=== PATIENT | female | born 1940 | race Caucasian/White ===

== ENCOUNTER 2023-05-20 01:28 | Inpatient (IN) | payer MEDICARE, SELFPAY ==
--- NOTE | ~2023-05-20 | CT_ITS ---
EXAMINATION: CT OF THE HEAD WITHOUT CONTRAST CLINICAL INFORMATION: Headache status post fall COMPARISON: None. TECHNIQUE: Noncontrast CT scan of the head was obtained from the base of the skull to the vertex. This CT examination was performed using dose optimization techniques as appropriate, variously including the following: *Automated exposure control *Adjustment of mA and/or kV according to patient size (this includes techniques or standardized protocols for targeted exams where dose is matched to indication/reason for exam; i.e. extremities or head) *Use of iterative reconstruction technique DLP: 568 mGy-cm FINDINGS: The ventricles and cisterns are normal in size, shape and configuration. There are no extra-axial surface collections or evidence of hemorrhage. Midline structures are central. The rouse/white differentiation is maintained. The orbits appear normal bilaterally. The paranasal sinuses are clear. No fractures are seen. CT/CT head/brain wo IV con IMPRESSION: Unremarkable examination. Pelvis with bilateral hip imaging 5 views. FINDINGS: Slightly limited positioning with no definite deformity of the femoral neck. Joint spaces preserved. Trochanters intact. Pubic bones grossly intact. IMPRESSION: No definite deformity.
--- NOTE | ~2023-05-20 | XR_ITS ---
EXAMINATION: XR HIP, LEFT CLINICAL INFORMATION: Left hip displaced transverse fracture through the subcapital left femoral neck with slight superior displacement of the distal fracture fragment. COMPARISON: CT left hip 06/11/2023, x-ray pelvis with bilateral hips 06/10/2023. TECHNIQUE: AP view of the pelvis and two views of the left hip. FINDINGS: Bones are diffusely demineralized. The subcapital fracture of the left hip was better characterized on CT scan of 06/11/2023. Moderate degenerative changes in the left hip joint. Visualization limited due to cross-table lateral technique with overlying soft tissues. XR/XR hip LT w PEL1V IMPRESSION: The subcapital fracture of the left hip was better characterized on CT scan of 06/11/2023.
--- NOTE | ~2023-05-20 | CT_ITS ---
EXAMINATION: CT HIP WITHOUT CONTRAST, LEFT CLINICAL INFORMATION: Fall. Hip pain. COMPARISON: Plain film exam left hip June 10, 2023 TECHNIQUE: Multidetector volumetric imaging was obtained through the left hip without contrast material. Multiplanar reformatted images were submitted in coronal and sagittal planes. This CT examination was performed using dose optimization techniques as appropriate, variously including the following: *Automated exposure control *Adjustment of mA and/or kV according to patient size (this includes techniques or standardized protocols for targeted exams where dose is matched to indication/reason for exam; i.e. extremities or head) *Use of iterative reconstruction technique DLP: 110 mGy-cm FINDINGS: There is a displaced transverse fracture through the subcapital left femoral neck. Slight superior displacement of the distal fracture fragment. Femoral head remains seated in the acetabulum. No fracture of the acetabulum. Visualized portions of the sacroiliac joint on the left and the symphysis pubis remain intact. No soft tissue large hematoma Large collection of stool in rectum. CT/CT hip LT wo IV con IMPRESSION: Displaced transverse fracture through the subcapital left femoral neck.
[2023-05-20 02:24] VITALS: BMI 18.2
[2023-05-20 02:26] VITALS: BP 141/68; PULSE 60; RESP 16; TEMP 36.5; O2SAT 95
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
[2023-05-20 07:55] VITALS: BP 122/79; PULSE 48; RESP 16; TEMP 36.1; O2SAT 97
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
--- NOTE | 2023-05-20 11:37 | HO.PM.IMCN ---
History of Present Illness Data of Consult Service Date: 05/20/23 Primary Care Provider: Unknown Physician HPI Reason for consult: Admission H&P Pt is a 82-year-old female with a PMH significant for unspecified dementia and HTN who is admitted to [facility] after increased combativeness over the past few weeks. Pt apparently was initially doing well at [facility] assisted living, but gradually became more combative likely secondary to being upset she was no longer living at home. Medical consult for admission H&P. ?Pt approached in common area where she is sitting by herself and crying. Reports she does not have any current or past medical issues, though adds she just had a baby two weeks ago. States she does not want to be seen for H&P, she just wants to go. Review of Systems Review of Systems: Pt declines interview, but states she has no medical issues PMFSH Medical History Insomnia Dementia Hypertension Social History Housing: Assisted Living Facility Do you presently have visiting nurse or other home services: No (Assisted living) Unable to assess alcohol history related to: Unable to respond Patient Tobacco Use Status: Never used Tobacco Use of substances other than those prescribed or required for medical reasons: No Currently Displaying Signs/Symptoms of Drug Intoxication Withdrawal: No Any prior treatment program specific to substance use: No Advance Directives: No Advance Directives Information Provided: No Do you have thoughts of harming others: None Do you have a plan to hurt others: No Plan Recently lost weight without trying: Unsure Eating poorly because of decreased appetite: Yes Nutrition Risks: No Nutritional Risk Patient : No : No Poor oral hygiene: No service: No Sexual orientation: Straight/Heterosexual Meds Allergies Allergy/AdvReac Type Severity Reaction Status Date / Time No Known Allergies Allergy Verified 05/20/23 02:08 Active Medications: Current Medications Acetaminophen (Acetaminophen 325 Mg Tablet) 650 mg PO Q6H PRN PRN Reason: Headache/Pain Mild Scale (1-3) Al Hydroxide/Mg Hydroxide (Magnesium Hydrox/Alum Hydrox 30 Ml Oral.Susp) 30 ml PO Q6H PRN PRN Reason: Heartburn/Nausea Lisinopril (Lisinopril 2.5 Mg Tablet) 2.5 mg PO DAILY YADIRA; Protocol Last Admin: 05/20/23 08:33 Dose: Not Given Magnesium Hydroxide (Milk Of Magnesia 30 Ml Oral.Susp) 30 ml PO DAILY PRN PRN Reason: Constipation Melatonin (Melatonin 3 Mg Tablet) 3 mg PO BEDTIME YADIRA Trazodone HCl (Trazodone Hcl 50 Mg Tablet) 50 mg PO BEDTIME MRX1 PRN PRN Reason: Insomnia Home Medications Medication Instructions Recorded Confirmed Last Taken Type acetaminophen 325 mg tablet 650 mg PO Q6H PRN Pain 05/20/23 05/20/23 Unknown History (Tylenol) lisinopril 2.5 mg tablet 2.5 mg PO DAILY 05/20/23 05/20/23 Unknown History melatonin 3 mg PO BEDTIME 05/20/23 05/20/23 Unknown History trazodone 50 mg tablet 50 mg PO BEDTIME 05/20/23 05/20/23 Unknown History Physical Exam Vital Signs and Narrative: Vital Signs: Last Vital Signs Temp 96.9 F 05/20/23 07:55 Pulse 48 L 05/20/23 07:55 Resp 16 05/20/23 07:55 BP 122/79 05/20/23 07:55 Pulse Ox 97 05/20/23 07:55 O2 Del Method Room Air 05/20/23 07:55 BMI result Body Mass Index 18.2 Pt declines full exam General: AOx1, no acute distress Resp: No in respiratory distress. Speaking in full sentences Neuro: Cranial nerves II-XII grossly intact bilaterally. Motor grossly intact bilaterally Psych: Confused, emotionally labile Assessment and Plan (1) Medical clearance for psychiatric admission: Status: Acute Plan Pt is a 82-year-old female with a PMH significant for unspecified dementia and HTN who is [facility] after increased combativeness over the past few weeks. Pt apparently was initially doing well at [facility] assisted living, but gradually became more combative likely secondary to being upset she was no longer living at home. Medical consult for admission H&P. Mood disorder/unspecified dementia Plan as per psychiatry HTN Continue lisinopril Insomnia Continue trazodone Thank you for allowing us to participate in the care of this patient. Signing off at this time. Please re-consult if any acute complaints or issues arise.
--- NOTE | 2023-05-20 13:42 | PC.NURSE ---
90cc of cloudy yellow urine obtained via clean catch from patient for U/A and C+S.
--- NOTE | 2023-05-20 13:58 | PC.NURSE ---
Patient is confused and refuses to sign her Behavioral Health treatment Plan and her Safety Tool today.
[2023-05-20 14:10] VITALS: BMI 18.2
[2023-05-20 14:12] LABS: Appearance Urine Turbid; Color Urine Yellow; Glucose Urine UA Negative (Negative); Leukocyte Esterase Urine Negative (Negative); Nitrite Urine Negative (Negative); PH 8.5 (5.0-9.0); Urine Blood Negative (Negative); Urine Ketones Negative (Negative); Urine Protein Negative (Neg-Trace)
[2023-05-20 14:18] LABS: Bacteria Urine None Seen (None Seen); Hyaline Casts Urine 0-2 /LPF (0-2); RBC Urine 0-2 /HPF (0-2); Squamous Epithelial Cell Urine 0-2 /HPF (0-2); WBC Urine 0-5 /HPF (0-5)
--- NOTE | 2023-05-20 15:40 | PC.NURSE ---
Clean catch urine was unremarkable so far.
[2023-05-20 15:53] VITALS: BMI 18.2
[2023-05-20 18:00] VITALS: BP 151/66; PULSE 60; RESP 18; TEMP 36.7; O2SAT 97
--- NOTE | 2023-05-20 18:33 | PC.NURSE ---
Patient's watch and bracelet with blue stones, silver toned removed and put into storage at the nurses station. Patient would not let staff remove her two rings, one with multiple clear stones and the other with a colored stone surrounded by several clear stones.
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
[2023-05-20] MEDS: Divalproex Sodium Sprinkles 125 MG CAP.DR.SPR PO (22:23)
[2023-05-20] MEDS: traZODone HCL 50 MG TABLET PO (22:23)
[2023-05-20] MEDS: OLANZapine 5 MG TABLET PO (22:23)
[2023-05-20] MEDS: Melatonin 3 MG TABLET PO (22:23)
[2023-05-21 08:59] LABS: Alanine Aminotransferase 8 U/L (0-31); Albumin Level 3.1 g/dL (3.5-5.0); Alkaline Phosphatase 69 U/L (39-117); Anion Gap 10 (12-20); Aspartate Amino Transferase 12 U/L (5-31); Bilirubin Total 0.7 mg/dL (0.0-1.0); Blood Urea Nitrogen 20 mg/dL (9-16); Calcium 10.9 mg/dL (8.4-10.2); Carbon Dioxide 26 mmol/L (22-29); Chloride 111 mmol/L (96-108); Cholesterol 138 mg/dL (<200); Creatinine Clr Calc Pharmacy 35.2; Estimated Glomerular Filt Rate > 60; Glucose Fasting 81 mg/dL (60-99); HDL Cholesterol 41 mg/dL (>40); LDL Cholesterol Calculated 85 mg/dL (<100); Potassium 3.5 mmol/L (3.3-5.1); Sodium 143 mmol/L (135-145); Total Protein 5.2 g/dL (6.5-8.0); Triglycerides 63 mg/dL (<150)
[2023-05-21 09:16] LABS: Thyroid Stimulating Hormone 0.66 uIU/mL (0.32-4.0)
[2023-05-21 09:25] LABS: Folate 6.1 ng/mL (> or = 4.0); Vitamin B12 205 pg/mL (200-900)
[2023-05-21 09:30] LABS: Estimated Average Glucose 100 mg/dL; Hemoglobin A1c % 5.1 % (<6.0)
[2023-05-21 10:44] VITALS: BP 138/89; PULSE 70; RESP 18; TEMP 36.3; O2SAT 97
[2023-05-21] MEDS: lisinopriL 2.5 MG TABLET PO (10:50)
[2023-05-21] MEDS: OLANZapine 5 MG TABLET PO ×2 (10:51→18:46)
--- NOTE | 2023-05-21 13:41 | PC.NURSE ---
Declined to take 0900 Depakote. Kiarra Garcia NP notified.
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
[2023-05-21 18:00] VITALS: BP 144/79; PULSE 68; RESP 18; TEMP 36.6; O2SAT 96
[2023-05-21] MEDS: Melatonin 3 MG TABLET PO (20:16)
[2023-05-21] MEDS: Divalproex Sodium Sprinkles 125 MG CAP.DR.SPR PO (20:16)
[2023-05-21] MEDS: Multivitamin TABLET 1 TAB PO (20:16)
[2023-05-21] MEDS: traZODone HCL 50 MG TABLET PO (20:16)
[2023-05-22 08:20] VITALS: BP 124/60; PULSE 46; RESP 18; TEMP 35.6; O2SAT 97
[2023-05-22] MEDS: Divalproex Sodium Sprinkles 125 MG CAP.DR.SPR PO ×2 (11:41→20:29)
[2023-05-22] MEDS: lisinopriL 2.5 MG TABLET PO (11:41)
[2023-05-22] MEDS: OLANZapine 5 MG TABLET PO ×3 (11:42→22:36)
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
[2023-05-22 19:35] VITALS: BP 148/67; PULSE 84; RESP 16; TEMP 36.2; O2SAT 94
[2023-05-22] MEDS: traZODone HCL 50 MG TABLET PO ×2 (20:29→22:36)
[2023-05-22] MEDS: Melatonin 3 MG TABLET PO (20:29)
[2023-05-22] MEDS: Multivitamin TABLET 1 TAB PO (20:29)
[2023-05-23] MEDS: Acetaminophen 325 MG TABLET 650 MG PO ×2 (00:08→19:54)
[2023-05-23] MEDS: QUEtiapine Fumarate 25 MG TABLET PO ×2 (00:08→16:26)
[2023-05-23] MEDS: Divalproex Sodium Sprinkles 125 MG CAP.DR.SPR PO ×2 (10:16→19:59)
[2023-05-23] MEDS: LORazepam 0.5 MG TABLET PO (10:16)
[2023-05-23 10:45] VITALS: BP 132/62; PULSE 63; RESP 17; TEMP 37.2; O2SAT 98
[2023-05-23] MEDS: lisinopriL 2.5 MG TABLET PO (10:47)
--- NOTE | 2023-05-23 12:30 | MHC.CLN ---
NUTRITION DIET=REGULAR. PATIENT IS UNDERWEIGHT WITH BMI=18.2. VARIABLE INTAKE. ADDING MAGIC CUP BID (580 KCALS, 18 G PROTEIN) TO INCREASE KCALS. RD TO MONITOR INTAKE AND WEIGHT WEEKLY..
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
[2023-05-23 18:00] VITALS: BP 130/58; PULSE 67; RESP 16; TEMP 36.5; O2SAT 95
[2023-05-23] MEDS: traZODone HCL 50 MG TABLET PO (19:53)
[2023-05-23] MEDS: Melatonin 3 MG TABLET PO (19:53)
[2023-05-23] MEDS: Multivitamin TABLET 1 TAB PO (19:54)
[2023-05-24 11:15] VITALS: BP 160/65; PULSE 56; RESP 16; TEMP 35.7; O2SAT 97
[2023-05-24] MEDS: lisinopriL 2.5 MG TABLET PO (11:22)
[2023-05-24] MEDS: Divalproex Sodium Sprinkles 125 MG CAP.DR.SPR PO ×2 (11:24→21:12)
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
[2023-05-24 18:00] VITALS: BP 125/61; PULSE 90; RESP 16; TEMP 37.3; O2SAT 96
[2023-05-24] MEDS: traZODone HCL 50 MG TABLET PO (21:12)
[2023-05-24] MEDS: Multivitamin TABLET 1 TAB PO (21:12)
[2023-05-24] MEDS: Melatonin 3 MG TABLET PO (21:12)
[2023-05-24] MEDS: QUEtiapine Fumarate 25 MG TABLET PO (21:12)
[2023-05-24] MEDS: LORazepam 0.5 MG TABLET PO (21:12)
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
[2023-05-25 14:20] VITALS: BP 119/57; PULSE 53; RESP 16; TEMP 36.9; O2SAT 98
[2023-05-25 18:00] VITALS: BP 146/73; PULSE 64; RESP 17; TEMP 36.3; O2SAT 98
[2023-05-25] MEDS: Divalproex Sodium Sprinkles 125 MG CAP.DR.SPR PO (20:29)
[2023-05-25] MEDS: Multivitamin TABLET 1 TAB PO (20:35)
[2023-05-25] MEDS: traZODone HCL 50 MG TABLET PO (20:35)
[2023-05-25] MEDS: Melatonin 3 MG TABLET PO (20:36)
[2023-05-26 07:00] VITALS: BMI 18.0
[2023-05-26 09:16] VITALS: BP 155/77; PULSE 63; RESP 16; TEMP 36.4; O2SAT 99
[2023-05-26] MEDS: Divalproex Sodium Sprinkles 125 MG CAP.DR.SPR PO ×2 (09:45→20:42)
[2023-05-26] MEDS: lisinopriL 2.5 MG TABLET PO (09:45)
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
[2023-05-26] MEDS: LORazepam 0.5 MG TABLET PO (17:06)
[2023-05-26 18:00] VITALS: BP 125/58; PULSE 72; RESP 17; TEMP 36.3; O2SAT 95
[2023-05-26] MEDS: QUEtiapine Fumarate 25 MG TABLET PO (20:43)
[2023-05-26] MEDS: Melatonin 3 MG TABLET PO (20:43)
[2023-05-26] MEDS: Multivitamin TABLET 1 TAB PO (20:43)
[2023-05-27 08:02] VITALS: BP 153/66; PULSE 76; RESP 16; TEMP 36; O2SAT 97
[2023-05-27] MEDS: Divalproex Sodium Sprinkles 125 MG CAP.DR.SPR PO ×2 (08:23→21:42)
[2023-05-27] MEDS: lisinopriL 2.5 MG TABLET PO (08:23)
[2023-05-27] MEDS: Memantine HCl 5 MG TABLET PO (08:23)
--- NOTE | 2023-05-27 11:21 | P.PNPSI_ITS ---
Subjective Subjective Date of Service: 05/27/23 Reason For Visit: Unspecified dementia Subjective Notes: Conditional Voluntary Interim History: Pt slept through the night. She ambulates on the unit, holding a stuffed cat, petting the cat, in NAD. Not oriented to place or situation. Review of Systems Review of Systems Pt declines interview, but states she has no medical issues Mental Status Exam Mental Status Exam Patient Appearance: Well Grooomed and Appropriate Patient Orientation: Person and Situation Level of Consciousness: Awake and Appropriate Patient Behavior: Guarded and Passive Mood Description: Withdrawn Affect Description: Constricted Patient Cognition Impaired: Yes Ability to Follow Directions: Good Speech Pattern: Clear Memory Description: Remote Impaired, Episodic Impaired, Short Term Intact and Working Impaired Diagnostics Vital Signs (24Hr): Vital Signs - 24 hr 05/26/23 18:00 05/27/23 08:02 Temperature 97.4 F 96.8 F Pulse Rate 72 76 Respiratory Rate 17 16 Blood Pressure 125/58 L 153/66 H Pulse Oximetry 95 97 Oxygen Delivery Method Room Air Room Air BMI result Body Mass Index 18.0 Labs 05/21/23 07:45 Medications Medications Current Medications Acetaminophen (Acetaminophen 325 Mg Tablet) 650 mg PO Q6H PRN PRN Reason: Headache/Pain Mild Scale (1-3) Last Admin: 05/23/23 19:54 Dose: 650 mg Al Hydroxide/Mg Hydroxide (Magnesium Hydrox/Alum Hydrox 30 Ml Oral.Susp) 30 ml PO Q6H PRN PRN Reason: Heartburn/Nausea Divalproex Sodium (Divalproex Sodium Sprinkles 125 Mg ) 125 mg PO BID [facility] Last Admin: 05/27/23 08:23 Dose: 125 mg Lisinopril (Lisinopril 2.5 Mg Tablet) 2.5 mg PO DAILY [facility]; Protocol Last Admin: 05/27/23 08:23 Dose: 2.5 mg Lorazepam (Lorazepam 0.5 Mg Tablet) 0.5 mg PO DAILY PRN PRN Reason: anxiety restlessness Last Admin: 05/26/23 17:06 Dose: 0.5 mg Magnesium Hydroxide (Milk Of Magnesia 30 Ml Oral.Susp) 30 ml PO DAILY PRN PRN Reason: Constipation Melatonin (Melatonin 3 Mg Tablet) 3 mg PO BEDTIME [facility] Last Admin: 05/26/23 20:43 Dose: 3 mg Memantine (Memantine Hcl 5 Mg Tablet) 5 mg PO DAILY [facility] Last Admin: 05/27/23 08:23 Dose: 5 mg Multivitamins/Vitamin C (Multivitamin Tablet) 1 tab PO BEDTIME [facility] Last Admin: 05/26/23 20:43 Dose: 1 tab Quetiapine Fumarate (Quetiapine Fumarate 25 Mg Tablet) 25 mg PO Q6H PRN PRN Reason: psychosis Last Admin: 05/24/23 21:12 Dose: 25 mg Quetiapine Fumarate (Quetiapine Fumarate 25 Mg Tablet) 25 mg PO BEDTIME [facility] Last Admin: 05/26/23 20:43 Dose: 25 mg Trazodone HCl (Trazodone Hcl 50 Mg Tablet) 50 mg PO BEDTIME MRX1 PRN PRN Reason: Insomnia Last Admin: 05/25/23 20:35 Dose: 50 mg Allergies Allergies Allergy/AdvReac Type Severity Reaction Status Date / Time No Known Allergies Allergy Verified 05/20/23 02:08 Assessment & Plan Assessment & Plan (1) Dementia: Status: Acute Code(s): F03.90 - Unspecified dementia, unspecified severity, without behavioral disturbance, psychotic disturbance, mood disturbance, and anxiety Plan The patient is an elderly female with a past history of dementia who was brought to the emergency room of another hospital for an episode of agitation has not been progressed. Apparently she was been diagnosed with a UTI and treated with antibiotics that were completed but she remains confused and assaultive at times. There was reported she used to abuse alcohol but she had been clean and sober most likely her dementia is related to alcohol use disorder. 1. Gather collateral information. The patient is a very poor historian unable to provide any details. 2. Medical consult completed- no new medical issues. 3. Fifteen minute checks. 4. continue a low dose of Depakote to target mood lability. 5. On May 23 we change the p.r.n. from Zyprexa to Seroquel. 6. Start Namenda 5 mg p.o. q.h.s. Reason for continued inpatient stay Substantial Risk for: inability to function Time Spent With Patient Time: Total time managing care of this patient today ____ minutes.
--- NOTE | 2023-05-27 13:45 | MHC.CLN ---
F/U DIET=REGULAR. PROVIDE MAGIC CUP BID (580 KCALS, 18 G PROTEIN) TO INCREASE KCALS. REVIEW OF RECENT INTAKE SHOWS 50-100% AT LUNCH AND SUPPER. WEIGHT HX SHOWS 1# LOSS SINCE ADM, NOT SIGNIFICANT. RD TO MONITOR INTAKE AND WEIGHT WEEKLY.
[2023-05-27] MEDS: LORazepam 0.5 MG TABLET PO (16:22)
[2023-05-27 18:00] VITALS: BP 120/80; PULSE 71; RESP 17; TEMP 36.2; O2SAT 99
[2023-05-27] MEDS: Melatonin 3 MG TABLET PO (21:40)
[2023-05-27] MEDS: Multivitamin TABLET 1 TAB PO (21:40)
[2023-05-27] MEDS: QUEtiapine Fumarate 25 MG TABLET PO (21:41)
[2023-05-28 08:05] VITALS: BP 156/74; PULSE 70; RESP 16; TEMP 36.7; O2SAT 98
[2023-05-28] MEDS: lisinopriL 2.5 MG TABLET PO (08:50)
[2023-05-28] MEDS: Divalproex Sodium Sprinkles 125 MG CAP.DR.SPR PO (08:50)
[2023-05-28] MEDS: Memantine HCl 5 MG TABLET PO (08:59)
--- NOTE | 2023-05-28 11:46 | P.PNPSI_ITS ---
Subjective Subjective Date of Service: 05/28/23 Reason For Visit: Unspecified dementia Interim History: calm, cooperative. says in response to query as to how she is doing, just sleeping. no questions or complaints. Mental Status Exam Mental Status Exam Patient Appearance: Well Grooomed and Appropriate Patient Orientation: Person and Situation Level of Consciousness: Awake and Appropriate Patient Behavior: Guarded and Passive Mood Description: Withdrawn Affect Description: Constricted Patient Cognition Impaired: Yes Ability to Follow Directions: Good Speech Pattern: Clear Memory Description: Remote Impaired, Episodic Impaired, Short Term Intact and Working Impaired Diagnostics Vital Signs (24Hr): Vital Signs - 24 hr 05/27/23 18:00 05/28/23 08:05 Temperature 97.2 F 98.1 F Pulse Rate 71 70 Respiratory Rate 17 16 Blood Pressure 120/80 156/74 H Pulse Oximetry 99 98 Oxygen Delivery Method Room Air Room Air BMI result Body Mass Index 18.0 Labs 05/21/23 07:45 Medications Medications Current Medications Acetaminophen (Acetaminophen 325 Mg Tablet) 650 mg PO Q6H PRN PRN Reason: Headache/Pain Mild Scale (1-3) Last Admin: 05/23/23 19:54 Dose: 650 mg Al Hydroxide/Mg Hydroxide (Magnesium Hydrox/Alum Hydrox 30 Ml Oral.Susp) 30 ml PO Q6H PRN PRN Reason: Heartburn/Nausea Divalproex Sodium (Divalproex Sodium Sprinkles 125 Mg ) 125 mg PO BID [facility] Last Admin: 05/28/23 08:50 Dose: 125 mg Lisinopril (Lisinopril 2.5 Mg Tablet) 2.5 mg PO DAILY [facility]; Protocol Last Admin: 05/28/23 08:50 Dose: 2.5 mg Magnesium Hydroxide (Milk Of Magnesia 30 Ml Oral.Susp) 30 ml PO DAILY PRN PRN Reason: Constipation Melatonin (Melatonin 3 Mg Tablet) 3 mg PO BEDTIME [facility] Last Admin: 05/27/23 21:40 Dose: 3 mg Memantine (Memantine Hcl 5 Mg Tablet) 5 mg PO DAILY [facility] Last Admin: 05/28/23 08:59 Dose: 5 mg Multivitamins/Vitamin C (Multivitamin Tablet) 1 tab PO BEDTIME [facility] Last Admin: 05/27/23 21:40 Dose: 1 tab Quetiapine Fumarate (Quetiapine Fumarate 25 Mg Tablet) 25 mg PO Q6H PRN PRN Reason: psychosis Last Admin: 05/24/23 21:12 Dose: 25 mg Quetiapine Fumarate (Quetiapine Fumarate 25 Mg Tablet) 25 mg PO BEDTIME [facility] Last Admin: 05/27/23 21:41 Dose: 25 mg Trazodone HCl (Trazodone Hcl 50 Mg Tablet) 50 mg PO BEDTIME MRX1 PRN PRN Reason: Insomnia Last Admin: 05/25/23 20:35 Dose: 50 mg Allergies Allergies Allergy/AdvReac Type Severity Reaction Status Date / Time No Known Allergies Allergy Verified 05/20/23 02:08 Assessment & Plan Assessment & Plan (1) Dementia: Status: Acute Code(s): F03.90 - Unspecified dementia, unspecified severity, without behavioral disturbance, psychotic disturbance, mood disturbance, and anxiety Plan The patient is an elderly female with a past history of dementia who was brought to the emergency room of another hospital for an episode of agitation has not been progressed. Apparently she was been diagnosed with a UTI and treated with antibiotics that were completed but she remains confused and assaultive at times. There was reported she used to abuse alcohol but she had been clean and sober most likely her dementia is related to alcohol use disorder. 1. Gather collateral information. The patient is a very poor historian unable to provide any details. 2. Medical consult completed- no new medical issues. 3. Fifteen minute checks. 4. continue a low dose of Depakote to target mood lability. 5. On May 23 we change the p.r.n. from Zyprexa to Seroquel. 6. Start Namenda 5 mg p.o. q.h.s. 2/3: calm, cooperative. no questions or complaints. Reason for continued inpatient stay Substantial Risk for: inability to function and rapid decompensation Time Spent With Patient Time: Total time managing care of this patient today ____ minutes.
[2023-05-28 18:00] VITALS: BP 128/60; PULSE 73; RESP 18; TEMP 36.8; O2SAT 98
[2023-05-29 08:12] VITALS: BP 134/63; PULSE 52; RESP 16; TEMP 36.4; O2SAT 96
[2023-05-29] MEDS: Divalproex Sodium Sprinkles 125 MG CAP.DR.SPR PO ×2 (08:21→20:13)
[2023-05-29] MEDS: Memantine HCl 5 MG TABLET PO (08:21)
[2023-05-29] MEDS: lisinopriL 2.5 MG TABLET PO (08:21)
--- NOTE | 2023-05-29 11:19 | HO.PSYCHPN ---
Subjective Subjective Date of Service: 05/29/23 Reason For Visit: Unspecified dementia Interim History: sleeping mid-morning, rousable. no questions or complaints. per staff, very confused. notable sundowning. eating and sleeping well. Mental Status Exam Mental Status Exam Patient Appearance: Well Grooomed and Appropriate Patient Orientation: Person and Situation Level of Consciousness: Awake and Appropriate Patient Behavior: Guarded and Passive Mood Description: Withdrawn Affect Description: Constricted Patient Cognition Impaired: Yes Ability to Follow Directions: Good Speech Pattern: Clear Memory Description: Remote Impaired, Episodic Impaired, Short Term Intact and Working Impaired Diagnostics Vital Signs (24Hr): Vital Signs - 24 hr 05/28/23 18:00 05/29/23 08:12 Temperature 98.2 F 97.6 F Pulse Rate 73 52 Respiratory Rate 18 16 Blood Pressure 128/60 134/63 Pulse Oximetry 98 96 Oxygen Delivery Method Room Air Room Air BMI result Body Mass Index 18.0 Labs 05/21/23 07:45 Medications Medications Current Medications Acetaminophen (Acetaminophen 325 Mg Tablet) 650 mg PO Q6H PRN PRN Reason: Headache/Pain Mild Scale (1-3) Last Admin: 05/23/23 19:54 Dose: 650 mg Al Hydroxide/Mg Hydroxide (Magnesium Hydrox/Alum Hydrox 30 Ml Oral.Susp) 30 ml PO Q6H PRN PRN Reason: Heartburn/Nausea Divalproex Sodium (Divalproex Sodium Sprinkles 125 Mg Jared.) 125 mg PO BID [facility] Last Admin: 05/29/23 08:21 Dose: 125 mg Lisinopril (Lisinopril 2.5 Mg Tablet) 2.5 mg PO DAILY [facility]; Protocol Last Admin: 05/29/23 08:21 Dose: 2.5 mg Magnesium Hydroxide (Milk Of Magnesia 30 Ml Oral.Susp) 30 ml PO DAILY PRN PRN Reason: Constipation Melatonin (Melatonin 3 Mg Tablet) 3 mg PO BEDTIME [facility] Last Admin: 05/28/23 22:05 Dose: Not Given Memantine (Memantine Hcl 5 Mg Tablet) 5 mg PO DAILY [facility] Last Admin: 05/29/23 08:21 Dose: 5 mg Multivitamins/Vitamin C (Multivitamin Tablet) 1 tab PO BEDTIME [facility] Last Admin: 05/28/23 22:05 Dose: Not Given Quetiapine Fumarate (Quetiapine Fumarate 25 Mg Tablet) 25 mg PO Q6H PRN PRN Reason: psychosis Last Admin: 05/24/23 21:12 Dose: 25 mg Quetiapine Fumarate (Quetiapine Fumarate 25 Mg Tablet) 25 mg PO BEDTIME [facility] Last Admin: 05/28/23 22:05 Dose: Not Given Trazodone HCl (Trazodone Hcl 50 Mg Tablet) 50 mg PO BEDTIME MRX1 PRN PRN Reason: Insomnia Last Admin: 05/25/23 20:35 Dose: 50 mg Allergies Allergies Allergy/AdvReac Type Severity Reaction Status Date / Time No Known Allergies Allergy Verified 05/20/23 02:08 Assessment & Plan Assessment & Plan (1) Dementia: Status: Acute Code(s): F03.90 - Unspecified dementia, unspecified severity, without behavioral disturbance, psychotic disturbance, mood disturbance, and anxiety Plan The patient is an elderly female with a past history of dementia who was brought to the emergency room of another hospital for an episode of agitation has not been progressed. Apparently she was been diagnosed with a UTI and treated with antibiotics that were completed but she remains confused and assaultive at times. There was reported she used to abuse alcohol but she had been clean and sober most likely her dementia is related to alcohol use disorder. 1. Gather collateral information. The patient is a very poor historian unable to provide any details. 2. Medical consult completed- no new medical issues. 3. Fifteen minute checks. 4. continue a low dose of Depakote to target mood lability. 5. On May 23 we change the p.r.n. from Zyprexa to Seroquel. 6. Start Namenda 5 mg p.o. q.h.s. 2/3: calm, cooperative. no questions or complaints. 2/4: no change in presentation. continue current mgmt. Reason for continued inpatient stay Substantial Risk for: inability to function Time Spent With Patient Time: Total time managing care of this patient today ____ minutes.
[2023-05-29] MEDS: Milk of Magnesia 30 ML ORAL.SUSP PO (11:55)
[2023-05-29] MEDS: QUEtiapine Fumarate 25 MG TABLET PO ×2 (12:09→20:14)
[2023-05-29 18:00] VITALS: BP 153/82; PULSE 72; RESP 18; TEMP 36.5; O2SAT 97
[2023-05-29] MEDS: Melatonin 3 MG TABLET PO (20:14)
[2023-05-29] MEDS: Multivitamin TABLET 1 TAB PO (20:14)
[2023-05-30 07:54] VITALS: BP 151/72; PULSE 52; RESP 18; TEMP 36.4; O2SAT 99
[2023-05-30] MEDS: Memantine HCl 5 MG TABLET PO (08:12)
[2023-05-30] MEDS: Divalproex Sodium Sprinkles 125 MG CAP.DR.SPR PO ×2 (08:12→20:41)
[2023-05-30] MEDS: lisinopriL 2.5 MG TABLET PO (08:12)
--- NOTE | 2023-05-30 08:37 | HO.PSYCHPN ---
Subjective Subjective Date of Service: 05/30/23 Reason For Visit: Unspecified dementia Subjective Notes: Conditional Voluntary Healthcare Proxy: Yes Interim History: Pt slept through the night. No overt behavioral concerns. She is taking medications as prescribed. She is not oriented to place, month, year or situation. She is pleasant on approach. She hold this automatic typewriter inspector's hands and notes that they are cold, asks if she can warm them. SBP slightly elevated 150's. continue to monitor. Review of Systems Review of Systems Pt declines interview, but states she has no medical issues Mental Status Exam Mental Status Exam Patient Appearance: Well Grooomed and Appropriate Patient Orientation: Person and Situation Level of Consciousness: Awake and Appropriate Patient Behavior: Guarded and Passive Mood Description: Withdrawn Affect Description: Constricted Patient Cognition Impaired: Yes Ability to Follow Directions: Good Speech Pattern: Clear Memory Description: Remote Impaired, Episodic Impaired, Short Term Intact and Working Impaired Diagnostics Vital Signs (24Hr): Vital Signs - 24 hr 05/29/23 18:00 05/30/23 07:54 Temperature 97.7 F 97.5 F Pulse Rate 72 52 Respiratory Rate 18 18 Blood Pressure 153/82 H 151/72 H Pulse Oximetry 97 99 Oxygen Delivery Method Room Air Room Air BMI result Body Mass Index 18.0 Labs 05/21/23 07:45 Medications Medications Current Medications Acetaminophen (Acetaminophen 325 Mg Tablet) 650 mg PO Q6H PRN PRN Reason: Headache/Pain Mild Scale (1-3) Last Admin: 05/23/23 19:54 Dose: 650 mg Al Hydroxide/Mg Hydroxide (Magnesium Hydrox/Alum Hydrox 30 Ml Oral.Susp) 30 ml PO Q6H PRN PRN Reason: Heartburn/Nausea Divalproex Sodium (Divalproex Sodium Sprinkles 125 Mg ) 125 mg PO BID [facility] Last Admin: 05/30/23 08:12 Dose: 125 mg Lisinopril (Lisinopril 2.5 Mg Tablet) 2.5 mg PO DAILY [facility]; Protocol Last Admin: 05/30/23 08:12 Dose: 2.5 mg Magnesium Hydroxide (Milk Of Magnesia 30 Ml Oral.Susp) 30 ml PO DAILY PRN PRN Reason: Constipation Last Admin: 05/29/23 11:55 Dose: 30 ml Melatonin (Melatonin 3 Mg Tablet) 3 mg PO BEDTIME [facility] Last Admin: 05/29/23 20:14 Dose: 3 mg Memantine (Memantine Hcl 5 Mg Tablet) 5 mg PO DAILY [facility] Last Admin: 05/30/23 08:12 Dose: 5 mg Multivitamins/Vitamin C (Multivitamin Tablet) 1 tab PO BEDTIME [facility] Last Admin: 05/29/23 20:14 Dose: 1 tab Quetiapine Fumarate (Quetiapine Fumarate 25 Mg Tablet) 25 mg PO Q6H PRN PRN Reason: psychosis Last Admin: 05/29/23 12:09 Dose: 25 mg Quetiapine Fumarate (Quetiapine Fumarate 25 Mg Tablet) 25 mg PO BEDTIME [facility] Last Admin: 05/29/23 20:14 Dose: 25 mg Trazodone HCl (Trazodone Hcl 50 Mg Tablet) 50 mg PO BEDTIME MRX1 PRN PRN Reason: Insomnia Last Admin: 05/25/23 20:35 Dose: 50 mg Allergies Allergies Allergy/AdvReac Type Severity Reaction Status Date / Time No Known Allergies Allergy Verified 05/20/23 02:08 Assessment & Plan Assessment & Plan (1) Dementia: Status: Acute Code(s): F03.90 - Unspecified dementia, unspecified severity, without behavioral disturbance, psychotic disturbance, mood disturbance, and anxiety Plan The patient is an elderly female with a past history of dementia who was brought to the emergency room of another hospital for an episode of agitation has not been progressed. Apparently she was been diagnosed with a UTI and treated with antibiotics that were completed but she remains confused and assaultive at times. There was reported she used to abuse alcohol but she had been clean and sober most likely her dementia is related to alcohol use disorder. 1. Gather collateral information. The patient is a very poor historian unable to provide any details. 2. Medical consult completed- no new medical issues. 3. Fifteen minute checks. 4. continue a low dose of Depakote to target mood lability. 5. On May 23 we change the p.r.n. from Zyprexa to Seroquel. 6. Start Namenda 5 mg p.o. q.h.s. 2/3: calm, cooperative. no questions or complaints. 2/4: no change in presentation. continue current mgmt. 2/5 continue tx. Reason for continued inpatient stay Substantial Risk for: inability to function Time Spent With Patient Time: Total time managing care of this patient today ____ minutes.
--- NOTE | 2023-05-30 11:02 | PC.NURSE ---
HR 52 this morning and asymptomatic. Anna Hollingsworth NP notified.
[2023-05-30 18:00] VITALS: BP 153/83; PULSE 82; RESP 18; TEMP 36.4; O2SAT 97
[2023-05-30] MEDS: QUEtiapine Fumarate 25 MG TABLET PO (20:41)
[2023-05-30] MEDS: Multivitamin TABLET 1 TAB PO (20:41)
[2023-05-30] MEDS: Melatonin 3 MG TABLET PO (20:41)
[2023-05-30] MEDS: traZODone HCL 50 MG TABLET PO (20:41)
[2023-05-31 08:21] VITALS: BP 176/75; PULSE 55; RESP 16; TEMP 36.2; O2SAT 100
[2023-05-31] MEDS: Memantine HCl 5 MG TABLET PO (08:54)
[2023-05-31] MEDS: lisinopriL 2.5 MG TABLET PO (08:54)
[2023-05-31] MEDS: Divalproex Sodium Sprinkles 125 MG CAP.DR.SPR PO ×2 (08:54→20:03)
--- NOTE | 2023-05-31 10:19 | HO.PSYCHPN ---
Subjective Subjective Date of Service: 05/31/23 Reason For Visit: Unspecified dementia Subjective Notes: Conditional Voluntary Interim History: The nursing staff reported the patient had been fully compliant with treatment, no acute changes and she slept 8 hours but she is labile at times. On interview the patient is pleasantly confused, easily redirectable. Expansive mood at times, disorganized. Mental Status Exam Mental Status Exam Patient Appearance: Appropriate Patient Orientation: Person Level of Consciousness: Awake and Alert Patient Behavior: Guarded and Passive Mood Description: Withdrawn Affect Description: Blunted Patient Cognition Impaired: Yes Ability to Follow Directions: Good Speech Pattern: Clear Hallucinations: None Delusions: Not Present Thought Process: Distracted and Evasive Thought Content: positive for Sisters and positive for Poverty of Content Judgement: Poor Diagnostics Vital Signs (24Hr): Vital Signs - 24 hr 05/30/23 18:00 05/31/23 08:21 Temperature 97.5 F 97.2 F Pulse Rate 82 55 Respiratory Rate 18 16 Blood Pressure 153/83 H 176/75 H Pulse Oximetry 97 100 Oxygen Delivery Method Room Air Room Air BMI result Body Mass Index 18.0 Labs 05/21/23 07:45 Medications Medications Current Medications Acetaminophen (Acetaminophen 325 Mg Tablet) 650 mg PO Q6H PRN PRN Reason: Headache/Pain Mild Scale (1-3) Last Admin: 05/23/23 19:54 Dose: 650 mg Al Hydroxide/Mg Hydroxide (Magnesium Hydrox/Alum Hydrox 30 Ml Oral.Susp) 30 ml PO Q6H PRN PRN Reason: Heartburn/Nausea Divalproex Sodium (Divalproex Sodium Sprinkstephany 125 Mg ) 125 mg PO BID [facility] Last Admin: 05/31/23 08:54 Dose: 125 mg Lisinopril (Lisinopril 2.5 Mg Tablet) 2.5 mg PO DAILY [facility]; Protocol Last Admin: 05/31/23 08:54 Dose: 2.5 mg Magnesium Hydroxide (Milk Of Magnesia 30 Ml Oral.Susp) 30 ml PO DAILY PRN PRN Reason: Constipation Last Admin: 05/29/23 11:55 Dose: 30 ml Melatonin (Melatonin 3 Mg Tablet) 3 mg PO BEDTIME [facility] Last Admin: 05/30/23 20:41 Dose: 3 mg Memantine (Memantine Hcl 5 Mg Tablet) 5 mg PO DAILY [facility] Last Admin: 05/31/23 08:54 Dose: 5 mg Multivitamins/Vitamin C (Multivitamin Tablet) 1 tab PO BEDTIME [facility] Last Admin: 05/30/23 20:41 Dose: 1 tab Quetiapine Fumarate (Quetiapine Fumarate 25 Mg Tablet) 25 mg PO Q6H PRN PRN Reason: psychosis Last Admin: 05/29/23 12:09 Dose: 25 mg Quetiapine Fumarate (Quetiapine Fumarate 25 Mg Tablet) 25 mg PO BEDTIME [facility] Last Admin: 05/30/23 20:41 Dose: 25 mg Trazodone HCl (Trazodone Hcl 50 Mg Tablet) 50 mg PO BEDTIME MRX1 PRN PRN Reason: Insomnia Last Admin: 05/30/23 20:41 Dose: 50 mg Allergies Allergies Allergy/AdvReac Type Severity Reaction Status Date / Time No Known Allergies Allergy Verified 05/20/23 02:08 Assessment & Plan Assessment & Plan (1) Dementia: Status: Acute Code(s): F03.90 - Unspecified dementia, unspecified severity, without behavioral disturbance, psychotic disturbance, mood disturbance, and anxiety Plan The patient is an elderly female with a past history of dementia who was brought to the emergency room of another hospital for an episode of agitation has not been progressed. Apparently she was been diagnosed with a UTI and treated with antibiotics that were completed but she remains confused and assaultive at times. There was reported she used to abuse alcohol but she had been clean and sober most likely her dementia is related to alcohol use disorder. 1. Gather collateral information. The patient is a very poor historian unable to provide any details. 2. Medical consult completed- no new medical issues. 3. Fifteen minute checks. 4. continue a low dose of Depakote to target mood lability. 5. On May 23 we change the p.r.n. from Zyprexa to Seroquel. 6. Start Namenda 5 mg p.o. q.h.s. Reason for continued inpatient stay Substantial Risk for: inability to function, rapid decompensation and med/psych decompensation Time Spent With Patient Time: Total time managing care of this patient today __20__ minutes.
[2023-05-31 10:59] VITALS: BP 143/67; PULSE 63
--- NOTE | 2023-05-31 11:05 | PC.NURSE ---
Morning BP 176/75, hr 55. Bobby ferrer and MD Sutherland notified. Lisinopril administered as ordered and recheck of BP 143/67 and hr 63; MD Sutherland notified.
[2023-05-31 19:40] VITALS: BP 162/70; PULSE 64; RESP 18; TEMP 36.3; O2SAT 97
[2023-05-31] MEDS: QUEtiapine Fumarate 25 MG TABLET PO (20:03)
[2023-05-31] MEDS: Melatonin 3 MG TABLET PO (20:03)
[2023-05-31] MEDS: Multivitamin TABLET 1 TAB PO (20:03)
[2023-05-31] MEDS: traZODone HCL 50 MG TABLET PO (20:03)
[2023-06-01] MEDS: Memantine HCl 5 MG TABLET PO (09:39)
[2023-06-01] MEDS: lisinopriL 2.5 MG TABLET PO (09:40)
[2023-06-01] MEDS: Divalproex Sodium Sprinkles 125 MG CAP.DR.SPR PO ×3 (09:40→20:22)
[2023-06-01 09:52] VITALS: BP 128/61; PULSE 60; RESP 16; TEMP 36.8; O2SAT 96
--- NOTE | 2023-06-01 12:53 | HO.PSYCHPN ---
Subjective Subjective Date of Service: 06/01/23 Reason For Visit: Unspecified dementia Subjective Notes: Conditional Voluntary Interim History: The nursing staff reported the patient had been labile, redirectable fully compliant with treatment and she slept 7 hours. The social security specialist reported the daughter called and apparently she does not qualify for [employer] and since has to be self paid for long-term care. On interview the patient is pleasantly confused but restless at times so we are going to increase Depakote up to 125 mg p.o. t.i.d. Mental Status Exam Mental Status Exam Patient Orientation: Person Level of Consciousness: Awake Patient Behavior: Guarded and Passive Mood Description: Withdrawn Affect Description: Constricted Patient Cognition Impaired: Yes Ability to Follow Directions: Good Speech Pattern: Clear Hallucinations: None Delusions: Not Present Thought Process: Incoherent and Evasive Thought Content: positive for [place] Judgement: Poor Diagnostics Vital Signs (24Hr): Vital Signs - 24 hr 05/31/23 19:40 06/01/23 09:52 Temperature 97.4 F 98.3 F Pulse Rate 64 60 Respiratory Rate 18 16 Blood Pressure 162/70 H 128/61 Pulse Oximetry 97 96 Oxygen Delivery Method Room Air Room Air BMI result Body Mass Index 18.0 Labs 05/21/23 07:45 Medications Medications Current Medications Acetaminophen (Acetaminophen 325 Mg Tablet) 650 mg PO Q6H PRN PRN Reason: Headache/Pain Mild Scale (1-3) Last Admin: 05/23/23 19:54 Dose: 650 mg Al Hydroxide/Mg Hydroxide (Magnesium Hydrox/Alum Hydrox 30 Ml Oral.Susp) 30 ml PO Q6H PRN PRN Reason: Heartburn/Nausea Divalproex Sodium (Divalproex Sodium Sprinkles 125 Mg ) 125 mg PO TID [facility] Last Admin: 06/01/23 09:40 Dose: 125 mg Lisinopril (Lisinopril 2.5 Mg Tablet) 2.5 mg PO DAILY [facility]; Protocol Last Admin: 06/01/23 09:40 Dose: 2.5 mg Magnesium Hydroxide (Milk Of Magnesia 30 Ml Oral.Susp) 30 ml PO DAILY PRN PRN Reason: Constipation Last Admin: 05/29/23 11:55 Dose: 30 ml Melatonin (Melatonin 3 Mg Tablet) 3 mg PO BEDTIME [facility] Last Admin: 05/31/23 20:03 Dose: 3 mg Memantine (Memantine Hcl 5 Mg Tablet) 5 mg PO DAILY [facility] Last Admin: 06/01/23 09:39 Dose: 5 mg Multivitamins/Vitamin C (Multivitamin Tablet) 1 tab PO BEDTIME [facility] Last Admin: 05/31/23 20:03 Dose: 1 tab Quetiapine Fumarate (Quetiapine Fumarate 25 Mg Tablet) 25 mg PO Q6H PRN PRN Reason: psychosis Last Admin: 05/29/23 12:09 Dose: 25 mg Quetiapine Fumarate (Quetiapine Fumarate 25 Mg Tablet) 25 mg PO BEDTIME [facility] Last Admin: 05/31/23 20:03 Dose: 25 mg Trazodone HCl (Trazodone Hcl 50 Mg Tablet) 50 mg PO BEDTIME MRX1 PRN PRN Reason: Insomnia Last Admin: 05/31/23 20:03 Dose: 50 mg Allergies Allergies Allergy/AdvReac Type Severity Reaction Status Date / Time No Known Allergies Allergy Verified 05/20/23 02:08 Assessment & Plan Assessment & Plan (1) Dementia: Status: Acute Code(s): F03.90 - Unspecified dementia, unspecified severity, without behavioral disturbance, psychotic disturbance, mood disturbance, and anxiety Plan The patient is an elderly female with a past history of dementia who was brought to the emergency room of another hospital for an episode of agitation has not been progressed. Apparently she was been diagnosed with a UTI and treated with antibiotics that were completed but she remains confused and assaultive at times. There was reported she used to abuse alcohol but she had been clean and sober most likely her dementia is related to alcohol use disorder. 1. Gather collateral information. The patient is a very poor historian unable to provide any details. 2. Medical consult completed- no new medical issues. 3. Fifteen minute checks. 4. continue a low dose of Depakote to target mood lability. On May 01 we increased up to 125 mg p.o. t.i.d. to target mood lability 5. On May 23 we change the p.r.n. from Zyprexa to Seroquel. 6. Start Namenda 5 mg p.o. q.h.s. Reason for continued inpatient stay Substantial Risk for: inability to function, rapid decompensation and med/psych decompensation Time Spent With Patient Time: Total time managing care of this patient today __20__ minutes.
--- NOTE | 2023-06-01 14:55 | MHC.CLN ---
F/U DIET=REGULAR. PROVIDE MAGIC CUP BID (580 KCALS, 18 G PROTEIN) TO INCREASE KCALS. REVIEW OF RECENT INTAKE SHOWS POOR PO. RD TO MONITOR INTAKE AND WEIGHT WEEKLY.
[2023-06-01 18:00] VITALS: BP 133/83; PULSE 64; RESP 18; TEMP 36; O2SAT 99
[2023-06-01] MEDS: QUEtiapine Fumarate 25 MG TABLET PO (20:22)
[2023-06-01] MEDS: Melatonin 3 MG TABLET PO (20:22)
[2023-06-01] MEDS: Multivitamin TABLET 1 TAB PO (20:22)
[2023-06-02 09:00] VITALS: BP 132/72; PULSE 62; RESP 18; TEMP 36.4; O2SAT 99
[2023-06-02] MEDS: Memantine HCl 5 MG TABLET PO ×2 (10:08→20:55)
[2023-06-02] MEDS: Divalproex Sodium Sprinkles 125 MG CAP.DR.SPR PO ×3 (10:09→20:55)
[2023-06-02] MEDS: lisinopriL 2.5 MG TABLET PO (10:09)
--- NOTE | 2023-06-02 13:40 | HO.PSYCHPN ---
Subjective Subjective Date of Service: 06/02/23 Reason For Visit: Unspecified dementia Subjective Notes: Conditional Voluntary Interim History: The nursing staff reported the patient had been wandering, and cooperative with care at times but redirectable. The psychosocial rehabilitation counselor reported that he spoke with her daughter and they are doing the bed search for long-term care. On interview the patient is very confused but redirectable pleasant. Mental Status Exam Mental Status Exam Patient Appearance: Appropriate Patient Orientation: Person Level of Consciousness: Disoriented Patient Behavior: Passive Mood Description: Calm Affect Description: Labile Patient Cognition Impaired: Yes Ability to Follow Directions: Good Speech Pattern: Clear Hallucinations: None Delusions: Not Present Thought Process: Distracted Thought Content: positive for [place] Judgement: Poor Diagnostics Vital Signs (24Hr): Vital Signs - 24 hr 06/01/23 18:00 06/02/23 09:00 Temperature 96.8 F 97.5 F Pulse Rate 64 62 Respiratory Rate 18 18 Blood Pressure 133/83 132/72 Pulse Oximetry 99 99 Oxygen Delivery Method Room Air Room Air BMI result Body Mass Index 18.0 Labs 05/21/23 07:45 Medications Medications Current Medications Acetaminophen (Acetaminophen 325 Mg Tablet) 650 mg PO Q6H PRN PRN Reason: Headache/Pain Mild Scale (1-3) Last Admin: 05/23/23 19:54 Dose: 650 mg Al Hydroxide/Mg Hydroxide (Magnesium Hydrox/Alum Hydrox 30 Ml Oral.Susp) 30 ml PO Q6H PRN PRN Reason: Heartburn/Nausea Divalproex Sodium (Divalproex Sodium Sprinkles 125 Mg ) 125 mg PO TID [facility] Last Admin: 06/02/23 10:09 Dose: 125 mg Lisinopril (Lisinopril 2.5 Mg Tablet) 2.5 mg PO DAILY [facility]; Protocol Last Admin: 06/02/23 10:09 Dose: 2.5 mg Magnesium Hydroxide (Milk Of Magnesia 30 Ml Oral.Susp) 30 ml PO DAILY PRN PRN Reason: Constipation Last Admin: 05/29/23 11:55 Dose: 30 ml Melatonin (Melatonin 3 Mg Tablet) 3 mg PO BEDTIME [facility] Last Admin: 06/01/23 20:22 Dose: 3 mg Memantine (Memantine Hcl 5 Mg Tablet) 5 mg PO BID [facility] Multivitamins/Vitamin C (Multivitamin Tablet) 1 tab PO BEDTIME [facility] Last Admin: 06/01/23 20:22 Dose: 1 tab Quetiapine Fumarate (Quetiapine Fumarate 25 Mg Tablet) 25 mg PO Q6H PRN PRN Reason: psychosis Last Admin: 05/29/23 12:09 Dose: 25 mg Quetiapine Fumarate (Quetiapine Fumarate 25 Mg Tablet) 25 mg PO BEDTIME [facility] Last Admin: 06/01/23 20:22 Dose: 25 mg Trazodone HCl (Trazodone Hcl 50 Mg Tablet) 50 mg PO BEDTIME MRX1 PRN PRN Reason: Insomnia Last Admin: 05/31/23 20:03 Dose: 50 mg Allergies Allergies Allergy/AdvReac Type Severity Reaction Status Date / Time No Known Allergies Allergy Verified 05/20/23 02:08 Assessment & Plan Assessment & Plan (1) Dementia: Status: Acute Code(s): F03.90 - Unspecified dementia, unspecified severity, without behavioral disturbance, psychotic disturbance, mood disturbance, and anxiety Plan The patient is an elderly female with a past history of dementia who was brought to the emergency room of another hospital for an episode of agitation has not been progressed. Apparently she was been diagnosed with a UTI and treated with antibiotics that were completed but she remains confused and assaultive at times. There was reported she used to abuse alcohol but she had been clean and sober most likely her dementia is related to alcohol use disorder. 1. Gather collateral information. The patient is a very poor historian unable to provide any details. 2. Medical consult completed- no new medical issues. 3. Fifteen minute checks. 4. continue a low dose of Depakote to target mood lability. On May 01 we increased up to 125 mg p.o. t.i.d. to target mood lability 5. On May 23 we change the p.r.n. from Zyprexa to Seroquel. 6. Start Namenda 5 mg p.o. q.h.s. on June 02 we increased it to 5 mg p.o. b.i.d. Reason for continued inpatient stay Substantial Risk for: inability to function, rapid decompensation and med/psych decompensation Time Spent With Patient Time: Total time managing care of this patient today __20__ minutes.
[2023-06-02 19:40] VITALS: BP 160/66; PULSE 85; RESP 16; TEMP 36.2; O2SAT 97
[2023-06-02] MEDS: Multivitamin TABLET 1 TAB PO (20:54)
[2023-06-02] MEDS: Melatonin 3 MG TABLET PO (20:54)
[2023-06-02] MEDS: QUEtiapine Fumarate 25 MG TABLET PO (20:55)
[2023-06-03 08:15] VITALS: BP 108/51; PULSE 52; RESP 18; TEMP 36.4; O2SAT 98
[2023-06-03] MEDS: lisinopriL 2.5 MG TABLET PO (09:08)
[2023-06-03] MEDS: Divalproex Sodium Sprinkles 125 MG CAP.DR.SPR PO ×3 (09:08→20:03)
[2023-06-03] MEDS: Memantine HCl 5 MG TABLET PO ×2 (09:08→20:03)
--- NOTE | 2023-06-03 15:02 | P.PNPSI_ITS ---
Subjective Subjective Date of Service: 06/03/23 Reason For Visit: Unspecified dementia Subjective Notes: Conditional Voluntary Interim History: The nursing staff reported the patient had been compliant with treatment. She remains confused but easily redirectable very pleasant. On interview the patient denies new symptoms she was confused. No evidence of agitation. Mental Status Exam Mental Status Exam Patient Appearance: Appropriate Patient Orientation: Person Level of Consciousness: Awake Patient Behavior: Passive and Wandering Mood Description: Calm Affect Description: Blunted Patient Cognition Impaired: Yes Ability to Follow Directions: Good Speech Pattern: Clear Hallucinations: None Delusions: Not Present Thought Process: Illogical and Slowed Thinking Thought Content: positive for [place] and positive for [place] Content Judgement: Fair Diagnostics Vital Signs (24Hr): Vital Signs - 24 hr 06/02/23 19:40 06/03/23 08:15 Temperature 97.2 F 97.5 F Pulse Rate 85 52 Respiratory Rate 16 18 Blood Pressure 160/66 H 108/51 L Pulse Oximetry 97 98 Oxygen Delivery Method Room Air Room Air BMI result Body Mass Index 18.0 Labs 05/21/23 07:45 Medications Medications Current Medications Acetaminophen (Acetaminophen 325 Mg Tablet) 650 mg PO Q6H PRN PRN Reason: Headache/Pain Mild Scale (1-3) Last Admin: 05/23/23 19:54 Dose: 650 mg Al Hydroxide/Mg Hydroxide (Magnesium Hydrox/Alum Hydrox 30 Ml Oral.Susp) 30 ml PO Q6H PRN PRN Reason: Heartburn/Nausea Divalproex Sodium (Divalproex Sodium Sprinkles 125 Mg ) 125 mg PO TID [facility] Last Admin: 06/03/23 14:54 Dose: 125 mg Lisinopril (Lisinopril 2.5 Mg Tablet) 2.5 mg PO DAILY [facility]; Protocol Last Admin: 06/03/23 09:08 Dose: 2.5 mg Magnesium Hydroxide (Milk Of Magnesia 30 Ml Oral.Susp) 30 ml PO DAILY PRN PRN Reason: Constipation Last Admin: 05/29/23 11:55 Dose: 30 ml Melatonin (Melatonin 3 Mg Tablet) 3 mg PO BEDTIME [facility] Last Admin: 06/02/23 20:54 Dose: 3 mg Memantine (Memantine Hcl 5 Mg Tablet) 5 mg PO BID [facility] Last Admin: 06/03/23 09:08 Dose: 5 mg Multivitamins/Vitamin C (Multivitamin Tablet) 1 tab PO BEDTIME [facility] Last Admin: 06/02/23 20:54 Dose: 1 tab Quetiapine Fumarate (Quetiapine Fumarate 25 Mg Tablet) 25 mg PO Q6H PRN PRN Reason: psychosis Last Admin: 05/29/23 12:09 Dose: 25 mg Quetiapine Fumarate (Quetiapine Fumarate 25 Mg Tablet) 25 mg PO BEDTIME [facility] Last Admin: 06/02/23 20:55 Dose: 25 mg Trazodone HCl (Trazodone Hcl 50 Mg Tablet) 50 mg PO BEDTIME MRX1 PRN PRN Reason: Insomnia Last Admin: 05/31/23 20:03 Dose: 50 mg Allergies Allergies Allergy/AdvReac Type Severity Reaction Status Date / Time No Known Allergies Allergy Verified 05/20/23 02:08 Assessment & Plan Assessment & Plan (1) Dementia: Status: Acute Code(s): F03.90 - Unspecified dementia, unspecified severity, without behavioral disturbance, psychotic disturbance, mood disturbance, and anxiety Plan The patient is an elderly female with a past history of dementia who was brought to the emergency room of another hospital for an episode of agitation has not been progressed. Apparently she was been diagnosed with a UTI and treated with antibiotics that were completed but she remains confused and assaultive at times. There was reported she used to abuse alcohol but she had been clean and sober most likely her dementia is related to alcohol use disorder. 1. Gather collateral information. The patient is a very poor historian unable to provide any details. 2. Medical consult completed- no new medical issues. 3. Fifteen minute checks. 4. continue a low dose of Depakote to target mood lability. On May 01 we increased up to 125 mg p.o. t.i.d. to target mood lability 5. On May 23 we change the p.r.n. from Zyprexa to Seroquel. 6. Start Namenda 5 mg p.o. q.h.s. on June 02 we increased it to 5 mg p.o. b.i.d. Reason for continued inpatient stay Substantial Risk for: inability to function, rapid decompensation and med/psych decompensation Time Spent With Patient Time: Total time managing care of this patient today _20___ minutes.
[2023-06-03] MEDS: QUEtiapine Fumarate 25 MG TABLET PO ×2 (15:44→20:03)
--- NOTE | 2023-06-03 15:46 | PC.NURSE ---
Patient crying and pacing and looking for her mother and baby. Patient talking about running away. Seroquel given prn.
[2023-06-03 19:40] VITALS: BP 158/76; PULSE 56; RESP 18; TEMP 36; O2SAT 98
[2023-06-03] MEDS: Multivitamin TABLET 1 TAB PO (20:03)
[2023-06-03] MEDS: Melatonin 3 MG TABLET PO (20:03)
[2023-06-04 09:20] VITALS: BP 139/66; PULSE 87; RESP 16; TEMP 36.2; O2SAT 98
[2023-06-04] MEDS: Memantine HCl 5 MG TABLET PO ×2 (11:58→20:20)
[2023-06-04] MEDS: lisinopriL 2.5 MG TABLET PO (11:58)
[2023-06-04] MEDS: Divalproex Sodium Sprinkles 125 MG CAP.DR.SPR PO ×3 (11:58→20:19)
--- NOTE | 2023-06-04 15:10 | P.PNPSI_ITS ---
Subjective Subjective Date of Service: 06/04/23 Reason For Visit: Unspecified dementia Interim History: Eating and sleeping OK. Requires assistance with ADLs. Some affective lability. Resistant to taking meds Medication Compliance: Yes Side effects from medications: No Attending Groups: Intermittent Review of Systems Acute medical concerns: No Medical Review of Systems: unchanged Mental Status Exam Mental Status Exam Patient Appearance: Well Grooomed Patient Orientation: Person Level of Consciousness: Alert Patient Behavior: Distractible Behavior Comments: Watching a movie about a dog in the dayroom, smiling. When asked, stated she liked dogs but would not engage further. Mood Description: Calm Patient Cognition Impaired: Yes Ability to Follow Directions: Fair Speech Pattern: Clear Memory Description: Immediate Impaired Hallucinations: None Delusions: Not Present Thought Process: Slowed Thinking Thought Content: positive for Slowed [place] Judgement: Poor Diagnostics Vital Signs (24Hr): Vital Signs - 24 hr 06/03/23 19:40 06/04/23 09:20 Temperature 96.8 F 97.2 F Pulse Rate 56 87 Respiratory Rate 18 16 Blood Pressure 158/76 H 139/66 Pulse Oximetry 98 98 Oxygen Delivery Method Room Air Room Air BMI result Body Mass Index 18.0 Labs 05/21/23 07:45 Medications Medications Current Medications Acetaminophen (Acetaminophen 325 Mg Tablet) 650 mg PO Q6H PRN PRN Reason: Headache/Pain Mild Scale (1-3) Last Admin: 05/23/23 19:54 Dose: 650 mg Al Hydroxide/Mg Hydroxide (Magnesium Hydrox/Alum Hydrox 30 Ml Oral.Susp) 30 ml PO Q6H PRN PRN Reason: Heartburn/Nausea Divalproex Sodium (Divalproex Sodium [place] 125 Mg ) 125 mg PO TID [facility] Last Admin: 06/04/23 11:58 Dose: 125 mg Lisinopril (Lisinopril 2.5 Mg Tablet) 2.5 mg PO DAILY [facility]; Protocol Last Admin: 06/04/23 11:58 Dose: 2.5 mg Magnesium Hydroxide (Milk Of Magnesia 30 Ml Oral.Susp) 30 ml PO DAILY PRN PRN Reason: Constipation Last Admin: 05/29/23 11:55 Dose: 30 ml Melatonin (Melatonin 3 Mg Tablet) 3 mg PO BEDTIME [facility] Last Admin: 06/03/23 20:03 Dose: 3 mg Memantine (Memantine Hcl 5 Mg Tablet) 5 mg PO BID [facility] Last Admin: 06/04/23 11:58 Dose: 5 mg Multivitamins/Vitamin C (Multivitamin Tablet) 1 tab PO BEDTIME [facility] Last Admin: 06/03/23 20:03 Dose: 1 tab Quetiapine Fumarate (Quetiapine Fumarate 25 Mg Tablet) 25 mg PO Q6H PRN PRN Reason: psychosis Last Admin: 06/03/23 15:44 Dose: 25 mg Quetiapine Fumarate (Quetiapine Fumarate 25 Mg Tablet) 25 mg PO BEDTIME [facility] Last Admin: 06/03/23 20:03 Dose: 25 mg Trazodone HCl (Trazodone Hcl 50 Mg Tablet) 50 mg PO BEDTIME MRX1 PRN PRN Reason: Insomnia Last Admin: 05/31/23 20:03 Dose: 50 mg Allergies Allergies Allergy/AdvReac Type Severity Reaction Status Date / Time No Known Allergies Allergy Verified 05/20/23 02:08 Assessment & Plan Assessment & Plan (1) Dementia: Status: Acute Code(s): F03.90 - Unspecified dementia, unspecified severity, without behavioral disturbance, psychotic disturbance, mood disturbance, and anxiety Assessment and Plan: No change in management Plan The patient is an elderly female with a past history of dementia who was brought to the emergency room of another hospital for an episode of agitation has not been progressed. Apparently she was been diagnosed with a UTI and treated with antibiotics that were completed but she remains confused and assaultive at times. There was reported she used to abuse alcohol but she had been clean and sober most likely her dementia is related to alcohol use disorder. 1. Gather collateral information. The patient is a very poor historian unable to provide any details. 2. Medical consult completed- no new medical issues. 3. Fifteen minute checks. 4. continue a low dose of Depakote to target mood lability. On May 01 we increased up to 125 mg p.o. t.i.d. to target mood lability 5. On May 23 we change the p.r.n. from Zyprexa to Seroquel. 6. Start Namenda 5 mg p.o. q.h.s. on June 02 we increased it to 5 mg p.o. b.i.d. Reason for continued inpatient stay Substantial Risk for: inability to function Time Spent With Patient Time: Total time managing care of this patient today ____ minutes.
[2023-06-04] MEDS: Multivitamin TABLET 1 TAB PO (20:19)
[2023-06-04] MEDS: QUEtiapine Fumarate 25 MG TABLET PO (20:19)
[2023-06-04] MEDS: Melatonin 3 MG TABLET PO (20:19)
--- NOTE | 2023-06-05 09:32 | HO.PSYCHPN ---
Subjective Subjective Date of Service: 06/05/23 Reason For Visit: Unspecified dementia Interim History: Patient was seen and discussed in rounds today. Records and plans were reviewed. She continues to be confused, labile at times. No assaultive behaviors. Awaiting placement. No complaints or side effects reported. No changes were made today Review of Systems Review of Systems Yes Unobtainable due to mental status Mental Status Exam Mental Status Exam Patient Appearance: Appropriate Patient Orientation: Person Level of Consciousness: Alert Patient Behavior: Distractible Behavior Comments: Watching a movie about a dog in the dayroom, smiling. When asked, stated she liked dogs but would not engage further. Mood Description: Calm Patient Cognition Impaired: Yes Ability to Follow Directions: Fair Speech Pattern: Clear Memory Description: Immediate Impaired Hallucinations: None Delusions: Not Present Thought Process: Slowed Thinking Thought Content: positive for Slowed [place] Judgement: Poor Diagnostics Vital Signs (24Hr): BMI result Body Mass Index 18.0 Labs 05/21/23 07:45 Medications Medications Current Medications Acetaminophen (Acetaminophen 325 Mg Tablet) 650 mg PO Q6H PRN PRN Reason: Headache/Pain Mild Scale (1-3) Last Admin: 05/23/23 19:54 Dose: 650 mg Al Hydroxide/Mg Hydroxide (Magnesium Hydrox/Alum Hydrox 30 Ml Oral.Susp) 30 ml PO Q6H PRN PRN Reason: Heartburn/Nausea Divalproex Sodium (Divalproex Sodium Sprinkles 125 Mg Jared.) 125 mg PO TID [facility] Last Admin: 06/04/23 20:19 Dose: 125 mg Lisinopril (Lisinopril 2.5 Mg Tablet) 2.5 mg PO DAILY [facility]; Protocol Last Admin: 06/04/23 11:58 Dose: 2.5 mg Magnesium Hydroxide (Milk Of Magnesia 30 Ml Oral.Susp) 30 ml PO DAILY PRN PRN Reason: Constipation Last Admin: 05/29/23 11:55 Dose: 30 ml Melatonin (Melatonin 3 Mg Tablet) 3 mg PO BEDTIME [facility] Last Admin: 06/04/23 20:19 Dose: 3 mg Memantine (Memantine Hcl 5 Mg Tablet) 5 mg PO BID [facility] Last Admin: 06/04/23 20:20 Dose: 5 mg Multivitamins/Vitamin C (Multivitamin Tablet) 1 tab PO BEDTIME [facility] Last Admin: 06/04/23 20:19 Dose: 1 tab Quetiapine Fumarate (Quetiapine Fumarate 25 Mg Tablet) 25 mg PO Q6H PRN PRN Reason: psychosis Last Admin: 06/03/23 15:44 Dose: 25 mg Quetiapine Fumarate (Quetiapine Fumarate 25 Mg Tablet) 25 mg PO BEDTIME [facility] Last Admin: 06/04/23 20:19 Dose: 25 mg Trazodone HCl (Trazodone Hcl 50 Mg Tablet) 50 mg PO BEDTIME MRX1 PRN PRN Reason: Insomnia Last Admin: 05/31/23 20:03 Dose: 50 mg Allergies Allergies Allergy/AdvReac Type Severity Reaction Status Date / Time No Known Allergies Allergy Verified 05/20/23 02:08 Assessment & Plan Assessment & Plan (1) Dementia: Status: Acute Code(s): F03.90 - Unspecified dementia, unspecified severity, without behavioral disturbance, psychotic disturbance, mood disturbance, and anxiety Assessment and Plan: No change in management Plan The patient is an elderly female with a past history of dementia who was brought to the emergency room of another hospital for an episode of agitation has not been progressed. Apparently she was been diagnosed with a UTI and treated with antibiotics that were completed but she remains confused and assaultive at times. There was reported she used to abuse alcohol but she had been clean and sober most likely her dementia is related to alcohol use disorder. 1. Gather collateral information. The patient is a very poor historian unable to provide any details. 2. Medical consult completed- no new medical issues. 3. Fifteen minute checks. 4. continue a low dose of Depakote to target mood lability. On May 01 we increased up to 125 mg p.o. t.i.d. to target mood lability 5. On May 23 we change the p.r.n. from Zyprexa to Seroquel. 6. Start Namenda 5 mg p.o. q.h.s. on June 02 we increased it to 5 mg p.o. b.i.d. 06/05: Continue current regimen and plans Reason for continued inpatient stay Substantial Risk for: inability to function Time Spent With Patient Time: Total time managing care of this patient today ____ minutes.
[2023-06-05 10:55] VITALS: BP 148/66; PULSE 60; RESP 14; TEMP 36.6; O2SAT 97
[2023-06-05] MEDS: Divalproex Sodium Sprinkles 125 MG CAP.DR.SPR PO ×3 (11:56→20:55)
[2023-06-05] MEDS: Memantine HCl 5 MG TABLET PO ×2 (11:56→20:55)
[2023-06-05] MEDS: lisinopriL 2.5 MG TABLET PO (11:56)
[2023-06-05] MEDS: QUEtiapine Fumarate 25 MG TABLET PO ×2 (18:36→20:55)
[2023-06-05 19:35] VITALS: BP 147/94; PULSE 69; RESP 16; TEMP 36.9; O2SAT 96
[2023-06-05] MEDS: Melatonin 3 MG TABLET PO (20:55)
[2023-06-05] MEDS: Multivitamin TABLET 1 TAB PO (20:55)
[2023-06-06 09:18] VITALS: BP 153/67; PULSE 52; RESP 18; TEMP 36.1; O2SAT 97
[2023-06-06] MEDS: Divalproex Sodium Sprinkles 125 MG CAP.DR.SPR PO ×2 (09:22→14:08)
[2023-06-06] MEDS: lisinopriL 2.5 MG TABLET PO (09:22)
[2023-06-06] MEDS: Memantine HCl 5 MG TABLET PO (09:22)
--- NOTE | 2023-06-06 13:56 | P.PNPSI_ITS ---
Subjective Subjective Date of Service: 06/06/23 Reason For Visit: Unspecified dementia Subjective Notes: Conditional Voluntary Interim History: The nursing staff reported the patient had been tearful at times, she is easily redirectable. She was exit seeking and social with her peers. The social media campaign manager reported that we continue with the bed search. On interview the patient denies new symptoms, waiting for placement. Mental Status Exam Mental Status Exam Patient Appearance: Appropriate Patient Orientation: Person Level of Consciousness: Awake Patient Behavior: Guarded and Passive Mood Description: Withdrawn Affect Description: Constricted Patient Cognition Impaired: Yes Ability to Follow Directions: Good Speech Pattern: Clear Hallucinations: None Delusions: Not Present Thought Process: Illogical, Distracted and Slowed Thinking Thought Content: positive for [place] and positive for Poverty of Content Judgement: Poor Diagnostics Vital Signs (24Hr): Vital Signs - 24 hr 06/05/23 19:35 06/06/23 09:18 Temperature 98.4 F 97 F Pulse Rate 69 52 Respiratory Rate 16 18 Blood Pressure 147/94 H 153/67 H Pulse Oximetry 96 97 Oxygen Delivery Method Room Air Room Air BMI result Body Mass Index 18.0 Labs 05/21/23 07:45 Medications Medications Current Medications Acetaminophen (Acetaminophen 325 Mg Tablet) 650 mg PO Q6H PRN PRN Reason: Headache/Pain Mild Scale (1-3) Last Admin: 05/23/23 19:54 Dose: 650 mg Al Hydroxide/Mg Hydroxide (Magnesium Hydrox/Alum Hydrox 30 Ml Oral.Susp) 30 ml PO Q6H PRN PRN Reason: Heartburn/Nausea Divalproex Sodium (Divalproex Sodium Sprinkles 125 Mg ) 125 mg PO TID [facility] Last Admin: 06/06/23 09:22 Dose: 125 mg Lisinopril (Lisinopril 2.5 Mg Tablet) 2.5 mg PO DAILY [facility]; Protocol Last Admin: 06/06/23 09:22 Dose: 2.5 mg Magnesium Hydroxide (Milk Of Magnesia 30 Ml Oral.Susp) 30 ml PO DAILY PRN PRN Reason: Constipation Last Admin: 05/29/23 11:55 Dose: 30 ml Melatonin (Melatonin 3 Mg Tablet) 3 mg PO BEDTIME [facility] Last Admin: 06/05/23 20:55 Dose: 3 mg Memantine (Memantine Hcl 5 Mg Tablet) 5 mg PO BID [facility] Last Admin: 06/06/23 09:22 Dose: 5 mg Multivitamins/Vitamin C (Multivitamin Tablet) 1 tab PO BEDTIME [facility] Last Admin: 06/05/23 20:55 Dose: 1 tab Quetiapine Fumarate (Quetiapine Fumarate 25 Mg Tablet) 25 mg PO Q6H PRN PRN Reason: psychosis Last Admin: 06/05/23 18:36 Dose: 25 mg Quetiapine Fumarate (Quetiapine Fumarate 25 Mg Tablet) 25 mg PO BEDTIME [facility] Last Admin: 06/05/23 20:55 Dose: 25 mg Trazodone HCl (Trazodone Hcl 50 Mg Tablet) 50 mg PO BEDTIME MRX1 PRN PRN Reason: Insomnia Last Admin: 05/31/23 20:03 Dose: 50 mg Allergies Allergies Allergy/AdvReac Type Severity Reaction Status Date / Time No Known Allergies Allergy Verified 05/20/23 02:08 Assessment & Plan Assessment & Plan (1) Dementia: Status: Acute Code(s): F03.90 - Unspecified dementia, unspecified severity, without behavioral disturbance, psychotic disturbance, mood disturbance, and anxiety Assessment and Plan: No change in management Plan The patient is an elderly female with a past history of dementia who was brought to the emergency room of another hospital for an episode of agitation has not been progressed. Apparently she was been diagnosed with a UTI and treated with antibiotics that were completed but she remains confused and assaultive at times. There was reported she used to abuse alcohol but she had been clean and sober most likely her dementia is related to alcohol use disorder. 1. Gather collateral information. The patient is a very poor historian unable to provide any details. 2. Medical consult completed- no new medical issues. 3. Fifteen minute checks. 4. continue a low dose of Depakote to target mood lability. On May 01 we increased up to 125 mg p.o. t.i.d. to target mood lability 5. On May 23 we change the p.r.n. from Zyprexa to Seroquel. 6. Start Namenda 5 mg p.o. q.h.s. on June 02 we increased it to 5 mg p.o. b.i.d. 7. Blood work with Depakote level and comprehensive metabolic panel and CBC with differential for tomorrow June 07 Reason for continued inpatient stay Substantial Risk for: inability to function, rapid decompensation and med/psych decompensation Time Spent With Patient Time: Total time managing care of this patient today __20__ minutes.
[2023-06-06] MEDS: QUEtiapine Fumarate 25 MG TABLET PO (17:54)
[2023-06-06 18:00] VITALS: BP 109/54; PULSE 64; RESP 16; TEMP 36.3; O2SAT 98
[2023-06-07 08:05] VITALS: BP 159/70; PULSE 55; RESP 16; TEMP 36.3; O2SAT 99
[2023-06-07] MEDS: Divalproex Sodium Sprinkles 125 MG CAP.DR.SPR PO ×3 (08:58→20:57)
[2023-06-07] MEDS: lisinopriL 2.5 MG TABLET PO (08:58)
[2023-06-07] MEDS: Memantine HCl 5 MG TABLET PO ×2 (08:58→20:58)
--- NOTE | 2023-06-07 12:51 | HO.PSYCHPN ---
Subjective Subjective Date of Service: 06/07/23 Reason For Visit: Unspecified dementia Subjective Notes: Conditional Voluntary Interim History: The nursing staff reported the patient remains at her baseline, exit seeking at times tearful in the evening but easily redirectable. She slept 8 hours. She has advanced dementia. The social service agency director reported that the assisted living facility does not want her back and she needs to be placed in [facility] facility due to her advanced dementia. On interview the patient denies new symptoms confused but easily redirectable, waiting for placement. Mental Status Exam Mental Status Exam Patient Appearance: Well Grooomed and Appropriate Patient Orientation: Person and Situation Level of Consciousness: Awake and Appropriate Patient Behavior: Passive Mood Description: Calm Affect Description: Labile Patient Cognition Impaired: Yes Ability to Follow Directions: Good Speech Pattern: Clear Hallucinations: None Delusions: Not Present Thought Process: Distracted Thought Content: positive for [place] and positive for Thought Blocking Judgement: Fair Diagnostics Vital Signs (24Hr): Vital Signs - 24 hr 06/06/23 18:00 06/07/23 08:05 Temperature 97.4 F 97.3 F Pulse Rate 64 55 Respiratory Rate 16 16 Blood Pressure 109/54 L 159/70 H Pulse Oximetry 98 99 Oxygen Delivery Method Room Air Room Air BMI result Body Mass Index 18.0 Labs 05/21/23 07:45 Medications Medications Current Medications Acetaminophen (Acetaminophen 325 Mg Tablet) 650 mg PO Q6H PRN PRN Reason: Headache/Pain Mild Scale (1-3) Last Admin: 05/23/23 19:54 Dose: 650 mg Al Hydroxide/Mg Hydroxide (Magnesium Hydrox/Alum Hydrox 30 Ml Oral.Susp) 30 ml PO Q6H PRN PRN Reason: Heartburn/Nausea Divalproex Sodium (Divalproex Sodium Sprinkles 125 Mg ) 125 mg PO TID [facility] Last Admin: 06/07/23 08:58 Dose: 125 mg Lisinopril (Lisinopril 2.5 Mg Tablet) 2.5 mg PO DAILY [facility]; Protocol Last Admin: 06/07/23 08:58 Dose: 2.5 mg Magnesium Hydroxide (Milk Of Magnesia 30 Ml Oral.Susp) 30 ml PO DAILY PRN PRN Reason: Constipation Last Admin: 05/29/23 11:55 Dose: 30 ml Melatonin (Melatonin 3 Mg Tablet) 3 mg PO BEDTIME [facility] Last Admin: 06/06/23 21:56 Dose: Not Given Memantine (Memantine Hcl 5 Mg Tablet) 5 mg PO BID [facility] Last Admin: 06/07/23 08:58 Dose: 5 mg Multivitamins/Vitamin C (Multivitamin Tablet) 1 tab PO BEDTIME [facility] Last Admin: 06/06/23 21:57 Dose: Not Given Quetiapine Fumarate (Quetiapine Fumarate 25 Mg Tablet) 25 mg PO Q6H PRN PRN Reason: psychosis Last Admin: 06/06/23 17:54 Dose: 25 mg Quetiapine Fumarate (Quetiapine Fumarate 25 Mg Tablet) 25 mg PO BEDTIME [facility] Last Admin: 06/06/23 21:57 Dose: Not Given Trazodone HCl (Trazodone Hcl 50 Mg Tablet) 50 mg PO BEDTIME MRX1 PRN PRN Reason: Insomnia Last Admin: 05/31/23 20:03 Dose: 50 mg Allergies Allergies Allergy/AdvReac Type Severity Reaction Status Date / Time No Known Allergies Allergy Verified 05/20/23 02:08 Assessment & Plan Assessment & Plan (1) Dementia: Status: Acute Code(s): F03.90 - Unspecified dementia, unspecified severity, without behavioral disturbance, psychotic disturbance, mood disturbance, and anxiety Assessment and Plan: No change in management Plan The patient is an elderly female with a past history of dementia who was brought to the emergency room of another hospital for an episode of agitation has not been progressed. Apparently she was been diagnosed with a UTI and treated with antibiotics that were completed but she remains confused and assaultive at times. There was reported she used to abuse alcohol but she had been clean and sober most likely her dementia is related to alcohol use disorder. 1. Gather collateral information. The patient is a very poor historian unable to provide any details. 2. Medical consult completed- no new medical issues. 3. Fifteen minute checks. 4. continue a low dose of Depakote to target mood lability. On May 01 we increased up to 125 mg p.o. t.i.d. to target mood lability 5. On May 23 we change the p.r.n. from Zyprexa to Seroquel. 6. Start Namenda 5 mg p.o. q.h.s. on June 02 we increased it to 5 mg p.o. b.i.d. 7. Blood work with Depakote level and comprehensive metabolic panel and CBC with differential for tomorrow June 07 , she refused blood work and we will try to do it tomorrow. Reason for continued inpatient stay Substantial Risk for: inability to function, rapid decompensation and med/psych decompensation Time Spent With Patient Time: Total time managing care of this patient today __20__ minutes.
[2023-06-07 18:00] VITALS: BP 151/79; PULSE 88; RESP 18; TEMP 36; O2SAT 97
[2023-06-07] MEDS: Multivitamin TABLET 1 TAB PO (20:57)
[2023-06-07] MEDS: Melatonin 3 MG TABLET PO (20:58)
[2023-06-07] MEDS: QUEtiapine Fumarate 25 MG TABLET PO (20:58)
[2023-06-08 06:00] VITALS: BP 129/57; PULSE 50; RESP 16; TEMP 35.9; O2SAT 97
[2023-06-08 06:26] LABS: MANUAL DIFF FLAG NO
[2023-06-08 06:30] LABS: Basophils Absolute Auto 0.1 X10*3/uL (0.0-0.2); Basophils Percent Auto 0.6 % (0-2); Eosinophils Absolute Auto 0.1 X10*3/uL (0.0-0.4); Eosinophils Percent Auto 0.9 % (0-4); Hematocrit 40.2 % (37.0-47.0); Hemoglobin 13.5 g/dl (12.0-16.0); Imm Gran Abs Auto 0.03 X10*3/uL (0.00-0.03); Imm Gran Pct Auto 0.3 % (0.0-0.4); Lymphocytes Absolute Auto 3.2 X10*3/uL (1.2-4.9); Lymphocytes Percent Auto 30.6 % (20-40); Mean Corpuscular HGB Conc 33.6 g/dl (31.0-35.0); Mean Corpuscular Hemoglobin 32.2 pg (27.0-33.0); Mean Corpuscular Volume 95.9 fL (80.0-98.0); Mean Platelet Volume 11.9 fL (9.4-12.3); Monocytes Absolute Auto 0.8 X10*3/uL (0.1-1.2); Monocytes Percent Auto 7.4 % (2-11); Neutrophils Absolute Auto 6.4 x10*3/uL (2.0-8.3); Neutrophils Percent Auto 60.2 % (45-73); Platelet Count 152 X10*3/uL (160-400); Red Blood Count 4.19 X10*6/uL (4.20-5.50); Red Cell Distribution Width 12.9 % (11.0-16.0); White Blood Count 10.6 X10*3/uL (4.8-10.8)
[2023-06-08 06:45] LABS: Valproate 35.8 mcg/mL (50.0-100.0)
[2023-06-08 06:50] LABS: Alanine Aminotransferase 8 U/L (0-31); Albumin Level 3.9 g/dL (3.5-5.0); Alkaline Phosphatase 89 U/L (39-117); Aspartate Amino Transferase 15 U/L (5-31); Bilirubin Direct 0.2 mg/dL (0.0-0.5); Bilirubin Total 0.6 mg/dL (0.0-1.0); Total Protein 6.9 g/dL (6.5-8.0)
[2023-06-08] MEDS: Memantine HCl 5 MG TABLET PO ×2 (11:35→22:07)
[2023-06-08] MEDS: lisinopriL 2.5 MG TABLET PO (11:35)
[2023-06-08] MEDS: Divalproex Sodium Sprinkles 125 MG CAP.DR.SPR PO ×3 (11:35→22:07)
--- NOTE | 2023-06-08 13:43 | P.PNPSI_ITS ---
Subjective Subjective Date of Service: 06/08/23 Reason For Visit: Unspecified dementia Subjective Notes: Conditional Voluntary Healthcare Proxy: Yes Interim History: The nursing staff reported the patient had been confused, suspicious but easily redirectable. The social scientist reported that they started a bed search for [facility]. On interview the patient denies new symptoms looks pleasantly confused. Mental Status Exam Mental Status Exam Patient Appearance: Appropriate Patient Orientation: Person and Situation Level of Consciousness: Awake and Appropriate Patient Behavior: Guarded and Passive Mood Description: Withdrawn Affect Description: Constricted Patient Cognition Impaired: Yes Ability to Follow Directions: Good Speech Pattern: Clear Hallucinations: None Delusions: Ideas of Reference Thought Process: Illogical and Distracted Thought Content: positive for [place] and positive for Poverty of Content Judgement: Poor Diagnostics Vital Signs (24Hr): Vital Signs - 24 hr 06/07/23 18:00 06/08/23 06:00 Temperature 96.8 F 96.7 F L Pulse Rate 88 50 Respiratory Rate 18 16 Blood Pressure 151/79 H 129/57 L Pulse Oximetry 97 97 Oxygen Delivery Method Room Air Room Air BMI result Body Mass Index 18.0 Labs 06/08/23 06:19 05/21/23 07:45 Labs: Laboratory Results - last 48 hr 06/08/23 06:19 WBC 10.6 RBC 4.19 L Hgb 13.5 Hct 40.2 MCV 95.9 MCH 32.2 MCHC 33.6 RDW 12.9 Plt Count 152 L MPV 11.9 Immature Gran % (Auto) 0.3 Neut % (Auto) 60.2 Lymph % (Auto) 30.6 [place] % (Auto) 7.4 Eos % (Auto) 0.9 Baso % (Auto) 0.6 Lymph # (Auto) 3.2 [place] # (Auto) 0.8 Eos # (Auto) 0.1 Baso # (Auto) 0.1 Abs Immat Gran (auto) 0.03 Absolute Neuts (auto) 6.4 Absolute Nucleated RBC 0.000 Nucleated RBC % (auto) 0.0 Total Bilirubin 0.6 Direct Bilirubin 0.2 AST 15 ALT 8 Alkaline Phosphatase 89 Total Protein 6.9 Albumin 3.9 Valproic Acid 35.8 L Medications Medications Current Medications Acetaminophen (Acetaminophen 325 Mg Tablet) 650 mg PO Q6H PRN PRN Reason: Headache/Pain Mild Scale (1-3) Last Admin: 05/23/23 19:54 Dose: 650 mg Al Hydroxide/Mg Hydroxide (Magnesium Hydrox/Alum Hydrox 30 Ml Oral.Susp) 30 ml PO Q6H PRN PRN Reason: Heartburn/Nausea Divalproex Sodium (Divalproex Sodium Sprinkles 125 Mg Cap.) 125 mg PO TID [facility] Last Admin: 06/08/23 11:35 Dose: 125 mg Lisinopril (Lisinopril 2.5 Mg Tablet) 2.5 mg PO DAILY [facility]; Protocol Last Admin: 06/08/23 11:35 Dose: 2.5 mg Magnesium Hydroxide (Milk Of Magnesia 30 Ml Oral.Susp) 30 ml PO DAILY PRN PRN Reason: Constipation Last Admin: 05/29/23 11:55 Dose: 30 ml Melatonin (Melatonin 3 Mg Tablet) 3 mg PO BEDTIME [facility] Last Admin: 06/07/23 20:58 Dose: 3 mg Memantine (Memantine Hcl 5 Mg Tablet) 5 mg PO BID [facility] Last Admin: 06/08/23 11:35 Dose: 5 mg Multivitamins/Vitamin C (Multivitamin Tablet) 1 tab PO BEDTIME [facility] Last Admin: 06/07/23 20:57 Dose: 1 tab Quetiapine Fumarate (Quetiapine Fumarate 25 Mg Tablet) 25 mg PO Q6H PRN PRN Reason: psychosis Last Admin: 06/06/23 17:54 Dose: 25 mg Quetiapine Fumarate (Quetiapine Fumarate 25 Mg Tablet) 25 mg PO BEDTIME [facility] Last Admin: 06/07/23 20:58 Dose: 25 mg Trazodone HCl (Trazodone Hcl 50 Mg Tablet) 50 mg PO BEDTIME MRX1 PRN PRN Reason: Insomnia Last Admin: 05/31/23 20:03 Dose: 50 mg Allergies Allergies Allergy/AdvReac Type Severity Reaction Status Date / Time No Known Allergies Allergy Verified 05/20/23 02:08 Assessment & Plan Assessment & Plan (1) Dementia: Status: Acute Code(s): F03.90 - Unspecified dementia, unspecified severity, without behavioral disturbance, psychotic disturbance, mood disturbance, and anxiety Assessment and Plan: No change in management Plan The patient is an elderly female with a past history of dementia who was brought to the emergency room of another hospital for an episode of agitation has not been progressed. Apparently she was been diagnosed with a UTI and treated with antibiotics that were completed but she remains confused and assaultive at times. There was reported she used to abuse alcohol but she had been clean and sober most likely her dementia is related to alcohol use disorder. 1. Gather collateral information. The patient is a very poor historian unable to provide any details. 2. Medical consult completed- no new medical issues. 3. Fifteen minute checks. 4. continue a low dose of Depakote to target mood lability. On May 01 we increased up to 125 mg p.o. t.i.d. to target mood lability 5. On May 23 we change the p.r.n. from Zyprexa to Seroquel. 6. Start Namenda 5 mg p.o. q.h.s. on June 02 we increased it to 5 mg p.o. b.i.d. 7. Blood work with Depakote level and comprehensive metabolic panel and CBC with differential for tomorrow June 07 , she refused blood work and we will try to do it tomorrow. Reason for continued inpatient stay Substantial Risk for: inability to function, rapid decompensation and med/psych decompensation Time Spent With Patient Time: Total time managing care of this patient today __20__ minutes.
--- NOTE | 2023-06-08 15:21 | MHC.CLN ---
F/U DIET=REGULAR. PROVIDE MAGIC CUP BID (580 KCALS, 18 G PROTEIN) TO INCREASE KCALS. VARIABLE INTAKE AT MEALS. FAMILY REPORTS THAT USUAL MEAL PATTERN IS GRAZING . RD TO MONITOR INTAKE AND WEIGHT WEEKLY. CONTINUE TO ENCOURAGE INTAKE AT MEALS AND SNACKS.
[2023-06-08 18:00] VITALS: BP 157/82; PULSE 63; RESP 18; TEMP 36.1
[2023-06-08] MEDS: Melatonin 3 MG TABLET PO (22:07)
[2023-06-08] MEDS: Multivitamin TABLET 1 TAB PO (22:07)
[2023-06-08] MEDS: QUEtiapine Fumarate 25 MG TABLET PO (22:07)
[2023-06-09 07:00] VITALS: BMI 17.8
[2023-06-09 08:30] VITALS: BP 142/74; PULSE 64; RESP 18; TEMP 35.9; O2SAT 96
[2023-06-09] MEDS: Memantine HCl 5 MG TABLET PO ×2 (11:34→20:13)
[2023-06-09] MEDS: Divalproex Sodium Sprinkles 125 MG CAP.DR.SPR PO ×3 (11:34→20:13)
[2023-06-09] MEDS: lisinopriL 2.5 MG TABLET PO (11:34)
--- NOTE | 2023-06-09 14:07 | P.PNPSI_ITS ---
Subjective Subjective Date of Service: 06/09/23 Reason For Visit: Unspecified dementia Subjective Notes: Conditional Voluntary Interim History: The nursing staff reported the patient had been quiet, relaxed compliant with medications she slept 8 hours. The oncology social worker reported that they have applied to several retirement facilities in the area. On interview the patient is pleasantly confused easily redirectable, waiting for placement. Mental Status Exam Mental Status Exam Patient Appearance: Well Grooomed Patient Orientation: Person Level of Consciousness: Awake and Appropriate Patient Behavior: Guarded and Passive Mood Description: Withdrawn Affect Description: Constricted Patient Cognition Impaired: Yes Ability to Follow Directions: Good Speech Pattern: Clear Hallucinations: None Delusions: Ideas of Reference Thought Process: Distracted and Slowed Thinking Thought Content: positive for [place] and positive for Poverty of Content Judgement: Poor Diagnostics Vital Signs (24Hr): Vital Signs - 24 hr 06/08/23 18:00 06/09/23 08:30 Temperature 97 F 96.7 F L Pulse Rate 63 64 Respiratory Rate 18 18 Blood Pressure 157/82 H 142/74 H Pulse Oximetry 96 Oxygen Delivery Method Room Air BMI result Body Mass Index 17.8 Labs 06/08/23 06:19 05/21/23 07:45 Labs: Laboratory Results - last 48 hr 06/08/23 06:19 WBC 10.6 RBC 4.19 L Hgb 13.5 Hct 40.2 MCV 95.9 MCH 32.2 MCHC 33.6 RDW 12.9 Plt Count 152 L MPV 11.9 Immature Gran % (Auto) 0.3 Neut % (Auto) 60.2 Lymph % (Auto) 30.6 [place] % (Auto) 7.4 Eos % (Auto) 0.9 Baso % (Auto) 0.6 Lymph # (Auto) 3.2 [place] # (Auto) 0.8 Eos # (Auto) 0.1 Baso # (Auto) 0.1 Abs Immat Gran (auto) 0.03 Absolute Neuts (auto) 6.4 Absolute Nucleated RBC 0.000 Nucleated RBC % (auto) 0.0 Total Bilirubin 0.6 Direct Bilirubin 0.2 AST 15 ALT 8 Alkaline Phosphatase 89 Total Protein 6.9 Albumin 3.9 Valproic Acid 35.8 L Medications Medications Current Medications Acetaminophen (Acetaminophen 325 Mg Tablet) 650 mg PO Q6H PRN PRN Reason: Headache/Pain Mild Scale (1-3) Last Admin: 05/23/23 19:54 Dose: 650 mg Al Hydroxide/Mg Hydroxide (Magnesium Hydrox/Alum Hydrox 30 Ml Oral.Susp) 30 ml PO Q6H PRN PRN Reason: Heartburn/Nausea Divalproex Sodium (Divalproex Sodium Sprinkles 125 Mg Cap.) 125 mg PO TID [facility] Last Admin: 06/09/23 11:34 Dose: 125 mg Lisinopril (Lisinopril 2.5 Mg Tablet) 2.5 mg PO DAILY [facility]; Protocol Last Admin: 06/09/23 11:34 Dose: 2.5 mg Magnesium Hydroxide (Milk Of Magnesia 30 Ml Oral.Susp) 30 ml PO DAILY PRN PRN Reason: Constipation Last Admin: 05/29/23 11:55 Dose: 30 ml Melatonin (Melatonin 3 Mg Tablet) 3 mg PO BEDTIME [facility] Last Admin: 06/08/23 22:07 Dose: 3 mg Memantine (Memantine Hcl 5 Mg Tablet) 5 mg PO BID [facility] Last Admin: 06/09/23 11:34 Dose: 5 mg Multivitamins/Vitamin C (Multivitamin Tablet) 1 tab PO BEDTIME [facility] Last Admin: 06/08/23 22:07 Dose: 1 tab Quetiapine Fumarate (Quetiapine Fumarate 25 Mg Tablet) 25 mg PO Q6H PRN PRN Reason: psychosis Last Admin: 06/06/23 17:54 Dose: 25 mg Quetiapine Fumarate (Quetiapine Fumarate 25 Mg Tablet) 25 mg PO BEDTIME [facility] Last Admin: 06/08/23 22:07 Dose: 25 mg Trazodone HCl (Trazodone Hcl 50 Mg Tablet) 50 mg PO BEDTIME MRX1 PRN PRN Reason: Insomnia Last Admin: 05/31/23 20:03 Dose: 50 mg Allergies Allergies Allergy/AdvReac Type Severity Reaction Status Date / Time No Known Allergies Allergy Verified 05/20/23 02:08 Assessment & Plan Assessment & Plan (1) Dementia: Status: Acute Code(s): F03.90 - Unspecified dementia, unspecified severity, without behavioral disturbance, psychotic disturbance, mood disturbance, and anxiety Assessment and Plan: No change in management Plan The patient is an elderly female with a past history of dementia who was brought to the emergency room of another hospital for an episode of agitation has not been progressed. Apparently she was been diagnosed with a UTI and treated with antibiotics that were completed but she remains confused and assaultive at times. There was reported she used to abuse alcohol but she had been clean and sober most likely her dementia is related to alcohol use disorder. 1. Gather collateral information. The patient is a very poor historian unable to provide any details. 2. Medical consult completed- no new medical issues. 3. Fifteen minute checks. 4. continue a low dose of Depakote to target mood lability. On May 01 we increased up to 125 mg p.o. t.i.d. to target mood lability 5. On May 23 we change the p.r.n. from Zyprexa to Seroquel. 6. Start Namenda 5 mg p.o. q.h.s. on June 02 we increased it to 5 mg p.o. b.i.d. 7. Blood work with Depakote level and comprehensive metabolic panel and CBC with differential for tomorrow June 07 , she refused blood work and we had Depakote level, CBC and liver function test on June 08 Depakote level of 35.6 but we are going to keep it the same dose to avoid over-sedation. Reason for continued inpatient stay Substantial Risk for: inability to function, rapid decompensation and med/psych decompensation Time Spent With Patient Time: Total time managing care of this patient today __20__ minutes.
[2023-06-09 19:35] VITALS: BP 150/67; PULSE 63; RESP 18; TEMP 36.1; O2SAT 97
[2023-06-09] MEDS: Melatonin 3 MG TABLET PO (20:13)
[2023-06-09] MEDS: Multivitamin TABLET 1 TAB PO (20:13)
[2023-06-09] MEDS: QUEtiapine Fumarate 25 MG TABLET PO (20:13)
[2023-06-10 06:00] VITALS: BP 148/64; PULSE 67; RESP 16; TEMP 36.2; O2SAT 97
[2023-06-10] MEDS: lisinopriL 2.5 MG TABLET PO (10:07)
[2023-06-10] MEDS: Memantine HCl 5 MG TABLET PO ×2 (10:07→21:13)
[2023-06-10] MEDS: Divalproex Sodium Sprinkles 125 MG CAP.DR.SPR PO ×3 (10:09→21:13)
[2023-06-10 10:48] VITALS: BP 195/84; PULSE 71; RESP 18; TEMP 36.8; O2SAT 92
--- NOTE | 2023-06-10 11:56 | PC.NURSE ---
Addendum entered by Leyda Rodriguez RN 06/10/23 12:01: Provider notified. Director of notified. Order placed for hip/pelvic xray. Patient put on stretcher and taken to radiology. Tolerated well. Patient currently in bed eating lunch. Hospitalist consult placed. Daughter will be informed. Fall was unwitnessed. Original Note: At approximately 1030 patient's room mate came out of room stating, Emergency in here. Bobby is on the floor. Patient found in BR on L side with bill bottoms partially down. Patient stated, I just tipped over. VSS. BP 195/84
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
[2023-06-10] MEDS: traMADoL HCL 50 MG TABLET 25 MG PO (14:44)
--- NOTE | 2023-06-10 15:07 | PC.NURSE ---
Patient medicated with Tramadol for Pain due to fall. Patient non weight bearing until scan read.
[2023-06-10] MEDS: oxyCODONE HCl Immed Release 5 MG TABLET PO (16:47)
[2023-06-10 18:00] VITALS: BP 158/70; PULSE 67; RESP 16; TEMP 36.8; O2SAT 92
[2023-06-10] MEDS: Melatonin 3 MG TABLET PO (21:13)
[2023-06-10] MEDS: QUEtiapine Fumarate 25 MG TABLET PO (21:13)
[2023-06-10] MEDS: Multivitamin TABLET 1 TAB PO (21:13)
--- NOTE | 2023-06-11 06:32 | PM.EVENT ---
Event Note Date of Service: 06/11/23 Event Note: Pt with unwitnessed fall in bathroom. Pt was apparently getting ready to use the bathroom when she tipped over after pulling down her pants. Denies headstrike but fell on her left hip. Pt was toileted by staff and moved to her bed without bearing weight. Pt seen and evaluated at bedside. Pt with dementia at baseline and does not remember incident. At rest reports no pain, but lateral aspect of left hip tender to palpation, and pt's left hip ROM limited secondary to pain. X-ray of hips/pelvis with no obvious hip fracture on initial viewing, but official read still pending. In the mean time pt should be kept non-weight bearing. Will treat with pain with Tylenol and Ultram initially, oxycodone 5mg if still in pain. If x-ray negative for fracture and pt still reporting left hip pain, will order CT of the hip to evaluate for occult fracture. Will continue following for now. Time Spent With Patient Time: Total time managing care of this patient today ____ minutes.
[2023-06-11 08:25] VITALS: BP 205/75; PULSE 68; RESP 18; TEMP 36.6; O2SAT 93
[2023-06-11] MEDS: Memantine HCl 5 MG TABLET PO (08:41)
[2023-06-11] MEDS: Divalproex Sodium Sprinkles 125 MG CAP.DR.SPR PO ×2 (08:41→14:50)
[2023-06-11] MEDS: lisinopriL 2.5 MG TABLET PO (08:42)
[2023-06-11 09:28] VITALS: BP 184/83; PULSE 68
[2023-06-11] MEDS: amLODIPine Besylate 2.5 MG TABLET PO ×3 (09:56→17:57)
[2023-06-11 10:47] VITALS: BP 196/68; PULSE 65
--- NOTE | 2023-06-11 13:27 | PC.NURSE ---
Patient in bed this morning, alert following commands, moving all extremities within normal limits. Denied pain in the am. PERRLA, hand grasps weak but equal. B/P elevates after scheduled Lisinopril and onetime dose of Amlodipine. Munir Hollingsworth NP updated, new order for CT of the head/brain. Appetite poor, fed by staff. Confused, oriented to person only, normal. Patient asking to use the bathroom but since she was non weight bearing, bed camejo use was attempted. Patient complaining about a lot of pain lower sacrum, small round intact growth found at end of sacrum. 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 Incontinent of urine with care, barrier cream applied. CT Scan and Hip and Pelvic X Rays are unremarkable. Munir Hollingsworth NP updated.
[2023-06-11] MEDS: oxyCODONE HCl Immed Release 5 MG TABLET PO (14:51)
--- NOTE | 2023-06-11 17:15 | PC.NURSE ---
Patient complaining of severe sacral pain during repositioning, large protruding area seen left upper sacral area, warm and reddened Medicated with Oxycodone [id number] for increased sacral pain with good effect. Patient sent to CT Scan for CT of the Left hip. Munir Hollingsworth NP visited and examined area.
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
[2023-06-11 17:41] VITALS: BP 201/89; PULSE 75; RESP 18; TEMP 35.9; O2SAT 95
[2023-06-11] MEDS: polyethylene glycoL 3350 17 GM POWD.PACK PO (17:57)
--- NOTE | 2023-06-11 18:08 | PC.NURSE ---
Patient returned from CT Scan of the left hip, complaining of left hip pain and sacral pain after transfer. CT Scan positive for displaced transverse fracture of the left subcapital femoral neck. Vital signs taken B/P remains elevated at 201/89, P 75, T 96.7, R 18 and O2 Sat 95% on room air. Munir Hollingsworth BEAUTY THERAPIST visited and updated. New orders obtained. Amlodipine 2.5mg PO x2 given for increased B/P and Miralax given for constipation on CT SCan.Munir Hollingsworth BEAUTY THERAPIST to notify family of fracture. Bed rest maintained. Ortho consult ordered.
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
== END 2023-06-11 20:24 | disposition short-term general hospital (02) | DRG 57 ==
PROVIDERS: Social Worker; Admitting Provider Psychiatry & Neurology Psychiatry; Visit Provider Psychiatry & Neurology Psychiatry
DX: G31.2 Degeneration of nervous system due to alcohol (principal); S72.012A Unspecified intracapsular fracture of left femur, initial encounter for closed fracture; F02.80 Dementia in other diseases classified elsewhere, unspecified severity, without behavioral disturbance, psychotic disturbance, mood disturbance, and anxiety; I10 Essential (primary) hypertension; Z91.83 Wandering in diseases classified elsewhere; W19.XXXA Unspecified fall, initial encounter; Z87.891 Personal history of nicotine dependence; Z79.899 Other long term (current) drug therapy
CPT/HCPCS: 36415; 70450; 73502; 73521; 73700; 80053; 80061; 80076; 80164; 81001; 82607; 82746; 83036; 84443; 85025

== ENCOUNTER → 2023-05-20 01:28 | Outpatient (BNV) | payer MEDICARE, SELFPAY | PROVIDERS: Admitting Provider Psychiatry & Neurology Psychiatry; Visit Provider Student in an Organized Health Care Education/Training Program | DX: Z02.2 Encounter for examination for admission to residential institution (principal) | CPT/HCPCS: 99429; 99499 ==

== ENCOUNTER → 2023-05-20 01:28 | Outpatient (BNV) | payer MEDICARE, SELFPAY | PROVIDERS: Admitting Provider Psychiatry & Neurology Psychiatry; Visit Provider Psychiatry & Neurology Psychiatry | DX: F03.90 Unspecified dementia, unspecified severity, without behavioral disturbance, psychotic disturbance, mood disturbance, and anxiety (principal) | CPT/HCPCS: 90792; 99231; 99232; 99238 ==

== ENCOUNTER 2023-06-11 20:31 | Inpatient (IN) | payer MEDICARE, SELFPAY ==
--- NOTE | ~2023-06-11 | XR_ITS ---
EXAMINATION: XR ABDOMEN KUB CLINICAL INDICATION: Abdominal distention and pain. COMPARISON: None available. TECHNIQUE: AP view of the abdomen. FINDINGS: There is moderate stool and gas seen in colon without distention. The small bowel loops are normal caliber. Appendix is not visualized. There is a total left hip prosthesis. The prosthetic components are in satisfactory alignment. No lytic or sclerotic process seen. XR/XR KUB IMPRESSION: Mild constipation.
--- NOTE | ~2023-06-11 | XR_ITS ---
EXAMINATION: XR PELVIS CLINICAL INFORMATION: Status post left hip hemiarthroplasty COMPARISON: 06/11/2023 TECHNIQUE: AP view of the pelvis. FINDINGS: Left hip arthroplasty hardware appears well seated and in anatomic alignment. Soft tissue gas about the left hip is consistent with recent surgery. No acute fracture is seen. Sacroiliac joints and pubic symphysis appear intact, with degenerative change. Suture line noted in the pelvis. XR/XR pelvis 1-2V IMPRESSION: Status post left hip arthroplasty with expected postoperative changes.
--- NOTE | ~2023-06-11 | XR_ITS ---
EXAMINATION: XR HIP, LEFT CLINICAL INFORMATION: Status post left hip hemiarthroplasty. COMPARISON: Pelvic radiograph 06/12/2023. TECHNIQUE: Two views of the left hip. FINDINGS: Prosthetic components of the left total hip arthroplasty are appropriately aligned without periprosthetic fracture or abnormal lucency. No component migration. Decreased postoperative soft tissue gas and swelling. Redemonstration of suture line in the pelvis and surgical skin taryn in the left gluteal region. XR/XR hip LT w PEL1V IMPRESSION: Appropriate alignment of the left total hip arthroplasty without evidence of complications. Decreased soft tissue postoperative swelling and gas.
--- NOTE | 2023-06-11 20:09 | P.HPHOSP_ITS ---
History of Present Illness Date of Service: 06/11/23 Attending physician on admission: Xi Hernandez Chief Complaint: hip fracture 82-year-old female with history of hypertension, unspecified dementia admitted to hospitalist service from [facility] after sustaining an unwitnessed fall last night while in the bathroom. Patient reportedly had a mechanical fall without head strike or loss of consciousness and was assisted by staff to her bed but has been unable to bear weight on the left leg. The patient is unable to provide history secondary to her dementia and does not recall the event. The patient appears uncomfortable but denies any pain at this time. X-ray of the left hip did not reveal any acute osseous abnormality. However given significant tenderness to palpation with guarding of the left hip CT was ordered showing displaced transverse fracture through the subcapital left femoral neck. Head CT was negative for any acute intracranial abnormality. Pt has been quite hypertensive today, blood pressure of 196/91 on admission, likely secondary to pain. Vitals otherwise within normal limits. Review of Systems Review of Systems: Yes Unobtainable due to mental status [facility] Medical History Insomnia Dementia Hypertension Social History Housing: Assisted Living Facility Do you presently have visiting nurse or other home services: No (Assisted living) Unable to assess alcohol history related to: Unable to respond Patient Tobacco Use Status: Never used Tobacco Advance Directives: No Advance Directives Information Provided: No service: No Sexual orientation: Straight/Heterosexual Meds Allergies Allergy/AdvReac Type Severity Reaction Status Date / Time No Known Allergies Allergy Verified 05/20/23 02:08 Physical Exam Vital Signs and Narrative: Constitutional - Awake and Alert, No apparent distress Eyes - PERRLA, EOMI Cardiovascular - S1S2, RRR, No edema Respiratory - Normal lung expansion, Normal respiratory effort, No respiratory distress, CTA bilaterally Extremities - no calf tenderness bilaterally, no swelling Musculoskeletal - grimacing with palpation of the left hip. Left leg with slight external rotation Skin - Warm/Dry Neurological - Alert & disoriented Psychological - Appropriate affect Assessment and Plan (1) Fracture of femoral neck, left: Qualifiers: Encounter type: initial encounter Fracture type: closed Qualified Code(s): S72.002A - Fracture of unspecified part of neck of left femur, initial encounter for closed fracture Status: Acute Plan 82-year-old female with history of hypertension, unspecified dementia admitted to hospitalist service from Ger[facility] Psychiatry after sustaining an unwitnessed fall last night while in the bathroom. She will be admitted to [facility] for further management of displaced left hip fracture. #Acute displaced left femoral neck fracture -Ortho consult -Plan for ORIF am -Pain management prn -NPO -bedrest -PT per ortho recs post operatively #HTN -uncontrolled -amlodipine 5mg added -continue lisinopril 2.5mg, amlodipine 5mg daily -monitor bp # unspecified dementia -mentation baseline DVT prophylaxis- SCPs Full code Pt requires inpt stay at least 2 midnights for management of acute left hip fracture requiring ORIF, expert consultation, and PT evaluation Quality Stroke Does the patient have a stroke diagnosis?: No VTE Prior VTE?: No VTE Risk Level:: Medical - moderate - high VTE Device Contraindication: N/A - Device Ordered VTE Drug Contraindication: Treatment Not Indicated
[2023-06-11 20:51] VITALS: BP 178/88; PULSE 74; RESP 17; TEMP 37.2; O2SAT 97
--- NOTE | 2023-06-11 20:51 | PM.CNOR ---
History of Present Illness HPI Consult date: 06/11/23 Chief complaint: left hip fracture Narrative: 82-year-old female with history of hypertension, unspecified dementia admitted to hospitalist service from [facility]iatric Psych[facility] after sustaining an unwitnessed fall last night while in the bathroom. Patient reportedly had a mechanical fall without head strike or loss of consciousness and was assisted by staff to her bed but has been unable to bear weight on the left leg. The patient is unable to provide history secondary to her dementia and does not recall the event. X-ray of the left hip did not reveal any acute osseous abnormality. left hip CT was ordered showing displaced transverse fracture through the subcapital left femoral neck. Review of Systems Review of Systems: Yes all other systems are reviewed and are negative [facility] Past Medical History Medical History Insomnia Dementia Hypertension Social History Social History Housing: Assisted Living Facility Do you presently have visiting nurse or other home services: No (Assisted living) Unable to assess alcohol history related to: Unable to respond Patient Tobacco Use Status: Never used Tobacco Advance Directives: No Advance Directives Information Provided: No service: No Sexual orientation: Straight/Heterosexual Meds Allergies Allergy/AdvReac Type Severity Reaction Status Date / Time No Known Allergies Allergy Verified 05/20/23 02:08 Active Medications: Current Medications Acetaminophen (Acetaminophen 325 Mg Tablet) 650 mg PO Q6H PRN PRN Reason: Headache/Pain Mild Scale (1-3) Amlodipine Besylate (Amlodipine Besylate 5 Mg Tablet) 5 mg PO DAILY [facility]; Protocol Divalproex Sodium (Divalproex Sodium Sprinkles 125 Mg Jared.) 125 mg PO TID [facility] Sodium Chloride (Ns) 1,000 mls @ 100 mls/hr IVCONT .Q10H [facility] Cefazolin Sodium/Dextrose (Ancef) 2 gm in 50 mls @ 100 mls/hr IV PREOP [facility] Stop: 06/12/23 23:00 Lisinopril (Lisinopril 2.5 Mg Tablet) 2.5 mg PO DAILY [facility]; Protocol Magnesium Hydroxide (Milk Of Magnesia 30 Ml Oral.Susp) 30 ml PO DAILY PRN PRN Reason: Constipation Melatonin (Melatonin 3 Mg Tablet) 3 mg PO BEDTIME [facility] Memantine (Memantine Hcl 5 Mg Tablet) 5 mg PO BID [facility] Morphine Sulfate (Morphine Sulfate 4 Mg/Ml Cartridge) 2 mg IVPUSH Q4H PRN; Protocol PRN Reason: Pain, Severe (Pain Scale 7-10) Multivitamins/Vitamin C (Multivitamin Tablet) 1 tab PO BEDTIME [facility] Ondansetron HCl (Ondansetron Hcl 4 Mg/2 Ml Vial) 4 mg IVPUSH Q8H PRN PRN Reason: Nausea and Vomiting Oxycodone HCl (Oxycodone Hcl Immed Release 5 Mg Tablet) 5 mg PO Q4H PRN PRN Reason: Pain, Moderate(Pain Scale 4-6) Polyethylene Glycol (Polyethylene Glycol 3350 17 Gm Powd.Pack) 17 gm PO DAILY [facility] Quetiapine Fumarate (Quetiapine Fumarate 25 Mg Tablet) 25 mg PO BEDTIME [facility] Senna (Sennosides 8.6 Mg Tablet) 17.2 mg PO BEDTIME PRN PRN Reason: Constipation Sodium Chloride (0.9 % Sodium Chloride Flush 3 Ml Syringe) 3 ml IVFLUSH QSHIFT [facility] Trazodone HCl (Trazodone Hcl 50 Mg Tablet) 50 mg PO BEDTIME MRX1 PRN PRN Reason: Insomnia Trazodone HCl (Trazodone Hcl 50 Mg Tablet) 50 mg PO BEDTIME [facility] Physical Exam Const: General: healthy appearing, comfortable and no acute distress Extrem: Other: left hip skin intact. No open wounds. Patients says ouch when I lift the leg leg. Unable to perform SLR on her own as she does not verbalize understanding due to her dementia Pulses are intact Results Labs Labs: All other labs normal. Assessment and Plan (1) Fracture of femoral neck, left: Qualifiers: Encounter type: initial encounter Fracture type: closed Qualified Code(s): S72.002A - Fracture of unspecified part of neck of left femur, initial encounter for closed fracture Status: Acute Plan I discussed the case with Dr Boo and explained the extent of the injury to the patient's HCP Jenny Montez and options available which include surgical intervention. I explained the procedure in detail along with the length of recovery and rehab course. I explained the risk, benefits and alternatives. Risk including, but not limited to infection, blood clots, bleeding, non union or malunion and nerve/tissue damage to surrounding areas. I answered all their questions and with their understanding they have consented to move forward with Operative Fixation of the left hip . The patient will be T&S, med clearance obtained and NPO after midnight. jenny [facility] Procedures Date of Service Date of Service: 06/11/23
[2023-06-11] MEDS: 0.9 % Sodium Chloride 1,000 ML 100 ML IVCONT (21:54)
[2023-06-11] MEDS: Morphine Sulfate 4 MG/ML CARTRIDGE 2 MG IVPUSH (21:54)
[2023-06-11] MEDS: QUEtiapine Fumarate 25 MG TABLET PO (21:55)
[2023-06-11] MEDS: Melatonin 3 MG TABLET PO (21:55)
[2023-06-11] MEDS: Divalproex Sodium Sprinkles 125 MG CAP.DR.SPR PO (21:55)
[2023-06-11] MEDS: Multivitamin TABLET 1 TAB PO (21:55)
[2023-06-11] MEDS: traZODone HCL 50 MG TABLET PO (21:55)
[2023-06-12] VITALS (16 sets, daily range): BP systolic 114–194; BP diastolic 61–85; PULSE 60–75; RESP 10–18; TEMP 36.2–37.6; O2SAT 94–99; BMI 15.1
--- NOTE | 2023-06-12 06:05 | HO.SKINPHOTO ---
Location: Category: Stage: Length: Width: Depth: cm Location: Category: Stage: Length: Width: Depth: cm Location: Category: Stage: Length: Width: Depth: cm Location: Category: Stage: Length: Width: Depth: cm Location: Category: Stage: Length: Width: Depth: cm Location: Category: Stage: Length: Width: Depth: cm left buttock red raised bump
[2023-06-12 06:09] LABS: MANUAL DIFF FLAG NO
[2023-06-12 06:19] LABS: Basophils Absolute Auto 0.1 X10*3/uL (0.0-0.2); Basophils Percent Auto 0.4 % (0-2); Eosinophils Absolute Auto 0.2 X10*3/uL (0.0-0.4); Eosinophils Percent Auto 1.5 % (0-4); Hemoglobin 13.8 g/dl (12.0-16.0); Imm Gran Abs Auto 0.07 X10*3/uL (0.00-0.03); Imm Gran Pct Auto 0.6 % (0.0-0.4); Lymphocytes Absolute Auto 1.2 X10*3/uL (1.2-4.9); Lymphocytes Percent Auto 10.5 % (20-40); Mean Corpuscular HGB Conc 32.9 g/dl (31.0-35.0); Mean Corpuscular Hemoglobin 31.2 pg (27.0-33.0); Mean Corpuscular Volume 94.8 fL (80.0-98.0); Mean Platelet Volume 12.5 fL (9.4-12.3); Monocytes Absolute Auto 0.9 X10*3/uL (0.1-1.2); Neutrophils Absolute Auto 9.1 x10*3/uL (2.0-8.3); Platelet Count 114 X10*3/uL (160-400); Red Blood Count 4.43 X10*6/uL (4.20-5.50); Red Cell Distribution Width 12.8 % (11.0-16.0); White Blood Count 11.5 X10*3/uL (4.8-10.8)
[2023-06-12] MEDS: 0.9 % Sodium Chloride 1,000 ML 100 ML IVCONT ×2 (06:31→15:44)
[2023-06-12 06:45] LABS: Anion Gap 9 (12-20); Blood Urea Nitrogen 14 mg/dL (9-16); Calcium 12.7 mg/dL (8.4-10.2); Carbon Dioxide 29 mmol/L (22-29); Chloride 109 mmol/L (96-108); Creatinine Clr Calc Pharmacy 35.5; Estimated Glomerular Filt Rate > 60; Glucose Random 106 mg/dL (60-115); Potassium 3.2 mmol/L (3.3-5.1); Sodium 144 mmol/L (135-145)
--- NOTE | 2023-06-12 07:25 | PHA.MEDREC ---
Pharmacy Consult ? Medication Reconciliation PT was Discharge 06/11/23 for consult to orthopedics . Only Dis meds documented : amlodipine nd polyethylene glycol. Discontinued med upon transfer : trazodone, lisinopril , acetaminophen and melatonin. Pharmacy has completed the medication reconciliation.
--- NOTE | 2023-06-12 07:40 | P.PNIM_ITS ---
Subjective Subjective Date of Service: 06/12/23 Interval History: Seen in follow up for L hip fracture Interval history ORIF this am. Ca 12.7, suspect due to fracture, last measured 10.7. IVF running. No complaints Review of Systems Review of Systems: Yes Unobtainable due to mental status Physical Exam 2 Vital Signs: Vital Signs: Last Vital Signs Temp 98.5 F 06/12/23 03:19 Pulse 64 06/12/23 03:19 Resp 18 06/12/23 03:19 BP 152/68 H 06/12/23 03:19 Pulse Ox 94 06/12/23 03:19 O2 Del Method Room Air 06/12/23 03:19 BMI result Body Mass Index 15.1 Constitutional - Awake and Alert, No apparent distress Eyes - PERRLA, EOMI Cardiovascular - S1S2, RRR, No edema Respiratory - Normal lung expansion, Normal respiratory effort, No respiratory distress, CTA bilaterally Extremities - no calf tenderness bilaterally, no swelling Musculoskeletal - grimacing with palpation of the left hip. Left leg with slight external rotation Skin - Warm/Dry Neurological - Alert & disoriented Psychological - Appropriate affect Objective Data Active Medications Acetaminophen (Acetaminophen 325 Mg Tablet) 650 mg PO Q6H PRN PRN Reason: Headache/Pain Mild Scale (1-3) Amlodipine Besylate (Amlodipine Besylate 5 Mg Tablet) 5 mg PO DAILY [facility]; Protocol Divalproex Sodium (Divalproex Sodium Sprinkles 125 Mg ) 125 mg PO TID [facility] Last Admin: 06/11/23 21:55 Dose: 125 mg Documented By: MUKUND Sodium Chloride (Ns) 1,000 mls @ 100 mls/hr IVCONT .Q10H [facility] Last Admin: 06/12/23 06:31 Dose: 100 mls/hr Documented By: MUKUND Cefazolin Sodium/Dextrose (Ancef) 2 gm in 50 mls @ 100 mls/hr IV PREOP [facility] Stop: 06/12/23 23:00 Lisinopril (Lisinopril 2.5 Mg Tablet) 2.5 mg PO DAILY [facility]; Protocol Magnesium Hydroxide (Milk Of Magnesia 30 Ml Oral.Susp) 30 ml PO DAILY PRN PRN Reason: Constipation Melatonin (Melatonin 3 Mg Tablet) 3 mg PO BEDTIME [facility] Last Admin: 06/11/23 21:55 Dose: 3 mg Documented By: MUKUND Memantine (Memantine Hcl 5 Mg Tablet) 5 mg PO BID [facility] Last Admin: 06/11/23 21:55 Dose: Not Given Documented By: MUKUND Non-Admin Reason: Med Not Available Morphine Sulfate (Morphine Sulfate 4 Mg/Ml Cartridge) 2 mg IVPUSH Q4H PRN; Protocol PRN Reason: Pain, Severe (Pain Scale 7-10) Last Admin: 06/11/23 21:54 Dose: 2 mg Documented By: MUKUND Ondansetron HCl (Ondansetron Hcl 4 Mg/2 Ml Vial) 4 mg IVPUSH Q8H PRN PRN Reason: Nausea and Vomiting Oxycodone HCl (Oxycodone Hcl Immed Release 5 Mg Tablet) 5 mg PO Q4H PRN PRN Reason: Pain, Moderate(Pain Scale 4-6) Polyethylene Glycol (Polyethylene Glycol 3350 17 Gm Powd.Pack) 17 gm PO DAILY [facility] Quetiapine Fumarate (Quetiapine Fumarate 25 Mg Tablet) 25 mg PO BEDTIME [facility] Last Admin: 06/11/23 21:55 Dose: 25 mg Documented By: MUKUND Senna (Sennosides 8.6 Mg Tablet) 17.2 mg PO BEDTIME PRN PRN Reason: Constipation Sodium Chloride (0.9 % Sodium Chloride Flush 3 Ml Syringe) 3 ml IVFLUSH QSHIFT [facility] Last Admin: 06/12/23 07:22 Dose: Not Given Documented By: CHAMP Non-Admin Reason: IV Running Trazodone HCl (Trazodone Hcl 50 Mg Tablet) 50 mg PO BEDTIME MRX1 PRN PRN Reason: Insomnia Trazodone HCl (Trazodone Hcl 50 Mg Tablet) 50 mg PO BEDTIME [facility] Last Admin: 06/11/23 21:55 Dose: 50 mg Documented By: MUKUND Labs 06/12/23 05:38 06/12/23 05:38 Labs: Laboratory Results - last 24 hr 06/11/23 06/12/23 23:22 05:38 MCV 94.8 MCH 31.2 MCHC 32.9 RDW 12.8 Plt Count 114 L MPV 12.5 H Immature Gran % (Auto) 0.6 H Neut % (Auto) 79.0 H Lymph % (Auto) 10.5 L [place] % (Auto) 8.0 Eos % (Auto) 1.5 Baso % (Auto) 0.4 Lymph # (Auto) 1.2 [place] # (Auto) 0.9 Eos # (Auto) 0.2 Baso # (Auto) 0.1 Abs Immat Gran (auto) 0.07 H Absolute Neuts (auto) 9.1 H Absolute Nucleated RBC 0.000 Nucleated RBC % (auto) 0.0 Anion Gap 9 L Estim Creat Clear Calc 35.5 Estimated GFR > 60 Random Glucose 106 Calcium 12.7 H* D Blood Type A Negative Antibody Screen NEGATIVE Assessment and Plan (1) Fracture of femoral neck, left: Status: Acute Plan 82-year-old female with history of hypertension, unspecified dementia admitted to hospitalist service from Geriatric Psychiatry after sustaining an unwitnessed fall last night while in the bathroom. She will be admitted to [facility] [place] for further management of displaced left hip fracture. #Acute displaced left femoral neck fracture -Ortho consult -Plan for ORIF this am -Pain management prn -regular diet -PT per ortho recs post operatively #HTN -continue lisinopril 2.5mg, amlodipine 5mg daily -monitor bp # unspecified dementia -mentation baseline -admitted from [facility] -psych consult DVT prophylaxis- SCPs Discussed with daughter, Jenny, code status changed to DNI/DNI Pt requires inpt stay at least 2 midnights for management of acute left hip fracture requiring ORIF, expert consultation, and PT evaluation Quality Stroke Does the patient have a stroke diagnosis?: No VTE Prior VTE?: No VTE Risk Level:: Medical - moderate - high VTE Device Contraindication: N/A - Device Ordered VTE Drug Contraindication: Treatment Not Indicated
[2023-06-12] MEDS: Morphine Sulfate 4 MG/ML CARTRIDGE 2 MG IVPUSH ×2 (08:26→18:11)
[2023-06-12 09:07] LABS: Calcium 12.8 mg/dL (8.4-10.2)
[2023-06-12] MEDS: Doxycycline Hyclate 100 MG in 0.9 % Sodium Chloride 250 ML 166.67 MG IV ×2 (09:45→21:52)
--- NOTE | 2023-06-12 10:31 | P.CONGS_ITS ---
History of Present Illness Consult details Consult date: 06/12/23 Narrative: [age] year old female referred for a mass on the sacrococcygeal area. She has a patient of the geropsych unit. She has known dementia and apparently had an unwitnessed fall the unit yesterday. She now has a fracture of the femoral neck on the left hip She is going for surgery for fracture. I have been consulted because a mass on the sacrococcygeal area with concern of this being an abscess. The patient has significant dementia so she does not provide any history. Review of Systems 2 Review of Systems: Patient has significant dementia Yes Unobtainable due to mental status PMFSH Past Medical History Medical History (Updated 06/12/23 @ 10:33 by Hilario Lopez MD) Subcutaneous mass Insomnia Dementia Hypertension Surgical History Surgical History (Updated 06/12/23 @ 10:07 by April Floyd) S/P rotator cuff repair History of colon surgery Social History Social History Household Members: Unknown / Unable to assess Housing: Unknown / Unable to assess Do you presently have visiting nurse or other home services: No Unable to assess alcohol history related to: Unable to respond Patient Tobacco Use Status: Former Tobacco user Quit Date: 1989 Tobacco use type: Cigarette Smoked in Last 30 Days: No Use of substances other than those prescribed or required for medical reasons: No Currently Displaying Signs/Symptoms of Drug Intoxication Withdrawal: No Are you DNR?: Yes Advance Directives: No Advance Directives Information Provided: No Do you have thoughts of harming others: None Do you have a plan to hurt others: No Plan Recently lost weight without trying: No Nutrition Risks: No Nutritional Risk Patient : No : No Poor oral hygiene: No service: No Sexual orientation: Straight/Heterosexual Meds Allergies Allergy/AdvReac Type Severity Reaction Status Date / Time No Known Allergies Allergy Verified 05/20/23 02:08 Active Medications: Current Medications Acetaminophen (Acetaminophen 325 Mg Tablet) 650 mg PO Q6H PRN PRN Reason: Headache/Pain Mild Scale (1-3) Amlodipine Besylate (Amlodipine Besylate 5 Mg Tablet) 5 mg PO DAILY [facility]; Protocol Last Admin: 06/12/23 10:01 Dose: Not Given Divalproex Sodium (Divalproex Sodium Sprinkles 125 Mg ) 125 mg PO TID [facility] Last Admin: 06/12/23 10:01 Dose: Not Given Sodium Chloride (Ns) 1,000 mls @ 100 mls/hr IVCONT .Q10H [facility] Last Admin: 06/12/23 06:31 Dose: 100 mls/hr Cefazolin Sodium/Dextrose (Ancef) 2 gm in 50 mls @ 100 mls/hr IV PREOP [facility] Stop: 06/12/23 23:00 Doxycycline Hyclate 100 mg/ (Sodium Chloride) 250 mls @ 166.67 mls/hr IV Q12H [facility] Last Admin: 06/12/23 09:45 Dose: 166.67 mls/hr Lisinopril (Lisinopril 2.5 Mg Tablet) 2.5 mg PO DAILY [facility]; Protocol Last Admin: 06/12/23 10:01 Dose: Not Given Magnesium Hydroxide (Milk Of Magnesia 30 Ml Oral.Susp) 30 ml PO DAILY PRN PRN Reason: Constipation Melatonin (Melatonin 3 Mg Tablet) 3 mg PO BEDTIME [facility] Last Admin: 06/11/23 21:55 Dose: 3 mg Memantine (Memantine Hcl 5 Mg Tablet) 5 mg PO BID [facility] Last Admin: 06/12/23 10:02 Dose: Not Given Morphine Sulfate (Morphine Sulfate 4 Mg/Ml Cartridge) 2 mg IVPUSH Q4H PRN; Protocol PRN Reason: Pain, Severe (Pain Scale 7-10) Last Admin: 06/12/23 08:26 Dose: 2 mg Ondansetron HCl (Ondansetron Hcl 4 Mg/2 Ml Vial) 4 mg IVPUSH Q8H PRN PRN Reason: Nausea and Vomiting Oxycodone HCl (Oxycodone Hcl Immed Release 5 Mg Tablet) 5 mg PO Q4H PRN PRN Reason: Pain, Moderate(Pain Scale 4-6) Polyethylene Glycol (Polyethylene Glycol 3350 17 Gm Powd.Pack) 17 gm PO DAILY [facility] Last Admin: 06/12/23 09:40 Dose: Not Given Quetiapine Fumarate (Quetiapine Fumarate 25 Mg Tablet) 25 mg PO BEDTIME [facility] Last Admin: 06/11/23 21:55 Dose: 25 mg Senna (Sennosides 8.6 Mg Tablet) 17.2 mg PO BEDTIME PRN PRN Reason: Constipation Sodium Chloride (0.9 % Sodium Chloride Flush 3 Ml Syringe) 3 ml IVFLUSH QSHIFT [facility] Last Admin: 06/12/23 07:22 Dose: Not Given Trazodone HCl (Trazodone Hcl 50 Mg Tablet) 50 mg PO BEDTIME MRX1 PRN PRN Reason: Insomnia Trazodone HCl (Trazodone Hcl 50 Mg Tablet) 50 mg PO BEDTIME [facility] Last Admin: 06/11/23 21:55 Dose: 50 mg Physical Exam 2 Vital Signs: Vital Signs: Last Vital Signs Temp 99.6 F 06/12/23 10:16 Pulse 72 06/12/23 10:16 Resp 16 06/12/23 10:16 BP 166/82 H 06/12/23 10:16 Pulse Ox 99 06/12/23 10:16 O2 Del Method Room Air 06/12/23 10:16 BMI result Body Mass Index 15.1 Const: Other: Has some spontaneous verbal output but not really conversant General: comfortable and no acute distress Resp: Effort & Inspection: normal respiratory effort Cardio: Rate: regular rate GI: Palpation (GI): Soft to palpation Back/Spine/Pelvis: Other: In the sacrococcygeal area to the left of the midline is note of a well-defined mobile mass, about 2.5 cm in diameter, appears to be subcutaneous, not fluctuant mass some redness of the overlying skin Results Labs 06/12/23 05:38 06/12/23 05:38 Labs: Abnormal lab results 06/12/23 06/12/23 Range/Units 05:38 08:34 WBC 11.5 H (4.8-10.8) X10*3/uL Plt Count 114 L (160-400) X10*3/uL MPV 12.5 H (9.4-12.3) fL Immature Gran % (Auto) 0.6 H (0.0-0.4) % Neut % (Auto) 79.0 H (45-73) % Lymph % (Auto) 10.5 L (20-40) % Abs Immat Gran (auto) 0.07 H (0.00-0.03) X10*3/uL Absolute Neuts (auto) 9.1 H (2.0-8.3) x10*3/uL Potassium 3.2 L (3.3-5.1) mmol/L Chloride 109 H (96-108) mmol/L Anion Gap 9 L (12-20) Calcium 12.7 H* D 12.8 H* (8.4-10.2) mg/dL Short CBC 06/12/23 Range/Units 05:38 WBC 11.5 H (4.8-10.8) X10*3/uL Hgb 13.8 (12.0-16.0) g/dl Hct 42.0 (37.0-47.0) % Plt Count 114 L (160-400) X10*3/uL BMP 06/12/23 06/12/23 05:38 08:34 Sodium 144 Potassium 3.2 L Chloride 109 H Carbon Dioxide 29 BUN 14 Creatinine 0.77 Calcium 12.7 H* D 12.8 H* All other labs normal. Assessment and Plan (1) Subcutaneous mass: Status: Acute She has what appears to be a subcutaneous mass on the sacrococcygeal area to the left of the midline. This seems to be a lipoma versus a subcutaneous cyst. The skin has some redness but this is likely due to pressure as she is bed-bound I do not feel there has a need to do an I and D at this time. She may go ahead with the planned repair of the femoral neck fracture. Procedures Date of Service Date of Service: 06/12/23
--- NOTE | 2023-06-12 11:24 | PC.NURSE ---
Patient in preop. Two rings removed and placed in patient labeled bag and put in patients chart. This nurse notified by floor nurse Leanna Sanchez that patient has an abscess on right buttock that is being treated with IV Doxycycline. Dr. Boo made aware and at bedside to assess area. No new orders at this time, may proceed with surgery per him. All preop questions answered and consents signed over the phone with Jenny Montez (patients health care proxy and daughter). Jenny voiced to this nurse that she wanted her mother to have a DNR/DNI code status. Patient code status at this time FULL CODE in the computer. Hospitalist Kelli Kilgore notified. Call placed to Jenny by her and resuscitate order changed. Patient now DNR/DNI code status. Dr. Mota anesthesia at bedside to discuss code status dueing surgery with Jenny, per her I want nothing done if my mother stops breathing, I want her to go in peace . No reversal form filled out. Patient remains DNR/DNI for surgery.
--- NOTE | 2023-06-12 12:31 | HO.ANESPROP2 ---
[facility] Active Problems Active Problems: All Active Problems (Updated 06/12/23 @ 10:33 by Hilario Lopez MD) Fracture of femoral neck, left (Acute) Delirium (Acute) Medical clearance for psychiatric admission (Acute) Subcutaneous mass (Acute) Dementia (Acute) Past Medical History Medical History (Updated 06/12/23 @ 10:33 by Hilario Lopez MD) Subcutaneous mass Insomnia Dementia Hypertension Family History Family history of problems with anesthesia: No Surgical History Surgical History (Updated 06/12/23 @ 10:42 by April Floyd) S/P rotator cuff repair History of colon surgery History of Problems with Anesthesia: No Social History Social History Household Members: Unknown / Unable to assess Housing: Unknown / Unable to assess Do you presently have visiting nurse or other home services: No Unable to assess alcohol history related to: Unable to respond Patient Tobacco Use Status: Former Tobacco user Quit Date: 1989 Tobacco use type: Cigarette Smoked in Last 30 Days: No Use of substances other than those prescribed or required for medical reasons: No Currently Displaying Signs/Symptoms of Drug Intoxication Withdrawal: No Are you DNR?: Yes Advance Directives: No Advance Directives Information Provided: No Do you have thoughts of harming others: None Do you have a plan to hurt others: No Plan Recently lost weight without trying: No Nutrition Risks: No Nutritional Risk Patient : No : No Poor oral hygiene: No service: No Sexual orientation: Straight/Heterosexual Meds Allergies Allergy/AdvReac Type Severity Reaction Status Date / Time No Known Allergies Allergy Verified 05/20/23 02:08 Active Medications: Current Medications Acetaminophen (Acetaminophen 325 Mg Tablet) 650 mg PO Q6H PRN PRN Reason: Headache/Pain Mild Scale (1-3) Amlodipine Besylate (Amlodipine Besylate 5 Mg Tablet) 5 mg PO DAILY [facility]; Protocol Last Admin: 06/12/23 10:01 Dose: Not Given Divalproex Sodium (Divalproex Sodium Sprinkles 125 Mg ) 125 mg PO TID [facility] Last Admin: 06/12/23 10:01 Dose: Not Given Sodium Chloride (Ns) 1,000 mls @ 100 mls/hr IVCONT .Q10H [facility] Last Admin: 06/12/23 06:31 Dose: 100 mls/hr Cefazolin Sodium/Dextrose (Ancef) 2 gm in 50 mls @ 100 mls/hr IV PREOP [facility] Stop: 06/12/23 23:00 Doxycycline Hyclate 100 mg/ (Sodium Chloride) 250 mls @ 166.67 mls/hr IV Q12H [facility] Last Admin: 06/12/23 09:45 Dose: 166.67 mls/hr Lisinopril (Lisinopril 2.5 Mg Tablet) 2.5 mg PO DAILY [facility]; Protocol Last Admin: 06/12/23 10:01 Dose: Not Given Magnesium Hydroxide (Milk Of Magnesia 30 Ml Oral.Susp) 30 ml PO DAILY PRN PRN Reason: Constipation Melatonin (Melatonin 3 Mg Tablet) 3 mg PO BEDTIME [facility] Last Admin: 06/11/23 21:55 Dose: 3 mg Memantine (Memantine Hcl 5 Mg Tablet) 5 mg PO BID [facility] Last Admin: 06/12/23 10:02 Dose: Not Given Morphine Sulfate (Morphine Sulfate 4 Mg/Ml Cartridge) 2 mg IVPUSH Q4H PRN; Protocol PRN Reason: Pain, Severe (Pain Scale 7-10) Last Admin: 06/12/23 08:26 Dose: 2 mg Ondansetron HCl (Ondansetron Hcl 4 Mg/2 Ml Vial) 4 mg IVPUSH Q8H PRN PRN Reason: Nausea and Vomiting Oxycodone HCl (Oxycodone Hcl Immed Release 5 Mg Tablet) 5 mg PO Q4H PRN PRN Reason: Pain, Moderate(Pain Scale 4-6) Polyethylene Glycol (Polyethylene Glycol 3350 17 Gm Powd.Pack) 17 gm PO DAILY [facility] Last Admin: 06/12/23 09:40 Dose: Not Given Quetiapine Fumarate (Quetiapine Fumarate 25 Mg Tablet) 25 mg PO BEDTIME [facility] Last Admin: 06/11/23 21:55 Dose: 25 mg Senna (Sennosides 8.6 Mg Tablet) 17.2 mg PO BEDTIME PRN PRN Reason: Constipation Sodium Chloride (0.9 % Sodium Chloride Flush 3 Ml Syringe) 3 ml IVFLUSH QSHIFT [facility] Last Admin: 06/12/23 07:22 Dose: Not Given Trazodone HCl (Trazodone Hcl 50 Mg Tablet) 50 mg PO BEDTIME MRX1 PRN PRN Reason: Insomnia Trazodone HCl (Trazodone Hcl 50 Mg Tablet) 50 mg PO BEDTIME [facility] Last Admin: 06/11/23 21:55 Dose: 50 mg Exam Height,Weight and Vital Signs: Height 5 ft 4 in Weight 40 kg Last Vital Signs Temp 99.6 F 06/12/23 10:16 Pulse 72 06/12/23 10:16 Resp 16 06/12/23 10:16 BP 166/82 H 06/12/23 10:16 Pulse Ox 99 06/12/23 10:16 O2 Del Method Room Air 06/12/23 10:16 Pertinent Lab Results Pertinent Lab Results: Laboratory Tests 06/11/23 06/12/23 06/12/23 23:22 05:38 08:34 WBC 11.5 H RBC 4.43 Hgb 13.8 Hct 42.0 MCV 94.8 MCH 31.2 MCHC 32.9 RDW 12.8 Plt Count 114 L MPV 12.5 H Immature Gran % (Auto) 0.6 H Neut % (Auto) 79.0 H Lymph % (Auto) 10.5 L [place] % (Auto) 8.0 Eos % (Auto) 1.5 Baso % (Auto) 0.4 Lymph # (Auto) 1.2 [place] # (Auto) 0.9 Eos # (Auto) 0.2 Baso # (Auto) 0.1 Abs Immat Gran (auto) 0.07 H Absolute Neuts (auto) 9.1 H Absolute Nucleated RBC 0.000 Nucleated RBC % (auto) 0.0 Hold Purple Top SEE NOTE Sodium 144 Potassium 3.2 L Chloride 109 H Carbon Dioxide 29 Anion Gap 9 L BUN 14 Creatinine 0.77 Estim Creat Clear Calc 35.5 Estimated GFR > 60 Random Glucose 106 Calcium 12.7 H* D 12.8 H* Hold Yellow Top Cancelled Blood Type A Negative Antibody Screen NEGATIVE 06/12/23 08:34 WBC RBC Hgb Hct MCV MCH MCHC RDW Plt Count MPV Immature Gran % (Auto) Neut % (Auto) Lymph % (Auto) [place] % (Auto) Eos % (Auto) Baso % (Auto) Lymph # (Auto) [place] # (Auto) Eos # (Auto) Baso # (Auto) Abs Immat Gran (auto) Absolute Neuts (auto) Absolute Nucleated RBC Nucleated RBC % (auto) Hold Purple Top Sodium Potassium Chloride Carbon Dioxide Anion Gap BUN Creatinine Estim Creat Clear Calc Estimated GFR Random Glucose Calcium Hold Yellow Top See Note Blood Type Antibody Screen Airway Mallampati Class: II TM Dist: >3cm Neck ROM: Limited Assessment and Plan Assessment Anesthesia Assessment: Anesthesia Plan Discussed and Chart Reviewed Final Anesthetic Review Family History of Problems with Anesthesia: No History of Problems with Anesthesia: No NPO: Yes ASA Class: III and Emergency Final Preanesthetic Review: No Changes in Pt Med Stat, Meds/Allgs Chart Reviewed, Consent Obtained/Reviewed and Anes Risks/Benef Reviewed Patient Risk: Intermediate Procedure Risk: Intermediate Anesthetic Plan Anesthetic Plan: GA Disposition: Standard PACU
[2023-06-12] MEDS: 0.9 % Sodium Chloride Flush 3 ML SYRINGE IVFLUSH (15:47)
[2023-06-12] MEDS: ceFAZolin Sodium/Dextrose,Iso 2 GM/50 ML PIGGYBACK IV ×2 (15:51→23:34)
--- NOTE | 2023-06-12 16:15 | P.BOP_ITS ---
Brief Operative Note Date of Service: 06/12/23 Pre-op diagnosis: Displaced left hip femoral neck fracture Post-op diagnosis: same Procedure: Left hip cemented bipolar hemiarthroplasty Implants: [place] cemented bipolar hemiarthroplasty with an Accolade C cemented femoral stem size 2 with a 127 degree neck-shaft angle, a femoral head size 26 with a-3 mm neck, femoral shell size 41, distal centralizer size 10, a small cement plug Surgeon: Seth Boo MD Anesthesia: GLMA Was an Paving Plant Operator used for this Procedure?: Yes Paving Plant Operator: Georgina Trejo Estimated blood loss (mL): 100 Pathology: other (Left femoral head) Condition: stable Disposition: PACU
--- NOTE | 2023-06-12 16:17 | P.OP_ITS ---
Operative Note Operative Note Date of Service: 06/12/23 Narrative: After the patient was identified as Bobby Gutierrez and her left hip was initialed by myself the patient was brought to the operating room where general anesthesia via LMA was induced by the anesthesiologist in routine fashion. The patient was given 2 g of IV Ancef for infection prophylaxis. The patient was then gently rolled into the lateral position. An axillary roll was put into place. All bony prominences were well padded. The patient's pelvis was held securely with hip bolsters. The patient's left hip region and lower extremity were prepped and draped in sterile fashion. A #10 scalpel blade was then used to make a curvilinear incision centered over the greater trochanter. The subcutaneous tissues were dissected using electrocautery down to the fascia krystin. The fascia krystin was then split in line with the skin incision using electrocautery. The split in the fascia krystin was curved posteriorly along its cephalad aspect to help prevent injury to the innervation of the tensor fascia krystin muscle. The patient's leg was gently externally rotated. A lateral Singer approach was then taken down to the anterior joint capsule. The anterior half of the vastus lateralis was split 1 cm from its insertion and tagged with #2 Ethibond suture. The anterior 1/3 of the gluteus medius incision was then split using electrocautery and tagged with #2 Ethibond suture. An anterior capsulectomy was then performed using electrocautery. The femoral neck fracture was identified. The patient's lower extremity was gently externally rotated. The femoral neck cut was made 1 cm proximal to the lesser trochanter. The femoral head was then removed using a corkscrew. The femoral head measured to be a size 41 mm. The trial size 41 femoral head was put into the acetabulum. The trial fit well. The trial was removed. The acetabulum was irrigated with copious amounts of normal saline solution via pulse lavage. The patient's leg was then placed into a sterile pouch along the anterior aspect of the surgical suite table. Soft tissues were retracted around the proximal femur. A box cutting osteotome was used to make a groove in the medial aspect of the greater trochanter. Broaching was begun with a size 0 press-fit broach. Broaching was increased up to a size 2 cemented broach. The size 2 broach fit well. The broach was removed. The distal centralizer was measured to be a size 10. A small cement plug was put into place. The intramedullary canal was irrigated with copious amounts of normal saline solution via pulse lavage while the cement was mixed. Once the cement reached a doughy state it was pressurized into the intramedullary canal. The final implant was put into place. Once the cement had hardened a trial size 41 shell with a -3 select mm neck was put into place. The hip was reduced. Leg lengths were clinically equal. The hip was taken through a full range of motion. There was no instability. The hip was dislocated and the patient's leg was placed into the sterile pouch. The trial head was removed. The wound was irrigated with copious amounts of normal saline solution via pulse lavage. The final head and shell were impacted in the place. Leg lengths were clinically equal. Hip was taken through a full range of motion. There was no instability. The patient's leg was then placed onto a well-padded Segal stand. The wound was once again irrigated. The vastus lateralis and tensor fascia krystin tendons were repaired with #2 Ethibond [id number] interrupted suture. The wound was once again irrigated. The fascia krystin was closed with #2 Ethibond figure-of- eight interrupted suture as well as #1 Vicryl [id number] interrupted suture. The wound was once again irrigated. The subcutaneous tissues were closed with 0 Vicryl and 2-0 Vicryl interrupted suture. The skin was closed with skin taryn. Dry sterile dressing was placed over the incision. The patient was gently rolled into the supine position. The patient was awoken and extubated in the operating room. The patient was transferred to the recovery room in stable condition.
--- NOTE | 2023-06-12 17:37 | PC.NURSE ---
Patient returned to floor after left hip repair approx. 1500- BP elevated at 171/81, SUZIE Kilgore made aware and ordered a one time dose of PO amlodipine 5mg. Patient was still too drowsy after surgery to take medications PO, however BP was rechecked at 1730 and is 132/82- SUZIE Kilgore updated
[2023-06-12] MEDS: Aspirin 325 MG TABLET PO (23:34)
[2023-06-12] MEDS: QUEtiapine Fumarate 25 MG TABLET PO (23:34)
[2023-06-12] MEDS: Memantine HCl 5 MG TABLET PO (23:35)
[2023-06-12] MEDS: traZODone HCL 50 MG TABLET PO (23:35)
[2023-06-12] MEDS: Divalproex Sodium Sprinkles 125 MG CAP.DR.SPR PO (23:35)
[2023-06-12] MEDS: Melatonin 3 MG TABLET PO (23:35)
[2023-06-13] MEDS: 0.9 % Sodium Chloride 1,000 ML 100 ML IVCONT ×2 (03:13→11:35)
[2023-06-13 03:22] VITALS: BP 114/56; PULSE 63; RESP 18; TEMP 36; O2SAT 99
[2023-06-13 05:47] LABS: MANUAL DIFF FLAG NO
[2023-06-13 05:51] LABS: Basophils Percent Auto 0.1 % (0-2); Eosinophils Percent Auto 0.1 % (0-4); Hematocrit 33.6 % (37.0-47.0); Imm Gran Abs Auto 0.06 X10*3/uL (0.00-0.03); Imm Gran Pct Auto 0.4 % (0.0-0.4); Lymphocytes Percent Auto 6.7 % (20-40); Mean Corpuscular HGB Conc 32.7 g/dl (31.0-35.0); Mean Corpuscular Hemoglobin 31.7 pg (27.0-33.0); Mean Corpuscular Volume 96.8 fL (80.0-98.0); Mean Platelet Volume 12.8 fL (9.4-12.3); Monocytes Absolute Auto 1.3 X10*3/uL (0.1-1.2); Monocytes Percent Auto 8.9 % (2-11); Neutrophils Percent Auto 83.8 % (45-73); Platelet Count 101 X10*3/uL (160-400); Red Blood Count 3.47 X10*6/uL (4.20-5.50); Red Cell Distribution Width 12.9 % (11.0-16.0); White Blood Count 14.3 X10*3/uL (4.8-10.8)
[2023-06-13 06:07] LABS: Anion Gap 8 (12-20); Blood Urea Nitrogen 18 mg/dL (9-16); Carbon Dioxide 28 mmol/L (22-29); Chloride 112 mmol/L (96-108); Creatinine Clr Calc Pharmacy 35.5; Estimated Glomerular Filt Rate > 60; Glucose Random 117 mg/dL (60-115); Potassium 3.3 mmol/L (3.3-5.1); Sodium 145 mmol/L (135-145)
--- NOTE | 2023-06-13 07:19 | HO.PM.IMPN ---
Subjective Subjective Date of Service: 06/13/23 Interval History: Seen in follow up for L hip fracture Interval history: POD1. Ca trending down. Disoriented, no complaints. Appears uncomfortable but denies pain Review of Systems Review of Systems: Yes Unobtainable due to mental status Physical Exam Vital Signs: Vital Signs: Last Vital Signs Temp 96.8 F 06/13/23 03:22 Pulse 63 06/13/23 03:22 Resp 18 06/13/23 03:22 BP 114/56 L 06/13/23 03:22 Pulse Ox 99 06/13/23 03:22 O2 Del Method Nasal Cannula 06/13/23 03:22 O2 Flow Rate 1 06/13/23 03:22 BMI result Body Mass Index 15.1 Constitutional - Awake and Alert, No apparent distress Eyes - PERRLA, EOMI Cardiovascular - S1S2, RRR, No edema Respiratory - Normal lung expansion, Normal respiratory effort, No respiratory distress, CTA bilaterally Extremities - no calf tenderness bilaterally, no swelling Skin - Warm/Dry Neurological - Alert & disoriented Psychological - Appropriate affect Objective Data Active Medications Acetaminophen (Acetaminophen 325 Mg Tablet) 650 mg PO Q6H PRN PRN Reason: Headache/Pain Mild Scale (1-3) Amlodipine Besylate (Amlodipine Besylate 5 Mg Tablet) 5 mg PO DAILY [facility]; Protocol Last Admin: 06/12/23 10:01 Dose: Not Given Documented By: CHAMP Non-Admin Reason: NPO Aspirin (Aspirin 325 Mg Tablet) 325 mg PO BID [facility] Last Admin: 06/12/23 23:34 Dose: 325 mg Documented By: MUKUND Divalproex Sodium (Divalproex Sodium Sprinkstephany 125 Mg ) 125 mg PO TID [facility] Last Admin: 06/12/23 23:35 Dose: 125 mg Documented By: MUKUND Sodium Chloride (Ns) 1,000 mls @ 100 mls/hr IVCONT .Q10H [facility] Last Admin: 06/13/23 03:13 Dose: 100 mls/hr Documented By: MUKUND Doxycycline Hyclate 100 mg/ (Sodium Chloride) 250 mls @ 166.67 mls/hr IV Q12H [facility] Last Infusion: 06/12/23 23:47 Dose: Infused Documented By: MUKUND Lisinopril (Lisinopril 2.5 Mg Tablet) 2.5 mg PO DAILY [facility]; Protocol Last Admin: 06/12/23 10:01 Dose: Not Given Documented By: CHAMP Non-Admin Reason: NPO Magnesium Hydroxide (Milk Of Magnesia 30 Ml Oral.Susp) 30 ml PO DAILY PRN PRN Reason: Constipation Melatonin (Melatonin 3 Mg Tablet) 3 mg PO BEDTIME [facility] Last Admin: 06/12/23 23:35 Dose: 3 mg Documented By: MUKUND Memantine (Memantine Hcl 5 Mg Tablet) 5 mg PO BID [facility] Last Admin: 06/12/23 23:35 Dose: 5 mg Documented By: MUKUND Morphine Sulfate (Morphine Sulfate 4 Mg/Ml Cartridge) 2 mg IVPUSH Q4H PRN; Protocol PRN Reason: Pain, Severe (Pain Scale 7-10) Last Admin: 06/12/23 18:11 Dose: 2 mg Documented By: CHAMP Ondansetron HCl (Ondansetron Hcl 4 Mg/2 Ml Vial) 4 mg IVPUSH Q8H PRN PRN Reason: Nausea and Vomiting Oxycodone HCl (Oxycodone Hcl Immed Release 5 Mg Tablet) 5 mg PO Q4H PRN PRN Reason: Pain, Moderate(Pain Scale 4-6) Polyethylene Glycol (Polyethylene Glycol 3350 17 Gm Powd.Pack) 17 gm PO DAILY [facility] Last Admin: 06/12/23 09:40 Dose: Not Given Documented By: CHAMP Non-Admin Reason: NPO Quetiapine Fumarate (Quetiapine Fumarate 25 Mg Tablet) 25 mg PO BEDTIME [facility] Last Admin: 06/12/23 23:34 Dose: 25 mg Documented By: MUKUND Senna (Sennosides 8.6 Mg Tablet) 17.2 mg PO BEDTIME PRN PRN Reason: Constipation Sodium Chloride (0.9 % Sodium Chloride Flush 3 Ml Syringe) 3 ml IVFLUSH QSHIFT [facility] Last Admin: 06/13/23 07:02 Dose: Not Given Documented By: NOEMI Non-Admin Reason: IV Running Trazodone HCl (Trazodone Hcl 50 Mg Tablet) 50 mg PO BEDTIME MRX1 PRN PRN Reason: Insomnia Trazodone HCl (Trazodone Hcl 50 Mg Tablet) 50 mg PO BEDTIME [facility] Last Admin: 06/12/23 23:35 Dose: 50 mg Documented By: MUKUND Labs 06/13/23 05:25 06/13/23 05:25 Labs: Laboratory Results - last 24 hr 06/12/23 06/12/23 06/13/23 08:34 08:34 05:25 MCV 96.8 MCH 31.7 MCHC 32.7 RDW 12.9 Plt Count 101 L MPV 12.8 H Immature Gran % (Auto) 0.4 Neut % (Auto) 83.8 H Lymph % (Auto) 6.7 L [place] % (Auto) 8.9 Eos % (Auto) 0.1 Baso % (Auto) 0.1 Lymph # (Auto) 1.0 L [place] # (Auto) 1.3 H Eos # (Auto) 0.0 Baso # (Auto) 0.0 Abs Immat Gran (auto) 0.06 H Absolute Neuts (auto) 12.0 H Absolute Nucleated RBC 0.000 Nucleated RBC % (auto) 0.0 Hold Purple Top SEE NOTE Anion Gap 8 L Estim Creat Clear Calc 35.5 Estimated GFR > 60 Random Glucose 117 H Calcium 12.8 H* 12.0 H D Hold Yellow Top Cancelled See Note Assessment and Plan (1) Fracture of femoral neck, left: Status: Acute Plan 82-year-old female with history of hypertension, unspecified dementia admitted to hospitalist service from [facility] after sustaining an unwitnessed fall last night while in the bathroom. She will be admitted to [facility] [place] for further management of displaced left hip fracture. #Acute displaced left femoral neck fracture -POD1 ORIF -Ortho input appreciated -Pain management prn -regular diet -STR per PT #HTN -continue lisinopril 2.5mg, amlodipine 5mg daily -monitor bp # unspecified dementia -mentation baseline -psych consult pending to assist with Dispo #Mild normocytic anemia -likely due to blood loss, H/H above transfusion threshold -monitor cbc DVT prophylaxis- SCPs Discussed with daughter, Jenny, code status changed to DNI/DNI Pt requires inpt stay at least 2 midnights for management of acute left hip fracture requiring ORIF, expert consultation, and PT evaluation Quality Stroke Does the patient have a stroke diagnosis?: No VTE Prior VTE?: No VTE Risk Level:: Medical - moderate - high VTE Device Contraindication: N/A - Device Ordered VTE Drug Contraindication: Treatment Not Indicated
[2023-06-13 07:45] VITALS: BP 158/68; PULSE 68; RESP 14; TEMP 36.3; O2SAT 97
[2023-06-13] MEDS: polyethylene glycoL 3350 17 GM POWD.PACK PO (08:40)
[2023-06-13] MEDS: Memantine HCl 5 MG TABLET PO ×2 (08:40→19:33)
[2023-06-13] MEDS: Aspirin 325 MG TABLET PO ×2 (08:40→19:33)
[2023-06-13] MEDS: Divalproex Sodium Sprinkles 125 MG CAP.DR.SPR PO ×3 (08:40→19:33)
[2023-06-13] MEDS: lisinopriL 2.5 MG TABLET PO (08:41)
[2023-06-13] MEDS: amLODIPine Besylate 5 MG TABLET PO (08:41)
[2023-06-13] MEDS: Doxycycline Hyclate 100 MG in 0.9 % Sodium Chloride 250 ML 166.67 MG IV ×2 (09:01→21:11)
--- NOTE | 2023-06-13 10:53 | PM.PNORT ---
Subjective Subjective Date of Service: 06/13/23 Interval history: The patient is an 82-year-old woman with dementia who is status post a left hip hemiarthroplasty with Dr. Franz yesterday. Physical Exam Vital Signs: Vital Signs: Last Vital Signs Temp 97.4 F 06/13/23 07:45 Pulse 68 06/13/23 07:45 Resp 14 06/13/23 07:45 BP 158/68 H 06/13/23 07:45 Pulse Ox 97 06/13/23 07:45 O2 Del Method Room Air 06/13/23 07:45 O2 Flow Rate 1 06/13/23 03:22 BMI result Body Mass Index 15.1 Extrem: Other: The patient was resting comfortably was asleep when I visited her room this morning. Her dressing was clean dry and intact. Her hematocrit was 33.6 this morning. Procedures Date of Service Date of Service: 06/13/23 Progress Note: A&P Assessment and plan (1) Fracture of femoral neck, left: Status: Acute (2) Status post hip hemiarthroplasty: Status: Acute Plan Assessment and plan: 1. Left femoral neck fracture status post hemiarthroplasty Date of surgery 06/12/[address] Boo Patient appears to be doing well postoperatively. PT will be coming by later today, weightbear as tolerated. Patient also on hospitalist service. Time Spent With Patient Time: Total time managing care of this patient today ____ minutes. Quality Stroke Does the patient have a stroke diagnosis?: No VTE Prior VTE?: No VTE Risk Level:: Medical - moderate - high VTE Device Contraindication: N/A - Device Ordered VTE Drug Contraindication: Treatment Not Indicated
[2023-06-13] MEDS: Morphine Sulfate 4 MG/ML CARTRIDGE 2 MG IVPUSH (14:07)
[2023-06-13 15:38] VITALS: BP 152/95; PULSE 75; RESP 17; TEMP 37; O2SAT 94
--- NOTE | 2023-06-13 15:55 | MHC.CM.PN ---
pt will be for rehab placement dgkrissy shandra is in agreeement requests a facility closer to her if possible
[2023-06-13 19:28] VITALS: BP 175/82; PULSE 75; RESP 17; TEMP 36.6; O2SAT 93
[2023-06-13] MEDS: traZODone HCL 50 MG TABLET PO (19:32)
[2023-06-13] MEDS: QUEtiapine Fumarate 25 MG TABLET PO (19:33)
[2023-06-13] MEDS: Acetaminophen 325 MG TABLET 650 MG PO (19:33)
[2023-06-13] MEDS: oxyCODONE HCl Immed Release 5 MG TABLET PO (19:33)
[2023-06-13] MEDS: Melatonin 3 MG TABLET PO (19:33)
[2023-06-13] MEDS: Sennosides 8.6 MG TABLET 17.2 MG PO (19:37)
[2023-06-13] MEDS: 0.9 % Sodium Chloride Flush 3 ML SYRINGE IVFLUSH (21:11)
[2023-06-14 03:36] VITALS: BP 168/78; PULSE 60; RESP 16; TEMP 36.3; O2SAT 96
[2023-06-14 05:27] VITALS: RESP 19
[2023-06-14] MEDS: Morphine Sulfate 4 MG/ML CARTRIDGE 2 MG IVPUSH (05:27)
[2023-06-14 07:30] VITALS: BP 172/68; PULSE 68; RESP 14; TEMP 36.4; O2SAT 97
--- NOTE | 2023-06-14 08:08 | HO.POSTANES ---
Post Anesthesia Evaluation Post Anesthesia Evaluation Date of Service: 06/14/23 Vital Signs: Vital Signs Temp Pulse Resp BP Pulse Ox O2 Del Method 06/14/23 07:30 97.5 F 68 14 172/68 H 97 Room Air 06/14/23 05:27 19 06/14/23 03:36 97.3 F 60 16 168/78 H 96 Room Air Anesthesia: General LMA Mental Status: Awake Pain Control: Satisfactory Nausea/Vomiting: None Hydration: Adequate Anesthesia-Related Issues: No Anes. Related Issues Comments: pt is demented, disoriented as her baseline
--- NOTE | 2023-06-14 08:23 | PM.PNORT ---
Subjective Subjective Date of Service: 06/14/23 Interval history: POD2 s/p Lt hip bon Patient is resting in bed comfortably No overnight events Pain is managed No additional complaints Physical Exam Vital Signs: Vital Signs: Last Vital Signs Temp 97.5 F 06/14/23 07:30 Pulse 68 06/14/23 07:30 Resp 14 06/14/23 07:30 BP 172/68 H 06/14/23 07:30 Pulse Ox 97 06/14/23 07:30 O2 Del Method Room Air 06/14/23 07:30 O2 Flow Rate 1 06/13/23 03:22 BMI result Body Mass Index 15.1 Const: General: cooperative, healthy appearing and no acute distress Resp: Effort & Inspection: normal respiratory effort and able to speak in complete sentences Cardio: Rate: regular rate Peripheral pulses: Peripheral pulses 2+ throughout GI: Palpation (GI): Soft to palpation Skin: Lesions: no lesions Rashes: no rashes Extrem: Other: left hip dressing is c/d/i. Able to dorsi/plantar flex. Calf is supple and nontender. Sensation intact. Pedal pulse intact. Procedures Date of Service Date of Service: 06/14/23 Progress Note: A&P Assessment and plan (1) Status post hip hemiarthroplasty: Status: Acute Assessment and Plan: Continue pain mgmnt Continue ASA for dvt ppx Continue PT/OT for left hip bon Dispo planning-PT, pain mgmnt, rehab placement Time Spent With Patient Time: Total time managing care of this patient today ____ minutes. Quality Stroke Does the patient have a stroke diagnosis?: No VTE Prior VTE?: No VTE Risk Level:: Medical - moderate - high VTE Device Contraindication: N/A - Device Ordered VTE Drug Contraindication: Treatment Not Indicated
[2023-06-14] MEDS: Divalproex Sodium Sprinkles 125 MG CAP.DR.SPR PO ×3 (08:40→20:12)
[2023-06-14] MEDS: amLODIPine Besylate 5 MG TABLET PO (08:40)
[2023-06-14] MEDS: Aspirin 325 MG TABLET PO ×2 (08:40→20:12)
[2023-06-14] MEDS: Memantine HCl 5 MG TABLET PO ×2 (08:40→20:12)
[2023-06-14] MEDS: polyethylene glycoL 3350 17 GM POWD.PACK PO (08:40)
[2023-06-14] MEDS: lisinopriL 2.5 MG TABLET PO (08:40)
[2023-06-14] MEDS: Doxycycline Hyclate 100 MG in 0.9 % Sodium Chloride 250 ML 166.67 MG IV ×2 (09:45→20:13)
--- NOTE | 2023-06-14 10:18 | PM.EVENT ---
Event Note Date of Service: 06/14/23 Event Note: Patient refusing morning blood draw at 06:00. A stat H&H was placed, however was not readdressed the the patient for draw. Attempted to call the lab but was unable to speak with anyone from phlebotomy. A [place] Text was sent to Dr. Monzon to make him aware and to followup as appropriate. Time Spent With Patient Time: Total time managing care of this patient today ____ minutes.
--- NOTE | 2023-06-14 10:23 | PC.NURSE ---
Addendum entered by Xenia Kumari RN 06/14/23 15:27: This RN and forestry farm laborer at beside, Lab draw completed, Pt tolerated well, Pt is resting in bed with call chatman within reach, respirations even and unlabored. Addendum entered by Xenia Kumari RN 06/14/23 12:40: second call made to phlebotomy as labs have not been drawn, Per the answering constitution party- will have a tech come draw labs. Original Note: BMP, CBC and STAT H&H labs ordered to be drawn 06:00 today, Labs were not drawn, A call was made to lab by this RN requesting phlebotomy to draw Pt, Phlebotomy verbalized will complete blood draw.
--- NOTE | 2023-06-14 10:29 | HO.WOUND ---
Wound Consult: Initial 82yr old? F admitted to [facility] on 06/11 - See progress notes and H&P for detailed history.? Wound consult placed for Left Sacrum - seen and assessed by Dr. Lopez as Lipoma vs Cyst - no topical orders given.? Per direct care nurse patient was recently transferred to her recliner chair with max assist prefers to perform return to bed and assessment at a later time. Will attempt consultation later today. ?
[2023-06-14 11:24] VITALS: BMI 17.2
--- NOTE | 2023-06-14 11:38 | MHC.CLN ---
NUTRITION DIET=REGULAR. KNOWN FROM [facility]. USUAL MEAL PATTERN REPORTED BY FAMILY IS GRAZING RATHER THAN MEALS. CURRENT INTAKE VERY POOR. HX VARIABLE INTAKE, WITH MANY MEALS POOR PO, DURING [facility] AD[facility]. SIGNIFICANT WEIGHT LOSS X LESS THAN 30 DAYS, -5.6%. QUALIFIES SEVERE MALNUTRITION IN THE CONTEXT OF ACUTE ILLNESS (DELIRIUM AND HIP FX). CONTINUE REGULAR DIET. OFFER SNACKS ABLE. ENCOURAGE INTAKE AT MEALS. FOLLOW FOR WEIGHT AND INTAKE. SEE CLINICAL NUTRITION ASSESSMENT 06/14/23.
--- NOTE | 2023-06-14 11:47 | HO.WOUND ---
Wound Consult: Initial 82yr old?F admitted to [facility] on 06/11 - See progress notes and H&P for detailed history.? Wound consult placed for Left sacrum - seen by Dr. Lopez see note for details - Etiology Lipoma vs Cyst.? Able to see patient when transitioned from commode back to recliner chair. ? Left Sacrum Etiology: Lipoma vs Cyst - ??Present on Admission Measurements: 2.5cm x 2cm Wound Bed: red pink blanchable tissue with round / oval palpable mass assessed by Dr. Lopez not consistent with abscess at this time - no fluctuance noted. There does appear to be an area of friction with partial thickness tissue loss Drainage / Odor: None Edges: ? defined Karma wound: red pink blanchable tissue - ? No Induration, Fluctuance or Warmth noted Pain: Pt is nonverbal at this time - not interactive with environment at the time of my consult - see was max assist Goals of Treatment: ? Foam dressing to protect from friction Recommendations: 1. Turn and Reposition every 2 hours and as needed for patient comfort.? Use pillows or wedges to support off loading positions. 2. Off Load all bony prominences with use of pillows and heel boots if needed.? Apply Preventative foams where needed. ? 3. Monitor for incontinence and moisture control, use barrier creams when needed for prevention and treatment. 4. Provide adequate and supplemental nutrition.? Nutrition following. 5. Order low air loss mattress. Waffle cushion provided for when up to chair. 6. When applicable maintain blood glucose levels per Providers order. 7. Left Sacrum - Routine cleansing, pat dry. Cover with Foam dressing - peel back and assess Q shift and change every 3 days and PRN. Re-consult wound care Nurse for wound deterioration or wound changes.
--- NOTE | 2023-06-14 12:37 | HO.PM.IMPN ---
Subjective Subjective Date of Service: 06/14/23 Interval History: dementia ,hip fx,Disoriented, no complaints. Review of Systems Review of Systems: Yes Unobtainable due to mental status Physical Exam Vital Signs: Vital Signs: Last Vital Signs Temp 97.5 F 06/14/23 07:30 Pulse 68 06/14/23 07:30 Resp 14 06/14/23 07:30 BP 172/68 H 06/14/23 07:30 Pulse Ox 97 06/14/23 07:30 O2 Del Method Room Air 06/14/23 07:30 O2 Flow Rate 1 06/13/23 03:22 BMI result Body Mass Index 17.2 Appearance: Alert.? Oriented X3.? cvs: rrr, [id number] , no murmur res: clear to auscultation ,no rhonchii or wheezing abd: no rebound or guarding ,nt, bs present. ext : left hip dressing -seems no bleedin . neuro: axo3 , nonfocal. Objective Data Active Medications Acetaminophen (Acetaminophen 325 Mg Tablet) 650 mg PO Q6H PRN PRN Reason: Headache/Pain Mild Scale (1-3) Last Admin: 06/13/23 19:33 Dose: 650 mg Documented By: COTEMA Amlodipine Besylate (Amlodipine Besylate 5 Mg Tablet) 5 mg PO DAILY [facility]; Protocol Last Admin: 06/14/23 08:40 Dose: 5 mg Documented By: NOEMI Aspirin (Aspirin 325 Mg Tablet) 325 mg PO BID [facility] Last Admin: 06/14/23 08:40 Dose: 325 mg Documented By: NOEMI Divalproex Sodium (Divalproex Sodium Rodolfoinkstephany 125 Mg ) 125 mg PO TID [facility] Last Admin: 06/14/23 08:40 Dose: 125 mg Documented By: NOEMI Docusate Sodium (Docusate Sodium 100 Mg Capsule) 100 mg PO BEDTIME PRN PRN Reason: Constipation Doxycycline Hyclate 100 mg/ (Sodium Chloride) 250 mls @ 166.67 mls/hr IV Q12H [facility] Last Infusion: 06/14/23 11:15 Dose: Infused Documented By: NOEMI Lisinopril (Lisinopril 2.5 Mg Tablet) 2.5 mg PO DAILY [facility]; Protocol Last Admin: 06/14/23 08:40 Dose: 2.5 mg Documented By: NOEMI Magnesium Hydroxide (Milk Of Magnesia 30 Ml Oral.Susp) 30 ml PO DAILY PRN PRN Reason: Constipation Melatonin (Melatonin 3 Mg Tablet) 3 mg PO BEDTIME [facility] Last Admin: 06/13/23 19:33 Dose: 3 mg Documented By: ROSHANEMA Memantine (Memantine Hcl 5 Mg Tablet) 5 mg PO BID [facility] Last Admin: 06/14/23 08:40 Dose: 5 mg Documented By: NOEMI Morphine Sulfate (Morphine Sulfate 4 Mg/Ml Cartridge) 2 mg IVPUSH Q4H PRN; Protocol PRN Reason: Pain, Severe (Pain Scale 7-10) Last Admin: 06/14/23 05:27 Dose: 2 mg Documented By: JACINTA Ondansetron HCl (Ondansetron Hcl 4 Mg/2 Ml Vial) 4 mg IVPUSH Q8H PRN PRN Reason: Nausea and Vomiting Oxycodone HCl (Oxycodone Hcl Immed Release 5 Mg Tablet) 5 mg PO Q4H PRN PRN Reason: Pain, Moderate(Pain Scale 4-6) Last Admin: 06/13/23 19:33 Dose: 5 mg Documented By: JACINTA Polyethylene Glycol (Polyethylene Glycol 3350 17 Gm Powd.Pack) 17 gm PO DAILY [facility] Last Admin: 06/14/23 08:40 Dose: 17 gm Documented By: NOEMI Quetiapine Fumarate (Quetiapine Fumarate 25 Mg Tablet) 25 mg PO BEDTIME [facility] Last Admin: 06/13/23 19:33 Dose: 25 mg Documented By: ROSHANEMA Senna (Sennosides 8.6 Mg Tablet) 17.2 mg PO BEDTIME PRN PRN Reason: Constipation Last Admin: 06/13/23 19:37 Dose: 17.2 mg Documented By: ROSHANEMA Sodium Chloride (0.9 % Sodium Chloride Flush 3 Ml Syringe) [facility] Last Admin: 06/14/23 06:53 Dose: Not Given Documented By: NOEMI Non-Admin Reason: IV Running Trazodone HCl (Trazodone Hcl 50 Mg Tablet) 50 mg PO BEDTIME MRX1 PRN PRN Reason: Insomnia Trazodone HCl (Trazodone Hcl 50 Mg Tablet) 50 mg PO BEDTIME [facility] Last Admin: 06/13/23 19:32 Dose: 50 mg Documented By: JACINTA Labs 06/13/23 05:25 06/13/23 05:25 Assessment and Plan (1) Fracture of femoral neck, left: Status: Acute Plan 82-year-old female with history of hypertension, unspecified dementia admitted to hospitalist service from Geriatric Psychiatry after sustaining an unwitnessed fall last night while in the bathroom. She will be admitted to [facility] for further management of displaced left hip fracture. Acute displaced left femoral neck fracture -POD2 ORIF Pain management prn,regular diet,STR per PT HTN-continue lisinopril 2.5mg, amlodipine 5mg daily -monitor bp unspecified dementia -mentation baseline -psych consult pending to assist with Dispo Mild normocytic anemia -likely due to blood loss, H/H above transfusion threshold -monitor cbc. 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
[2023-06-14] MEDS: 0.9 % Sodium Chloride Flush 3 ML SYRINGE IVFLUSH (15:07)
[2023-06-14 15:19] VITALS: BP 176/68; PULSE 77; RESP 18; O2SAT 94
--- NOTE | 2023-06-14 15:27 | MHC.CM.PN ---
CM SPOKE WITH DAUGHTER/HCP ESPERANZA VIA TELEPHONE. DAUGHTER REQUESTS BED SEARCH IN DAUGHTER'S AREA, FIRST CHOICE [facility], REFERRAL SENT. PT WILL NEED TO TRANSITION TO LTC (DAUGHTER WILL LET CM NAME OF PERSON WHO IS WORKING WITH HER ON THE MH [facility]) PT VERY SLEEPY THIS SHIFT, NO BEHAVIORS PER RN. CM WILL CONTINUE TO FOLLOW FOR ANY CHANGE IN DC PLAN/NEEDS
--- NOTE | 2023-06-14 15:28 | PC.NURSE ---
Pt out of bed to recliner with nursing staff today, took medication with no issues, no behaviors noted, 2A to commode, Pt resting in bed eyes closed unlabored and even respirations, with call chatman within reach.
[2023-06-14 15:33] LABS: MANUAL DIFF FLAG NO
[2023-06-14 15:42] LABS: Basophils Percent Auto 0.3 % (0-2); Eosinophils Absolute Auto 0.1 X10*3/uL (0.0-0.4); Eosinophils Percent Auto 0.4 % (0-4); Hematocrit 33.8 % (37.0-47.0); Hemoglobin 11.1 g/dl (12.0-16.0); Imm Gran Abs Auto 0.08 X10*3/uL (0.00-0.03); Imm Gran Pct Auto 0.6 % (0.0-0.4); Lymphocytes Absolute Auto 1.4 X10*3/uL (1.2-4.9); Lymphocytes Percent Auto 9.7 % (20-40); Mean Corpuscular HGB Conc 32.8 g/dl (31.0-35.0); Mean Corpuscular Hemoglobin 31.8 pg (27.0-33.0); Mean Corpuscular Volume 96.8 fL (80.0-98.0); Mean Platelet Volume 12.8 fL (9.4-12.3); Monocytes Percent Auto 7.1 % (2-11); Neutrophils Absolute Auto 11.7 x10*3/uL (2.0-8.3); Neutrophils Percent Auto 81.9 % (45-73); Platelet Count 123 X10*3/uL (160-400); Red Blood Count 3.49 X10*6/uL (4.20-5.50); Red Cell Distribution Width 13.1 % (11.0-16.0); White Blood Count 14.3 X10*3/uL (4.8-10.8)
[2023-06-14] MEDS: Dextrose 5 % and 0.9 % NaCl 1,000 ML 60 ML IVCONT (16:01)
[2023-06-14 16:08] LABS: Anion Gap 10 (12-20); Blood Urea Nitrogen 17 mg/dL (9-16); Calcium 12.5 mg/dL (8.4-10.2); Carbon Dioxide 28 mmol/L (22-29); Chloride 116 mmol/L (96-108); Creatinine Clr Calc Pharmacy 40.8; Estimated Glomerular Filt Rate > 60; Glucose Random 95 mg/dL (60-115); Potassium 2.6 mmol/L (3.3-5.1); Sodium 151 mmol/L (135-145)
[2023-06-14] MEDS: Potassium Chloride/H20 10 MEQ/100 ML PIGGYBACK 100 MEQ IV ×2 (16:42→18:02)
[2023-06-14 17:07] LABS: Magnesium 1.7 mg/dL (1.6-2.6)
[2023-06-14 17:24] LABS: Parathyroid Hormone Intact 370.6 pg/mL (8.7-77.1)
[2023-06-14 17:39] LABS: Vitamin D 25-OH Total 23.6 ng/mL (>30)
--- NOTE | 2023-06-14 18:23 | P.CNPS_ITS ---
History of Present Illness Date of Service: 06/14/2023 Chief Complaint: left hip fracture Sources of Information: patient interviewed, chart reviewed and crisis/core team assessment reviewed HPI Narrative: Pt awake, in some degree of physical distressed. She is not able to communicate much. Past Psychiatric History: No prior psychiatric admissions, the patient is a very poor historian [facility] Medical History (Updated 06/16/23 @ 08:29 by Anna Hollingsworth) Subcutaneous mass Insomnia Dementia Hypertension Surgical History S/P rotator cuff repair History of colon surgery Family History: Denies Social History: Unable to since the patient is a very poor historian Trauma History: Unable to assess the patient is a very poor historian Diagnostics Vital Signs (24Hr): Vital Signs - 24 hr 06/13/23 19:28 06/14/23 03:36 06/14/23 05:27 Temperature 97.9 F 97.3 F Pulse Rate 75 60 Respiratory Rate 17 16 19 Blood Pressure 175/82 H 168/78 H Pulse Oximetry 93 96 Oxygen Delivery Method Room Air Room Air 06/14/23 07:30 06/14/23 15:19 Temperature 97.5 F Pulse Rate 68 77 Respiratory Rate 14 18 Blood Pressure 172/68 H 176/68 H Pulse Oximetry 97 94 Oxygen Delivery Method Room Air Room Air BMI result Body Mass Index 17.2 Labs 06/14/23 15:27 06/15/23 20:32 Labs: Laboratory Results - last 48 hr 06/13/23 06/14/23 06/14/23 05:25 15:27 16:58 WBC 14.3 H 14.3 H RBC 3.47 L D 3.49 L Hgb 11.0 L D 11.1 L Hct 33.6 L 33.8 L MCV 96.8 96.8 MCH 31.7 31.8 MCHC 32.7 32.8 RDW 12.9 13.1 Plt Count 101 L 123 L MPV 12.8 H 12.8 H Immature Gran % (Auto) 0.4 0.6 H Neut % (Auto) 83.8 H 81.9 H Lymph % (Auto) 6.7 L 9.7 L Cobb % (Auto) 8.9 7.1 Eos % (Auto) 0.1 0.4 Baso % (Auto) 0.1 0.3 Lymph # (Auto) 1.0 L 1.4 Cobb # (Auto) 1.3 H 1.0 Eos # (Auto) 0.0 0.1 Baso # (Auto) 0.0 0.0 Abs Immat Gran (auto) 0.06 H 0.08 H Absolute Neuts (auto) 12.0 H 11.7 H Absolute Nucleated RBC 0.000 0.000 Nucleated RBC % (auto) 0.0 0.0 Sodium 145 151 H Potassium 3.3 2.6 L* D Chloride 112 H 116 H Carbon Dioxide 28 28 Anion Gap 8 L 10 L BUN 18 H 17 H Creatinine 0.77 0.67 Estim Creat Clear Calc 35.5 40.8 Estimated GFR > 60 > 60 Random Glucose 117 H 95 Calcium 12.0 H D 12.5 H* Magnesium 1.7 25-OH Vitamin D Total 23.6 L PTH Intact 370.6 H Hold Yellow Top See Note Imaging Radiology Impressions: ITS Impressions Pelvis X-Ray 06/12/23 14:15 IMPRESSION: Status post left hip arthroplasty with expected postoperative changes. KUB X-Ray 06/13/23 09:28 IMPRESSION: Mild constipation. Medications Medications Current Medications Acetaminophen (Acetaminophen 325 Mg Tablet) 650 mg PO Q6H PRN PRN Reason: Headache/Pain Mild Scale (1-3) Last Admin: 06/13/23 19:33 Dose: 650 mg Amlodipine Besylate (Amlodipine Besylate 5 Mg Tablet) 5 mg PO DAILY [facility]; Protocol Last Admin: 06/14/23 08:40 Dose: 5 mg Aspirin (Aspirin 325 Mg Tablet) 325 mg PO BID [facility] Last Admin: 06/14/23 08:40 Dose: 325 mg Calcitonin [place] (Calcitonin,[place],Synth Nasal 3.7 Ml Bottle) 1 spray NOSTRILALT DAILY [facility] Divalproex Sodium (Divalproex Sodium Sprinkstephany 125 Mg ) 125 mg PO TID [facility] Last Admin: 06/14/23 15:07 Dose: 125 mg Docusate Sodium (Docusate Sodium 100 Mg Capsule) 100 mg PO BEDTIME PRN PRN Reason: Constipation Doxycycline Hyclate 100 mg/ (Sodium Chloride) 250 mls @ 166.67 mls/hr IV Q12H [facility] Last Infusion: 06/14/23 11:15 Dose: Infused Dextrose/Sodium Chloride (D5ns) 1,000 mls @ 60 mls/hr IVCONT .[id number] [facility] Last Admin: 06/14/23 16:01 Dose: 60 mls/hr Potassium Chloride (Potassium Chloride/H20) 10 meq in 100 mls @ 100 mls/hr IV Q1H [facility] Stop: 06/14/23 18:44 Last Admin: 06/14/23 18:02 Dose: 100 mls/hr Lisinopril (Lisinopril 2.5 Mg Tablet) 2.5 mg PO DAILY [facility]; Protocol Last Admin: 06/14/23 08:40 Dose: 2.5 mg Magnesium Hydroxide (Milk Of Magnesia 30 Ml Oral.Susp) 30 ml PO DAILY PRN PRN Reason: Constipation Melatonin (Melatonin 3 Mg Tablet) 3 mg PO BEDTIME [facility] Last Admin: 06/13/23 19:33 Dose: 3 mg Memantine (Memantine Hcl 5 Mg Tablet) 5 mg PO BID [facility] Last Admin: 06/14/23 08:40 Dose: 5 mg Morphine Sulfate (Morphine Sulfate 4 Mg/Ml Cartridge) 2 mg IVPUSH Q4H PRN; Protocol PRN Reason: Pain, Severe (Pain Scale 7-10) Last Admin: 06/14/23 05:27 Dose: 2 mg Ondansetron HCl (Ondansetron Hcl 4 Mg/2 Ml Vial) 4 mg IVPUSH Q8H PRN PRN Reason: Nausea and Vomiting Oxycodone HCl (Oxycodone Hcl Immed Release 5 Mg Tablet) 5 mg PO Q4H PRN PRN Reason: Pain, Moderate(Pain Scale 4-6) Last Admin: 06/13/23 19:33 Dose: 5 mg Polyethylene Glycol (Polyethylene Glycol 3350 17 Gm Powd.Pack) 17 gm PO DAILY [facility] Last Admin: 06/14/23 08:40 Dose: 17 gm Quetiapine Fumarate (Quetiapine Fumarate 25 Mg Tablet) 25 mg PO BEDTIME [facility] Last Admin: 06/13/23 19:33 Dose: 25 mg Senna (Sennosides 8.6 Mg Tablet) 17.2 mg PO BEDTIME PRN PRN Reason: Constipation Last Admin: 06/13/23 19:37 Dose: 17.2 mg Sodium Chloride (0.9 % Sodium Chloride Flush 3 Ml Syringe) 3 ml IVFLUSH QSHIFT [facility] Last Admin: 06/14/23 15:07 Dose: 3 ml Trazodone HCl (Trazodone Hcl 50 Mg Tablet) 50 mg PO BEDTIME MRX1 PRN PRN Reason: Insomnia Trazodone HCl (Trazodone Hcl 50 Mg Tablet) 50 mg PO BEDTIME [facility] Last Admin: 06/13/23 19:32 Dose: 50 mg Allergies Allergies Allergy/AdvReac Type Severity Reaction Status Date / Time No Known Allergies Allergy Verified 05/20/23 02:08 Assessment & Plan Assessment & Plan (1) Major neurocognitive disorder: Status: Acute Code(s): F03.90 - Unspecified dementia, unspecified severity, without behavioral disturbance, psychotic disturbance, mood disturbance, and anxiety Plan Mrs. Ortiz is a 82 y/o woman with advanced dementia. surgery after hip surgery. there is not much she is able to tell me and seems to be in some degree of physical distress. At baseline she is only oriented to self. her presentation is appropriate given surgery, pain. I do expect some degree of decline in functioning and worsening of dementia after surgery and she may not return to previous baseline, which was already very impaired. 1. avoid oversedation. consider stopping depakote if noted increase sedation and decrease seroquel also if noted sedation now that pt taking pain meds. Total time managing care of this patient today ____ minutes.
[2023-06-14] MEDS: Calcitonin,Salmon,Synth Nasal 3.7 ML BOTTLE 1 SPRAY NOSTRILALT (18:28)
[2023-06-14 19:13] VITALS: BP 172/68; PULSE 67; RESP 16; TEMP 36.2; O2SAT 93
[2023-06-14] MEDS: Docusate Sodium 100 MG CAPSULE PO (20:12)
[2023-06-14] MEDS: traZODone HCL 50 MG TABLET PO ×2 (20:12→22:15)
[2023-06-14] MEDS: Melatonin 3 MG TABLET PO (20:13)
[2023-06-14] MEDS: Sennosides 8.6 MG TABLET 17.2 MG PO (20:13)
[2023-06-14] MEDS: QUEtiapine Fumarate 25 MG TABLET PO (20:13)
[2023-06-14] MEDS: Milk of Magnesia 30 ML ORAL.SUSP PO (20:18)
[2023-06-14] MEDS: Acetaminophen 325 MG TABLET 650 MG PO (22:15)
[2023-06-14] MEDS: oxyCODONE HCl Immed Release 5 MG TABLET PO (22:15)
--- NOTE | 2023-06-14 23:45 | PC.NURSE ---
Patient given bedtime medications per MAR crushed in pudding, patient took medications without difficulty. Patient assisted to commode with 2 assist, voided on commode, patient assisted back into bed. Complaint of pain, medicated with pain medications. Patient now sleeping.
[2023-06-15] VITALS (8 sets, daily range): BP systolic 140–200; BP diastolic 60–90; PULSE 64–75; RESP 12–20; TEMP 36.1–37.1; O2SAT 85–97
--- NOTE | 2023-06-15 05:50 | PC.NURSE ---
Patient slept throughout the night without any behavior issues. Patient washed and incontinence care done this morning, patient was able to follow commands and was not aggressive towards staff.
[2023-06-15] MEDS: polyethylene glycoL 3350 17 GM POWD.PACK PO (07:57)
[2023-06-15] MEDS: Aspirin 325 MG TABLET PO ×2 (07:58→19:27)
[2023-06-15] MEDS: Divalproex Sodium Sprinkles 125 MG CAP.DR.SPR PO ×3 (07:58→19:28)
[2023-06-15] MEDS: Memantine HCl 5 MG TABLET PO ×2 (07:58→19:28)
[2023-06-15] MEDS: oxyCODONE HCl Immed Release 5 MG TABLET PO ×2 (07:59→19:28)
[2023-06-15] MEDS: KCl 20 mEq in 5 % Dextrose 20 MEQ/1,000 ML IV.SOLN 80 MEQ IVCONT ×2 (08:01→19:43)
[2023-06-15] MEDS: Pantoprazole Sodium 40 MG/10 ML VIAL IVPUSH (08:05)
[2023-06-15] MEDS: amLODIPine Besylate 10 MG TABLET PO (08:06)
[2023-06-15 08:41] LABS: Anion Gap 8 (12-20); Blood Urea Nitrogen 15 mg/dL (9-16); Calcium 12.1 mg/dL (8.4-10.2); Carbon Dioxide 28 mmol/L (22-29); Chloride 120 mmol/L (96-108); Creatinine Clr Calc Pharmacy 46.4; Estimated Glomerular Filt Rate > 60; Glucose Random 114 mg/dL (60-115); Sodium 153 mmol/L (135-145)
[2023-06-15] MEDS: Calcitonin,Salmon,Synth Nasal 3.7 ML BOTTLE 1 SPRAY NOSTRILALT (09:44)
[2023-06-15] MEDS: Doxycycline Hyclate 100 MG in 0.9 % Sodium Chloride 250 ML 166.67 MG IV ×2 (09:44→19:47)
[2023-06-15] MEDS: Cinacalcet HCl 30 MG TABLET PO (11:23)
[2023-06-15] MEDS: Potassium Chloride/H20 10 MEQ/100 ML PIGGYBACK 100 MEQ IV ×2 (13:55→15:12)
--- NOTE | 2023-06-15 14:38 | P.CDIM_ITS ---
PROVIDER RESPONSE TEXT: To clarify, the appropriate diagnosis supported by the clinical indicators: Hypokalemia: hypokalemia QUERY TEXT: PHYSICIAN'S DOCUMENTATION REQUEST Date of Query: 06/15/2023 10:01 AM EST Patient Name: Bobby Ortiz Admit Date: 06/12/2023 Dear Humberto Monzon, A review of the medical record indicates additional documentation may be needed. Please review below and update the documentation accordingly. Clinical Indicators: LAB FINDINGS: potassium 2.6 L Klor-Con Based on the above, is there a diagnosis that correlates with these lab findings: Hypokalemia suspected, resolved, possible etc. Labs indicate a diagnosis of (please specify) Other (explain) Clinically unable to determine (explain) Thank you, Cami Villatoro, CCS, CDIS Use of terms such as suspected, likely, concern for, or probable (associated with a specific diagnosi s that is being evaluated, monitored, or treated as if it exists) are acceptable and can be coded in the inpatient se tting, when documented at the time of discharge. Please use your independent medical judgment in providing your response. THIS QUERY IS PART OF THE PERMANENT MEDICAL RECORD
--- NOTE | 2023-06-15 14:38 | P.CDIM_ITS ---
PROVIDER RESPONSE TEXT: To clarify, the appropriate diagnosis supported by the clinical indicators: Hypercalcemia: hypercalcemia QUERY TEXT: PHYSICIAN'S DOCUMENTATION REQUEST Date of Query: 06/15/2023 05:11 AM EST Patient Name: Bobby Ortiz Admit Date: 06/12/2023 Dear Humberto Monzon, A review of the medical record indicates additional documentation may be needed. Please review below and update the documentation accordingly. Clinical Indicators: LAB FINDINGS: calcium 12.8 H Based on the above, is there a diagnosis that correlates with these lab findings: Hypercalcemia resolved, possible, suspected etc. Labs indicate a diagnosis of (please specify) Other (explain) Clinically unable to determine (explain) Thank you, Cami Villtaoro, CCS, CDIS Use of terms such as suspected, likely, concern for, or probable (associated with a specific diagnosi s that is being evaluated, monitored, or treated as if it exists) are acceptable and can be coded in the inpatient se tting, when documented at the time of discharge. Please use your independent medical judgment in providing your response. THIS QUERY IS PART OF THE PERMANENT MEDICAL RECORD
--- NOTE | 2023-06-15 14:40 | HO.PM.IMPN ---
Subjective Subjective Date of Service: 06/15/23 Interval History: hypercalcemia ,elevated pth,hypernatremia Review of Systems still poor oral intake dementia -unable to provide much info. Physical Exam Vital Signs: Vital Signs: Last Vital Signs Temp 97.8 F 06/15/23 07:50 Pulse 75 06/15/23 12:36 Resp 12 06/15/23 07:50 BP 150/90 H 06/15/23 12:36 Pulse Ox 95 06/15/23 12:36 O2 Del Method Nasal Cannula 06/15/23 12:36 O2 Flow Rate 1 06/15/23 12:36 BMI result Body Mass Index 17.2 Appearance: Awake, dementia cvs: rrr, [id number] , no murmur res: clear to auscultation ,no rhonchii or wheezing abd: no rebound or guarding ,nt, bs present. ext : left hip dressing . neuro: awake . Objective Data Active Medications Acetaminophen (Acetaminophen 325 Mg Tablet) 650 mg PO Q6H PRN PRN Reason: Headache/Pain Mild Scale (1-3) Last Admin: 06/14/23 22:15 Dose: 650 mg Documented By: JACINTA Amlodipine Besylate (Amlodipine Besylate 10 Mg Tablet) 10 mg PO DAILY [facility]; Protocol Last Admin: 06/15/23 08:06 Dose: 10 mg Documented By: EBONY Aspirin (Aspirin 325 Mg Tablet) 325 mg PO BID [facility] Last Admin: 06/15/23 07:58 Dose: 325 mg Documented By: EBONY Calcitonin [place] (Calcitonin,[place],Synth Nasal 3.7 Ml Bottle) 1 spray NOSTRILALT DAILY [facility] Last Admin: 06/15/23 09:44 Dose: 1 spray Documented By: EBONY Cinacalcet (Cinacalcet Hcl 30 Mg Tablet) 30 mg PO DAILY [facility] Last Admin: 06/15/23 11:23 Dose: 30 mg Documented By: EBONY Divalproex Sodium (Divalproex Sodium Sprinkles 125 Mg ) 125 mg PO TID [facility] Last Admin: 06/15/23 07:58 Dose: 125 mg Documented By: EBONY Docusate Sodium (Docusate Sodium 100 Mg Capsule) 100 mg PO BEDTIME PRN PRN Reason: Constipation Last Admin: 06/14/23 20:12 Dose: 100 mg Documented By: JACINTA Doxycycline Hyclate 100 mg/ (Sodium Chloride) 250 mls @ 166.67 mls/hr IV Q12H [facility] Last Infusion: 06/15/23 11:23 Dose: Infused Documented By: EBONY Potassium Chloride/Dextrose (Kcl 20 Meq In 5 % Dextrose) 20 meq in 1,000 mls @ 80 mls/hr IVCONT .[id number] [facility] Last Admin: 06/15/23 08:01 Dose: 80 mls/hr Documented By: EBONY Potassium Chloride (Potassium Chloride/H20) 10 meq in 100 mls @ 100 mls/hr IV Q1H [facility] Stop: 06/15/23 15:44 Last Admin: 06/15/23 13:55 Dose: 100 mls/hr Documented By: EBONY Magnesium Hydroxide (Milk Of Magnesia 30 Ml Oral.Susp) 30 ml PO DAILY PRN PRN Reason: Constipation Last Admin: 06/14/23 20:18 Dose: 30 ml Documented By: JACINTA Melatonin (Melatonin 3 Mg Tablet) 3 mg PO BEDTIME [facility] Last Admin: 06/14/23 20:13 Dose: 3 mg Documented By: JACINTA Memantine (Memantine Hcl 5 Mg Tablet) 5 mg PO BID [facility] Last Admin: 06/15/23 07:58 Dose: 5 mg Documented By: EBONY Morphine Sulfate (Morphine Sulfate 4 Mg/Ml Cartridge) 2 mg IVPUSH Q4H PRN; Protocol PRN Reason: Pain, Severe (Pain Scale 7-10) Last Admin: 06/14/23 05:27 Dose: 2 mg Documented By: JACINTA Ondansetron HCl (Ondansetron Hcl 4 Mg/2 Ml Vial) 4 mg IVPUSH Q8H PRN PRN Reason: Nausea and Vomiting Oxycodone HCl (Oxycodone Hcl Immed Release 5 Mg Tablet) 5 mg PO Q4H PRN PRN Reason: Pain, Moderate(Pain Scale 4-6) Last Admin: 06/15/23 07:59 Dose: 5 mg Documented By: EBONY Pantoprazole Sodium (Pantoprazole Sodium 40 Mg/10 Ml Vial) 40 mg IVPUSH DAILY@0630 [facility] Last Admin: 06/15/23 08:05 Dose: 40 mg Documented By: EBONY Polyethylene Glycol (Polyethylene Glycol 3350 17 Gm Powd.Pack) 17 gm PO DAILY [facility] Last Admin: 06/15/23 07:57 Dose: 17 gm Documented By: EBONY Quetiapine Fumarate (Quetiapine Fumarate 25 Mg Tablet) 25 mg PO BEDTIME [facility] Last Admin: 06/14/23 20:13 Dose: 25 mg Documented By: JACINTA Senna (Sennosides 8.6 Mg Tablet) 17.2 mg PO BEDTIME PRN PRN Reason: Constipation Last Admin: 06/14/23 20:13 Dose: 17.2 mg Documented By: JACINTA Sodium Chloride (0.9 % Sodium Chloride Flush 3 Ml Syringe) 3 ml IVFLUSH QSHIFT [facility] Last Admin: 06/15/23 07:57 Dose: Not Given Documented By: EBONY Non-Admin Reason: IV Running Trazodone HCl (Trazodone Hcl 50 Mg Tablet) 50 mg PO BEDTIME MRX1 PRN PRN Reason: Insomnia Last Admin: 06/14/23 22:15 Dose: 50 mg Documented By: JACINTA Trazodone HCl (Trazodone Hcl 50 Mg Tablet) 50 mg PO BEDTIME [facility] Last Admin: 06/14/23 20:12 Dose: 50 mg Documented By: JACINTA Labs 06/14/23 15:27 06/15/23 08:09 Labs: Laboratory Results - last 24 hr 06/14/23 06/14/23 06/15/23 15:27 16:58 08:09 MCV 96.8 MCH 31.8 MCHC 32.8 RDW 13.1 Plt Count 123 L MPV 12.8 H Immature Gran % (Auto) 0.6 H Neut % (Auto) 81.9 H Lymph % (Auto) 9.7 L [place] % (Auto) 7.1 Eos % (Auto) 0.4 Baso % (Auto) 0.3 Lymph # (Auto) 1.4 [place] # (Auto) 1.0 Eos # (Auto) 0.1 Baso # (Auto) 0.0 Abs Immat Gran (auto) 0.08 H Absolute Neuts (auto) 11.7 H Absolute Nucleated RBC 0.000 Nucleated RBC % (auto) 0.0 Anion Gap 10 L 8 L Estim Creat Clear Calc 40.8 46.4 Estimated GFR > 60 > 60 Random Glucose 95 114 Calcium 12.5 H* 12.1 H Magnesium 1.7 25-OH Vitamin D Total 23.6 L PTH Intact 370.6 H Hold Yellow Top See Note Assessment and Plan (1) Fracture of femoral neck, left: Status: Acute Plan 82-year-old female with history of hypertension, unspecified dementia admitted to hospitalist service from Geriatric Psychiatry after sustaining an unwitnessed fall last night while in the bathroom. She will be [facility] [place] [facility] [place] management of displaced left hip fracture. Hypernatremia /hypokalemia: due to dec po intake added ivf d5w with potassium ,moniter renal function and electrolytes will repeat bmp this evening hypercalcemia:in setting of elevated pth and low viatmin d nephro following-added sensipar moniter renal function and electrolytes Acute displaced left femoral neck fracture -POD2 ORIF Pain management prn,regular diet,STR per PT HTN-adjusted amlodipine 10 mg daily hold lisinopril monitor bp unspecified dementia-mentation baseline psych consult pending to assist with Dispo Mild normocytic anemia-likely due to blood loss, H/H above transfusion threshold monitor cbc. 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 Quality Stroke Does the patient have a stroke diagnosis?: No VTE Prior VTE?: No VTE Risk Level:: Medical - moderate - high VTE Device Contraindication: N/A - Device Ordered VTE Drug Contraindication: Treatment Not Indicated
--- NOTE | 2023-06-15 14:51 | MHC.CM.PN ---
CM CALLED DAUGHTER ESPERANZA REGARDING MH GAYATHRI INFORMATION AND TO DETERMINE STATUS OF FINANCIAL DISCUSSION WITH [facility]. PER DAUGHTER, SHE DID NOT YET SPEAK WITH THEM AND THAT SHE IS TRYING TO GET BANK STATEMENTS. REQUEST FOR [facility] TO CONTACT DAUGHTER FAXED. CM WILL CONTINUE TO FOLLOW FOR ANY CHANGE IN DC PLAN
[2023-06-15] MEDS: QUEtiapine Fumarate 25 MG TABLET PO (19:28)
[2023-06-15] MEDS: Melatonin 3 MG TABLET PO (19:28)
[2023-06-15] MEDS: traZODone HCL 50 MG TABLET PO (19:28)
[2023-06-15] MEDS: 0.9 % Sodium Chloride Flush 3 ML SYRINGE IVFLUSH (19:47)
--- NOTE | 2023-06-15 20:23 | PM.CNNEP ---
History of Present Illness Reason for Consult Consult date: 06/15/23 Chief Complaint Chief complaint: left hip fracture History of Present Illness Narrative: 82-year-old female with history of hypertension, unspecified dementia admitted to hospitalist service from [facility] after sustaining an unwitnessed fall while in the bathroom. Patient reportedly had a mechanical fall without head strike or loss of consciousness and was assisted by staff to her bed but has been unable to bear weight on the left leg. The patient is unable to provide history secondary to her dementia and does not recall the event. The patient appears uncomfortable but denies any pain at this time. left hip CT showed displaced transverse fracture through the subcapital left femoral neck. Head CT was negative for any acute intracranial abnormality. Pt has been hypercalcemic, hypernatremic and hypokalemic. Nephrology has been consulted to assist in her clinical care during her current hospital stay Review of Systems Review of Systems Yes Unobtainable due to mental condition PMFSH Past Medical History Medical History (Updated 06/15/23 @ 20:28 by Erik Munoz MD) Subcutaneous mass Insomnia Dementia Hypertension Surgical History Surgical History S/P rotator cuff repair History of colon surgery Social History Social History Household Members: Unknown / Unable to assess Housing: Unknown / Unable to assess Do you presently have visiting nurse or other home services: No Unable to assess alcohol history related to: Unable to respond Patient Tobacco Use Status: Former Tobacco user Quit Date: 1989 Tobacco use type: Cigarette service: No Sexual orientation: Straight/Heterosexual Meds Allergies Allergy/AdvReac Type Severity Reaction Status Date / Time No Known Allergies Allergy Verified 05/20/23 02:08 Active Medications: Current Medications Acetaminophen (Acetaminophen 325 Mg Tablet) 650 mg PO Q6H PRN PRN Reason: Headache/Pain Mild Scale (1-3) Last Admin: 06/14/23 22:15 Dose: 650 mg Amlodipine Besylate (Amlodipine Besylate 10 Mg Tablet) 10 mg PO DAILY [facility]; Protocol Last Admin: 06/15/23 08:06 Dose: 10 mg Aspirin (Aspirin 325 Mg Tablet) 325 mg PO BID [facility] Last Admin: 06/15/23 19:27 Dose: 325 mg Calcitonin [place] (Calcitonin,[place],Synth Nasal 3.7 Ml Bottle) 1 spray NOSTRILALT DAILY [facility] Last Admin: 06/15/23 09:44 Dose: 1 spray Cinacalcet (Cinacalcet Hcl 30 Mg Tablet) 30 mg PO DAILY [facility] Last Admin: 06/15/23 11:23 Dose: 30 mg Divalproex Sodium (Divalproex Sodium Sprinkles 125 Mg Cap.) 125 mg PO TID [facility] Last Admin: 06/15/23 19:28 Dose: 125 mg Docusate Sodium (Docusate Sodium 100 Mg Capsule) 100 mg PO BEDTIME PRN PRN Reason: Constipation Last Admin: 06/14/23 20:12 Dose: 100 mg Doxycycline Hyclate 100 mg/ (Sodium Chloride) 250 mls @ 166.67 mls/hr IV Q12H [facility] Last Admin: 06/15/23 19:47 Dose: 166.67 mls/hr Potassium Chloride/Dextrose (Kcl 20 Meq In 5 % Dextrose) 20 meq in 1,000 mls @ 80 mls/hr IVCONT .[id number] [facility] Last Infusion: 06/15/23 19:43 Dose: 0 mls/hr Magnesium Hydroxide (Milk Of Magnesia 30 Ml Oral.Susp) 30 ml PO DAILY PRN PRN Reason: Constipation Last Admin: 06/14/23 20:18 Dose: 30 ml Melatonin (Melatonin 3 Mg Tablet) 3 mg PO BEDTIME [facility] Last Admin: 06/15/23 19:28 Dose: 3 mg Memantine (Memantine Hcl 5 Mg Tablet) 5 mg PO BID [facility] Last Admin: 06/15/23 19:28 Dose: 5 mg Ondansetron HCl (Ondansetron Hcl 4 Mg/2 Ml Vial) 4 mg IVPUSH Q8H PRN PRN Reason: Nausea and Vomiting Oxycodone HCl (Oxycodone Hcl Immed Release 5 Mg Tablet) 5 mg PO Q4H PRN PRN Reason: Pain, Moderate(Pain Scale 4-6) Last Admin: 06/15/23 19:28 Dose: 5 mg Pantoprazole Sodium (Pantoprazole Sodium 40 Mg/10 Ml Vial) 40 mg IVPUSH DAILY@0630 [facility] Last Admin: 06/15/23 08:05 Dose: 40 mg Polyethylene Glycol (Polyethylene Glycol 3350 17 Gm Powd.Pack) 17 gm PO DAILY [facility] Last Admin: 06/15/23 07:57 Dose: 17 gm Quetiapine Fumarate (Quetiapine Fumarate 25 Mg Tablet) 25 mg PO BEDTIME [facility] Last Admin: 06/15/23 19:28 Dose: 25 mg Senna (Sennosides 8.6 Mg Tablet) 17.2 mg PO BEDTIME PRN PRN Reason: Constipation Last Admin: 06/14/23 20:13 Dose: 17.2 mg Sodium Chloride (0.9 % Sodium Chloride Flush 3 Ml Syringe) 3 ml IVFLUSH QSHIFT [facility] Last Admin: 06/15/23 19:47 Dose: 3 ml Trazodone HCl (Trazodone Hcl 50 Mg Tablet) 50 mg PO BEDTIME MRX1 PRN PRN Reason: Insomnia Last Admin: 06/14/23 22:15 Dose: 50 mg Trazodone HCl (Trazodone Hcl 50 Mg Tablet) 50 mg PO BEDTIME [facility] Last Admin: 06/15/23 19:28 Dose: 50 mg Physical Exam Vital Signs: Last Vital Signs Temp 98.8 F 06/15/23 20:00 Pulse 74 06/15/23 20:00 Resp 20 06/15/23 20:00 BP 141/65 H 06/15/23 20:00 Pulse Ox 97 06/15/23 20:00 O2 Del Method Nasal Cannula 06/15/23 20:00 O2 Flow Rate 2 06/15/23 20:00 BMI result Body Mass Index 17.2 Const General: comfortable and no acute distress HEENT Head: Yes normocephalic Mouth: Normal oral and palatal mucosa present Eyes EOM: EOMs intact bilaterally Neck Neck: Yes supple Resp Auscultation: clear to auscultation bilaterally Cardio Jugular venous distension: no JVD Rate: regular rate GI Palpation (GI): Soft to palpation Auscultation: normal bowel sounds General: Yes no CVA tenderness Back/Spine/Pelvis Back: no CVA tenderness Skin General skin exam: no rashes or lesions noted Results Lab Results 06/14/23 15:27 06/15/23 08:09 Lab results: Chemistry 06/13/23 06/14/23 06/15/23 05:25 15:27 08:09 Sodium 145 151 H 153 H Potassium 3.3 2.6 L* D 3.0 L Carbon Dioxide BUN 18 H 17 H 15 Creatinine 0.77 0.67 0.59 Calcium 12.0 H D 12.5 H* 12.1 H Hematology 06/13/23 06/14/23 05:25 15:27 WBC 14.3 H 14.3 H Hgb 11.0 L D 11.1 L Plt Count 101 L 123 L Assessment and Plan (1) Hypernatremia: Status: Acute (2) Hypokalemia: Status: Acute (3) Hypercalcemia: Status: Acute Plan Has significant free water deficit Shall increase D5W to 100 mls/ hour On K replacement. Has primary hyperparathyroidism Started sensipar 30 mg daily C/W rest of current supportive management Procedures Date of Service Date of Service: 06/15/23
[2023-06-15 20:58] LABS: Anion Gap 9 (12-20); Blood Urea Nitrogen 14 mg/dL (9-16); Calcium 12.4 mg/dL (8.4-10.2); Carbon Dioxide 29 mmol/L (22-29); Chloride 117 mmol/L (96-108); Creatinine Clr Calc Pharmacy 42.8; Estimated Glomerular Filt Rate > 60; Glucose Random 140 mg/dL (60-115); Potassium 3.1 mmol/L (3.3-5.1); Sodium 152 mmol/L (135-145)
[2023-06-16] VITALS (7 sets, daily range): BP systolic 142–209; BP diastolic 75–93; PULSE 65–73; RESP 15–20; TEMP 36.1–36.9; O2SAT 97–100
[2023-06-16] MEDS: KCl 20 mEq in 5 % Dextrose 20 MEQ/1,000 ML IV.SOLN 80 MEQ IVCONT (00:32)
[2023-06-16] MEDS: Pantoprazole Sodium 40 MG/10 ML VIAL IVPUSH (05:46)
[2023-06-16 08:32] LABS: Anion Gap 7 (12-20); Blood Urea Nitrogen 11 mg/dL (9-16); Calcium 12.4 mg/dL (8.4-10.2); Carbon Dioxide 30 mmol/L (22-29); Chloride 114 mmol/L (96-108); Estimated Glomerular Filt Rate > 60; Glucose Random 117 mg/dL (60-115); Potassium 3.2 mmol/L (3.3-5.1); Sodium 148 mmol/L (135-145)
[2023-06-16 09:16] LABS: Valproate 30.6 mcg/mL (50.0-100.0)
[2023-06-16 09:17] LABS: Anion Gap 8 (12-20); Blood Urea Nitrogen 11 mg/dL (9-16); Calcium 12.4 mg/dL (8.4-10.2); Carbon Dioxide 29 mmol/L (22-29); Chloride 114 mmol/L (96-108); Creatinine Clr Calc Pharmacy 46.4; Estimated Glomerular Filt Rate > 60; Glucose Random 115 mg/dL (60-115); Phosphorus 1.2 mg/dL (2.7-4.5); Potassium 3.2 mmol/L (3.3-5.1); Sodium 148 mmol/L (135-145)
[2023-06-16] MEDS: amLODIPine Besylate 10 MG TABLET PO (09:43)
[2023-06-16] MEDS: Aspirin 325 MG TABLET PO ×2 (09:43→20:37)
[2023-06-16] MEDS: Memantine HCl 5 MG TABLET PO ×2 (09:45→20:37)
[2023-06-16] MEDS: Divalproex Sodium Sprinkles 125 MG CAP.DR.SPR PO ×3 (09:45→20:37)
[2023-06-16] MEDS: polyethylene glycoL 3350 17 GM POWD.PACK PO (09:45)
[2023-06-16] MEDS: Doxycycline Hyclate 100 MG in 0.9 % Sodium Chloride 250 ML 166.67 MG IV ×2 (09:47→21:52)
[2023-06-16] MEDS: Calcitonin,Salmon,Synth Nasal 3.7 ML BOTTLE 1 SPRAY NOSTRILALT (09:54)
--- NOTE | 2023-06-16 10:20 | PC.NURSE ---
Patient unable to register needing to swallow uncrushable pill whole. No difficulty noted drinking thin fluids and eating yogurt. Crushable pills given crushed in yogurt, patient swallowed without difficulty.
[2023-06-16] MEDS: Acetaminophen 325 MG TABLET 975 MG PO (10:43)
[2023-06-16] MEDS: Dextrose 5 % 1,000 ML 50 ML IVCONT (11:43)
[2023-06-16] MEDS: Potassium Phosphate/NS 15 MMOL/250 ML PLAST..BAG 62.5 MMOL IV (11:43)
--- NOTE | 2023-06-16 12:29 | MHC.CLN ---
F/U CONTINUES WITH VERY POOR PO INTAKE. UNABLE TO TAKE ADEQUATE PO INTAKE. MD DISCUSSED TUBE FEEDING WITH FAMILY AND DECLINED. COMMUNICATED WITH MD AND PHARMACY. WILL START PPN TODAY. RECOMMEND PPN AT 30 ML PER HOUR, 31 G PROTEIN, 72 G DEXTROSE, 367 KCALS. REPLETE LYTES NEEDED. CHECK TRIGLYCERIDES. RD TO FOLLOW UP FOR PPN ADVANCEMENT.
--- NOTE | 2023-06-16 13:01 | P.PNIM_ITS ---
Subjective Subjective Date of Service: 06/16/23 Interval History: poor oral intake ,multiple electrolytic abnormalities Review of Systems seems awake oral intake low Physical Exam 2 Vital Signs: Vital Signs: Last Vital Signs Temp 98 F 06/16/23 07:31 Pulse 67 06/16/23 07:31 Resp 15 06/16/23 07:31 BP 194/84 H 06/16/23 07:31 Pulse Ox 99 06/16/23 07:31 O2 Del Method Room Air 06/16/23 07:31 O2 Flow Rate 2 06/16/23 03:26 BMI result Body Mass Index 17.2 Appearance: Awake, dementia cvs: rrr, [id number] . res: clear to auscultation ,no rhonchii or wheezing abd: no rebound or guarding ,nt, bs present. ext : left hip dressing . neuro: awake . Objective Data Active Medications Acetaminophen (Acetaminophen 325 Mg Tablet) 975 mg PO Q6H PRN PRN Reason: Pain, Moderate(Pain Scale 4-6) Last Admin: 06/16/23 10:43 Dose: 975 mg Documented By: SHAE Amlodipine Besylate (Amlodipine Besylate 10 Mg Tablet) 10 mg PO DAILY [facility]; Protocol Last Admin: 06/16/23 09:43 Dose: 10 mg Documented By: SHAE Aspirin (Aspirin 325 Mg Tablet) 325 mg PO BID [facility] Last Admin: 06/16/23 09:43 Dose: 325 mg Documented By: SHAE Calcitonin [place] (Calcitonin,[place],Synth Nasal 3.7 Ml Bottle) 1 spray NOSTRILALT DAILY [facility] Last Admin: 06/16/23 09:54 Dose: 1 spray Documented By: SHAE Cinacalcet (Cinacalcet Hcl 30 Mg Tablet) 30 mg PO DAILY [facility] Last Admin: 06/16/23 11:19 Dose: Not Given Documented By: SHAWNEE Non-Admin Reason: Patient Refused Divalproex Sodium (Divalproex Sodium Sprinkles 125 Mg ) 125 mg PO TID [facility] Last Admin: 06/16/23 09:45 Dose: 125 mg Documented By: SHAE Docusate Sodium (Docusate Sodium 100 Mg Capsule) 100 mg PO BEDTIME PRN PRN Reason: Constipation Last Admin: 06/14/23 20:12 Dose: 100 mg Documented By: JACINTA Hydralazine HCl (Hydralazine Hcl 20 Mg/Ml Vial) 10 mg IVPUSH Q6H PRN; Protocol PRN Reason: htn Doxycycline Hyclate 100 mg/ (Sodium Chloride) 250 mls @ 166.67 mls/hr IV Q12H [facility] Last Infusion: 06/16/23 11:19 Dose: Infused Documented By: SHAWNEE Potassium Phosphate (Kphos) 15 mmol in 250 mls @ 62.5 mls/hr IV ONCE ONE Stop: 06/16/23 13:31 Last Admin: 06/16/23 11:43 Dose: 62.5 mls/hr Documented By: SHAWNEE Dextrose (D5w) 1,000 mls @ 50 mls/hr IVCONT .Q20H [facility] Last Admin: 06/16/23 11:43 Dose: 50 mls/hr Documented By: SHAWNEE Nutrition (Parenteral) (Parenteral Nutrition) 720 mls @ 30 mls/hr IV .Q24H [facility]; Protocol Stop: 06/17/23 20:59 Magnesium Hydroxide (Milk Of Magnesia 30 Ml Oral.Susp) 30 ml PO DAILY PRN PRN Reason: Constipation Last Admin: 06/14/23 20:18 Dose: 30 ml Documented By: JACINTA Melatonin (Melatonin 3 Mg Tablet) 3 mg PO BEDTIME [facility] Last Admin: 06/15/23 19:28 Dose: 3 mg Documented By: FAMILIA Memantine (Memantine Hcl 5 Mg Tablet) 5 mg PO BID [facility] Last Admin: 06/16/23 09:45 Dose: 5 mg Documented By: SHAE Ondansetron HCl (Ondansetron Hcl 4 Mg/2 Ml Vial) 4 mg IVPUSH Q8H PRN PRN Reason: Nausea and Vomiting Pantoprazole Sodium (Pantoprazole Sodium 40 Mg/10 Ml Vial) 40 mg IVPUSH DAILY@0630 [facility] Last Admin: 06/16/23 05:46 Dose: 40 mg Documented By: FAMILIA Pharmacy Consult (Consult Rx Parenteral Nutrition Ordering) 1 each MISCELLANE DAILY PRN PRN Reason: Consult order Polyethylene Glycol (Polyethylene Glycol 3350 17 Gm Powd.Pack) 17 gm PO DAILY [facility] Last Admin: 06/16/23 09:45 Dose: 17 gm Documented By: SHAE Senna (Sennosides 8.6 Mg Tablet) 17.2 mg PO BEDTIME PRN PRN Reason: Constipation Last Admin: 06/14/23 20:13 Dose: 17.2 mg Documented By: COTEMA Sodium Chloride (0.9 % Sodium Chloride Flush 3 Ml Syringe) 3 ml IVFLUSH QSHIFT [facility] Last Admin: 06/16/23 10:38 Dose: Not Given Documented By: SHAWNEE Non-Admin Reason: IV Running Labs 06/14/23 15:27 06/16/23 08:47 Labs: Laboratory Results - last 24 hr 06/15/23 06/16/23 06/16/23 20:32 07:58 08:47 Hold Purple Top SEE NOTE Anion Gap 9 L 7 L 8 L Estim Creat Clear Calc 42.8 48.0 46.4 Estimated GFR > 60 > 60 > 60 Random Glucose 140 H 117 H 115 Calcium 12.4 H 12.4 H 12.4 H Phosphorus 1.2 L Valproic Acid 30.6 L Assessment and Plan (1) Fracture of femoral neck, left: Status: Acute Plan 82-year-old female with history of hypertension, unspecified dementia admitted to hospitalist service from [facility] after sustaining an unwitnessed fall last night while in the bathroom. She [place] [facility] [place] management of displaced left hip fracture. Hypernatremia /hypokalemia: due to dec po intake hypernatremia -imrpoving with d5w added potassium replacement moniter renal function and electrolytes hypercalcemia:in setting of elevated pth and low viatmin d calciumlevels flactuating between 12.1 to 12.4, on sensipar moniter renal function and electrolytes nephro following Acute displaced left femoral neck fracture-POD4 ORIF(06/12) Pain management prn,regular diet,STR per PT HTN- flactuating continue amlodipine 10 mg daily,hydralazine iv prn if sbp>160 mmhg persistently. hold lisinopril due to dehydration,electolytic abnormalities monitor bp unspecified dementia-mentation baseline psych consult pending to assist with Dispo Mild normocytic anemia-likely due to blood loss, H/H above transfusion threshold monitor cbc. 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 d/w daughter miss Alvarado in detail -overall prognosis seems poor , continue conservative care for now. Quality Stroke Does the patient have a stroke diagnosis?: No VTE Prior VTE?: No VTE Risk Level:: Medical - moderate - high VTE Device Contraindication: N/A - Device Ordered VTE Drug Contraindication: Treatment Not Indicated
[2023-06-16 13:07] LABS: Albumin Level 2.9 g/dL (3.5-5.0); Magnesium 1.8 mg/dL (1.6-2.6)
[2023-06-16 18:51] LABS: Sodium 148 mmol/L (135-145)
[2023-06-16] MEDS: hydrALAZINE HCl 20 MG/ML VIAL 10 MG IVPUSH (20:36)
[2023-06-16] MEDS: Parenteral Nutrition 720 ML 30 ML IV (20:37)
[2023-06-16] MEDS: Melatonin 3 MG TABLET PO (20:37)
[2023-06-16 21:25] LABS: Anion Gap 7 (12-20); Blood Urea Nitrogen 13 mg/dL (9-16); Calcium 12.1 mg/dL (8.4-10.2); Carbon Dioxide 32 mmol/L (22-29); Chloride 112 mmol/L (96-108); Creatinine Clr Calc Pharmacy 44.9; Estimated Glomerular Filt Rate > 60; Glucose Random 114 mg/dL (60-115); Potassium 3.2 mmol/L (3.3-5.1); Sodium 148 mmol/L (135-145)
[2023-06-17 03:33] VITALS: BP 136/92; PULSE 70; RESP 20; TEMP 36.8; O2SAT 100
[2023-06-17] MEDS: Dextrose 5 % 1,000 ML 50 ML IVCONT (05:13)
[2023-06-17] MEDS: Pantoprazole Sodium 40 MG/10 ML VIAL IVPUSH (05:14)
[2023-06-17 07:52] VITALS: BP 165/72; PULSE 65; RESP 12; TEMP 36.4; O2SAT 99
[2023-06-17 09:34] LABS: Albumin Level 2.7 g/dL (3.5-5.0); Anion Gap 13 (12-20); Blood Urea Nitrogen 17 mg/dL (9-16); Calcium 12.3 mg/dL (8.4-10.2); Carbon Dioxide 28 mmol/L (22-29); Chloride 110 mmol/L (96-108); Creatinine Clr Calc Pharmacy 40.2; Estimated Glomerular Filt Rate > 60; Glucose Random 104 mg/dL (60-115); Magnesium 1.8 mg/dL (1.6-2.6); Phosphorus 2.2 mg/dL (2.7-4.5); Sodium 148 mmol/L (135-145); Triglycerides 61 mg/dL (<150)
[2023-06-17] MEDS: Aspirin 325 MG TABLET PO ×2 (10:31→20:27)
[2023-06-17] MEDS: Divalproex Sodium Sprinkles 125 MG CAP.DR.SPR PO ×3 (10:31→20:27)
[2023-06-17] MEDS: amLODIPine Besylate 10 MG TABLET PO (10:31)
[2023-06-17] MEDS: Cinacalcet HCl 30 MG TABLET PO (10:31)
[2023-06-17] MEDS: Acetaminophen 325 MG TABLET 975 MG PO (10:31)
[2023-06-17] MEDS: polyethylene glycoL 3350 17 GM POWD.PACK PO (10:32)
[2023-06-17] MEDS: Calcitonin,Salmon,Synth Nasal 3.7 ML BOTTLE 1 SPRAY NOSTRILALT (10:32)
[2023-06-17] MEDS: Memantine HCl 5 MG TABLET PO ×2 (10:32→20:27)
[2023-06-17] MEDS: 0.9 % Sodium Chloride Flush 3 ML SYRINGE IVFLUSH ×2 (10:32→15:53)
--- NOTE | 2023-06-17 10:59 | MHC.CLN ---
F/U CONTINUES WITH VERY POOR PO INTAKE. UNABLE TO TAKE ADEQUATE PO INTAKE. RECEIVING PPN. LABS REVIEWED. COMMUNICATED WITH PHARMACY. RECOMMEND INCREASE PPN TO 50 ML PER HOUR, ADD 40 G LIPIDS. PROVIDES 51 G PROTEIN, 120 G DEXTROSE, 1012 TOTAL KCALS. REPLETE LYTES NEEDED. PPN PROVIDES 1.275 G/KG PROTEIN; 1 G/KG LIPIDS; 25.3 KCALS/KG. ADVANCE TO PPN MAX GOAL RATE ABLE: PPN MAX GOAL RATE 50 ML PER HOUR, 51 G PROTEIN, 120 G DEXTROSE, 59 G LIPIDS, 1202 TOTAL KCALS (30 KCALS/KG). MONITOR PPN TOLERANCE, LABS AND PO INTAKE.
[2023-06-17 11:12] VITALS: BMI 17.2
[2023-06-17] MEDS: Doxycycline Hyclate 100 MG in 0.9 % Sodium Chloride 250 ML 166.67 MG IV ×2 (11:17→23:29)
--- NOTE | 2023-06-17 14:55 | HO.PM.IMPN ---
Subjective Subjective Date of Service: 06/17/23 Interval History: poor oral intake ,multiple electrolytic abnormalities Review of Systems seems more awake eat some food this morning Physical Exam Vital Signs: Vital Signs: Last Vital Signs Temp 97.6 F 06/17/23 07:52 Pulse 65 06/17/23 07:52 Resp 12 06/17/23 07:52 BP 165/72 H 06/17/23 07:52 Pulse Ox 99 06/17/23 07:52 O2 Del Method Nasal Cannula 06/17/23 07:52 O2 Flow Rate 2 06/17/23 07:52 BMI result Body Mass Index 17.2 Appearance: Alert.? Oriented X3.? cvs: [id number], [id number] , no murmur res: clear to auscultation ,no rhonchii or wheezing abd: no rebound or guarding ,nt, bs present. ext : left hip dressing -seems no bleedin . neuro: axo3 , nonfocal. Objective Data Active Medications Acetaminophen (Acetaminophen 325 Mg Tablet) 975 mg PO Q6H PRN PRN Reason: Pain, Moderate(Pain Scale 4-6) Last Admin: 06/17/23 10:31 Dose: 975 mg Documented By: CLARISA Amlodipine Besylate (Amlodipine Besylate 10 Mg Tablet) 10 mg PO DAILY [facility]; Protocol Last Admin: 06/17/23 10:31 Dose: 10 mg Documented By: CLARISA Aspirin (Aspirin 325 Mg Tablet) 325 mg PO BID [facility] Last Admin: 06/17/23 10:31 Dose: 325 mg Documented By: CLARISA Calcitonin [place] (Calcitonin,[place],Synth Nasal 3.7 Ml Bottle) 1 spray NOSTRILALT DAILY [facility] Last Admin: 06/17/23 10:32 Dose: 1 spray Documented By: CLARISA Cinacalcet (Cinacalcet Hcl 30 Mg Tablet) 30 mg PO DAILY [facility] Last Admin: 06/17/23 10:31 Dose: 30 mg Documented By: CLARISA Divalproex Sodium (Divalproex Sodium Sprinkles 125 Mg ) 125 mg PO TID [facility] Last Admin: 06/17/23 10:31 Dose: 125 mg Documented By: CLARISA Docusate Sodium (Docusate Sodium 100 Mg Capsule) 100 mg PO BEDTIME PRN PRN Reason: Constipation Last Admin: 06/14/23 20:12 Dose: 100 mg Documented By: COTLIV Hydralazine HCl (Hydralazine Hcl 20 Mg/Ml Vial) 10 mg IVPUSH Q6H PRN; Protocol PRN Reason: htn Last Admin: 06/16/23 20:36 Dose: 10 mg Documented By: COTLIV Doxycycline Hyclate 100 mg/ (Sodium Chloride) 250 mls @ 166.67 mls/hr IV Q12H [facility] Last Infusion: 06/17/23 12:53 Dose: Infused Documented By: CLARISA Dextrose (D5w) 1,000 mls @ 50 mls/hr IVCONT .Q20H [facility] Last Admin: 06/17/23 05:13 Dose: 50 mls/hr Documented By: COTEMA Nutrition (Parenteral) (Parenteral Nutrition) 720 mls @ 30 mls/hr IV .Q24H [facility]; Protocol Stop: 06/17/23 20:59 Last Admin: 06/16/23 20:37 Dose: 30 mls/hr Documented By: COTEMA Nutrition (Parenteral) (Parenteral Nutrition) 1,200 mls @ 50 mls/hr IV .Q24H [facility]; Protocol Stop: 06/18/23 20:59 Magnesium Hydroxide (Milk Of Magnesia 30 Ml Oral.Susp) 30 ml PO DAILY PRN PRN Reason: Constipation Last Admin: 06/14/23 20:18 Dose: 30 ml Documented By: JACINTA Melatonin (Melatonin 3 Mg Tablet) 3 mg PO BEDTIME [facility] Last Admin: 06/16/23 20:37 Dose: 3 mg Documented By: JACINTA Memantine (Memantine Hcl 5 Mg Tablet) 5 mg PO BID [facility] Last Admin: 06/17/23 10:32 Dose: 5 mg Documented By: CLARISA Ondansetron HCl (Ondansetron Hcl 4 Mg/2 Ml Vial) 4 mg IVPUSH Q8H PRN PRN Reason: Nausea and Vomiting Pantoprazole Sodium (Pantoprazole Sodium 40 Mg/10 Ml Vial) 40 mg IVPUSH DAILY@0630 [facility] Last Admin: 06/17/23 05:14 Dose: 40 mg Documented By: COTEMA Pharmacy Consult (Consult Rx Parenteral Nutrition Ordering) 1 each MISCELLANE DAILY PRN PRN Reason: Consult order Polyethylene Glycol (Polyethylene Glycol 3350 17 Gm Powd.Pack) 17 gm PO DAILY [facility] Last Admin: 06/17/23 10:32 Dose: 17 gm Documented By: CLARISA Senna (Sennosides 8.6 Mg Tablet) 17.2 mg PO BEDTIME PRN PRN Reason: Constipation Last Admin: 06/14/23 20:13 Dose: 17.2 mg Documented By: COTEMA Sodium Chloride (0.9 % Sodium Chloride Flush 3 Ml Syringe) 3 ml IVFLUSH QSHIFT [facility] Last Admin: 06/17/23 10:32 Dose: 3 ml Documented By: CLARISA Labs 06/14/23 15:27 06/17/23 08:12 Labs: Laboratory Results - last 24 hr 06/16/23 06/17/23 21:07 08:12 Hold Purple Top SEE NOTE Anion Gap 7 L 13 Estim Creat Clear Calc 44.9 40.2 Estimated GFR > 60 > 60 Random Glucose 114 104 Calcium 12.1 H 12.3 H Phosphorus 2.2 L Magnesium 1.8 Albumin 2.7 L Triglycerides 61 Assessment and Plan (1) Fracture of femoral neck, left: Status: Acute Plan day-6 82-year-old female with history of hypertension, unspecified dementia admitted to hospitalist service from Ger[facility] Psychiatry after sustaining an unwitnessed fall last night while in the bathroom. She [place] [facility] [place] hip fracture. Hypernatremia /hypokalemia: due to dec po intake hypernatremia -imrpoving with d5w,also potassium replacement moniter renal function and electrolytes hypercalcemia:in setting of elevated pth and low viatmin d calciumlevels flactuating between 12.1 to 12.4, on sensipar moniter renal function and electrolytes nephro following Acute displaced left femoral neck fracture-POD5 ORIF(06/12) Pain management prn,regular diet,STR per PT HTN- flactuating continue amlodipine 10 mg daily,hydralazine iv prn if sbp>160 mmhg persistently. hold lisinopril due to dehydration,electolytic abnormalities monitor bp unspecified dementia-mentation baseline psych consult pending to assist with Dispo Mild normocytic anemia-likely due to blood loss, H/H above transfusion threshold monitor cbc. severe malnutrition,poor oralinatke : added director government jeni added ppn DVT prophylaxis- SCPs ongoing inpt stay for management of acute left hip fracture requiring ORIF, expert consultation, and PT evaluation, multiple electrolytic abnormalities-need a aggressive electrolyte repletion as well as renal function and electrolyte monitoring as well as expert consultation. d/w daughter miss Alvarado in detail -overall prognosis seems poor , continue conservative care for now. Quality Stroke Does the patient have a stroke diagnosis?: No VTE Prior VTE?: No VTE Risk Level:: Medical - moderate - high VTE Device Contraindication: N/A - Device Ordered VTE Drug Contraindication: Treatment Not Indicated
[2023-06-17 15:19] VITALS: BP 171/71; PULSE 71; RESP 17; TEMP 36.6; O2SAT 99
[2023-06-17] MEDS: Potassium Chloride ER 20 MEQ TAB.ER.PRT PO (15:53)
[2023-06-17 16:47] LABS: Sodium 145 mmol/L (135-145)
[2023-06-17 19:12] VITALS: BP 177/79; PULSE 87; RESP 18; TEMP 36.7; O2SAT 96
[2023-06-17] MEDS: Melatonin 3 MG TABLET PO (20:27)
[2023-06-17] MEDS: Parenteral Nutrition 1,200 ML 50 ML IV (20:47)
[2023-06-18 03:20] VITALS: BP 174/74; PULSE 79; RESP 14; TEMP 36; O2SAT 99
[2023-06-18] MEDS: Pantoprazole Sodium 40 MG/10 ML VIAL IVPUSH (05:44)
[2023-06-18 06:51] LABS: Albumin Level 2.7 g/dL (3.5-5.0); Anion Gap 10 (12-20); Blood Urea Nitrogen 24 mg/dL (9-16); Calcium 10.6 mg/dL (8.4-10.2); Carbon Dioxide 30 mmol/L (22-29); Chloride 108 mmol/L (96-108); Creatinine Clr Calc Pharmacy 34.2; Estimated Glomerular Filt Rate > 60; Glucose Random 119 mg/dL (60-115); Magnesium 1.6 mg/dL (1.6-2.6); Phosphorus 1.9 mg/dL (2.7-4.5); Potassium 2.8 mmol/L (3.3-5.1); Sodium 145 mmol/L (135-145)
[2023-06-18 07:21] VITALS: BP 161/75; PULSE 82; RESP 12; TEMP 36.7; O2SAT 98
[2023-06-18] MEDS: polyethylene glycoL 3350 17 GM POWD.PACK PO (09:15)
[2023-06-18] MEDS: Magnesium Sulfate/D5W 1 GM/100 ML PIGGYBACK IV (09:15)
[2023-06-18] MEDS: Memantine HCl 5 MG TABLET PO ×2 (09:15→20:14)
[2023-06-18] MEDS: amLODIPine Besylate 10 MG TABLET PO (09:16)
[2023-06-18] MEDS: Cinacalcet HCl 30 MG TABLET PO (09:16)
[2023-06-18] MEDS: Divalproex Sodium Sprinkles 125 MG CAP.DR.SPR PO ×3 (09:16→20:13)
[2023-06-18] MEDS: Aspirin 325 MG TABLET PO ×2 (09:16→20:13)
[2023-06-18] MEDS: 0.9 % Sodium Chloride Flush 3 ML SYRINGE IVFLUSH (09:16)
[2023-06-18] MEDS: Acetaminophen 325 MG TABLET 975 MG PO ×2 (09:16→18:15)
[2023-06-18] MEDS: Potassium Chloride ER 20 MEQ TAB.ER.PRT PO (09:16)
[2023-06-18] MEDS: Calcitonin,Salmon,Synth Nasal 3.7 ML BOTTLE 1 SPRAY NOSTRILALT (09:17)
--- NOTE | 2023-06-18 13:06 | MHC.CM.PN ---
VISIT FROM SON AND SECONDARY CONTACT (FAVIOLA AND MAXI) [facility]. HER NUMBER IS [phone] [place] [facility] [place] WHO HAVE GONE FOR THE DAY.
--- NOTE | 2023-06-18 13:56 | P.PNIM_ITS ---
Subjective Subjective Date of Service: 06/18/23 Interval History: poor oral intake ,multiple electrolytic abnormalities Review of Systems oral inatke little improving ,could able to say her name today. no fevers Physical Exam 2 Vital Signs: Vital Signs: Last Vital Signs Temp 98.0 F 06/18/23 07:21 Pulse 82 06/18/23 07:21 Resp 12 06/18/23 07:21 BP 161/75 H 06/18/23 07:21 Pulse Ox 98 06/18/23 07:21 O2 Del Method Nasal Cannula 06/18/23 07:21 O2 Flow Rate 2 06/18/23 07:21 BMI result Body Mass Index 17.2 Appearance: Alert.? Oriented X1, comfortable.? cvs: rrr, [id number] , no murmur res: clear to auscultation ,no rhonchii or wheezing abd: no rebound or guarding ,nt, bs present. ext : left hip dressing -seems no bleedin . neuro: moves allext.. Objective Data Active Medications Acetaminophen (Acetaminophen 325 Mg Tablet) 975 mg PO Q6H PRN PRN Reason: Pain, Moderate(Pain Scale 4-6) Last Admin: 06/18/23 09:16 Dose: 975 mg Documented By: CLARISA Amlodipine Besylate (Amlodipine Besylate 10 Mg Tablet) 10 mg PO DAILY [facility]; Protocol Last Admin: 06/18/23 09:16 Dose: 10 mg Documented By: CLARISA Aspirin (Aspirin 325 Mg Tablet) 325 mg PO BID [facility] Last Admin: 06/18/23 09:16 Dose: 325 mg Documented By: CLARISA Calcitonin [place] (Calcitonin,[place],Synth Nasal 3.7 Ml Bottle) 1 spray NOSTRILALT DAILY [facility] Last Admin: 06/18/23 09:17 Dose: 1 spray Documented By: CLARISA Cinacalcet (Cinacalcet Hcl 30 Mg Tablet) 30 mg PO DAILY [facility] Last Admin: 06/18/23 09:16 Dose: 30 mg Documented By: CLARISA Divalproex Sodium (Divalproex Sodium Sprinkles 125 Mg ) 125 mg PO TID [facility] Last Admin: 06/18/23 09:16 Dose: 125 mg Documented By: CLARISA Docusate Sodium (Docusate Sodium 100 Mg Capsule) 100 mg PO BEDTIME PRN PRN Reason: Constipation Last Admin: 06/14/23 20:12 Dose: 100 mg Documented By: JACINTA Hydralazine HCl (Hydralazine Hcl 20 Mg/Ml Vial) 10 mg IVPUSH Q6H PRN; Protocol PRN Reason: htn Last Admin: 06/16/23 20:36 Dose: 10 mg Documented By: JACINTA Doxycycline Hyclate 100 mg/ (Sodium Chloride) 250 mls @ 166.67 mls/hr IV Q12H [facility] Last Admin: 06/18/23 11:15 Dose: Not Given Documented By: CLARISA Non-Admin Reason: medication being d/c'd per dr. simms Nutrition (Parenteral) (Parenteral Nutrition) 1,200 mls @ 50 mls/hr IV .Q24H [facility]; Protocol Stop: 06/18/23 20:59 Last Admin: 06/17/23 20:47 Dose: 50 mls/hr Documented By: CHANNING Potassium Phosphate (Kphos) 15 mmol in 250 mls @ 62.5 mls/hr IV Q4H [facility] Stop: 06/18/23 15:44 Nutrition (Parenteral) (Parenteral Nutrition) 1,200 mls @ 50 mls/hr IV .Q24H [facility]; Protocol Stop: 06/19/23 20:59 Magnesium Hydroxide (Milk Of Magnesia 30 Ml Oral.Susp) 30 ml PO DAILY PRN PRN Reason: Constipation Last Admin: 06/14/23 20:18 Dose: 30 ml Documented By: JACINTA Melatonin (Melatonin 3 Mg Tablet) 3 mg PO BEDTIME [facility] Last Admin: 06/17/23 20:27 Dose: 3 mg Documented By: CHANNING Memantine (Memantine Hcl 5 Mg Tablet) 5 mg PO BID [facility] Last Admin: 06/18/23 09:15 Dose: 5 mg Documented By: CLARISA Ondansetron HCl (Ondansetron Hcl 4 Mg/2 Ml Vial) 4 mg IVPUSH Q8H PRN PRN Reason: Nausea and Vomiting Pantoprazole Sodium (Pantoprazole Sodium 40 Mg/10 Ml Vial) 40 mg IVPUSH DAILY@0630 [facility] Last Admin: 06/18/23 05:44 Dose: 40 mg Documented By: CHANNING Pharmacy Consult (Consult Rx Parenteral Nutrition Ordering) 1 each MISCELLANE DAILY PRN PRN Reason: Consult order Polyethylene Glycol (Polyethylene Glycol 3350 17 Gm Powd.Pack) 17 gm PO DAILY [facility] Last Admin: 06/18/23 09:15 Dose: 17 gm Documented By: CLARISA Senna (Sennosides 8.6 Mg Tablet) 17.2 mg PO BEDTIME PRN PRN Reason: Constipation Last Admin: 06/14/23 20:13 Dose: 17.2 mg Documented By: COTEMA Sodium Chloride (0.9 % Sodium Chloride Flush 3 Ml Syringe) 3 ml IVFLUSH QSHIFT [facility] Last Admin: 06/18/23 09:16 Dose: 3 ml Documented By: CLARISA Labs 06/14/23 15:27 06/18/23 05:30 Labs: Laboratory Results - last 24 hr 06/18/23 05:30 Hold Purple Top SEE NOTE Anion Gap 10 L Estim Creat Clear Calc 34.2 Estimated GFR > 60 Random Glucose 119 H Calcium 10.6 H D Phosphorus 1.9 L Magnesium 1.6 Albumin 2.7 L Assessment and Plan (1) Hypercalcemia: Status: Acute (2) Hypokalemia: Status: Acute Plan day-7 82-year-old female with history of hypertension, unspecified dementia admitted to hospitalist service from [facility] after sustaining an unwitnessed fall last night while in the bathroom. She will be admitted to Med/[facility] [place] for further management of displaced left hip fracture. Hypernatremia /hypokalemia: due to dec po intake hypernatremia -imrpovingwith hydration. Hypokalemia- added po and iv replacements . moniter renal function and electrolytes hypercalcemia:in setting of elevated pth and low viatmin d on sensipar ,received zometa (On 06/16) calcium levels improving to 10.6 moniter renal function and electrolytes nephro following Acute displaced left femoral neck fracture-POD5 ORIF(06/12) Pain management prn,regular diet,STR per PT HTN- flactuating continue amlodipine 10 mg daily,hydralazine iv prn if sbp>160 mmhg persistently. hold lisinopril due to dehydration,electolytic abnormalities monitor bp unspecified dementia-mentation baseline psych consult pending to assist with Dispo Mild normocytic anemia-likely due to blood loss, H/H above transfusion threshold monitor cbc. 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 d/w daughter miss Alvarado in detail -overall prognosis seems poor , continue conservative care for now. Quality Stroke Does the patient have a stroke diagnosis?: No VTE Prior VTE?: No VTE Risk Level:: Medical - moderate - high VTE Device Contraindication: N/A - Device Ordered VTE Drug Contraindication: Treatment Not Indicated
[2023-06-18] MEDS: Potassium Phosphate/NS 15 MMOL/250 ML PLAST..BAG 62.5 MMOL IV ×2 (14:14→18:24)
[2023-06-18 15:58] VITALS: BP 158/60; PULSE 83; RESP 18; TEMP 36.4; O2SAT 100
[2023-06-18 20:00] VITALS: BP 167/77; PULSE 84; RESP 18; TEMP 36.7; O2SAT 97
[2023-06-18] MEDS: Melatonin 3 MG TABLET PO (20:13)
[2023-06-18] MEDS: Parenteral Nutrition 1,200 ML 50 ML IV (20:57)
[2023-06-18] MEDS: Doxycycline Hyclate 100 MG in 0.9 % Sodium Chloride 250 ML 166.67 MG IV (22:34)
[2023-06-19] MEDS: 0.9 % Sodium Chloride Flush 3 ML SYRINGE IVFLUSH ×3 (00:06→15:32)
[2023-06-19 03:40] VITALS: BP 134/60; PULSE 69; RESP 18; TEMP 36.7; O2SAT 97
[2023-06-19] MEDS: Pantoprazole Sodium 40 MG/10 ML VIAL IVPUSH (05:57)
[2023-06-19 06:01] LABS: Albumin Level 2.7 g/dL (3.5-5.0); Anion Gap 13 (12-20); Blood Urea Nitrogen 23 mg/dL (9-16); Calcium 8.8 mg/dL (8.4-10.2); Carbon Dioxide 26 mmol/L (22-29); Chloride 110 mmol/L (96-108); Estimated Glomerular Filt Rate > 60; Glucose Random 105 mg/dL (60-115); Magnesium 1.8 mg/dL (1.6-2.6); Phosphorus 2.6 mg/dL (2.7-4.5); Potassium 3.4 mmol/L (3.3-5.1); Sodium 146 mmol/L (135-145)
[2023-06-19 07:23] VITALS: BP 141/63; PULSE 80; RESP 18; TEMP 36.6; O2SAT 98
[2023-06-19] MEDS: Acetaminophen 325 MG TABLET 975 MG PO ×2 (08:31→15:29)
[2023-06-19] MEDS: Cinacalcet HCl 30 MG TABLET PO (08:31)
[2023-06-19] MEDS: Aspirin 325 MG TABLET PO ×2 (08:31→20:16)
[2023-06-19] MEDS: Divalproex Sodium Sprinkles 125 MG CAP.DR.SPR PO ×3 (08:31→20:17)
[2023-06-19] MEDS: amLODIPine Besylate 10 MG TABLET PO (08:32)
[2023-06-19] MEDS: Memantine HCl 5 MG TABLET PO ×2 (08:32→20:17)
[2023-06-19] MEDS: Dextrose 5 % 1,000 ML 50 ML IVCONT (08:32)
[2023-06-19] MEDS: Calcitonin,Salmon,Synth Nasal 3.7 ML BOTTLE 1 SPRAY NOSTRILALT (08:33)
--- NOTE | 2023-06-19 12:18 | HO.PM.IMPN ---
Subjective Subjective Date of Service: 06/19/23 Interval History: poor oral intake ,multiple electrolytic abnormalities Review of Systems oral intake similar ,could able to say her name today. no fevers Physical Exam Vital Signs: Vital Signs: Last Vital Signs Temp 97.9 F 06/19/23 07:23 Pulse 80 06/19/23 07:23 Resp 18 06/19/23 07:23 BP 141/63 H 06/19/23 07:23 Pulse Ox 98 06/19/23 07:23 O2 Del Method Room Air 06/19/23 07:23 O2 Flow Rate 2 06/18/23 07:21 BMI result Body Mass Index 17.2 Appearance: Alert.? Oriented X1, comfortable.? cvs: rrr, [id number] , no murmur res: clear to auscultation ,no rhonchii or wheezing abd: no rebound or guarding ,nt, bs present. ext : left hip dressing -seems no bleedin . neuro: moves allext Objective Data Active Medications Acetaminophen (Acetaminophen 325 Mg Tablet) 975 mg PO Q6H PRN PRN Reason: Pain, Moderate(Pain Scale 4-6) Last Admin: 06/19/23 08:31 Dose: 975 mg Documented By: CLARISA Amlodipine Besylate (Amlodipine Besylate 10 Mg Tablet) 10 mg PO DAILY [facility]; Protocol Last Admin: 06/19/23 08:32 Dose: 10 mg Documented By: CLARISA Aspirin (Aspirin 325 Mg Tablet) 325 mg PO BID [facility] Last Admin: 06/19/23 08:31 Dose: 325 mg Documented By: CLARISA Calcitonin [place] (Calcitonin,[place],Synth Nasal 3.7 Ml Bottle) 1 spray NOSTRILALT DAILY [facility] Last Admin: 06/19/23 08:33 Dose: 1 spray Documented By: CLARISA Cinacalcet (Cinacalcet Hcl 30 Mg Tablet) 30 mg PO DAILY [facility] Last Admin: 06/19/23 08:31 Dose: 30 mg Documented By: CLARISA Divalproex Sodium (Divalproex Sodium Sprinkles 125 Mg ) 125 mg PO TID [facility] Last Admin: 06/19/23 08:31 Dose: 125 mg Documented By: CLARISA Docusate Sodium (Docusate Sodium 100 Mg Capsule) 100 mg PO BEDTIME PRN PRN Reason: Constipation Last Admin: 06/14/23 20:12 Dose: 100 mg Documented By: JACINTA Hydralazine HCl (Hydralazine Hcl 20 Mg/Ml Vial) 10 mg IVPUSH Q6H PRN; Protocol PRN Reason: htn Last Admin: 06/16/23 20:36 Dose: 10 mg Documented By: JACINTA Nutrition (Parenteral) (Parenteral Nutrition) 1,200 mls @ 50 mls/hr IV .Q24H [facility]; Protocol Stop: 06/19/23 20:59 Last Admin: 06/18/23 20:57 Dose: 50 mls/hr Documented By: YUDITH Dextrose (D5w) 1,000 mls @ 50 mls/hr IVCONT .Q20H [facility] Last Admin: 06/19/23 08:32 Dose: 50 mls/hr Documented By: CLARISA Nutrition (Parenteral) (Parenteral Nutrition) 1,200 mls @ 50 mls/hr IV .Q24H [facility]; Protocol Stop: 06/20/23 20:59 Lidocaine (Lidocaine 4 % Patch Adh..Patch) 1 patch TRANSDERMA DAILY [facility]; Protocol Magnesium Hydroxide (Milk Of Magnesia 30 Ml Oral.Susp) 30 ml PO DAILY PRN PRN Reason: Constipation Last Admin: 06/14/23 20:18 Dose: 30 ml Documented By: JACINTA Melatonin (Melatonin 3 Mg Tablet) 3 mg PO BEDTIME [facility] Last Admin: 06/18/23 20:13 Dose: 3 mg Documented By: YUDITH Memantine (Memantine Hcl 5 Mg Tablet) 5 mg PO BID [facility] Last Admin: 06/19/23 08:32 Dose: 5 mg Documented By: CLARISA Ondansetron HCl (Ondansetron Hcl 4 Mg/2 Ml Vial) 4 mg IVPUSH Q8H PRN PRN Reason: Nausea and Vomiting Pantoprazole Sodium (Pantoprazole Sodium 40 Mg/10 Ml Vial) 40 mg IVPUSH DAILY@0630 [facility] Last Admin: 06/19/23 05:57 Dose: 40 mg Documented By: DANIELLA Pharmacy Consult (Consult Rx Parenteral Nutrition Ordering) 1 each MISCELLANE DAILY PRN PRN Reason: Consult order Polyethylene Glycol (Polyethylene Glycol 3350 17 Gm Powd.Pack) 17 gm PO DAILY [facility] Last Admin: 06/19/23 08:33 Dose: Not Given Documented By: CLARISA Non-Admin Reason: loose stools Senna (Sennosides 8.6 Mg Tablet) 17.2 mg PO BEDTIME PRN PRN Reason: Constipation Last Admin: 06/14/23 20:13 Dose: 17.2 mg Documented By: COTEMA Sodium Chloride (0.9 % Sodium Chloride Flush 3 Ml Syringe) 3 ml IVFLUSH QSHIFT [facility] Last Admin: 06/19/23 08:32 Dose: 3 ml Documented By: CLARISA Labs 06/14/23 15:27 06/19/23 05:13 Labs: Laboratory Results - last 24 hr 06/19/23 05:13 Hold Purple Top SEE NOTE Anion Gap 13 Estim Creat Clear Calc 36.0 Estimated GFR > 60 Random Glucose 105 Calcium 8.8 D Phosphorus 2.6 L Magnesium 1.8 Albumin 2.7 L Assessment and Plan (1) Major neurocognitive disorder: Status: Acute (2) Hypercalcemia: Status: Acute (3) Hypokalemia: Status: Acute (4) Hypernatremia: Status: Acute Plan day-8 82-year-old female with history of hypertension, unspecified dementia admitted to hospitalist service from Geriatric Psychiatry after sustaining an unwitnessed fall last night while in the bathroom. She will be [facility] [place] [facility] [place] of displaced left hip fracture. Hypernatremia /hypokalemia: due to dec po intake hypernatremia -imrpoved with hydration. Hypokalemia- improved with po and iv replacements . moniter renal function and electrolytes hypercalcemia:in setting of elevated pth and low viatmin d on sensipar ,received zometa (On 06/16) calcium levels improving moniter renal function and electrolytes nephro following Acute displaced left femoral neck fracture-POD6, ORIF(06/12) Pain management prn,regular diet,STR per PT HTN- improving continue amlodipine 10 mg daily,hydralazine iv prn if sbp>160 mmhg persistently. hold lisinopril due to dehydration,electolytic abnormalities monitor bp possible toxic metabolic encephalopathy(mulltifactorial -hip sx ,multiple electrolytes abnormalities ,poor oral intake) on unspecified dementia-mentation baseline psych consult pending to assist with Dispo Mild normocytic anemia-likely due to blood loss, H/H above transfusion threshold monitor cbc. 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 ongoing inpt stay for management of acute left hip fracture requiring ORIF, possible possible toxic metabolic encephalopathy- multiple electrolytic abnormalities-need a aggressive electrolyte repletion as well as renal function and electrolyte monitoring as well as expert consultation.psych consult pending to assist with Dispo. d/w daughter miss Alvarado in detail -overall prognosis seems poor , continue conservative care for now. Quality Stroke Does the patient have a stroke diagnosis?: No VTE Prior VTE?: No VTE Risk Level:: Medical - moderate - high VTE Device Contraindication: N/A - Device Ordered VTE Drug Contraindication: Treatment Not Indicated
[2023-06-19 13:21] LABS: Anion Gap 15 (12-20); Blood Urea Nitrogen 24 mg/dL (9-16); Calcium 8.8 mg/dL (8.4-10.2); Carbon Dioxide 24 mmol/L (22-29); Chloride 107 mmol/L (96-108); Creatinine Clr Calc Pharmacy 34.2; Estimated Glomerular Filt Rate > 60; Glucose Random 139 mg/dL (60-115); Potassium 3.6 mmol/L (3.3-5.1); Sodium 142 mmol/L (135-145)
[2023-06-19] MEDS: Omeprazole 20 MG CAPSULE.DR PO (15:29)
[2023-06-19 15:47] VITALS: BP 119/58; PULSE 85; RESP 16; TEMP 36.4; O2SAT 97
[2023-06-19 20:00] VITALS: BP 142/63; PULSE 79; RESP 18; TEMP 36.3; O2SAT 98
[2023-06-19] MEDS: Melatonin 3 MG TABLET PO (20:17)
[2023-06-19] MEDS: Parenteral Nutrition 1,200 ML 50 ML IV (21:00)
[2023-06-20 04:00] VITALS: BP 108/54; PULSE 66; RESP 18; TEMP 36.2; O2SAT 99
[2023-06-20 07:07] LABS: Albumin Level 2.6 g/dL (3.5-5.0); Anion Gap 11 (12-20); Blood Urea Nitrogen 24 mg/dL (9-16); Carbon Dioxide 26 mmol/L (22-29); Chloride 106 mmol/L (96-108); Creatinine Clr Calc Pharmacy 37.5; Estimated Glomerular Filt Rate > 60; Glucose Random 102 mg/dL (60-115); Magnesium 1.9 mg/dL (1.6-2.6); Phosphorus 2.4 mg/dL (2.7-4.5); Potassium 3.5 mmol/L (3.3-5.1); Sodium 139 mmol/L (135-145)
[2023-06-20 07:41] VITALS: BP 108/53; PULSE 74; RESP 18; TEMP 36.5; O2SAT 97
[2023-06-20] MEDS: Aspirin 325 MG TABLET PO ×2 (08:39→20:33)
[2023-06-20] MEDS: Memantine HCl 5 MG TABLET PO ×2 (08:39→20:33)
[2023-06-20] MEDS: polyethylene glycoL 3350 17 GM POWD.PACK PO (08:39)
[2023-06-20] MEDS: amLODIPine Besylate 10 MG TABLET PO (08:39)
[2023-06-20] MEDS: Divalproex Sodium Sprinkles 125 MG CAP.DR.SPR PO ×3 (08:40→20:33)
[2023-06-20] MEDS: Omeprazole 20 MG CAPSULE.DR PO ×2 (08:40→15:31)
[2023-06-20] MEDS: 0.9 % Sodium Chloride Flush 3 ML SYRINGE IVFLUSH (08:41)
[2023-06-20] MEDS: Calcitonin,Salmon,Synth Nasal 3.7 ML BOTTLE 1 SPRAY NOSTRILALT (08:41)
--- NOTE | 2023-06-20 11:08 | MHC.CLN ---
F/U CONSULT FOR POOR PO, RECEIVING PPN, AND SKIN BREAKDOWN. REVIEW OF SKIN INTEGRITY DOC SHOWS LIPOMA TO LEFT BUTTOCK AND MASD TO RIGHT BUTTOCK. CONTINUES WITH USUALLY POOR PO INTAKE WITH MOST MEALS APPROX 25%. DIET=REGULAR. UNABLE TO TAKE ADEQUATE PO INTAKE. RECEIVING PPN. LABS REVIEWED. COMMUNICATED WITH PHARMACY. RECOMMEND CONTINUE PPN AT 50 ML PER HOUR, ADD 40 G LIPIDS. PROVIDES 51 G PROTEIN, 120 G DEXTROSE, 1012 TOTAL KCALS. REPLETE LYTES NEEDED. PPN PROVIDES 1.275 G/KG PROTEIN; 1 G/KG LIPIDS; 25.3 KCALS/KG. MONITOR PPN TOLERANCE, LABS, SKIN INTEGRITY AND PO INTAKE.
--- NOTE | 2023-06-20 13:03 | HO.PM.IMPN ---
Subjective Subjective Date of Service: 06/20/23 Interval History: poor oral intake ,multiple electrolytic abnormalities Review of Systems Oral intake somewhat improving but still in adequate, on PPN No fevers Awake Physical Exam Vital Signs: Vital Signs: Last Vital Signs Temp 97.7 F 06/20/23 07:41 Pulse 74 06/20/23 07:41 Resp 18 06/20/23 07:41 BP 108/53 L 06/20/23 07:41 Pulse Ox 97 06/20/23 07:41 O2 Del Method Room Air 06/20/23 07:41 O2 Flow Rate 2 06/18/23 07:21 BMI result Body Mass Index 17.2 Appearance: Alert.? Oriented X1, comfortable.? cvs: rrr, [id number] , no murmur res: clear to auscultation ,no rhonchii or wheezing abd: no rebound or guarding ,nt, bs present. ext : left hip dressing -seems no bleedin . neuro: moves allext Objective Data Active Medications Acetaminophen (Acetaminophen 325 Mg Tablet) 975 mg PO Q6H PRN PRN Reason: Pain, Moderate(Pain Scale 4-6) Last Admin: 06/19/23 15:29 Dose: 975 mg Documented By: YUDITH Amlodipine Besylate (Amlodipine Besylate 10 Mg Tablet) 10 mg PO DAILY [facility]; Protocol Last Admin: 06/20/23 08:39 Dose: 10 mg Documented By: CHAMP Aspirin (Aspirin 325 Mg Tablet) 325 mg PO BID [facility] Last Admin: 06/20/23 08:39 Dose: 325 mg Documented By: CHAMP Calcitonin [place] (Calcitonin,[place],Synth Nasal 3.7 Ml Bottle) 1 spray NOSTRILALT DAILY [facility] Last Admin: 06/20/23 08:41 Dose: 1 spray Documented By: CHAMP Cinacalcet (Cinacalcet Hcl 30 Mg Tablet) 30 mg PO DAILY [facility] Last Admin: 06/20/23 08:40 Dose: Not Given Documented By: CHAMP Non-Admin Reason: cannot be crushed Divalproex Sodium (Divalproex Sodium Sprinkles 125 Mg ) 125 mg PO TID [facility] Last Admin: 06/20/23 08:40 Dose: 125 mg Documented By: CHAMP Docusate Sodium (Docusate Sodium 100 Mg Capsule) 100 mg PO BEDTIME PRN PRN Reason: Constipation Last Admin: 06/14/23 20:12 Dose: 100 mg Documented By: JACINTA Nutrition (Parenteral) (Parenteral Nutrition) 1,200 mls @ 50 mls/hr IV .Q24H [facility]; Protocol Stop: 06/20/23 20:59 Last Admin: 06/19/23 21:00 Dose: 50 mls/hr Documented By: YUDITH Nutrition (Parenteral) (Parenteral Nutrition) 1,200 mls @ 50 mls/hr IV .Q24H [facility]; Protocol Stop: 06/21/23 20:59 Lidocaine (Lidocaine 4 % Patch Adh..Patch) 1 patch TRANSDERMA DAILY [facility]; Protocol Last Admin: 06/20/23 08:39 Dose: Not Given Documented By: CHAMP Non-Admin Reason: Patient Refused Magnesium Hydroxide (Milk Of Magnesia 30 Ml Oral.Susp) 30 ml PO DAILY PRN PRN Reason: Constipation Last Admin: 06/14/23 20:18 Dose: 30 ml Documented By: JACINTA Melatonin (Melatonin 3 Mg Tablet) 3 mg PO BEDTIME [facility] Last Admin: 06/19/23 20:17 Dose: 3 mg Documented By: YUDITH Memantine (Memantine Hcl 5 Mg Tablet) 5 mg PO BID [facility] Last Admin: 06/20/23 08:39 Dose: 5 mg Documented By: CHAMP Omeprazole (Omeprazole 20 Mg Capsule.) 20 mg PO BID@0630,1630 [facility] Last Admin: 06/20/23 08:40 Dose: 20 mg Documented By: CHAMP Ondansetron HCl (Ondansetron Hcl 4 Mg/2 Ml Vial) 4 mg IVPUSH Q8H PRN PRN Reason: Nausea and Vomiting Pharmacy Consult (Consult Rx Parenteral Nutrition Ordering) 1 each MISCELLANE DAILY PRN PRN Reason: Consult order Polyethylene Glycol (Polyethylene Glycol 3350 17 Gm Powd.Pack) 17 gm PO DAILY [facility] Last Admin: 06/20/23 08:39 Dose: 17 gm Documented By: CHAMP Senna (Sennosides 8.6 Mg Tablet) 17.2 mg PO BEDTIME PRN PRN Reason: Constipation Last Admin: 06/14/23 20:13 Dose: 17.2 mg Documented By: HO.COTEMA Sodium Chloride (0.9 % Sodium Chloride Flush 3 Ml Syringe) 3 ml IVFLUSH QSHIFT [facility] Last Admin: 06/20/23 08:41 Dose: 3 ml Documented By: CHAMP Labs 06/14/23 15:27 06/20/23 05:54 Labs: Laboratory Results - last 24 hr 06/19/23 06/20/23 06/20/23 13:03 05:54 06:42 Hold Purple Top SEE NOTE Anion Gap 15 11 L Estim Creat Clear Calc 34.2 37.5 Estimated GFR > 60 > 60 Random Glucose 139 H 102 Calcium 8.8 8.0 L D Phosphorus 2.4 L Magnesium 1.9 Albumin 2.6 L Assessment and Plan (1) Major neurocognitive disorder: Status: Acute (2) Hypercalcemia: Status: Acute (3) Hypokalemia: Status: Acute (4) Hypernatremia: Status: Acute Plan day-9: 82-year-old female with history of hypertension, unspecified dementia admitted to hospitalist service from Geriatric Psychiatry after sustaining an unwitnessed fall last night while in the bathroom. She will be admitted to Med/[facility] [place] for further management of displaced left hip fracture. Hypernatremia /hypokalemia: due to dec po intake hypernatremia -imrpoved with hydration. Hypokalemia- improved with po and iv replacements . moniter renal function and electrolytes hypercalcemia:in setting of elevated pth and low viatmin d on sensipar ,received zometa (On 06/16) calcium levels improving moniter renal function and electrolytes nephro following Acute displaced left femoral neck fracture-POD7, ORIF(06/12) Pain management prn,regular diet,STR per PT HTN- improvin continue amlodipine 10 mg daily. hold lisinopril due to dehydration,electolytic abnormalities monitor bp possible toxic metabolic encephalopathy(mulltifactorial -hip sx ,multiple electrolytes abnormalities ,poor oral intake) on unspecified dementia-mentation baseline psych consult pending to assist with Dispo Mild normocytic anemia-likely due to blood loss, H/H above transfusion threshold monitor cbc. 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 ongoing inpt stay for management of acute left hip fracture requiring ORIF, possible possible toxic metabolic encephalopathy- multiple electrolytic abnormalities-need a aggressive electrolyte repletion as well as renal function and electrolyte monitoring as well as expert consultation.psych consult pending to assist with Dispo. d/w daughter miss Alvraado in detail -overall prognosis seems poor , continue conservative care for now,daughter was supposed to some to talk for goal of care,will talk to her . Quality Stroke Does the patient have a stroke diagnosis?: No VTE Prior VTE?: No VTE Risk Level:: Medical - moderate - high VTE Device Contraindication: N/A - Device Ordered VTE Drug Contraindication: Treatment Not Indicated
--- NOTE | 2023-06-20 14:14 | MHC.CM.PN ---
EMR REVIEWED, PT IS NOT MEDICALLY CLEARED FOR DC. CM SPOKE WITH DAUGHTER/HCP ESPERANZA WHO STATES SHE IS STILL TRYING TO GATHER DOCUMENTS FOR THE MH [facility]. CM EXPLAINED THE SENSE OF URGENCY TO GET THIS COMPLETED PT IS UNABLE TO PARTICIPATE WITH P.T. AND WILL NOT HAVE A SKILL FOR [facility] TO AUTH. CM WILL CONTINUE TO FOLLOW FOR ANY CHANGE IN DC PLAN/NEEDS.
[2023-06-20 15:24] VITALS: BP 115/57; PULSE 80; RESP 16; TEMP 36.6; O2SAT 97
[2023-06-20 19:12] VITALS: BP 129/60; PULSE 77; RESP 18; TEMP 36.6; O2SAT 99
[2023-06-20 20:00] VITALS: BP 119/59; PULSE 90; RESP 16; TEMP 37.1; O2SAT 97
[2023-06-20] MEDS: Melatonin 3 MG TABLET PO (20:33)
[2023-06-20] MEDS: Parenteral Nutrition 1,200 ML 50 ML IV (20:41)
[2023-06-21 04:00] VITALS: BP 106/52; PULSE 66; RESP 16; TEMP 37.3; O2SAT 98
[2023-06-21] MEDS: Omeprazole 20 MG CAPSULE.DR PO (06:22)
[2023-06-21 07:46] VITALS: BP 109/51; PULSE 67; RESP 18; TEMP 36.8; O2SAT 98
[2023-06-21 07:52] LABS: Hematocrit 25.4 % (37.0-47.0); Hemoglobin 8.8 g/dl (12.0-16.0); Mean Corpuscular HGB Conc 34.6 g/dl (31.0-35.0); Mean Corpuscular Hemoglobin 31.9 pg (27.0-33.0); Mean Platelet Volume 12.6 fL (9.4-12.3); Platelet Count 140 X10*3/uL (160-400); Red Blood Count 2.76 X10*6/uL (4.20-5.50); Red Cell Distribution Width 13.6 % (11.0-16.0); White Blood Count 11.8 X10*3/uL (4.8-10.8)
[2023-06-21 08:05] LABS: Albumin Level 2.5 g/dL (3.5-5.0); Anion Gap 11 (12-20); Blood Urea Nitrogen 27 mg/dL (9-16); Calcium 7.6 mg/dL (8.4-10.2); Carbon Dioxide 25 mmol/L (22-29); Chloride 106 mmol/L (96-108); Creatinine Clr Calc Pharmacy 33.3; Estimated Glomerular Filt Rate > 60; Glucose Random 105 mg/dL (60-115); Phosphorus 3.2 mg/dL (2.7-4.5); Potassium 3.9 mmol/L (3.3-5.1); Sodium 138 mmol/L (135-145)
[2023-06-21] MEDS: Divalproex Sodium Sprinkles 125 MG CAP.DR.SPR PO (09:06)
[2023-06-21] MEDS: Memantine HCl 5 MG TABLET PO (09:06)
[2023-06-21] MEDS: Omeprazole/Na Bicarb Oral Susp 20 MG/10 ML UD Cup PO ×2 (09:06→17:01)
[2023-06-21] MEDS: Aspirin 325 MG TABLET PO ×2 (09:06→20:18)
[2023-06-21] MEDS: polyethylene glycoL 3350 17 GM POWD.PACK PO (09:06)
[2023-06-21] MEDS: Calcitonin,Salmon,Synth Nasal 3.7 ML BOTTLE 1 SPRAY NOSTRILALT (09:08)
[2023-06-21] MEDS: Lidocaine 4 % Patch ADH..PATCH 1 PATCH TRANSDERMA (09:38)
--- NOTE | 2023-06-21 13:00 | P.CNPS_ITS ---
History of Present Illness Date of Service: 06/21/2023 Chief Complaint: left hip fracture Sources of Information: patient interviewed, chart reviewed and crisis/core team assessment reviewed HPI Narrative: Interim Hx: pt lying in bed, smiling, watching TV. Pt tells this freelance writer I've been waiting for you, were where you! When this freelance writer asked about surgery and hip fracture, she states that's a lie, I did not fall, I didn't have surgery! She denies any pain and does not appear in physical distress. She does not appear overly sedated either. Probably not a good candidate for PT as she is not able to retain information nor follow instructions. Per RN- no combative behaviors, significant decrease in oral intake, with parentenal nutrition. Past Psychiatric History: No prior psychiatric admissions, the patient is a very poor historian Medical Evaluation Reviewed: Yes [facility] Medical History (Updated 06/19/23 @ 00:02 by Harmony Clark) Subcutaneous mass Insomnia Dementia Hypertension Surgical History S/P rotator cuff repair History of colon surgery Family History: Denies Social History: Unable to since the patient is a very poor historian Trauma History: Unable to assess the patient is a very poor historian Diagnostics Vital Signs (24Hr): Vital Signs - 24 hr 06/20/23 15:24 06/20/23 19:12 06/20/23 20:00 Temperature 98 F 97.8 F 98.7 F Pulse Rate 80 77 90 Respiratory Rate 16 18 16 Blood Pressure 115/57 L 129/60 119/59 L Pulse Oximetry 97 99 97 Oxygen Delivery Method Room Air Room Air Room Air 06/21/23 04:00 06/21/23 07:46 Temperature 99.1 F 98.3 F Pulse Rate 66 67 Respiratory Rate 16 18 Blood Pressure 106/52 L 109/51 L Pulse Oximetry 98 98 Oxygen Delivery Method Room Air Room Air BMI result Body Mass Index 17.2 Labs 06/21/23 07:41 06/21/23 07:41 Labs: Laboratory Results - last 48 hr 06/19/23 06/20/23 06/20/23 13:03 05:54 06:42 WBC RBC Hgb Hct MCV MCH MCHC RDW Plt Count MPV Absolute Nucleated RBC Nucleated RBC % (auto) Hold Purple Top SEE NOTE Sodium 142 139 Potassium 3.6 3.5 Chloride 107 106 Carbon Dioxide 24 26 Anion Gap 15 11 L BUN 24 H 24 H Creatinine 0.80 0.73 Estim Creat Clear Calc 34.2 37.5 Estimated GFR > 60 > 60 Random Glucose 139 H 102 Calcium 8.8 8.0 L D Phosphorus 2.4 L Magnesium 1.9 Albumin 2.6 L 06/21/23 07:41 WBC 11.8 H RBC 2.76 L D Hgb 8.8 L D Hct 25.4 L D MCV 92.0 MCH 31.9 MCHC 34.6 RDW 13.6 Plt Count 140 L MPV 12.6 H Absolute Nucleated RBC 0.000 Nucleated RBC % (auto) 0.0 Hold Purple Top Sodium 138 Potassium 3.9 Chloride 106 Carbon Dioxide 25 Anion Gap 11 L BUN 27 H Creatinine 0.82 Estim Creat Clear Calc 33.3 Estimated GFR > 60 Random Glucose 105 Calcium 7.6 L Phosphorus 3.2 Magnesium 2.0 Albumin 2.5 L Imaging Radiology Impressions: ITS Impressions Pelvis X-Ray 06/12/23 14:15 IMPRESSION: Status post left hip arthroplasty with expected postoperative changes. KUB X-Ray 06/13/23 09:28 IMPRESSION: Mild constipation. Mental Status Exam Mental Status Exam Narrative: Appearance: wearing hospital gown, in NAD Behavior: cooperative, pleasant Psychomotor: no agitation or retardation noted Speech: mostly clear, normal rate/rhythm/volume, spontaneous TP: poverty of thought, feeling well TC: feeling well Mood: good Affect: congruent, smiling, SI: denies HI: denies VH/AH: none Delusions: confabulation, but not overt delusional content. Insight/judgment: impaired x 2. memory/cog: alert, oriented only to self. severe impairment in cognitive and memory. Medications Medications Current Medications Acetaminophen (Acetaminophen 325 Mg Tablet) 975 mg PO Q6H PRN PRN Reason: Pain, Moderate(Pain Scale 4-6) Last Admin: 06/19/23 15:29 Dose: 975 mg Amlodipine Besylate (Amlodipine Besylate 10 Mg Tablet) 10 mg PO DAILY [facility]; Protocol Last Admin: 06/20/23 08:39 Dose: 10 mg Aspirin (Aspirin 325 Mg Tablet) 325 mg PO BID [facility] Last Admin: 06/21/23 09:06 Dose: 325 mg Calcitonin [place] (Calcitonin,[place],Synth Nasal 3.7 Ml Bottle) 1 spray NOSTRILALT DAILY [facility] Last Admin: 06/21/23 09:08 Dose: 1 spray Docusate Sodium (Docusate Sodium 100 Mg Capsule) 100 mg PO BEDTIME PRN PRN Reason: Constipation Last Admin: 06/14/23 20:12 Dose: 100 mg Nutrition (Parenteral) (Parenteral Nutrition) 1,200 mls @ 50 mls/hr IV .Q24H [facility]; Protocol Stop: 06/21/23 20:59 Last Admin: 06/20/23 20:41 Dose: 50 mls/hr Nutrition (Parenteral) (Parenteral Nutrition) 1,200 mls @ 50 mls/hr IV .Q24H [facility]; Protocol Stop: 06/22/23 20:59 Lidocaine (Lidocaine 4 % Patch Adh..Patch) 1 patch TRANSDERMA DAILY [facility]; Protocol Last Admin: 06/21/23 09:38 Dose: 1 patch Magnesium Hydroxide (Milk Of Magnesia 30 Ml Oral.Susp) 30 ml PO DAILY PRN PRN Reason: Constipation Last Admin: 06/14/23 20:18 Dose: 30 ml Melatonin (Melatonin 3 Mg Tablet) 3 mg PO BEDTIME [facility] Last Admin: 06/20/23 20:33 Dose: 3 mg Memantine (Memantine Hcl 5 Mg Tablet) 5 mg PO BID [facility] Last Admin: 06/21/23 09:06 Dose: 5 mg Omeprazole (Omeprazole/Na Bicarb Oral Susp 20 Mg/10 Ml Ud Cup) 20 mg PO BID@0630,1630 [facility] Last Admin: 06/21/23 09:06 Dose: 20 mg Ondansetron HCl (Ondansetron Hcl 4 Mg/2 Ml Vial) 4 mg IVPUSH Q8H PRN PRN Reason: Nausea and Vomiting Pharmacy Consult (Consult Rx Parenteral Nutrition Ordering) 1 each MISCELLANE DAILY PRN PRN Reason: Consult order Polyethylene Glycol (Polyethylene Glycol 3350 17 Gm Powd.Pack) 17 gm PO DAILY [facility] Last Admin: 06/21/23 09:06 Dose: 17 gm Senna (Sennosides 8.6 Mg Tablet) 17.2 mg PO BEDTIME PRN PRN Reason: Constipation Last Admin: 06/14/23 20:13 Dose: 17.2 mg Sodium Chloride (0.9 % Sodium Chloride Flush 3 Ml Syringe) 3 ml IVFLUSH QSHIFT [facility] Last Admin: 06/21/23 07:20 Dose: Not Given Allergies Allergies Allergy/AdvReac Type Severity Reaction Status Date / Time No Known Allergies Allergy Verified 05/20/23 02:08 Assessment & Plan Assessment & Plan (1) Major neurocognitive disorder: Status: Acute Code(s): F03.90 - Unspecified dementia, unspecified severity, without behavioral disturbance, psychotic disturbance, mood disturbance, and anxiety Assessment and Plan: advanced, end stage, dementia. (2) Hypercalcemia: Status: Acute Code(s): E83.52 - Hypercalcemia (3) Hypokalemia: Status: Acute Code(s): E87.6 - Hypokalemia (4) Hypernatremia: Status: Acute Code(s): E87.0 - Hyperosmolality and hypernatremia Plan Mrs. Ortiz appears at baseline in terms of mentation- no signs of delirium. Her dementia is advanced and at baseline she is only oriented to self. No recollection of fracture, surgery. I would d/c depakote to avoid over sedation. Can restart if becomes combative. At this time, she is mostly placement, to SNF as she will be total care. Psychiatry to sign off at this time. Please re-consult if combative or agitation worsens. Can keep seroquel 25mg po q6h prn agitation. Total time managing care of this patient today ____ minutes.
--- NOTE | 2023-06-21 13:10 | MHC.SL.SWA ---
Speech Pathologist Impression: Risk of Aspiration Due to: Poor PO Intake Dysphasia Diet Status: Liquid Consistency and Strategies for Safe Swallow: Liquid Intake Recommendation: Thin Liquid Intake Strategies: Unrestricted Solid Food Consistency: Dietary Recommendations: Chopped/Advanced (NDD3) Additional Modifications to Solid Foods: Recommend DOWNGRADE to CHOPPED/ADVANCED SOLIDS (NDD3) and CONTINUE THIN LIQUIDS. MEDS WHOLE or CRUSHED with PUREE, as tolerated. Pt will benefit from 1:1 SUPERVISION to verbally encourage her during meals. DRIVER/REFUSE COLLECTOR will continue to follow. Oral Medication Intake: Crushed with Puree Please contact the pharmacy regarding appropriate crushable or liquid drug formulations that are available whenever modified delivery is recommended. Compensatory Strategies and Precautions to be Taken for Safe Swallow: Sitting Upright (90 deg) Small Bites and Sips Alternate Liquids/Solids Rate of Ingestion Change Supervision While Eating and Drinking for Safe Swallow: Total Supervision (1:1) Foods to Avoid: Mixed consistencies. Swallowing Recommended Treatments: Compens. Strategy Educat. Recommendation for Speech: Inpatient Speech Therapy Comment: Recommend DOWNGRADE to CHOPPED/ADVANCED SOLIDS (NDD3) and CONTINUE THIN LIQUIDS. MEDS WHOLE or CRUSHED with PUREE, as tolerated. Pt will benefit from 1:1 SUPERVISION to verbally encourage her during meals. DRIVER/REFUSE COLLECTOR will continue to follow. Frequency/Duration: Daily Date Range for Service Req: Timeline to reassess: PRN Well Services Operator Clinican/Clinical Fellow: No Supervisory Statement: I have reviewed and agree with the student/clinical fellow's documentation: N/A Speech Language Pathologist: Russell Nazario M.A., [facility]-DRIVER/REFUSE COLLECTOR
--- NOTE | 2023-06-21 13:21 | P.PNIM_ITS ---
Subjective Subjective Date of Service: 06/21/23 Interval History: denies any complaints including hip pain, nausea, vomiting, dysphagia, or GI upset still on PPN very poor PO intake Review of Systems Review of Systems: Yes all other systems are reviewed and are negative Physical Exam 2 Vital Signs: Vital Signs: Last Vital Signs Temp 98.3 F 06/21/23 07:46 Pulse 67 06/21/23 07:46 Resp 18 06/21/23 07:46 BP 109/51 L 06/21/23 07:46 Pulse Ox 98 06/21/23 07:46 O2 Del Method Room Air 06/21/23 07:46 O2 Flow Rate 2 06/18/23 07:21 BMI result Body Mass Index 17.2 Gen: in no acute distress, muscle wasting HEENT: sclera anicteric, moist mucus membranes Neck: supple Lungs: clear to auscultation bilaterally Heart: regular rate and rhythm, no murmurs Abd: soft, non-tender, non-distended Ext: no edema, L hip dressing dry Skin: warm/well-perfused Neuro: alert and oriented to self, no focal weakness Psych: impaired insight Objective Data Active Medications Acetaminophen (Acetaminophen 325 Mg Tablet) 975 mg PO Q6H PRN PRN Reason: Pain, Moderate(Pain Scale 4-6) Last Admin: 06/19/23 15:29 Dose: 975 mg Documented By: YUDITH Amlodipine Besylate (Amlodipine Besylate 10 Mg Tablet) 10 mg PO DAILY [facility]; Protocol Last Admin: 06/20/23 08:39 Dose: 10 mg Documented By: CHAMP Aspirin (Aspirin 325 Mg Tablet) 325 mg PO BID [facility] Last Admin: 06/21/23 09:06 Dose: 325 mg Documented By: NADIYA Calcitonin [place] (Calcitonin,[place],Synth Nasal 3.7 Ml Bottle) 1 spray NOSTRILALT DAILY [facility] Last Admin: 06/21/23 09:08 Dose: 1 spray Documented By: NADIYA Docusate Sodium (Docusate Sodium 100 Mg Capsule) 100 mg PO BEDTIME PRN PRN Reason: Constipation Last Admin: 06/14/23 20:12 Dose: 100 mg Documented By: COTEMA Nutrition (Parenteral) (Parenteral Nutrition) 1,200 mls @ 50 mls/hr IV .Q24H [facility]; Protocol Stop: 06/21/23 20:59 Last Admin: 06/20/23 20:41 Dose: 50 mls/hr Documented By: DINO Nutrition (Parenteral) (Parenteral Nutrition) 1,200 mls @ 50 mls/hr IV .Q24H [facility]; Protocol Stop: 06/22/23 20:59 Lidocaine (Lidocaine 4 % Patch Adh..Patch) 1 patch TRANSDERMA DAILY [facility]; Protocol Last Admin: 06/21/23 09:38 Dose: 1 patch Documented By: NADIYA Comments: left hip Magnesium Hydroxide (Milk Of Magnesia 30 Ml Oral.Susp) 30 ml PO DAILY PRN PRN Reason: Constipation Last Admin: 06/14/23 20:18 Dose: 30 ml Documented By: ROSHANEMA Melatonin (Melatonin 3 Mg Tablet) 3 mg PO BEDTIME [facility] Last Admin: 06/20/23 20:33 Dose: 3 mg Documented By: DINO Memantine (Memantine Hcl 5 Mg Tablet) 5 mg PO BID [facility] Last Admin: 06/21/23 09:06 Dose: 5 mg Documented By: NADIYA Omeprazole (Omeprazole/Na Bicarb Oral Susp 20 Mg/10 Ml Ud Cup) 20 mg PO BID@0630,1630 [facility] Last Admin: 06/21/23 09:06 Dose: 20 mg Documented By: NADIYA Ondansetron HCl (Ondansetron Hcl 4 Mg/2 Ml Vial) 4 mg IVPUSH Q8H PRN PRN Reason: Nausea and Vomiting Pharmacy Consult (Consult Rx Parenteral Nutrition Ordering) 1 each MISCELLANE DAILY PRN PRN Reason: Consult order Polyethylene Glycol (Polyethylene Glycol 3350 17 Gm Powd.Pack) 17 gm PO DAILY [facility] Last Admin: 06/21/23 09:06 Dose: 17 gm Documented By: NADIYA Senna (Sennosides 8.6 Mg Tablet) 17.2 mg PO BEDTIME PRN PRN Reason: Constipation Last Admin: 06/14/23 20:13 Dose: 17.2 mg Documented By: ROSHANEMA Sodium Chloride (0.9 % Sodium Chloride Flush 3 Ml Syringe) 3 ml IVFLUSH QSHIFT [facility] Last Admin: 06/21/23 07:20 Dose: Not Given Documented By: CHAMP Non-Admin Reason: IV Running Labs 06/21/23 07:41 06/21/23 07:41 Labs: Laboratory Results - last 24 hr 06/21/23 07:41 MCV 92.0 MCH 31.9 MCHC 34.6 RDW 13.6 Plt Count 140 L MPV 12.6 H Absolute Nucleated RBC 0.000 Nucleated RBC % (auto) 0.0 Anion Gap 11 L Estim Creat Clear Calc 33.3 Estimated GFR > 60 Random Glucose 105 Calcium 7.6 L Phosphorus 3.2 Magnesium 2.0 Albumin 2.5 L Assessment and Plan (1) Major neurocognitive disorder: Status: Acute (2) Hypercalcemia: Status: Acute (3) Hypokalemia: Status: Acute (4) Hypernatremia: Status: Acute Plan d11 82yo F with HTN + dementia transferred from geriatric psychiatry to hospitalist service after sustaining displaced L hip fracture after unwitnessed fall in bathroom ORIF done 06/12/23 L femoral neck fracture - POD 9 - ASA for VTE ppx 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 received IV zolendronate 06/16; d/c cinecalcet; Nephrology folllowing hyperNa hypoK - resolved HTN - continue amlodipine metabolic encephalopathy + unspecified dementia - Psychiatry consulted - continue memantine - WEATHERIZATION SPECIALIST: NDD3 solids, thin liquids acute blood loss anemia due to blood loss from femur fracture - monitor H+H severe protein-calorie malnutrition - currently on PPN VTE ppx - ASA dispo - LTC In my clinical judgment, the patient requires continued inpatient hospitalization for the following reasons: PPN, placement Total time managing care of this patient today: 35 minutes. Quality Stroke Does the patient have a stroke diagnosis?: No VTE Prior VTE?: No VTE Risk Level:: Medical - moderate - high VTE Device Contraindication: N/A - Device Ordered VTE Drug Contraindication: Treatment Not Indicated
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
[2023-06-21 15:30] VITALS: BP 122/60; PULSE 70; RESP 17; TEMP 37; O2SAT 97
--- NOTE | 2023-06-21 16:48 | W.MHC.ACPN ---
Advanced Care Planning Note Advanced Care Planning Note Discussed with: family member(s) Time spent (in minutes): 20 Narrative: Discussion over phone with pt's daughter/HCP Jenny. Her mother would not want IV nutrition or blood draws at this point. Will discontinue IV nutrition and lab draws. Affirmed DNR/DNI status. She would be interested in hospice service at a SNF. Will contact CM. Problems Discussed (1) Major neurocognitive disorder: (2) Hypercalcemia: (3) Hypokalemia: (4) Hypernatremia:
[2023-06-21 19:54] VITALS: BP 130/70; PULSE 72; RESP 17; TEMP 37; O2SAT 96
[2023-06-21] MEDS: Melatonin 3 MG TABLET PO (20:18)
[2023-06-22] MEDS: 0.9 % Sodium Chloride Flush 3 ML SYRINGE IVFLUSH ×3 (00:04→16:45)
[2023-06-22 04:00] VITALS: BP 116/56; PULSE 66; RESP 16; TEMP 37.1; O2SAT 99
[2023-06-22] MEDS: Omeprazole/Na Bicarb Oral Susp 20 MG/10 ML UD Cup PO ×2 (06:03→16:45)
[2023-06-22 06:55] VITALS: BP 124/57; PULSE 64; RESP 18; TEMP 37.1; O2SAT 97
[2023-06-22] MEDS: Aspirin 325 MG TABLET PO ×2 (07:53→20:06)
[2023-06-22] MEDS: Acetaminophen 325 MG TABLET 975 MG PO ×2 (07:54→16:46)
--- NOTE | 2023-06-22 09:22 | P.PNIM_ITS ---
Subjective Subjective Date of Service: 06/22/23 Interval History: Pt in NAD and denies any complaints- no pain and no GI upset. Seems to be eating better. Reference made to my ACP note from yesterday. Per pt's daughter/HCP, no further IV/labs. Review of Systems Review of Systems: Yes all other systems are reviewed and are negative Physical Exam 2 Vital Signs: Vital Signs: Last Vital Signs Temp 98.8 F 06/22/23 06:55 Pulse 64 06/22/23 06:55 Resp 18 06/22/23 06:55 BP 124/57 L 06/22/23 06:55 Pulse Ox 97 06/22/23 06:55 O2 Del Method Room Air 06/22/23 06:55 O2 Flow Rate 2 06/18/23 07:21 BMI result Body Mass Index 17.2 Gen: in no acute distress, muscle wasting HEENT: sclera anicteric, moist mucus membranes Neck: supple Lungs: clear to auscultation bilaterally Heart: regular rate and rhythm, no murmurs Abd: soft, non-tender, non-distended Ext: no edema, L hip dressing dry Skin: warm/well-perfused Neuro: alert and oriented to self, no focal weakness Psych: impaired insight Objective Data Active Medications Acetaminophen (Acetaminophen 325 Mg Tablet) 975 mg PO Q6H PRN PRN Reason: Pain, Moderate(Pain Scale 4-6) Last Admin: 06/22/23 07:54 Dose: 975 mg Documented By: CLARISA Aspirin (Aspirin 325 Mg Tablet) 325 mg PO BID [facility] Last Admin: 06/22/23 07:53 Dose: 325 mg Documented By: CLARISA Docusate Sodium (Docusate Sodium 100 Mg Capsule) 100 mg PO BEDTIME PRN PRN Reason: Constipation Last Admin: 06/14/23 20:12 Dose: 100 mg Documented By: JACINTA Lidocaine (Lidocaine 4 % Patch Adh..Patch) 1 patch TRANSDERMA DAILY [facility]; Protocol Last Admin: 06/22/23 07:54 Dose: Not Given Documented By: CLARISA Non-Admin Reason: Patient Refused Magnesium Hydroxide (Milk Of Magnesia 30 Ml Oral.Susp) 30 ml PO DAILY PRN PRN Reason: Constipation Last Admin: 06/14/23 20:18 Dose: 30 ml Documented By: JACINTA Melatonin (Melatonin 3 Mg Tablet) 3 mg PO BEDTIME [facility] Last Admin: 06/21/23 20:18 Dose: 3 mg Documented By: DIAZDEM Omeprazole (Omeprazole/Na Bicarb Oral Susp 20 Mg/10 Ml Ud Cup) 20 mg PO BID@0630,1630 [facility] Last Admin: 06/22/23 06:03 Dose: 20 mg Documented By: DANIELLA Ondansetron HCl (Ondansetron Hcl 4 Mg/2 Ml Vial) 4 mg IVPUSH Q8H PRN PRN Reason: Nausea and Vomiting Polyethylene Glycol (Polyethylene Glycol 3350 17 Gm Powd.Pack) 17 gm PO DAILY [facility] Last Admin: 06/22/23 07:55 Dose: Not Given Documented By: CLARISA Non-Admin Reason: Patient Refused Senna (Sennosides 8.6 Mg Tablet) 17.2 mg PO BEDTIME PRN PRN Reason: Constipation Last Admin: 06/14/23 20:13 Dose: 17.2 mg Documented By: JACINTA Sodium Chloride (0.9 % Sodium Chloride Flush 3 Ml Syringe) 3 ml IVFLUSH QSHIFT [facility] Last Admin: 06/22/23 07:54 Dose: 3 ml Documented By: CLARISA Labs 06/21/23 07:41 06/21/23 07:41 Assessment and Plan (1) Major neurocognitive disorder: Status: Acute (2) Hypercalcemia: Status: Acute (3) Hypokalemia: Status: Acute (4) Hypernatremia: Status: Acute Plan d12 82yo F with HTN + dementia transferred from geriatric psychiatry to hospitalist service after sustaining displaced L hip fracture after unwitnessed fall in bathroom ORIF done 06/12/23 L femoral neck fracture - POD 10 - ASA for VTE ppx 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 received IV zolendronate 06/16; d/c'ed cinecalcet + calcitonin hyperNa hypoK - resolved HTN - BP OK without amlodipine at this point metabolic encephalopathy + unspecified dementia - Psychiatry consulted; no benefit to returning to [facility] - d/c memantine per conversation with daughter/HCP - HIGH ENERGY FORMING EQUIPMENT OPERATOR: NDD3 solids, thin liquids acute blood loss anemia due to blood loss from femur fracture - no further blood draws per daughter/HCP severe protein-calorie malnutrition - d/c'ed PPN as per daughter/HCP 06/21/23; give supplements VTE ppx - ASA dispo - discussed hospice at home vs SNF; CM consultation In my clinical judgment, the patient requires continued inpatient hospitalization for the following reasons: placement Total time managing care of this patient today: 35 minutes. Quality Stroke Does the patient have a stroke diagnosis?: No VTE Prior VTE?: No VTE Risk Level:: Medical - moderate - high VTE Device Contraindication: N/A - Device Ordered VTE Drug Contraindication: Treatment Not Indicated
--- NOTE | 2023-06-22 09:59 | MHC.CLN ---
Addendum entered by Paulette Mckeon, CARINA 06/22/23 14:14: PER COMMUNICATION WITH HI LIFT OPERATOR, PATIENT MORE WILLING TO ACCEPT LIQUIDS. CHANGED SUPPLEMENT TO ENSURE TID. PROVIDES 1050 KCALS, 60 G PROTEIN. Original Note: F/U PPN DISCONTINUED 06/21. DIET=REGULAR, CHOPPED. SEEN BY HI LIFT OPERATOR 06/21. FORTIFIED ICE CREAM TID PROVIDES 870 KCALS, 27 G PROTEIN. NO TUBE FEED, NO ARTIFICIAL NUTRITION PER DAUGHTER. INTAKE USUALLY 25%, OCCASIONALLY HIGHER. PATIENT IS SEVERELY MALNOURISHED. CONTINUE CURRENT DIET AND SUPPLEMENT. ENCOURAGE PO ABLE.
--- NOTE | 2023-06-22 11:49 | MHC.CM.PN ---
PER MD DAUGHTER IS INTERESTED IN HOSPICE. CM SPOKE WITH DAUGHTER, ESPERANZA, WHO STATES HER GOAL IS SNF W/ HOSPICE. CM REVIEWED INSURANCE COVERAGE W/ ESPERANZA - [facility] WILL NOT PAY FOR ROOM & BOARD AND PATIENT DOES NOT QUALIFY FOR [employer]. ESPERANZA VERBALIZED UNDERSTANDING BUT IS PLANNING ON CALLING 3 FACILITIES IN [place] THAT SHE BELIEVES WILL BE COVERED. CM DISCUSSED ALTERNATE PLAN OF HOME W/ FAMILY (DTR OR SON) W/ HOSPICE AND PRIVATE CARE. ESPERANZA WILL CONSIDER THIS. PLAN TO DISCUSS AGAIN THIS AFTERNOON.
--- NOTE | 2023-06-22 12:27 | HO.WOUND ---
Wound Consult: Initial 82yr old?F admitted to [facility] [place] [facility] [place] - See progress notes and H&P for detailed history.? Wound consult follow up for Left sacrum - the wound has evolved and is currently in need of debridement with a thick leather like eschar noted and concerning for depth. The patient was previously seen by Dr. Lopez see note for details - Etiology Lipoma vs Cyst.? Wound is not consistent with pressure at this time but etiology is unknown and progression is not consistent with typical cyst or lipoma will defer to surgical team for etiology. TT to Dr. Banda to consider surgical reconsult for assessment and debridement and santyl for enzymatic debridement. ? assessment 06/14/23 Left Sacrum Etiology: Unknown Etiology Measurements: 1.5cm x 1cm with depth noted Wound Bed: adherent leather like eschar Drainage / Odor: None Edges: ? defined Lonnie wound: red blanchable tissue - ? circumferential Induration noted and central fluctuance noted Right buttock with MASD and friction - red pink blanchable tissue with epidermal layer peeling Pain: Pt denies pain Goals of Treatment: ? Foam dressing to protect from friction and santly for enzymatic dedridement reconsult to surgical team Recommendations: 1. Turn and Reposition every 2 hours and as needed for patient comfort.? Use pillows or wedges to support off loading positions. 2. Off Load all bony prominences with use of pillows and heel boots if needed.? Apply Preventative foams where needed. ? 3. Monitor for incontinence and moisture control, use barrier creams when needed for prevention and treatment. 4. Provide adequate and supplemental nutrition.? Nutrition following. 5. Order low air loss mattress. Waffle cushion provided for when up to chair. 6. When applicable maintain blood glucose levels per Providers order. 7. Left Sacrum - Off Load Pressure - Cleanse with normal saline, pat dry. ?Apply barrier to the immediate lonnie wound, apply thick layer of Santyl to entire wound bed, cover with xeroform, secure foam dressing, change Daily. Discontinue brief use. Re-consult wound care Nurse for wound deterioration or wound changes.
--- NOTE | 2023-06-22 13:10 | PM.EVENT ---
Event Note Date of Service: 06/22/23 Event Note: Per Wound Care, re L buttock wound: Left Sacrum Etiology: Unknown Etiology Measurements: 1.5cm x 1cm with depth noted Wound Bed: adherent leather like eschar Drainage / Odor: None Edges: ? defined Lonnie wound: red blanchable tissue - ? circumferential Induration noted and central fluctuance noted Right buttock with MASD and friction - red pink blanchable tissue with epidermal layer peeling Pain: Pt denies pain Goals of Treatment: ? Foam dressing to protect from friction and santly for enzymatic dedridement reconsult to surgical team Recommendations: 1. Turn and Reposition every 2 hours and as needed for patient comfort.? Use pillows or wedges to support off loading positions. 2. Off Load all bony prominences with use of pillows and heel boots if needed.? Apply Preventative foams where needed. ? 3. Monitor for incontinence and moisture control, use barrier creams when needed for prevention and treatment. 4. Provide adequate and supplemental nutrition.? Nutrition following. 5. Order low air loss mattress. Waffle cushion provided for when up to chair. 6. When applicable maintain blood glucose levels per Providers order. 7. Left Sacrum - Off Load Pressure - Cleanse with normal saline, pat dry. ?Apply barrier to the immediate lonnie wound, apply thick layer of Santyl to entire wound bed, cover with xeroform, secure foam dressing, change Daily. Discontinue brief use. Will consult Surgery re debridement? Time Spent With Patient Time: Total time managing care of this patient today ____ minutes.
--- NOTE | 2023-06-22 14:02 | MHC.SL.SWA ---
Risk of Aspiration Due to: Poor PO Intake Dysphasia Diet Status: No change Liquid Consistency and Strategies for Safe Swallow: Liquid Intake Recommendation: Thin Liquid Intake Strategies: Unrestricted Solid Food Consistency: Dietary Recommendations: Chopped/Advanced (NDD3) Oral Medication Intake: Crushed with Puree Please contact the pharmacy regarding appropriate crushable or liquid drug formulations that are available whenever modified delivery is recommended. Compensatory Strategies and Precautions to be Taken for Safe Swallow: Sitting Upright (90 deg) Small Bites and Sips Alternate Liquids/Solids Rate of Ingestion Change Supervision While Eating and Drinking for Safe Swallow: Total Supervision (1:1) Foods to Avoid: Mixed consistencies. Swallowing Recommended Treatments: Compens. Strategy Educat. Recommendation for Speech: Inpatient Speech Therapy Recommend patient continue with CHOPPED/ADVANCED solids (NDD3), THIN liquids, pills CRUSHED and 1-1 supervision to provide encouragement to eat. Nps Clinican/Clinical Fellow: No Supervisory Statement: I have reviewed and agree with the student/clinical fellow's documentation: N/A Speech Language Pathologist: Rosamaria Treviño M.A., CCC-TEACHING FELLOW
[2023-06-22 15:28] VITALS: BP 112/53; PULSE 65; RESP 17; TEMP 36; O2SAT 99
--- NOTE | 2023-06-22 16:53 | P.CONGS_ITS ---
History of Present Illness Consult details Consult date: 06/22/23 Narrative: 82-year-old female referred for a decubitus ulcer in the sacrum. She was admitted for hip fracture from the geropsych unit last June 11, 2023 and had undergone hemiarthroplasty at that time. She is being referred to me because of a decubitus ulcer on the sacrum I would seen her at that time as well because of what appeared to be a subcutaneous cyst versus a lipoma on the sacrococcygeal area. This is now the same area that has an ulcer. The patient has significant dementia so does not really provide a good history. She is awake and does have verbal output. Review of Systems 2 Review of Systems: Yes Unobtainable due to mental status (Has dementia) Constitutional: Constitutional: Denies chills and Denies fever(s) PMFSH Past Medical History Medical History (Updated 06/22/23 @ 16:57 by Hilario Lopez MD) Sacral decubitus ulcer Subcutaneous mass Insomnia Dementia Hypertension Surgical History Surgical History S/P rotator cuff repair History of colon surgery Social History Social History Household Members: Unknown / Unable to assess Housing: Unknown / Unable to assess Do you presently have visiting nurse or other home services: No Unable to assess alcohol history related to: Unable to respond Patient Tobacco Use Status: Former Tobacco user Quit Date: 1989 Tobacco use type: Cigarette service: No Sexual orientation: Straight/Heterosexual Meds Allergies Allergy/AdvReac Type Severity Reaction Status Date / Time No Known Allergies Allergy Verified 05/20/23 02:08 Active Medications: Current Medications Acetaminophen (Acetaminophen 325 Mg Tablet) 975 mg PO Q6H PRN PRN Reason: Pain, Moderate(Pain Scale 4-6) Last Admin: 06/22/23 16:46 Dose: 975 mg Aspirin (Aspirin 325 Mg Tablet) 325 mg PO BID [facility] Collagenase (Collagenase Clostridium Hist. 30 Gm Tube) 1 appl TOPICAL BID [facility]; Protocol Last Admin: 06/22/23 16:46 Dose: 1 appl Docusate Sodium (Docusate Sodium 100 Mg Capsule) 100 mg PO BEDTIME PRN PRN Reason: Constipation Last Admin: 06/14/23 20:12 Dose: 100 mg Lidocaine (Lidocaine 4 % Patch Adh..Patch) 1 patch TRANSDERMA DAILY [facility]; Protocol Last Admin: 06/22/23 07:54 Dose: Not Given Magnesium Hydroxide (Milk Of Magnesia 30 Ml Oral.Susp) 30 ml PO DAILY PRN PRN Reason: Constipation Last Admin: 06/14/23 20:18 Dose: 30 ml Melatonin (Melatonin 3 Mg Tablet) 3 mg PO BEDTIME [facility] Last Admin: 06/21/23 20:18 Dose: 3 mg Omeprazole (Omeprazole/Na Bicarb Oral Susp 20 Mg/10 Ml Ud Cup) 20 mg PO BID@0630,1630 [facility] Last Admin: 06/22/23 16:45 Dose: 20 mg Ondansetron HCl (Ondansetron Hcl 4 Mg/2 Ml Vial) 4 mg IVPUSH Q8H PRN PRN Reason: Nausea and Vomiting Senna (Sennosides 8.6 Mg Tablet) 17.2 mg PO BEDTIME PRN PRN Reason: Constipation Last Admin: 06/14/23 20:13 Dose: 17.2 mg Sodium Chloride (0.9 % Sodium Chloride Flush 3 Ml Syringe) 3 ml IVFLUSH QSHIFT [facility] Last Admin: 06/22/23 16:45 Dose: 3 ml Physical Exam 2 Vital Signs: Vital Signs: Last Vital Signs Temp 96.8 F 06/22/23 15:28 Pulse 65 06/22/23 15:28 Resp 17 06/22/23 15:28 BP 112/53 L 06/22/23 15:28 Pulse Ox 99 06/22/23 15:28 O2 Del Method Room Air 06/22/23 15:28 O2 Flow Rate 2 06/18/23 07:21 BMI result Body Mass Index 17.2 Const: Other: Awake, eyes open spontaneously General: comfortable and no acute distress Resp: Effort & Inspection: normal respiratory effort Cardio: Rate: regular rate GI: Palpation (GI): Soft to palpation, not firm and no guarding Back/Spine/Pelvis: Other: On the sacrococcygeal area to the left of the midline is note of an eschar about 2 x 2 cm, where the subcutaneous mass had been previously. There has no significant drainage or cellulitis Results Labs 06/21/23 07:41 06/21/23 07:41 Labs: All other labs normal. Assessment and Plan (1) Sacral decubitus ulcer: Status: Acute She has a sacral decubitus ulcer as described above. I proceeded to do sharp excisional debridement at bedside using fine scissors. I removed full-thickness of the skin and part of the anus layer about 2 x 2 cm. There was actually a cyst capsule in the area which I excised as well. I applied wet to dry dressings to the debrided area. She will need good wound care and frequent change of positions. I will do a wound check tomorrow. Procedures Date of Service Date of Service: 06/22/23
--- NOTE | 2023-06-22 16:58 | PM.EVENT ---
Event Note Date of Service: 06/22/23 Event Note: Sharp excisional debridement of sacral decubitus ulcer 2 x 2 cm done at bedside scissors Eschar consisting of full-thickness of the skin and part of subcutaneous layer removed Wet-to-dry dressings applied Time Spent With Patient Time: Total time managing care of this patient today ____ minutes.
--- NOTE | 2023-06-22 17:06 | PC.NURSE ---
Left sacrum ulcer debrided at bedside and drsg applied by dr. Lopez,clarified with Dr. John Carpenter drsg to be started tomorrow.
[2023-06-22 20:00] VITALS: BP 102/57; PULSE 67; RESP 18; TEMP 36.2; O2SAT 97
[2023-06-22] MEDS: Melatonin 3 MG TABLET PO (20:06)
[2023-06-23] MEDS: 0.9 % Sodium Chloride Flush 3 ML SYRINGE IVFLUSH ×4 (00:35→23:28)
[2023-06-23 04:00] VITALS: BP 123/59; PULSE 65; RESP 16; TEMP 36.2; O2SAT 99
[2023-06-23] MEDS: Omeprazole/Na Bicarb Oral Susp 20 MG/10 ML UD Cup PO ×2 (06:46→15:27)
[2023-06-23 08:00] VITALS: BP 107/51; PULSE 66; RESP 17; TEMP 36.6; O2SAT 98
[2023-06-23] MEDS: Aspirin 325 MG TABLET PO ×2 (09:27→19:50)
[2023-06-23] MEDS: Acetaminophen 325 MG TABLET 975 MG PO ×2 (09:27→15:29)
--- NOTE | 2023-06-23 10:33 | HO.PM.IMPN ---
Subjective Subjective Date of Service: 06/23/23 Interval History: ambulating with staff assistance; refused PT evaluation denies any pain Review of Systems Review of Systems: Yes all other systems are reviewed and are negative Physical Exam Vital Signs: Vital Signs: Last Vital Signs Temp 97.9 F 06/23/23 08:00 Pulse 66 06/23/23 08:00 Resp 17 06/23/23 08:00 BP 107/51 L 06/23/23 08:00 Pulse Ox 98 06/23/23 08:00 O2 Del Method Room Air 06/23/23 08:00 O2 Flow Rate 2 06/18/23 07:21 BMI result Body Mass Index 17.2 Gen: in no acute distress, muscle wasting HEENT: sclera anicteric, moist mucus membranes Neck: supple Lungs: clear to auscultation bilaterally Heart: regular rate and rhythm, no murmurs Abd: soft, non-tender, non-distended Ext: no edema, L hip dressing dry Skin: warm/well-perfused Neuro: alert and oriented to self, no focal weakness Psych: impaired insight Objective Data Active Medications Acetaminophen (Acetaminophen 325 Mg Tablet) 975 mg PO Q6H PRN PRN Reason: Pain, Moderate(Pain Scale 4-6) Last Admin: 06/23/23 09:27 Dose: 975 mg Documented By: JOSE Aspirin (Aspirin 325 Mg Tablet) 325 mg PO BID [facility] Last Admin: 06/23/23 09:27 Dose: 325 mg Documented By: JOSE Collagenase (Collagenase Clostridium Hist. 30 Gm Tube) 1 appl TOPICAL BID [facility]; Protocol Last Admin: 06/22/23 17:06 Dose: Not Given Documented By: YUDITH Non-Admin Reason: start tommorrow per dr. Lopez Docusate Sodium (Docusate Sodium 100 Mg Capsule) 100 mg PO BEDTIME PRN PRN Reason: Constipation Last Admin: 06/14/23 20:12 Dose: 100 mg Documented By: COTEMA Lidocaine (Lidocaine 4 % Patch Adh..Patch) 1 patch TRANSDERMA DAILY [facility]; Protocol Last Admin: 06/23/23 10:28 Dose: Not Given Documented By: CLARISA Non-Admin Reason: Patient Refused Magnesium Hydroxide (Milk Of Magnesia 30 Ml Oral.Susp) 30 ml PO DAILY PRN PRN Reason: Constipation Last Admin: 06/14/23 20:18 Dose: 30 ml Documented By: JACINTA Melatonin (Melatonin 3 Mg Tablet) 3 mg PO BEDTIME [facility] Last Admin: 06/22/23 20:06 Dose: 3 mg Documented By: YUDITH Omeprazole (Omeprazole/Na Bicarb Oral Susp 20 Mg/10 Ml Ud Cup) 20 mg PO BID@0630,1630 [facility] Last Admin: 06/23/23 06:46 Dose: 20 mg Documented By: DANIELLA Ondansetron HCl (Ondansetron Hcl 4 Mg/2 Ml Vial) 4 mg IVPUSH Q8H PRN PRN Reason: Nausea and Vomiting Senna (Sennosides 8.6 Mg Tablet) 17.2 mg PO BEDTIME PRN PRN Reason: Constipation Last Admin: 06/14/23 20:13 Dose: 17.2 mg Documented By: JACINTA Sodium Chloride (0.9 % Sodium Chloride Flush 3 Ml Syringe) 3 ml IVFLUSH QSHIFT [facility] Last Admin: 06/23/23 09:27 Dose: 3 ml Documented By: MCGINNM Labs 06/21/23 07:41 06/21/23 07:41 Assessment and Plan (1) Major neurocognitive disorder: Status: Acute (2) Hypercalcemia: Status: Acute (3) Hypokalemia: Status: Acute (4) Hypernatremia: Status: Acute Plan d13 82yo F with HTN + dementia transferred from geriatric psychiatry to hospitalist service after sustaining displaced L hip fracture after unwitnessed fall in bathroom hemiartrhoplasty done 06/12/23 sacral debucitus ulcer - Gen Surg consulted, sharp excisional debridement done at bedside yesterday- eschar consisting of full-thickness skin and part of subcutaneous layer removed, wet-to-dry dressings applied L femoral neck fracture - POD 11 hemiarthoplasty - ASA for VTE ppx 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 received IV zolendronate 06/16; d/c'ed cinecalcet + calcitonin hyperNa hypoK - resolved HTN - BP OK without amlodipine at this point metabolic encephalopathy + unspecified dementia - Psychiatry consulted; no benefit to returning to [facility] - d/c'ed memantine per conversation with daughter/HCP - PORTER MARINA: NDD3 solids, thin liquids acute blood loss anemia due to blood loss from femur fracture - no further blood draws per daughter/HCP severe protein-calorie malnutrition - d/c'ed PPN as per daughter/HCP 06/21/23; give supplements - appetite somewhat improved VTE ppx - ASA dispo - no longer a candidate for hospice with improved PO intake; per PT, LTC [family cannot take home]; CM consultation In my clinical judgment, the patient requires continued inpatient hospitalization for the following reasons: placement + wound care Total time managing care of this patient today: 35 minutes. Quality Stroke Does the patient have a stroke diagnosis?: No VTE Prior VTE?: No VTE Risk Level:: Medical - moderate - high VTE Device Contraindication: N/A - Device Ordered VTE Drug Contraindication: Treatment Not Indicated
[2023-06-23] MEDS: Collagenase Clostridium Hist. 30 GM TUBE 1 APPL TOPICAL ×2 (11:49→19:50)
[2023-06-23 15:19] VITALS: BP 103/51; PULSE 61; RESP 18; TEMP 36.8; O2SAT 100
--- NOTE | 2023-06-23 16:11 | MHC.CM.PN ---
Addendum entered by Milagro Peñaloza 06/24/23 16:19: SNF REFERRALS UPDATED AND BROADCASTED AGAIN ALONG WITH A MESSAGE THAT IT WILL LIKELY BE PRIVATE PAY AT THIS TIME THERE ARE NO BED OFFERS Original Note: CM CALLED PTS DAUGHTER/HCP, ESPERANZA AT APPROXIMATELY 1300 HOURS TODAY SHE IS NOW AWARE PT MAY NOT BE HOSPICE APPROPRIATE AND IS NOT ELIGIBLE FOR STR PT REPORTED SHE WAS PLANNING TO LOOK INTO THE [facility]ACE PROGRAM CM EXPLAINED THIS WOULD TAKE SOME TIME TO ARRANGE AND SHE MAY NEED TO PRIVATE PAY FOR A SHORT SNF STAY WHILE WORKING ON IT SHE REPORTS THIS IS WHAT SHE WAS PLANNING CM ASKED WHERE REFERRALS SHOULD BE MADE AND SHE STATED SHE DID NOT KNOW AND NEEDED TO MAKE CALLS ON HER LUNCH BREAK AND WOULD CALL BACK, CM ASKED WHAT TIME HER LUNCH BREAK WAS AND SHE STATED SHE DID NOT KNOW AND HUNG UP. ESPERANZA DID CALL CM BACK AROUND 1400 HOURS CM EXPLAINED PT MAY NOT BE ELIGIBLE FOR PACE IT IS AN IN HOME PROGRAM SHE REPORTS SHE IS HOPING TO GET HER MOTHER TO AN JAIL CM EXPLAINED THIS MAY TAKE SOME TIME TO ARRANGE AND SUGGESTED LOOKING AT SNF FOR IMMEDIATE PLANNING SHE REPORTS BEING AGREEABLE TO REFERRALS BEING BROADCASTED IN HER AREA ([place]) SHE IS AWARE CM WILL CALL HER WITH BED OFFERS/COSTS TOMORROW
--- NOTE | 2023-06-23 17:41 | MHC.SL.SWA ---
Speech Pathologist Impression: Risk of Aspiration Due to: Poor PO Intake Dysphasia Diet Status: Recommend patient continue with CHOPPED/ADVANCED solids (NDD3), THIN liquids, pills CRUSHED and 1-1 supervision to provide encouragement to eat. Liquid Consistency and Strategies for Safe Swallow: Liquid Intake Recommendation: Thin Liquid Intake Strategies: Unrestricted Solid Food Consistency: Dietary Recommendations: Chopped/Advanced (NDD3) Additional Modifications to Solid Foods: Recommend continue on CHOPPED/ADVANCED SOLIDS (NDD3) and CONTINUE THIN LIQUIDS. MEDS WHOLE or CRUSHED with PUREE, as tolerated. Pt will benefit from 1:1 SUPERVISION to verbally encourage her during meals. DRYWALL APPLICATOR will continue to follow. Oral Medication Intake: Crushed with Puree Please contact the pharmacy regarding appropriate crushable or liquid drug formulations that are available whenever modified delivery is recommended. Compensatory Strategies and Precautions to be Taken for Safe Swallow: Sitting Upright (90 deg) Supervision While Eating and Drinking for Safe Swallow: Total Supervision (1:1) Foods to Avoid: Mixed consistencies. Swallowing Recommended Treatments: Compens. Strategy Educat. Recommendation for Speech: Inpatient Speech Therapy Comment: Patient was seen at lunch today, with son present in room. DRYWALL APPLICATOR arrived after patient had attempted to eat some of her lunch, and at onset was eating magic cup. Patient was noted to say am I suppose to eat all of this and I will get fat if I do. Patient was encouraged to eat Magic Cup for it's nutritional content. Son reported patient had had difficulty with main meal of fish and egg salad, stating she has difficulty getting it on the fork. Patient was encouraged to try egg salad, which she was able to scoop on to the fork and eat independently with no difficulty. However after two bites stated it's too much! and required further encouragement to eat more food. Due to limited po intake, evident adult failure to thrive, poor self insight, patient may benefit from having smaller more frequent meals to encourage PO. Patient evidences need for direct supervision at meals with assistance as needed if patient is confused or having difficulty navigating meal. Patient should be encouraged to persist with meal, even if appearing to refuse or anxious about too much food. No changes to diet recommended at this time, continue on Chopped/Advanced with Thin Liquids, pills crushed in puree.. Frequency/Duration: Daily Date Range for Service Req: Timeline to reassess: PRN Food Service Steward Clinican/Clinical Fellow: No Supervisory Statement: I have reviewed and agree with the student/clinical fellow's documentation: N/A Speech Language Pathologist: Stacie Mari M.A., [facility]-DRYWALL APPLICATOR
--- NOTE | 2023-06-23 18:08 | PC.NURSE ---
patient daughter Jenny called,update was given on patient condition today,daughter still have questions,and requested for doctor to call her, Dr. Banda notified ,phone number provided [phone]
[2023-06-23 19:12] VITALS: BP 117/58; PULSE 72; RESP 18; TEMP 36.9; O2SAT 98
[2023-06-23] MEDS: Melatonin 3 MG TABLET PO (19:50)
[2023-06-24 03:44] VITALS: BP 108/55; PULSE 59; RESP 18; TEMP 36.4; O2SAT 98
[2023-06-24] MEDS: Omeprazole/Na Bicarb Oral Susp 20 MG/10 ML UD Cup PO ×2 (05:40→15:28)
[2023-06-24 07:38] VITALS: BP 105/52; PULSE 58; RESP 12; TEMP 36.4; O2SAT 96
[2023-06-24] MEDS: Aspirin 325 MG TABLET PO ×2 (09:52→19:47)
[2023-06-24] MEDS: Acetaminophen 325 MG TABLET 975 MG PO ×2 (09:52→19:47)
[2023-06-24] MEDS: 0.9 % Sodium Chloride Flush 3 ML SYRINGE IVFLUSH ×2 (10:00→15:29)
--- NOTE | 2023-06-24 10:06 | MHC.CLN ---
F/U DIET=REGULAR, CHOPPED. INTAKE USUALLY APPROX 25%. CONTINUE ENSURE TID. PROVIDES 1050 KCALS, 60 G PROTEIN. PER COMMUNICATION WITH PAINTER DECORATOR, PATIENT MORE WILLING TO ACCEPT LIQUIDS. SKIN WITH LIPOMA ON SACRUM, DEBRIDED 06/22. CONTINUE CURRENT DIET AND SUPPLEMENT. ENCOURAGE PO ABLE.
--- NOTE | 2023-06-24 13:31 | MHC.SL.SWA ---
Speech Pathologist Impression: Oral phase dysphagia Risk of Aspiration Due to: Poor PO Intake Dysphasia Diet Status: Recommend patient continue with CHOPPED/ADVANCED solids (NDD3), THIN liquids, pills CRUSHED and 1-1 supervision for safe eating cues and to provide encouragement to eat. Liquid Consistency and Strategies for Safe Swallow: Liquid Intake Recommendation: Thin Liquid Intake Strategies: Unrestricted Solid Food Consistency: Dietary Recommendations: Chopped/Advanced (NDD3) Additional Modifications to Solid Foods: Recommend continue on CHOPPED/ADVANCED SOLIDS (NDD3) and THIN LIQUIDS. MEDS WHOLE or CRUSHED with PUREE, as tolerated. Pt will benefit from 1:1 SUPERVISION to provide cues for safe eating behaviors and to verbally encourage her during meals. Patient appears to be on safest, least restrictive diet textures. Please re-refer with any changes or if EDUCATION REVIEWER can be of further assistance. Oral Medication Intake: Crushed with Puree Please contact the pharmacy regarding appropriate crushable or liquid drug formulations that are available whenever modified delivery is recommended. Compensatory Strategies and Precautions to be Taken for Safe Swallow: Sitting Upright (90 deg) Small Bites and Sips Rate of Ingestion Change Avoid Specific Foods Supervision While Eating and Drinking for Safe Swallow: Total Supervision (1:1) Foods to Avoid: Mixed consistencies. Swallowing Recommended Treatments: Compens. Strategy Educat. Recommendation for Speech: D/C Contract Officer Clinican/Clinical Fellow: No Supervisory Statement: I have reviewed and agree with the student/clinical fellow's documentation: N/A Speech Language Pathologist: Aziza Son M.A., [facility]-EDUCATION REVIEWER
[2023-06-24] MEDS: Collagenase Clostridium Hist. 30 GM TUBE 1 APPL TOPICAL (14:18)
--- NOTE | 2023-06-24 14:38 | PM.EVENT ---
Event Note Date of Service: 06/24/23 Event Note: has small open wound on sacrococcygeal area excisional debridement done 06/22 for eschar with underlying cyst capsule ok to do Santyl dressings daily change position side to side nutritional support Time Spent With Patient Time: Total time managing care of this patient today ____ minutes.
[2023-06-24 15:09] VITALS: BP 145/68; PULSE 93; RESP 18; TEMP 36.1; O2SAT 98
--- NOTE | 2023-06-24 15:45 | HO.PM.IMPN ---
Subjective Subjective Date of Service: 06/24/23 Interval History: No acute issues overnight Physical Exam Vital Signs: Vital Signs: Last Vital Signs Temp 97 F 06/24/23 15:09 Pulse 93 06/24/23 15:09 Resp 18 06/24/23 15:09 BP 145/68 H 06/24/23 15:09 Pulse Ox 98 06/24/23 15:09 O2 Del Method Room Air 06/24/23 15:09 O2 Flow Rate 2 06/18/23 07:21 BMI result Body Mass Index 17.2 Objective Data Active Medications Acetaminophen (Acetaminophen 325 Mg Tablet) 975 mg PO Q6H PRN PRN Reason: Pain, Moderate(Pain Scale 4-6) Last Admin: 06/24/23 09:52 Dose: 975 mg Documented By: CLARISA Aspirin (Aspirin 325 Mg Tablet) 325 mg PO BID [facility] Last Admin: 06/24/23 09:52 Dose: 325 mg Documented By: CLARISA Collagenase (Collagenase Clostridium Hist. 30 Gm Tube) 1 appl TOPICAL DAILY [facility]; Protocol Docusate Sodium (Docusate Sodium 100 Mg Capsule) 100 mg PO BEDTIME PRN PRN Reason: Constipation Last Admin: 06/14/23 20:12 Dose: 100 mg Documented By: JACINTA Lidocaine (Lidocaine 4 % Patch Adh..Patch) 1 patch TRANSDERMA DAILY [facility]; Protocol Last Admin: 06/24/23 10:00 Dose: Not Given Documented By: CLARISA Non-Admin Reason: Patient Refused Magnesium Hydroxide (Milk Of Magnesia 30 Ml Oral.Susp) 30 ml PO DAILY PRN PRN Reason: Constipation Last Admin: 06/14/23 20:18 Dose: 30 ml Documented By: JACINTA Melatonin (Melatonin 3 Mg Tablet) 3 mg PO BEDTIME [facility] Last Admin: 06/23/23 19:50 Dose: 3 mg Documented By: YUDITH Omeprazole (Omeprazole/Na Bicarb Oral Susp 20 Mg/10 Ml Ud Cup) 20 mg PO BID@0630,1630 [facility] Last Admin: 06/24/23 15:28 Dose: 20 mg Documented By: YUDITH Ondansetron HCl (Ondansetron Hcl 4 Mg/2 Ml Vial) 4 mg IVPUSH Q8H PRN PRN Reason: Nausea and Vomiting Senna (Sennosides 8.6 Mg Tablet) 17.2 mg PO BEDTIME PRN PRN Reason: Constipation Last Admin: 06/14/23 20:13 Dose: 17.2 mg Documented By: COTEMA Sodium Chloride (0.9 % Sodium Chloride Flush 3 Ml Syringe) 3 ml IVFLUSH QSHIFT [facility] Last Admin: 06/24/23 15:29 Dose: 3 ml Documented By: BEIT Labs 06/21/23 07:41 06/21/23 07:41 Assessment and Plan (1) Sacral decubitus ulcer: Status: Acute (2) Major neurocognitive disorder: Status: Acute Plan 82yo F with HTN + dementia transferred from geriatric psychiatry to hospitalist service after sustaining displaced L hip fracture after unwitnessed fall in bathroom;hemiartrhoplasty done 06/12/23. 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 received IV zolendronate 06/16; d/c'ed cinecalcet + calcitonin 4.HTN - acceptable control off therapies -add back when clinically indicated 5.Metabolic encephalopathy/unspecified dementia - Psychiatry consulted; no benefit to returning to [facility] - d/c'ed memantine per conversation with daughter/HCP - awaiting placement DNR DNI ASA dispo No longer a candidate for hospice with improved PO intake; per PT, LTC [family cannot take home]; CM consultation In my clinical judgment, the patient requires continued inpatient hospitalization for the following reasons: placement + wound care Quality Stroke Does the patient have a stroke diagnosis?: No VTE Prior VTE?: No VTE Risk Level:: Medical - moderate - high VTE Device Contraindication: N/A - Device Ordered VTE Drug Contraindication: Treatment Not Indicated
[2023-06-24 19:28] VITALS: BP 131/62; PULSE 65; RESP 16; TEMP 36.5; O2SAT 99
[2023-06-24] MEDS: Melatonin 3 MG TABLET PO (19:47)
[2023-06-25] MEDS: 0.9 % Sodium Chloride Flush 3 ML SYRINGE IVFLUSH ×3 (00:58→15:59)
[2023-06-25 03:08] VITALS: BP 135/63; PULSE 61; RESP 16; TEMP 36.7; O2SAT 98
[2023-06-25] MEDS: Omeprazole/Na Bicarb Oral Susp 20 MG/10 ML UD Cup PO ×2 (06:42→15:58)
[2023-06-25 07:36] VITALS: BP 140/63; PULSE 62; RESP 18; TEMP 37.2; O2SAT 99
[2023-06-25] MEDS: Aspirin 325 MG TABLET PO ×2 (09:19→20:22)
--- NOTE | 2023-06-25 12:36 | HO.PM.IMPN ---
Subjective Subjective Date of Service: 06/25/23 Interval History: No acute issues overnight; pleasantly confused Review of Systems Denies chest pain Denies shortness of breath Denies nausea vomiting diarrhea Denies fever chills Physical Exam Vital Signs: Vital Signs: Last Vital Signs Temp 98.9 F 06/25/23 07:36 Pulse 62 06/25/23 07:36 Resp 18 06/25/23 07:36 BP 140/63 H 06/25/23 07:36 Pulse Ox 99 06/25/23 07:36 O2 Del Method Room Air 06/25/23 07:36 O2 Flow Rate 2 06/18/23 07:21 BMI result Body Mass Index 17.2 Const: Other: Awake confused but no acute distress Resp: Other: Clear to auscultation bilaterally no rales rhonchi or wheezes Cardio: Other: No S4; positive S1-S2; no S3 murmurs rubs or gallops GI: Other: Soft nontender nondistended normoactive bowel sounds Extrem: Other: No edema bilaterally Objective Data Active Medications Acetaminophen (Acetaminophen 325 Mg Tablet) 975 mg PO Q6H PRN PRN Reason: Pain, Moderate(Pain Scale 4-6) Last Admin: 06/24/23 19:47 Dose: 975 mg Documented By: YUDITH Aspirin (Aspirin 325 Mg Tablet) 325 mg PO BID [facility] Last Admin: 06/25/23 09:19 Dose: 325 mg Documented By: TRANG Collagenase (Collagenase Clostridium Hist. 30 Gm Tube) 1 appl TOPICAL DAILY [facility]; Protocol Last Admin: 06/25/23 09:22 Dose: Not Given Documented By: TRANG Non-Admin Reason: Patient Refused Docusate Sodium (Docusate Sodium 100 Mg Capsule) 100 mg PO BEDTIME PRN PRN Reason: Constipation Last Admin: 06/14/23 20:12 Dose: 100 mg Documented By: JACINTA Lidocaine (Lidocaine 4 % Patch Adh..Patch) 1 patch TRANSDERMA DAILY [facility]; Protocol Last Admin: 06/25/23 09:23 Dose: Not Given Documented By: TRANG Non-Admin Reason: Patient Refused Magnesium Hydroxide (Milk Of Magnesia 30 Ml Oral.Susp) 30 ml PO DAILY PRN PRN Reason: Constipation Last Admin: 06/14/23 20:18 Dose: 30 ml Documented By: JACINTA Melatonin (Melatonin 3 Mg Tablet) 3 mg PO BEDTIME [facility] Last Admin: 06/24/23 19:47 Dose: 3 mg Documented By: YUDITH Omeprazole (Omeprazole/Na Bicarb Oral Susp 20 Mg/10 Ml Ud Cup) 20 mg PO BID@0630,1630 [facility] Last Admin: 06/25/23 06:42 Dose: 20 mg Documented By: IRON Ondansetron HCl (Ondansetron Hcl 4 Mg/2 Ml Vial) 4 mg IVPUSH Q8H PRN PRN Reason: Nausea and Vomiting Senna (Sennosides 8.6 Mg Tablet) 17.2 mg PO BEDTIME PRN PRN Reason: Constipation Last Admin: 06/14/23 20:13 Dose: 17.2 mg Documented By: JACINTA Sodium Chloride (0.9 % Sodium Chloride Flush 3 Ml Syringe) 3 ml IVFLUSH QSHIFT [facility] Last Admin: 06/25/23 09:20 Dose: 3 ml Documented By: RICHAITZM Labs 06/21/23 07:41 06/21/23 07:41 Assessment and Plan (1) Major neurocognitive disorder: Status: Acute Plan 82yo F with HTN + dementia transferred from geriatric psychiatry to hospitalist service after sustaining displaced L hip fracture after unwitnessed fall in bathroom;hemiartrhoplasty done 06/12/23. 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 received IV zolendronate 06/16; d/c'ed cinecalcet + calcitonin 4.HTN - acceptable control off therapies -add back when clinically indicated 5.Metabolic encephalopathy/unspecified dementia - Psychiatry consulted; no benefit to returning to [facility] - d/c'ed memantine per conversation with daughter/HCP - awaiting placement DNR DNI ASA dispo No longer a candidate for hospice with improved PO intake; per PT, LTC [family cannot take home]; CM consultation In my clinical judgment, the patient requires continued inpatient hospitalization for the following reasons: placement + wound care Quality Stroke Does the patient have a stroke diagnosis?: No VTE Prior VTE?: No VTE Risk Level:: Medical - moderate - high VTE Device Contraindication: N/A - Device Ordered VTE Drug Contraindication: Treatment Not Indicated
[2023-06-25 15:49] VITALS: BP 136/60; PULSE 68; RESP 18; TEMP 36.2; O2SAT 99
[2023-06-25 20:07] VITALS: BP 172/75; PULSE 67; RESP 20; TEMP 37.1; O2SAT 100
[2023-06-25] MEDS: Melatonin 3 MG TABLET PO (20:22)
[2023-06-26] MEDS: 0.9 % Sodium Chloride Flush 3 ML SYRINGE IVFLUSH ×2 (00:55→09:42)
[2023-06-26 04:00] VITALS: BP 122/60; PULSE 59; RESP 16; TEMP 36.3; O2SAT 99
[2023-06-26 07:46] VITALS: BP 107/53; PULSE 59; RESP 18; TEMP 36.3; O2SAT 97
[2023-06-26] MEDS: Aspirin 325 MG TABLET PO ×2 (09:40→21:02)
[2023-06-26] MEDS: Collagenase Clostridium Hist. 30 GM TUBE 1 APPL TOPICAL (09:43)
--- NOTE | 2023-06-26 12:05 | P.PNIM_ITS ---
Subjective Subjective Date of Service: 06/26/23 Interval History: No acute issues overnight. Remains pleasantly confused without behavioral issues Review of Systems Denies chest pain Denies shortness of breath Denies nausea vomiting diarrhea Denies fever chills Physical Exam 2 Vital Signs: Vital Signs: Last Vital Signs Temp 97.4 F 06/26/23 07:46 Pulse 59 06/26/23 07:46 Resp 18 06/26/23 07:46 BP 107/53 L 06/26/23 07:46 Pulse Ox 97 06/26/23 07:46 O2 Del Method Room Air 06/26/23 07:46 O2 Flow Rate 2 06/18/23 07:21 BMI result Body Mass Index 17.2 Const: Other: Awake confused but no acute distress Resp: Other: Clear to auscultation bilaterally no rales rhonchi or wheezes Cardio: Other: No S4; positive S1-S2; no S3 murmurs rubs or gallops GI: Other: Soft nontender nondistended normoactive bowel sounds Extrem: Other: No edema bilaterally Objective Data Active Medications Acetaminophen (Acetaminophen 325 Mg Tablet) 975 mg PO Q6H PRN PRN Reason: Pain, Moderate(Pain Scale 4-6) Last Admin: 06/24/23 19:47 Dose: 975 mg Documented By: YUDITH Aspirin (Aspirin 325 Mg Tablet) 325 mg PO BID [facility] Last Admin: 06/26/23 09:40 Dose: 325 mg Documented By: TRANG Collagenase (Collagenase Clostridium Hist. 30 Gm Tube) 1 appl TOPICAL DAILY [facility]; Protocol Last Admin: 06/26/23 09:43 Dose: 1 appl Documented By: TRANG Docusate Sodium (Docusate Sodium 100 Mg Capsule) 100 mg PO BEDTIME PRN PRN Reason: Constipation Last Admin: 06/14/23 20:12 Dose: 100 mg Documented By: JACINTA Lidocaine (Lidocaine 4 % Patch Adh..Patch) 1 patch TRANSDERMA DAILY [facility]; Protocol Last Admin: 06/26/23 09:42 Dose: Not Given Documented By: TRANG Non-Admin Reason: Patient Refused Magnesium Hydroxide (Milk Of Magnesia 30 Ml Oral.Susp) 30 ml PO DAILY PRN PRN Reason: Constipation Last Admin: 06/14/23 20:18 Dose: 30 ml Documented By: HO.COTEMA Melatonin (Melatonin 3 Mg Tablet) 3 mg PO BEDTIME [facility] Last Admin: 06/25/23 20:22 Dose: 3 mg Documented By: MALICK Omeprazole (Omeprazole/Na Bicarb Oral Susp 20 Mg/10 Ml Ud Cup) 20 mg PO BID@0630,1630 [facility] Last Admin: 06/26/23 06:22 Dose: Not Given Documented By: IRON Non-Admin Reason: Patient Refused Ondansetron HCl (Ondansetron Hcl 4 Mg/2 Ml Vial) 4 mg IVPUSH Q8H PRN PRN Reason: Nausea and Vomiting Senna (Sennosides 8.6 Mg Tablet) 17.2 mg PO BEDTIME PRN PRN Reason: Constipation Last Admin: 06/14/23 20:13 Dose: 17.2 mg Documented By: COTEMA Sodium Chloride (0.9 % Sodium Chloride Flush 3 Ml Syringe) 3 ml IVFLUSH QSHIFT [facility] Last Admin: 06/26/23 09:42 Dose: 3 ml Documented By: RICHAITZM Labs 06/21/23 07:41 06/21/23 07:41 Assessment and Plan (1) Major neurocognitive disorder: Status: Acute Plan 82yo F with HTN + dementia transferred from geriatric psychiatry to hospitalist service after sustaining displaced L hip fracture after unwitnessed fall in bathroom;hemiartrhoplasty done 06/12/23. 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 received IV zolendronate 06/16; d/c'ed cinecalcet + calcitonin 4.HTN - acceptable control off therapies -add back when clinically indicated 5.Metabolic encephalopathy/unspecified dementia - Psychiatry consulted; no benefit to returning to [facility] - d/c'ed memantine per conversation with daughter/HCP - awaiting placement DNR DNI ASA dispo No longer a candidate for hospice with improved PO intake; per PT, LTC [family cannot take home]; CM consultation In my clinical judgment, the patient requires continued inpatient hospitalization for the following reasons: placement + wound care Quality Stroke Does the patient have a stroke diagnosis?: No VTE Prior VTE?: No VTE Risk Level:: Medical - moderate - high VTE Device Contraindication: N/A - Device Ordered VTE Drug Contraindication: Treatment Not Indicated
[2023-06-26] MEDS: Acetaminophen 325 MG TABLET 975 MG PO (14:59)
[2023-06-26] MEDS: Lidocaine 4 % Patch ADH..PATCH 1 PATCH TRANSDERMA (14:59)
[2023-06-26 15:39] VITALS: BP 114/56; PULSE 84; RESP 18; TEMP 36.1; O2SAT 100
[2023-06-26] MEDS: Omeprazole/Na Bicarb Oral Susp 20 MG/10 ML UD Cup PO (16:49)
[2023-06-26 19:50] VITALS: BP 140/65; PULSE 66; RESP 16; TEMP 36.7; O2SAT 97
[2023-06-26] MEDS: Melatonin 3 MG TABLET PO (21:02)
[2023-06-27 03:31] VITALS: BP 125/58; PULSE 57; RESP 16; TEMP 36.5; O2SAT 95
[2023-06-27] MEDS: Omeprazole/Na Bicarb Oral Susp 20 MG/10 ML UD Cup PO ×2 (05:41→17:02)
[2023-06-27 07:40] VITALS: BP 115/56; PULSE 60; RESP 14; TEMP 36.3; O2SAT 98
[2023-06-27] MEDS: Lidocaine 4 % Patch ADH..PATCH 1 PATCH TRANSDERMA (09:14)
[2023-06-27] MEDS: Aspirin 325 MG TABLET PO ×2 (09:14→19:53)
--- NOTE | 2023-06-27 10:44 | MHC.CLN ---
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
--- NOTE | 2023-06-27 11:07 | MHC.CM.PN ---
Addendum entered by Shae Mcelroy RN 06/27/23 16:00: CM rec'd call from Jenny requesting insurance information. CM provided information. Reviewed information re: IMM and HINN, previously left in voicemail (see below). Jenny verbalized understanding. Jenny is aware [facility] will reach out to her. Requesting to speak with MD re: hospice again. MD aware and will reach out tomorrow. Addendum entered by Shae Mcelroy RN 06/27/23 12:59: CM spoke with liaison Anitha @ [facility] in [place]. Per Anitha, facility is able to offer a LTC bed pending confirming financials w/ daughter. This CM updated daughter Jenny, who states she will not accept bed offer and prefers to wait for another facility to offer a bed. CM reviewed that patient is medically cleared and there are no other bed offers, daughter should plan to accept bed and continue to look for alternative bed if unhappy w/ placement. Reviewed alternative option to bring patient home w/ private care while daughter continues search for another bed. Daughter not agreeable to either plan above, states I am not going to talk to you about this and hung up on this CM. 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 This CM called daughter again and LM to issue IMM w/ detailed instructions for appeal and HINN-12 w/ daily rate and date of financial responsibility (06/29). Copies of both will be sent to Jenny via certified mail. Original Note: EMR reviewed. Per MD rounds patient is medically ready for dc, pending private pay SNF placement while daughter arranges for [facility]. No bed offers at this time. Updates sent and referral broadened. CM will continue to follow.
--- NOTE | 2023-06-27 13:55 | HO.PM.IMPN ---
Subjective Subjective Date of Service: 06/27/23 Interval History: Remains pleasantly confused no acute issues Review of Systems Denies chest pain Denies shortness of breath Denies nausea vomiting diarrhea Denies fever chills Physical Exam Vital Signs: Vital Signs: Last Vital Signs Temp 97.4 F 06/27/23 07:40 Pulse 60 06/27/23 07:40 Resp 14 06/27/23 07:40 BP 115/56 L 06/27/23 07:40 Pulse Ox 98 06/27/23 07:40 O2 Del Method Room Air 06/27/23 07:40 O2 Flow Rate 2 06/18/23 07:21 BMI result Body Mass Index 17.2 Const: Other: Awake confused but no acute distress Resp: Other: Clear to auscultation bilaterally no rales rhonchi or wheezes Cardio: Other: No S4; positive S1-S2; no S3 murmurs rubs or gallops GI: Other: Soft nontender nondistended normoactive bowel sounds Extrem: Other: No edema bilaterally Objective Data Active Medications Acetaminophen (Acetaminophen 325 Mg Tablet) 975 mg PO Q6H PRN PRN Reason: Pain, Moderate(Pain Scale 4-6) Last Admin: 06/26/23 14:59 Dose: 975 mg Documented By: TRANG Aspirin (Aspirin 325 Mg Tablet) 325 mg PO BID [facility] Last Admin: 06/27/23 09:14 Dose: 325 mg Documented By: MEHRAN Collagenase (Collagenase Clostridium Hist. 30 Gm Tube) 1 appl TOPICAL DAILY [facility]; Protocol Last Admin: 06/27/23 13:49 Dose: Not Given Documented By: MEHRAN Non-Admin Reason: given by wound nurse Docusate Sodium (Docusate Sodium 100 Mg Capsule) 100 mg PO BEDTIME PRN PRN Reason: Constipation Last Admin: 06/14/23 20:12 Dose: 100 mg Documented By: JACINTA Lidocaine (Lidocaine 4 % Patch Adh..Patch) 1 patch TRANSDERMA DAILY [facility]; Protocol Last Admin: 06/27/23 09:14 Dose: 1 patch Documented By: MEHRAN Magnesium Hydroxide (Milk Of Magnesia 30 Ml Oral.Susp) 30 ml PO DAILY PRN PRN Reason: Constipation Last Admin: 06/14/23 20:18 Dose: 30 ml Documented By: JACINTA Melatonin (Melatonin 3 Mg Tablet) 3 mg PO BEDTIME [facility] Last Admin: 06/26/23 21:02 Dose: 3 mg Documented By: MUNIRA Omeprazole (Omeprazole/Na Bicarb Oral Susp 20 Mg/10 Ml Ud Cup) 20 mg PO BID@0630,1630 [facility] Last Admin: 06/27/23 05:41 Dose: 20 mg Documented By: MUNIRA Ondansetron HCl (Ondansetron Hcl 4 Mg/2 Ml Vial) 4 mg IVPUSH Q8H PRN PRN Reason: Nausea and Vomiting Senna (Sennosides 8.6 Mg Tablet) 17.2 mg PO BEDTIME PRN PRN Reason: Constipation Last Admin: 06/14/23 20:13 Dose: 17.2 mg Documented By: COTEMA Sodium Chloride (0.9 % Sodium Chloride Flush 3 Ml Syringe) 3 ml IVFLUSH QSHIFT [facility] Last Admin: 06/27/23 09:19 Dose: Not Given Documented By: MEHRAN Non-Admin Reason: No Access Labs 06/21/23 07:41 06/21/23 07:41 Assessment and Plan (1) Major neurocognitive disorder: Status: Acute Plan 82yo F with HTN + dementia transferred from geriatric psychiatry to hospitalist service after sustaining displaced L hip fracture after unwitnessed fall in bathroom;hemiartrhoplasty done 06/12/23. 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 received IV zolendronate 06/16; d/c'ed cinecalcet + calcitonin 4.HTN - acceptable control off therapies -add back when clinically indicated 5.Metabolic encephalopathy/unspecified dementia - Psychiatry consulted; no benefit to returning to [facility] - d/c'ed memantine per conversation with daughter/HCP - awaiting placement DNR DNI ASA dispo No longer a candidate for hospice with improved PO intake; per PT, LTC [family cannot take home]; CM consultation In my clinical judgment, the patient requires continued inpatient hospitalization for the following reasons: placement + wound care Quality Stroke Does the patient have a stroke diagnosis?: No VTE Prior VTE?: No VTE Risk Level:: Medical - moderate - high VTE Device Contraindication: N/A - Device Ordered VTE Drug Contraindication: Treatment Not Indicated
--- NOTE | 2023-06-27 14:55 | HO.WOUND ---
Wound Consult: Follow up 82yr old?F admitted to [facility] on 06/11 - See progress notes and H&P for detailed history.? Wound consult follow up for Left sacrum - the wound has been debrided by Dr. Lopez see note for details - Etiology Lipoma vs Cyst - Dr. Raymundo reports cyst sac removed during debridement.? Primary etiology remains Cyst site - the would is not consistent with pressure at this time despite being over a bony prominence. Of note patient continues to remain in brief - brief use should be limited to while ambulating only. ? assessment 06/14/23 pre-bedridement Left Sacrum Etiology: Per Dr. Lopez Cyst post I&D site Measurements: see chartfor detailed measurements Wound Bed: adherentfibrinous yellow slough and material Drainage / Odor: yellow tian drainage on dressing Edges: ? defined Lonnie wound: Bright red blanchable tissue - ?lessl Induration noted and Right buttock with MASD and friction thin yellow slough noted to inferior portion of wound bed Pain: Pt denies pain Goals of Treatment: ? Foam dressing to protect from friction and santly for enzymatic dedridement Recommendations: 1. Turn and Reposition every 2 hours and as needed for patient comfort.? Use pillows or wedges to support off loading positions. 2. Off Load all bony prominences with use of pillows and heel boots if needed.? Apply Preventative foams where needed. ? 3. Monitor for incontinence and moisture control, use barrier creams when needed for prevention and treatment. 4. Provide adequate and supplemental nutrition.? Nutrition following. 5. Order low air loss mattress. Waffle cushion provided for when up to chair. 6. When applicable maintain blood glucose levels per Providers order. 7. Left Sacrum - Off Load Pressure - Cleanse with normal saline, pat dry. ?Apply Triad cream to the immediate lonnie wound, apply thick layer of Santyl to entire wound bed, pack with moist gauze, secure foam dressing, change Daily. Discontinue brief use. 8. Right buttock - Off Load Pressure - Cleanse with PH balance spray or wipes, pat dry. ?Apply thin layer of Triad to wound bed - only pat and dab no scrub and rub when soiling occurs. Reapply thin layer PRN after each episode of incontinence. Re-consult wound care Nurse for wound deterioration or wound changes.
[2023-06-27 16:00] VITALS: BP 136/60; PULSE 61; RESP 18; TEMP 36.6; O2SAT 100
[2023-06-27 19:32] VITALS: BP 158/67; PULSE 65; RESP 18; TEMP 37.2; O2SAT 100
[2023-06-27] MEDS: Melatonin 3 MG TABLET PO (19:53)
[2023-06-28 03:14] VITALS: BP 144/65; PULSE 62; RESP 18; TEMP 36.6; O2SAT 100
[2023-06-28] MEDS: Omeprazole/Na Bicarb Oral Susp 20 MG/10 ML UD Cup PO (06:11)
[2023-06-28] MEDS: Aspirin 325 MG TABLET PO ×2 (08:54→20:21)
[2023-06-28] MEDS: Lidocaine 4 % Patch ADH..PATCH 1 PATCH TRANSDERMA (08:55)
[2023-06-28 09:08] LABS: Hematocrit 26.3 % (37.0-47.0); Hemoglobin 8.7 g/dl (12.0-16.0)
[2023-06-28 09:21] LABS: Anion Gap 10 (12-20); Blood Urea Nitrogen 9 mg/dL (9-16); Calcium 8.8 mg/dL (8.4-10.2); Carbon Dioxide 28 mmol/L (22-29); Chloride 108 mmol/L (96-108); Estimated Glomerular Filt Rate > 60; Glucose Random 87 mg/dL (60-115); Potassium 3.6 mmol/L (3.3-5.1); Sodium 142 mmol/L (135-145)
[2023-06-28] MEDS: Collagenase Clostridium Hist. 30 GM TUBE 1 APPL TOPICAL (11:25)
[2023-06-28 15:16] VITALS: BP 105/53; PULSE 60; RESP 15; TEMP 36.1; O2SAT 97
--- NOTE | 2023-06-28 15:41 | MHC.CM.PN ---
THIS CM SPOKE WITH DAUGHTER ESPERANZA REGARDING HER CONVERSATION WITH LIAISON FOR [facility] REGARDING FINANCES/PP FUNDS FOR PLACEMENT. PER ESPERANZA, SHE WILL BE SPEAKING WITH LIAISON WHEN SHE GETS OUT OF WORK TODAY. DAUGHTER ALSO REQUESTS 2 MORE REFERRALS BE PLACED TO [place] IN [place] AND [facility] IN [place]. REFERRALS PLACED WITH NO RESPONSE OF YET. CM CONTINUES TO FOLLOW FOR ANY CHANGE IN DC PLAN.
--- NOTE | 2023-06-28 16:15 | P.PNIM_ITS ---
Subjective Subjective Date of Service: 06/28/23 Interval History: Remains pleasantly confused . Review of Systems no new c/o. Physical Exam 2 Vital Signs: Vital Signs: Last Vital Signs Temp 97 F 06/28/23 15:16 Pulse 60 06/28/23 15:16 Resp 15 06/28/23 15:16 BP 105/53 L 06/28/23 15:16 Pulse Ox 97 06/28/23 15:16 O2 Del Method Room Air 06/28/23 15:16 O2 Flow Rate 2 06/18/23 07:21 BMI result Body Mass Index 17.2 Appearance: Alert.? Oriented X1, comfortable.? cvs: [id number], [id number]. res: clear to auscultation ,no rhonchii or wheezing abd: no rebound or guarding ,nt, bs present. ext : left hip dressing -seems no bleedin . neuro: moves allext Objective Data Active Medications Acetaminophen (Acetaminophen 325 Mg Tablet) 975 mg PO Q6H PRN PRN Reason: Pain, Moderate(Pain Scale 4-6) Last Admin: 06/26/23 14:59 Dose: 975 mg Documented By: TRANG Aspirin (Aspirin 325 Mg Tablet) 325 mg PO BID YADIRA Last Admin: 06/28/23 08:54 Dose: 325 mg Documented By: TRANG Collagenase (Collagenase Clostridium Hist. 30 Gm Tube) 1 appl TOPICAL DAILY YADIRA; Protocol Last Admin: 06/28/23 11:25 Dose: 1 appl Documented By: TRANG Docusate Sodium (Docusate Sodium 100 Mg Capsule) 100 mg PO BEDTIME PRN PRN Reason: Constipation Last Admin: 06/14/23 20:12 Dose: 100 mg Documented By: JACINTA Lidocaine (Lidocaine 4 % Patch Adh..Patch) 1 patch TRANSDERMA DAILY YADIRA; Protocol Last Admin: 06/28/23 08:55 Dose: 1 patch Documented By: TRANG Magnesium Hydroxide (Milk Of Magnesia 30 Ml Oral.Susp) 30 ml PO DAILY PRN PRN Reason: Constipation Last Admin: 06/14/23 20:18 Dose: 30 ml Documented By: JACINTA Melatonin (Melatonin 3 Mg Tablet) 3 mg PO BEDTIME YADIRA Last Admin: 06/27/23 19:53 Dose: 3 mg Documented By: MUNIRA Omeprazole (Omeprazole/Na Bicarb Oral Susp 20 Mg/10 Ml Ud Cup) 20 mg PO BID@0630,1630 [facility] Last Admin: 06/28/23 16:11 Dose: Not Given Documented By: TRANG Non-Admin Reason: Patient Asleep Ondansetron HCl (Ondansetron Hcl 4 Mg/2 Ml Vial) 4 mg IVPUSH Q8H PRN PRN Reason: Nausea and Vomiting Senna (Sennosides 8.6 Mg Tablet) 17.2 mg PO BEDTIME PRN PRN Reason: Constipation Last Admin: 06/14/23 20:13 Dose: 17.2 mg Documented By: COTEMA Sodium Chloride (0.9 % Sodium Chloride Flush 3 Ml Syringe) 3 ml IVFLUSH QSHIFT [facility] Last Admin: 06/28/23 16:10 Dose: Not Given Documented By: TRANG Non-Admin Reason: No Access Labs 06/28/23 08:44 06/28/23 08:44 Labs: Laboratory Results - last 24 hr 06/28/23 08:44 Anion Gap 10 L Estim Creat Clear Calc 37.0 Estimated GFR > 60 Random Glucose 87 Calcium 8.8 D Assessment and Plan (1) Sacral decubitus ulcer: Status: Acute (2) Hypercalcemia: Status: Acute Plan 82yo F with HTN + dementia transferred from geriatric psychiatry to hospitalist service after sustaining displaced L hip fracture after unwitnessed fall in bathroom;hemiartrhoplasty done 06/12/23. Now awaiting placement 1.Sacral debucitus ulcer - Gen Surg consulted, sharp excisional debridement done at bedside 06/23/23; eschar consisting of full-thickness skin and part of subcutaneous layer removed, wet-to-dry dressings applied wound care following recomendations: Turn and Reposition every 2 hours and as needed for patient comfort.? Use pillows or wedges to support off loading positions. Off Load all bony prominences with use of pillows and heel boots if needed.? Apply Preventative foams where needed. ? Monitor for incontinence and moisture control, use barrier creams when needed for prevention and treatment. Provide adequate and supplemental nutrition.? Nutrition following. low air loss mattress. Waffle cushion provided for when up to chair. When applicable maintain blood glucose levels per Providers order. Left Sacrum - Off Load Pressure - Cleanse with normal saline, pat dry. ?Apply Triad cream to the immediate lonnie wound, apply thick layer of Santyl to entire wound bed, pack with moist gauze, secure foam dressing, change Daily. D iscontinue brief use. Right buttock - Off Load Pressure - Cleanse with PH balance spray or wipes, pat dry. ?Apply thin layer of Triad to wound bed - only pat and dab no scrub and rub when soiling occurs. Reapply thin layer PRN after each episode of incontinence. 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 received IV zolendronate 06/16; d/c'ed cinecalcet + calcitonin 4.HTN - acceptable control off therapies -add back when clinically indicated 5.Metabolic encephalopathy/unspecified dementia - Psychiatry consulted; no benefit to returning to [facility] - d/c'ed memantine per conversation with daughter/HCP - awaiting placement DNR DNI ASA dispo No longer a candidate for hospice with improved PO intake; per PT, LTC [family cannot take home]; CM consultation In my clinical judgment, the patient requires continued inpatient hospitalization for the following reasons: placement + wound care Quality Stroke Does the patient have a stroke diagnosis?: No VTE Prior VTE?: No VTE Risk Level:: Medical - moderate - high VTE Device Contraindication: N/A - Device Ordered VTE Drug Contraindication: Treatment Not Indicated
[2023-06-28 19:17] VITALS: BP 139/73; PULSE 77; RESP 16; TEMP 36.3; O2SAT 96
[2023-06-28] MEDS: Melatonin 3 MG TABLET PO (20:21)
[2023-06-29] MEDS: Acetaminophen 325 MG TABLET 975 MG PO ×2 (03:03→19:52)
[2023-06-29 03:21] VITALS: BP 124/58; PULSE 66; RESP 17; TEMP 36.3; O2SAT 99
[2023-06-29] MEDS: Omeprazole/Na Bicarb Oral Susp 20 MG/10 ML UD Cup PO ×2 (05:35→18:26)
[2023-06-29 07:25] VITALS: BP 150/80; PULSE 60; RESP 12; TEMP 36.1; O2SAT 97
[2023-06-29] MEDS: Aspirin 325 MG TABLET PO ×2 (08:34→19:52)
[2023-06-29] MEDS: Lidocaine 4 % Patch ADH..PATCH 1 PATCH TRANSDERMA (08:34)
[2023-06-29] MEDS: Collagenase Clostridium Hist. 30 GM TUBE 1 APPL TOPICAL (08:35)
--- NOTE | 2023-06-29 10:31 | MHC.CLN ---
F/U DIET=REGULAR, CHOPPED. INTAKE USUALLY 25% WITH SOME RECENT MEALS 75-100%. CONTINUE ENSURE TID. PROVIDES 1050 KCALS, 60 G PROTEIN. SKIN IMPAIRMENT NOT PRESSURE INJURY PER WOUND RN. CONTINUE CURRENT DIET AND SUPPLEMENT. ENCOURAGE PO ABLE. RD TO FOLLOW WEEKLY.
--- NOTE | 2023-06-29 12:22 | HO.PM.IMPN ---
Subjective Subjective Date of Service: 06/29/23 Interval History: Remains pleasantly confused . Review of Systems no new c/o. Physical Exam Vital Signs: Vital Signs: Last Vital Signs Temp 97 F 06/29/23 07:25 Pulse 60 06/29/23 07:25 Resp 12 06/29/23 07:25 BP 150/80 H 06/29/23 07:25 Pulse Ox 97 06/29/23 07:25 O2 Del Method Room Air 06/29/23 07:25 O2 Flow Rate 2 06/18/23 07:21 BMI result Body Mass Index 17.2 Appearance: Alert.? Oriented X1, comfortable.? cvs: rrr, [id number]. res: clear to auscultation ,no rhonchii or wheezing abd: no rebound or guarding ,nt, bs present. ext : no cyanosis or edema . neuro: moves allext Objective Data Active Medications Acetaminophen (Acetaminophen 325 Mg Tablet) 975 mg PO Q6H PRN PRN Reason: Pain, Moderate(Pain Scale 4-6) Last Admin: 06/29/23 03:03 Dose: 975 mg Documented By: JACINTA Aspirin (Aspirin 325 Mg Tablet) 325 mg PO BID YADIRA Last Admin: 06/29/23 08:34 Dose: 325 mg Documented By: TRANG Collagenase (Collagenase Clostridium Hist. 30 Gm Tube) 1 appl TOPICAL DAILY [facility]; Protocol Last Admin: 06/29/23 08:35 Dose: 1 appl Documented By: TRANG Docusate Sodium (Docusate Sodium 100 Mg Capsule) 100 mg PO BEDTIME PRN PRN Reason: Constipation Last Admin: 06/14/23 20:12 Dose: 100 mg Documented By: JACINTA Lidocaine (Lidocaine 4 % Patch Adh..Patch) 1 patch TRANSDERMA DAILY [facility]; Protocol Last Admin: 06/29/23 08:34 Dose: 1 patch Documented By: TRANG Magnesium Hydroxide (Milk Of Magnesia 30 Ml Oral.Susp) 30 ml PO DAILY PRN PRN Reason: Constipation Last Admin: 06/14/23 20:18 Dose: 30 ml Documented By: COTEMA Melatonin (Melatonin 3 Mg Tablet) 3 mg PO BEDTIME YADIRA Last Admin: 06/28/23 20:21 Dose: 3 mg Documented By: COTEMA Omeprazole (Omeprazole/Na Bicarb Oral Susp 20 Mg/10 Ml Ud Cup) 20 mg PO BID@0630,1630 [facility] Last Admin: 06/29/23 05:35 Dose: 20 mg Documented By: COTEMA Ondansetron HCl (Ondansetron Hcl 4 Mg/2 Ml Vial) 4 mg IVPUSH Q8H PRN PRN Reason: Nausea and Vomiting Senna (Sennosides 8.6 Mg Tablet) 17.2 mg PO BEDTIME PRN PRN Reason: Constipation Last Admin: 06/14/23 20:13 Dose: 17.2 mg Documented By: COTLIV Sodium Chloride (0.9 % Sodium Chloride Flush 3 Ml Syringe) 3 ml IVFLUSH QSHIFT [facility] Last Admin: 06/29/23 08:34 Dose: Not Given Documented By: TRANG Non-Admin Reason: No Access Labs 06/28/23 08:44 06/28/23 08:44 Assessment and Plan (1) Sacral decubitus ulcer: Status: Acute (2) Hypercalcemia: Status: Acute Plan 82yo F with HTN + dementia transferred from geriatric psychiatry to hospitalist service after sustaining displaced L hip fracture after unwitnessed fall in bathroom;hemiartrhoplasty done 06/12/23. Now awaiting placement 1.Sacral debucitus ulcer - Gen Surg consulted, sharp excisional debridement done at bedside 06/23/23; eschar consisting of full-thickness skin and part of subcutaneous layer removed, wet-to-dry dressings applied. wound care following recomendations: Turn and Reposition every 2 hours and as needed for patient comfort.? Use pillows or wedges to support off loading positions. Off Load all bony prominences with use of pillows and heel boots if needed.? Apply Preventative foams where needed. ? Monitor for incontinence and moisture control, use barrier creams when needed for prevention and treatment. Provide adequate and supplemental nutrition.? Nutrition following. low air loss mattress. Waffle cushion provided for when up to chair. When applicable maintain blood glucose levels per Providers order. Left Sacrum - Off Load Pressure - Cleanse with normal saline, pat dry. ?Apply Triad cream to the immediate lonnie wound, apply thick layer of Santyl to entire wound bed, pack with moist gauze, secure foam dressing, change Daily. Discontinue brief use. Right buttock - Off Load Pressure - Cleanse with PH balance spray or wipes, pat dry. ?Apply thin layer of Triad to wound bed - only pat and dab no scrub and rub when soiling occurs. Reapply thin layer PRN after each episode of incontinence. 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 received IV zolendronate 06/16; d/c'ed cinecalcet + calcitonin 4.HTN - acceptable control off therapies -add back when clinically indicated 5.Metabolic encephalopathy/unspecified dementia - Psychiatry consulted; no benefit to returning to [facility] - d/c'ed memantine per conversation with daughter/HCP - awaiting placement DNR DNI ASA dispo No longer a candidate for hospice with improved PO intake; per PT, LTC [family cannot take home]; CM consultation In my clinical judgment, the patient requires continued inpatient hospitalization for the following reasons: placement + wound care Quality Stroke Does the patient have a stroke diagnosis?: No VTE Prior VTE?: No VTE Risk Level:: Medical - moderate - high VTE Device Contraindication: N/A - Device Ordered VTE Drug Contraindication: Treatment Not Indicated
--- NOTE | 2023-06-29 13:58 | MHC.CM.PN ---
CM SPOKE WITH DAUGHTER/HCP ESPERANZA STEVENS REGARDING FINANCES FOR ADMISSION TO [facility]. PER LIAISON AT [facility], ESPERANZA IS UNABLE TO PAY PRIVATELY SHE CANNOT AFFORD . PER ESPERANZA, SHE IS STILL TRYING TO PURSUE MH AND WILL BE FAXING PPW TO [facility] THIS AFTERNOON SO THEY CAN REVIEW TO SEE IF PT IS ELIGIBLE. PER [facility] [place] [place] [facility], PT IS NOT MH ELIGIBLE AND DAUGHTER AWARE. CM EXPLAINED THAT PT HAS BEEN MEDICALLY CLEARED DAYS AGO AND WILL NEED TO MAKE A PLAN FOR DC. DAUGHTER IS UNWILLING TO TAKE PATIENT HOME. CM CONTINUES TO FOLLOW FOR ANY CHANGE IN DC PLAN.
--- NOTE | 2023-06-29 14:04 | MHC.CM.PN ---
Addendum entered by Shae Mcelroy RN 06/30/23 13:00: Per [facility] there is not an open case. Addendum entered by Shae Mcelroy RN 06/29/23 14:40: Per [facility] patient's case is with [facility]. AILYN CHAN for [facility] [phone]. Per medical receptionist medical assistant, patient's hospice case manager is Martin and will return call today. Original Note: AILYN CHAN FOR [facility] [phone]
[2023-06-29 16:00] VITALS: BP 127/94; PULSE 76; RESP 18; TEMP 36.1; O2SAT 97
--- NOTE | 2023-06-29 16:02 | MHC.CM.PN ---
Addendum entered by Yeimi Abdi 06/29/23 16:16: DAUGHTER REQUESTS TO SPEAK WITH MD, CONCERNED ABOUT WEIGHT LOSS AND APPETITE. PROVIDER NOTIFIED. Original Note: DAUGHTER ESPERANZA CALLED AND STATES SHE SPOKE WITH [facility] REP WHO STATES PT CAN BE COVERED IN HOSPITAL BY INSURANCE FOR 90 DAYS. THIS CM CALLED [facility] MEMBER SERVICE TO VERIFY THIS INFORMATION. PER REP RUSS, THE PATIENT CAN BE DISCHARGED AT DISCRETION OF THE HOSPITAL DUE TO NO MEDICAL NEEDS. REF # FOR THIS CALL: [id number].
[2023-06-29 19:19] VITALS: BP 171/72; PULSE 67; RESP 16; TEMP 36.3; O2SAT 100
[2023-06-29] MEDS: Melatonin 3 MG TABLET PO (19:52)
[2023-06-30 07:25] VITALS: BP 160/68; PULSE 72; RESP 18; TEMP 36.4; O2SAT 97
--- NOTE | 2023-06-30 12:45 | MHC.CM.PN ---
Patient's daughter continues communication with [facility]. Jenny submitted financial documents, but additional bank statements are needed per liaison. Jenny is aware. Financial Services also continues to request bank statements from daughter. CM will continue to follow.
--- NOTE | 2023-06-30 12:51 | HO.PM.IMPN ---
Subjective Subjective Date of Service: 06/30/23 Interval History: awake knows her name Review of Systems eating better and ambulating ,d/w staff no new events Physical Exam Vital Signs: Vital Signs: Last Vital Signs Temp 97.6 F 06/30/23 07:25 Pulse 72 06/30/23 07:25 Resp 18 06/30/23 07:25 BP 160/68 H 06/30/23 07:25 Pulse Ox 97 06/30/23 07:25 O2 Del Method Room Air 06/30/23 07:25 O2 Flow Rate 2 06/18/23 07:21 BMI result Body Mass Index 17.2 Appearance: Alert.? Oriented X1, comfortable.? cvs: rrr, [id number]. res: clear to auscultation ,no rhonchii or wheezing abd: no rebound or guarding ,nt, bs present. ext : no cyanosis or edema . neuro: moves allext Objective Data Active Medications Acetaminophen (Acetaminophen 325 Mg Tablet) 975 mg PO Q6H PRN PRN Reason: Pain, Moderate(Pain Scale 4-6) Last Admin: 06/29/23 19:52 Dose: 975 mg Documented By: JACINTA Aspirin (Aspirin 325 Mg Tablet) 325 mg PO BID YADIRA Last Admin: 06/30/23 09:40 Dose: Not Given Documented By: PRIYA Non-Admin Reason: Patient Refused Collagenase (Collagenase Clostridium Hist. 30 Gm Tube) 1 appl TOPICAL DAILY YADIRA; Protocol Last Admin: 06/29/23 08:35 Dose: 1 appl Documented By: TRANG Docusate Sodium (Docusate Sodium 100 Mg Capsule) 100 mg PO BEDTIME PRN PRN Reason: Constipation Last Admin: 06/14/23 20:12 Dose: 100 mg Documented By: JACINTA Lidocaine (Lidocaine 4 % Patch Adh..Patch) 1 patch TRANSDERMA DAILY YADIRA; Protocol Last Admin: 06/29/23 08:34 Dose: 1 patch Documented By: TRANG Magnesium Hydroxide (Milk Of Magnesia 30 Ml Oral.Susp) 30 ml PO DAILY PRN PRN Reason: Constipation Last Admin: 06/14/23 20:18 Dose: 30 ml Documented By: JACINTA Melatonin (Melatonin 3 Mg Tablet) 3 mg PO BEDTIME YADIRA Last Admin: 06/29/23 19:52 Dose: 3 mg Documented By: HO.COTEMA Omeprazole (Omeprazole/Na Bicarb Oral Susp 20 Mg/10 Ml Ud Cup) 20 mg PO BID@0630,1630 [facility] Last Admin: 06/30/23 05:23 Dose: Not Given Documented By: COTEMA Non-Admin Reason: Patient Refused Ondansetron HCl (Ondansetron Hcl 4 Mg/2 Ml Vial) 4 mg IVPUSH Q8H PRN PRN Reason: Nausea and Vomiting Senna (Sennosides 8.6 Mg Tablet) 17.2 mg PO BEDTIME PRN PRN Reason: Constipation Last Admin: 06/14/23 20:13 Dose: 17.2 mg Documented By: COTLIV Sodium Chloride (0.9 % Sodium Chloride Flush 3 Ml Syringe) 3 ml IVFLUSH QSHIFT [facility] Last Admin: 06/30/23 07:59 Dose: Not Given Documented By: PRIYA Non-Admin Reason: No Access Labs 06/28/23 08:44 06/28/23 08:44 Assessment and Plan (1) Sacral decubitus ulcer: Status: Acute (2) Hypercalcemia: Status: Acute Plan 82yo F with HTN + dementia transferred from geriatric psychiatry to hospitalist service after sustaining displaced L hip fracture after unwitnessed fall in bathroom;hemiartrhoplasty done 06/12/23. Now awaiting placement 1.Sacral debucitus ulcer - Gen Surg consulted, sharp excisional debridement done at bedside 06/23/23; eschar consisting of full-thickness skin and part of subcutaneous layer removed, wet-to-dry dressings applied. wound care following recomendations: Turn and Reposition every 2 hours and as needed for patient comfort.? Use pillows or wedges to support off loading positions. Off Load all bony prominences with use of pillows and heel boots if needed.? Apply Preventative foams where needed. ? Monitor for incontinence and moisture control, use barrier creams when needed for prevention and treatment. Provide adequate and supplemental nutrition.? Nutrition following. low air loss mattress. Waffle cushion provided for when up to chair. When applicable maintain blood glucose levels per Providers order. Left Sacrum - Off Load Pressure - Cleanse with normal saline, pat dry. ?Apply Triad cream to the immediate lonnie wound, apply thick layer of Santyl to entire wound bed, pack with moist gauze, secure foam dressing, change Daily. Discontinue brief use. Right buttock - Off Load Pressure - Cleanse with PH balance spray or wipes, pat dry. ?Apply thin layer of Triad to wound bed - only pat and dab no scrub and rub when soiling occurs. Reapply thin layer PRN after each episode of incontinence. 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 received IV zolendronate 06/16; d/c'ed cinecalcet + calcitonin 4.HTN- acceptable control off therapies -add back when clinically indicated 5.Metabolic encephalopathy/unspecified dementia - Psychiatry consulted; [facility] - d/c'ed memantine per conversation with daughter/HCP - awaiting placement DNR DNI ASA dispo No longer a candidate for hospice with improved PO intake; per PT, LTC [family cannot take home]; CM consultation In my clinical judgment, the patient requires continued inpatient hospitalization for the following reasons: placement + wound care Quality Stroke Does the patient have a stroke diagnosis?: No VTE Prior VTE?: No VTE Risk Level:: Medical - moderate - high VTE Device Contraindication: N/A - Device Ordered VTE Drug Contraindication: Treatment Not Indicated
[2023-06-30 14:57] VITALS: BP 148/64; PULSE 60; RESP 18; TEMP 36.4; O2SAT 98
[2023-06-30] MEDS: Collagenase Clostridium Hist. 30 GM TUBE 1 APPL TOPICAL (14:57)
[2023-06-30 19:21] VITALS: BP 181/76; PULSE 79; RESP 20; TEMP 36.7; O2SAT 97
[2023-06-30] MEDS: Aspirin 325 MG TABLET PO (20:05)
[2023-06-30] MEDS: Melatonin 3 MG TABLET PO (20:05)
[2023-07-01 04:00] VITALS: BP 126/58; PULSE 58; RESP 16; TEMP 36.7; O2SAT 99
[2023-07-01] MEDS: Omeprazole/Na Bicarb Oral Susp 20 MG/10 ML UD Cup PO (05:37)
[2023-07-01 06:59] VITALS: BP 114/58; PULSE 65; RESP 18; TEMP 36.6; O2SAT 98
--- NOTE | 2023-07-01 14:20 | P.PNIM_ITS ---
Subjective Subjective Date of Service: 07/01/23 Interval History: awake knows her name ,intermittent agitation Review of Systems seems calmer during the day walking no new c/o Physical Exam 2 Vital Signs: Vital Signs: Last Vital Signs Temp 97.8 F 07/01/23 06:59 Pulse 65 07/01/23 06:59 Resp 18 07/01/23 06:59 BP 114/58 L 07/01/23 06:59 Pulse Ox 98 07/01/23 06:59 O2 Del Method Room Air 07/01/23 06:59 O2 Flow Rate 2 06/18/23 07:21 BMI result Body Mass Index 17.2 Appearance: Alert.? Oriented X1, comfortable.? cvs: rrr, [id number]. res: clear to auscultation ,no rhonchii or wheezing abd: no rebound or guarding ,nt, bs present. ext : no cyanosis or edema . neuro: moves allext Objective Data Active Medications Acetaminophen (Acetaminophen 325 Mg Tablet) 975 mg PO Q6H PRN PRN Reason: Pain, Moderate(Pain Scale 4-6) Last Admin: 06/29/23 19:52 Dose: 975 mg Documented By: JACINTA Aspirin (Aspirin 325 Mg Tablet) 325 mg PO BID [facility] Last Admin: 07/01/23 08:36 Dose: Not Given Documented By: PRIYA Non-Admin Reason: Patient Refused Collagenase (Collagenase Clostridium Hist. 30 Gm Tube) 1 appl TOPICAL DAILY Y[facility]; Protocol Last Admin: 06/30/23 14:57 Dose: 1 appl Documented By: PRIYA Comments: Patient did not allow dressing change this morning. Wound provided this afternoon per patient's cooperation. Divalproex Sodium (Divalproex Sodium 250 Mg Tablet.) 125 mg PO TID YADIRA Last Admin: 07/01/23 13:07 Dose: Not Given Documented By: PRIYA Non-Admin Reason: Patient Refused Docusate Sodium (Docusate Sodium 100 Mg Capsule) 100 mg PO BEDTIME PRN PRN Reason: Constipation Last Admin: 06/14/23 20:12 Dose: 100 mg Documented By: COTEMA Lidocaine (Lidocaine 4 % Patch Adh..Patch) 1 patch TRANSDERMA DAILY [facility]; Protocol Last Admin: 07/01/23 08:39 Dose: Not Given Documented By: PRIYA Non-Admin Reason: Patient Refused Magnesium Hydroxide (Milk Of Magnesia 30 Ml Oral.Susp) 30 ml PO DAILY PRN PRN Reason: Constipation Last Admin: 06/14/23 20:18 Dose: 30 ml Documented By: COTEMA Melatonin (Melatonin 3 Mg Tablet) 3 mg PO BEDTIME [facility] Last Admin: 06/30/23 20:05 Dose: 3 mg Documented By: MUKUND Omeprazole (Omeprazole/Na Bicarb Oral Susp 20 Mg/10 Ml Ud Cup) 20 mg PO BID@0630,1630 [facility] Last Admin: 07/01/23 05:37 Dose: 20 mg Documented By: MUKUND Ondansetron HCl (Ondansetron Hcl 4 Mg/2 Ml Vial) 4 mg IVPUSH Q8H PRN PRN Reason: Nausea and Vomiting Senna (Sennosides 8.6 Mg Tablet) 17.2 mg PO BEDTIME PRN PRN Reason: Constipation Last Admin: 06/14/23 20:13 Dose: 17.2 mg Documented By: COTEMA Sodium Chloride (0.9 % Sodium Chloride Flush 3 Ml Syringe) 3 ml IVFLUSH QSHIFT [facility] Last Admin: 07/01/23 08:37 Dose: Not Given Documented By: PRIYA Non-Admin Reason: No Access Labs 06/28/23 08:44 06/28/23 08:44 Assessment and Plan (1) Dementia: Status: Acute Plan 82yo F with HTN + dementia transferred from geriatric psychiatry to hospitalist service after sustaining displaced L hip fracture after unwitnessed fall in bathroom;hemiartrhoplasty done 06/12/23. Now awaiting placement 1.Sacral debucitus ulcer - Gen Surg consulted, sharp excisional debridement done at bedside 06/23/23; eschar consisting of full-thickness skin and part of subcutaneous layer removed, wet-to-dry dressings applied. wound care following recomendations: Turn and Reposition every 2 hours and as needed for patient comfort.? Use pillows or wedges to support off loading positions. Off Load all bony prominences with use of pillows and heel boots if needed.? Apply Preventative foams where needed. ? Monitor for incontinence and moisture control, use barrier creams when needed for prevention and treatment. Provide adequate and supplemental nutrition.? Nutrition following. low air loss mattress. Waffle cushion provided for when up to chair. When applicable maintain blood glucose levels per Providers order. Left Sacrum - Off Load Pressure - Cleanse with normal saline, pat dry. ?Apply Triad cream to the immediate lonnie wound, apply thick layer of Santyl to entire wound bed, pack with moist gauze, secure foam dressing, change Daily. D iscontinue brief use. Right buttock - Off Load Pressure - Cleanse with PH balance spray or wipes, pat dry. ?Apply thin layer of Triad to wound bed - only pat and dab no scrub and rub when soiling occurs. Reapply thin layer PRN after each episode of incontinence. 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 received IV zolendronate 06/16; d/c'ed cinecalcet + calcitonin 4.HTN- acceptable control off therapies -add back when clinically indicated 5.Metabolic encephalopathy/unspecified dementia - Psychiatry consulted; no benefit to returning to [facility] - d/c'ed memantine per conversation with daughter/HCP added seroquel for anxiety ,sitter - awaiting placement DNR DNI ASA dispo No longer a candidate for hospice with improved PO intake; per PT, LTC [family cannot take home]; CM consultation In my clinical judgment, the patient requires continued inpatient hospitalization for the following reasons: placement + wound care Quality Stroke Does the patient have a stroke diagnosis?: No VTE Prior VTE?: No VTE Risk Level:: Medical - moderate - high VTE Device Contraindication: N/A - Device Ordered VTE Drug Contraindication: Treatment Not Indicated
[2023-07-01] MEDS: Collagenase Clostridium Hist. 30 GM TUBE 1 APPL TOPICAL (14:25)
[2023-07-01] MEDS: Divalproex Sodium Sprinkles 125 MG CAP.DR.SPR PO (14:57)
[2023-07-01] MEDS: Aspirin 325 MG TABLET PO (19:06)
[2023-07-01] MEDS: Melatonin 3 MG TABLET PO (19:07)
[2023-07-01] MEDS: QUEtiapine Fumarate 25 MG TABLET 12.5 MG PO (19:07)
--- NOTE | 2023-07-02 04:13 | PC.NURSE ---
pt refusing 0400 vital signs, Dr. Sandhu aware.
--- NOTE | 2023-07-02 13:34 | HO.PM.IMPN ---
Subjective Subjective Date of Service: 07/02/23 Interval History: awake knows her name ,intermittent agitation Review of Systems seems calmer ,but sleepy no new c/o Physical Exam Vital Signs: Vital Signs: Last Vital Signs Temp 97.8 F 07/01/23 06:59 Pulse 65 07/01/23 06:59 Resp 18 07/01/23 06:59 BP 114/58 L 07/01/23 06:59 Pulse Ox 98 07/01/23 06:59 O2 Del Method Room Air 07/01/23 06:59 O2 Flow Rate 2 06/18/23 07:21 BMI result Body Mass Index 17.2 Appearance: Alert.? Oriented X1, comfortable.? cvs: [id number], [id number]. res: clear to auscultation ,no rhonchii or wheezing abd: no rebound or guarding ,nt, bs present. ext : no cyanosis or edema . neuro: moves allext Objective Data Active Medications Acetaminophen (Acetaminophen 325 Mg Tablet) 975 mg PO Q6H PRN PRN Reason: Pain, Moderate(Pain Scale 4-6) Last Admin: 06/29/23 19:52 Dose: 975 mg Documented By: COTEMA Aspirin (Aspirin 325 Mg Tablet) 325 mg PO BID YADIRA Last Admin: 07/02/23 09:46 Dose: Not Given Documented By: MT Non-Admin Reason: Patient Refused Collagenase (Collagenase Clostridium Hist. 30 Gm Tube) 1 appl TOPICAL DAILY YADIRA; Protocol Last Admin: 07/02/23 09:47 Dose: Not Given Documented By: MT Non-Admin Reason: Patient Refused Docusate Sodium (Docusate Sodium 100 Mg Capsule) 100 mg PO BEDTIME PRN PRN Reason: Constipation Last Admin: 06/14/23 20:12 Dose: 100 mg Documented By: COTEMA Lidocaine (Lidocaine 4 % Patch Adh..Patch) 1 patch TRANSDERMA DAILY YADIRA; Protocol Last Admin: 07/02/23 09:47 Dose: Not Given Documented By: MT Non-Admin Reason: Patient Refused Magnesium Hydroxide (Milk Of Magnesia 30 Ml Oral.Susp) 30 ml PO DAILY PRN PRN Reason: Constipation Last Admin: 06/14/23 20:18 Dose: 30 ml Documented By: COTEMA Melatonin (Melatonin 3 Mg Tablet) 3 mg PO BEDTIME YADIRA Last Admin: 07/01/23 19:07 Dose: 3 mg Documented By: SHEEBA Omeprazole (Omeprazole/Na Bicarb Oral Susp 20 Mg/10 Ml Ud Cup) 20 mg PO BID@0630,1630 [facility] Last Admin: 07/02/23 05:43 Dose: Not Given Documented By: SHEEBA Non-Admin Reason: Patient Refused Ondansetron HCl (Ondansetron Hcl 4 Mg/2 Ml Vial) 4 mg IVPUSH Q8H PRN PRN Reason: Nausea and Vomiting Quetiapine Fumarate (Quetiapine Fumarate 25 Mg Tablet) 12.5 mg PO BID [facility] Last Admin: 07/02/23 09:47 Dose: Not Given Documented By: MT Non-Admin Reason: Patient Refused Senna (Sennosides 8.6 Mg Tablet) 17.2 mg PO BEDTIME PRN PRN Reason: Constipation Last Admin: 06/14/23 20:13 Dose: 17.2 mg Documented By: COTEMA Sodium Chloride (0.9 % Sodium Chloride Flush 3 Ml Syringe) 3 ml IVFLUSH QSHIFT [facility] Last Admin: 07/02/23 08:47 Dose: Not Given Documented By: MT Non-Admin Reason: No Access Labs 06/28/23 08:44 06/28/23 08:44 Assessment and Plan (1) Dementia: Status: Acute Plan 82yo F with HTN + dementia transferred from geriatric psychiatry to hospitalist service after sustaining displaced L hip fracture after unwitnessed fall in bathroom;hemiartrhoplasty done 06/12/23. Now awaiting placement 1.Sacral debucitus ulcer - Gen Surg consulted, sharp excisional debridement done at bedside 06/23/23; eschar consisting of full-thickness skin and part of subcutaneous layer removed, wet-to-dry dressings applied. wound care following recomendations: Turn and Reposition every 2 hours and as needed for patient comfort.? Use pillows or wedges to support off loading positions. Off Load all bony prominences with use of pillows and heel boots if needed.? Apply Preventative foams where needed. ? Monitor for incontinence and moisture control, use barrier creams when needed for prevention and treatment. Provide adequate and supplemental nutrition.? Nutrition following. low air loss mattress. Waffle cushion provided for when up to chair. When applicable maintain blood glucose levels per Providers order. Left Sacrum - Off Load Pressure - Cleanse with normal saline, pat dry. ?Apply Triad cream to the immediate lonnie wound, apply thick layer of Santyl to entire wound bed, pack with moist gauze, secure foam dressing, change Daily. Discontinue brief use. Right buttock - Off Load Pressure - Cleanse with PH balance spray or wipes, pat dry. ?Apply thin layer of Triad to wound bed - only pat and dab no scrub and rub when soiling occurs. Reapply thin layer PRN after each episode of incontinence. 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 received IV zolendronate 06/16; d/c'ed cinecalcet + calcitonin d/w nephro ,need outpatient follow up 4.HTN- acceptable control off therapies -add back when clinically indicated 5.Metabolic encephalopathy/unspecified dementia - Psychiatry consulted; no benefit to returning to [facility] - d/c'ed memantine per conversation with daughter/HCP added seroquel for anxiety ,sitter - awaiting placement DNR DNI ASA dispo No longer a candidate for hospice with improved PO intake; per PT, LTC [family cannot take home]; CM consultation In my clinical judgment, the patient requires continued inpatient hospitalization for the following reasons: placement + wound care Quality Stroke Does the patient have a stroke diagnosis?: No VTE Prior VTE?: No VTE Risk Level:: Medical - moderate - high VTE Device Contraindication: N/A - Device Ordered VTE Drug Contraindication: Treatment Not Indicated
[2023-07-02 15:56] VITALS: BP 141/65; PULSE 63; RESP 18; TEMP 37; O2SAT 100
[2023-07-02 20:00] VITALS: BP 165/74; PULSE 74; RESP 18; TEMP 36.2; O2SAT 97
[2023-07-02] MEDS: Melatonin 3 MG TABLET PO (20:06)
[2023-07-02] MEDS: Aspirin 325 MG TABLET PO (20:06)
[2023-07-02 20:32] VITALS: BMI 17.3
--- NOTE | 2023-07-02 23:59 | PC.NURSE ---
I spoke with pt's daughter today, she concerned about her not eating much, she asked what her weight was today, I took her weight on the bed scale and it was 40.2 kg and entered into the computer. Daughter is requesting a call from the doctor tomorrow, I will pass along to the daytime nurse in the morning.
[2023-07-03 07:19] VITALS: BP 110/55; PULSE 58; RESP 12; TEMP 37.2; O2SAT 99
--- NOTE | 2023-07-03 12:54 | P.PNIM_ITS ---
Subjective Subjective Date of Service: 07/03/23 Interval History: awake knows her name ,intermittent agitation Review of Systems seems calmer ,eating no new c/o Physical Exam 2 Vital Signs: Vital Signs: Last Vital Signs Temp 98.9 F 07/03/23 07:19 Pulse 58 07/03/23 07:19 Resp 12 07/03/23 07:19 BP 110/55 L 07/03/23 07:19 Pulse Ox 99 07/03/23 07:19 O2 Del Method Room Air 07/03/23 07:19 O2 Flow Rate 2 06/18/23 07:21 BMI result Body Mass Index 17.3 Appearance: Alert. Oriented X1, comfortable. cvs: rrr, [id number]. res: clear to auscultation ,no rhonchii or wheezing abd: no rebound or guarding ,nt, bs present. ext : no cyanosis or edema . neuro: moves allext Objective Data Active Medications Acetaminophen (Acetaminophen 325 Mg Tablet) 975 mg PO Q6H PRN PRN Reason: Pain, Moderate(Pain Scale 4-6) Last Admin: 06/29/23 19:52 Dose: 975 mg Aspirin (Aspirin 325 Mg Tablet) 325 mg PO BID YADIRA Last Admin: 07/03/23 09:02 Dose: Not Given Documented By: MT Non-Admin Reason: Patient Refused Collagenase (Collagenase Clostridium Hist. 30 Gm Tube) 1 appl TOPICAL DAILY YADIRA; Protocol Last Admin: 07/03/23 09:03 Dose: Not Given Documented By: MT Non-Admin Reason: Patient Refused Docusate Sodium (Docusate Sodium 100 Mg Capsule) 100 mg PO BEDTIME PRN PRN Reason: Constipation Last Admin: 06/14/23 20:12 Dose: 100 mg Documented By: COTEMA Lidocaine (Lidocaine 4 % Patch Adh..Patch) 1 patch TRANSDERMA DAILY YADIRA; Protocol Last Admin: 07/03/23 09:03 Dose: Not Given Documented By: MT Non-Admin Reason: Patient Refused Magnesium Hydroxide (Milk Of Magnesia 30 Ml Oral.Susp) 30 ml PO DAILY PRN PRN Reason: Constipation Last Admin: 06/14/23 20:18 Dose: 30 ml Documented By: COTEMA Melatonin (Melatonin 3 Mg Tablet) 3 mg PO BEDTIME YADIRA Last Admin: 07/02/23 20:06 Dose: 3 mg Documented By: SHEEBA Omeprazole (Omeprazole/Na Bicarb Oral Susp 20 Mg/10 Ml Ud Cup) 20 mg PO BID@0630,1630 [facility] Last Admin: 07/03/23 05:55 Dose: Not Given Documented By: SHEEBA Non-Admin Reason: Patient Refused Ondansetron HCl (Ondansetron Hcl 4 Mg/2 Ml Vial) 4 mg IVPUSH Q8H PRN PRN Reason: Nausea and Vomiting Quetiapine Fumarate (Quetiapine Fumarate 25 Mg Tablet) 12.5 mg PO DAILY [facility] Last Admin: 07/03/23 09:03 Dose: Not Given Documented By: MT Non-Admin Reason: Patient Refused Senna (Sennosides 8.6 Mg Tablet) 17.2 mg PO BEDTIME PRN PRN Reason: Constipation Last Admin: 06/14/23 20:13 Dose: 17.2 mg Documented By: COTEMA Sodium Chloride (0.9 % Sodium Chloride Flush 3 Ml Syringe) 3 ml IVFLUSH QSHIFT [facility] Last Admin: 07/03/23 08:46 Dose: Not Given Documented By: MT Non-Admin Reason: No Access Labs 06/28/23 08:44 06/28/23 08:44 Assessment and Plan (1) Dementia: Status: Acute Plan 82yo F with HTN + dementia transferred from geriatric psychiatry to hospitalist service after sustaining displaced L hip fracture after unwitnessed fall in bathroom;hemiartrhoplasty done 06/12/23. Now awaiting placement 1.Sacral debucitus ulcer - Gen Surg consulted, sharp excisional debridement done at bedside 06/23/23; eschar consisting of full-thickness skin and part of subcutaneous layer removed, wet-to-dry dressings applied. wound care following recomendations: Turn and Reposition every 2 hours and as needed for patient comfort.? Use pillows or wedges to support off loading positions. Off Load all bony prominences with use of pillows and heel boots if needed.? Apply Preventative foams where needed. ? Monitor for incontinence and moisture control, use barrier creams when needed for prevention and treatment. Provide adequate and supplemental nutrition.? Nutrition following. low air loss mattress. Waffle cushion provided for when up to chair. When applicable maintain blood glucose levels per Providers order. Left Sacrum - Off Load Pressure - Cleanse with normal saline, pat dry. ?Apply Triad cream to the immediate lonnie wound, apply thick layer of Santyl to entire wound bed, pack with moist gauze, secure foam dressing, change Daily. Discontinue brief use. Right buttock - Off Load Pressure - Cleanse with PH balance spray or wipes, pat dry. ?Apply thin layer of Triad to wound bed - only pat and dab no scrub and rub when soiling occurs. Reapply thin layer PRN after each episode of incontinence. 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 received IV zolendronate 06/16; d/c'ed cinecalcet + calcitonin d/w nephro ,need outpatient follow up 4.HTN- acceptable control off therapies -add back when clinically indicated 5.Metabolic encephalopathy/unspecified dementia - Psychiatry consulted; no benefit to returning to [facility] - d/c'ed memantine per conversation with daughter/HCP added seroquel for anxiety ,sitter - awaiting placement DNR DNI ASA dispo No longer a candidate for hospice with improved PO intake; per PT, LTC [family cannot take home]; CM consultation In my clinical judgment, the patient requires continued inpatient hospitalization for the following reasons: placement + wound care Quality Stroke Does the patient have a stroke diagnosis?: No VTE Prior VTE?: No VTE Risk Level:: Medical - moderate - high VTE Device Contraindication: N/A - Device Ordered VTE Drug Contraindication: Treatment Not Indicated
[2023-07-03] MEDS: Omeprazole/Na Bicarb Oral Susp 20 MG/10 ML UD Cup PO (16:22)
[2023-07-03] MEDS: Acetaminophen 325 MG TABLET 975 MG PO (16:22)
[2023-07-03 20:00] VITALS: BP 143/87; PULSE 82; RESP 18; TEMP 36.8; O2SAT 96
[2023-07-03] MEDS: Melatonin 3 MG TABLET PO (20:31)
[2023-07-03] MEDS: QUEtiapine Fumarate 25 MG TABLET 12.5 MG PO (20:31)
[2023-07-03] MEDS: Aspirin 325 MG TABLET PO (20:31)
--- NOTE | 2023-07-03 23:20 | PC.NURSE ---
Patient was pacing hallways looking for her son and mother. Patient was wandering into other patient rooms. When attempting to redirect patient she did not want to go into her room. Patient did not recieve Daily seroquel 12.5mg. Dr. Sandhu made aware, order for one time 12.5mg seroquel ordered and given. Patient is now sleeping in bed.
[2023-07-04 02:22] VITALS: BP 152/78; PULSE 65; RESP 18; TEMP 36.4; O2SAT 95
[2023-07-04 07:13] VITALS: BP 104/51; PULSE 55; RESP 12; TEMP 36.4; O2SAT 97
--- NOTE | 2023-07-04 09:02 | MHC.CM.PN ---
EMR reviewed. Per message from [facility] liaison, awaiting one more document from daughter. If received today may be able to accommodate tomorrow. Daughter is considering sister facilities. Liaison is out today and will update tomorrow morning. CM spoke with daughter, who states she faxed the requested document (proof that patient no longer owns a home) this morning. CM will continue to follow.
--- NOTE | 2023-07-04 14:22 | HO.PM.IMPN ---
Subjective Subjective Date of Service: 07/04/23 Interval History: awake knows her name ,intermittent agitation Review of Systems seems calmer ,eating no new c/o Physical Exam Vital Signs: Vital Signs: Last Vital Signs Temp 97.6 F 07/04/23 07:13 Pulse 55 07/04/23 07:13 Resp 12 07/04/23 07:13 BP 104/51 L 07/04/23 07:13 Pulse Ox 97 07/04/23 07:13 O2 Del Method Room Air 07/04/23 07:13 O2 Flow Rate 2 06/18/23 07:21 BMI result Body Mass Index 17.3 Appearance: Alert. Oriented X1, comfortable. cvs: rrr, [id number]. res: clear to auscultation ,no rhonchii or wheezing abd: no rebound or guarding ,nt, bs present. ext : no cyanosis or edema . neuro: moves allext Objective Data Active Medications Acetaminophen (Acetaminophen 325 Mg Tablet) 975 mg PO Q6H PRN PRN Reason: Pain, Moderate(Pain Scale 4-6) Last Admin: 07/03/23 16:22 Dose: 975 mg Documented By: MT Aspirin (Aspirin 325 Mg Tablet) 325 mg PO BID YADIRA Last Admin: 07/04/23 10:23 Dose: Not Given Documented By: CHAMP Non-Admin Reason: Patient Refused Collagenase (Collagenase Clostridium Hist. 30 Gm Tube) 1 appl TOPICAL DAILY YADIAR; Protocol Last Admin: 07/04/23 10:23 Dose: Not Given Documented By: CHAMP Non-Admin Reason: Patient Refused Docusate Sodium (Docusate Sodium 100 Mg Capsule) 100 mg PO BEDTIME PRN PRN Reason: Constipation Last Admin: 06/14/23 20:12 Dose: 100 mg Documented By: JACINTA Lidocaine (Lidocaine 4 % Patch Adh..Patch) 1 patch TRANSDERMA DAILY YADIRA; Protocol Last Admin: 07/04/23 10:23 Dose: Not Given Documented By: CHAMP Non-Admin Reason: Patient Refused Magnesium Hydroxide (Milk Of Magnesia 30 Ml Oral.Susp) 30 ml PO DAILY PRN PRN Reason: Constipation Last Admin: 06/14/23 20:18 Dose: 30 ml Documented By: ROSHANEMA Melatonin (Melatonin 3 Mg Tablet) 3 mg PO BEDTIME YADIRA Last Admin: 07/03/23 20:31 Dose: 3 mg Documented By: COTLIV Omeprazole (Omeprazole/Na Bicarb Oral Susp 20 Mg/10 Ml Ud Cup) 20 mg PO BID@0630,1630 [facility] Last Admin: 07/04/23 05:29 Dose: Not Given Documented By: JACINTA Non-Admin Reason: Patient Refused Ondansetron HCl (Ondansetron Hcl 4 Mg/2 Ml Vial) 4 mg IVPUSH Q8H PRN PRN Reason: Nausea and Vomiting Quetiapine Fumarate (Quetiapine Fumarate 25 Mg Tablet) 12.5 mg PO DAILY [facility] Last Admin: 07/03/23 09:03 Dose: Not Given Documented By: MT Non-Admin Reason: Patient Refused Quetiapine Fumarate (Quetiapine Fumarate 25 Mg Tablet) 12.5 mg PO ONCE PRN PRN Reason: anxiety/restlessness Last Admin: 07/03/23 20:31 Dose: 12.5 mg Documented By: JACINTA Senna (Sennosides 8.6 Mg Tablet) 17.2 mg PO BEDTIME PRN PRN Reason: Constipation Last Admin: 06/14/23 20:13 Dose: 17.2 mg Documented By: JACINTA Sodium Chloride (0.9 % Sodium Chloride Flush 3 Ml Syringe) 3 ml IVFLUSH QSHIFT [facility] Last Admin: 07/04/23 07:21 Dose: Not Given Documented By: CHAMP Non-Admin Reason: No Access Labs 06/28/23 08:44 06/28/23 08:44 Assessment and Plan (1) Dementia: Status: Acute Plan 82yo F with HTN + dementia transferred from geriatric psychiatry to hospitalist service after sustaining displaced L hip fracture after unwitnessed fall in bathroom;hemiartrhoplasty done 06/12/23. Now awaiting placement 1.Sacral debucitus ulcer - Gen Surg consulted, sharp excisional debridement done at bedside 06/23/23; eschar consisting of full-thickness skin and part of subcutaneous layer removed, wet-to-dry dressings applied. wound care following recomendations: Turn and Reposition every 2 hours and as needed for patient comfort.? Use pillows or wedges to support off loading positions. Off Load all bony prominences with use of pillows and heel boots if needed.? Apply Preventative foams where needed. ? Monitor for incontinence and moisture control, use barrier creams when needed for prevention and treatment. Provide adequate and supplemental nutrition.? Nutrition following. low air loss mattress. Waffle cushion provided for when up to chair. When applicable maintain blood glucose levels per Providers order. Left Sacrum - Off Load Pressure - Cleanse with normal saline, pat dry. ?Apply Triad cream to the immediate lonnie wound, apply thick layer of Santyl to entire wound bed, pack with moist gauze, secure foam dressing, change Daily. Discontinue brief use. Right buttock - Off Load Pressure - Cleanse with PH balance spray or wipes, pat dry. ?Apply thin layer of Triad to wound bed - only pat and dab no scrub and rub when soiling occurs. Reapply thin layer PRN after each episode of incontinence. 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 received IV zolendronate 06/16; d/c'ed cinecalcet + calcitonin d/w nephro ,need outpatient follow up 4.HTN- acceptable control off therapies -add back when clinically indicated 5.Metabolic encephalopathy/unspecified dementia - Psychiatry consulted; no benefit to returning to [facility] - d/c'ed memantine per conversation with daughter/HCP added seroquel for anxiety ,sitter - awaiting placement DNR DNI ASA dispo No longer a candidate for hospice with improved PO intake; per PT, LTC [family cannot take home]; CM consultation In my clinical judgment, the patient requires continued inpatient hospitalization for the following reasons: placement + wound care Quality Stroke Does the patient have a stroke diagnosis?: No VTE Prior VTE?: No VTE Risk Level:: Medical - moderate - high VTE Device Contraindication: N/A - Device Ordered VTE Drug Contraindication: Treatment Not Indicated
[2023-07-04 15:23] VITALS: BP 130/72; PULSE 98; RESP 18; TEMP 36.6; O2SAT 94
[2023-07-04] MEDS: Omeprazole/Na Bicarb Oral Susp 20 MG/10 ML UD Cup PO (15:30)
[2023-07-04] MEDS: QUEtiapine Fumarate 25 MG TABLET 12.5 MG PO (15:30)
[2023-07-04] MEDS: Acetaminophen 325 MG TABLET 975 MG PO (15:34)
[2023-07-04 19:00] VITALS: BP 120/61; PULSE 60; RESP 18; TEMP 36.6; O2SAT 97
[2023-07-04] MEDS: Melatonin 3 MG TABLET PO (20:16)
[2023-07-04] MEDS: Aspirin 325 MG TABLET PO (20:16)
[2023-07-05 07:29] VITALS: BP 109/49; PULSE 55; RESP 18; TEMP 36.4; O2SAT 97
[2023-07-05] MEDS: QUEtiapine Fumarate 25 MG TABLET 12.5 MG PO (09:30)
[2023-07-05] MEDS: Aspirin 325 MG TABLET PO ×2 (09:31→22:40)
[2023-07-05] MEDS: Acetaminophen 325 MG TABLET 975 MG PO (09:31)
[2023-07-05] MEDS: Lidocaine 4 % Patch ADH..PATCH 1 PATCH TRANSDERMA (09:35)
[2023-07-05] MEDS: Collagenase Clostridium Hist. 30 GM TUBE 1 APPL TOPICAL (09:36)
--- NOTE | 2023-07-05 12:11 | HO.PM.IMPN ---
Subjective Subjective Date of Service: 07/05/23 Interval History: need for placement, no new issues Physical Exam Vital Signs: Vital Signs: Last Vital Signs Temp 97.6 F 07/05/23 07:29 Pulse 55 07/05/23 07:29 Resp 18 07/05/23 07:29 BP 109/49 L 07/05/23 07:29 Pulse Ox 97 07/05/23 07:29 O2 Del Method Room Air 07/05/23 07:29 O2 Flow Rate 2 06/18/23 07:21 BMI result Body Mass Index 17.3 Appearance: Alert. Oriented X1, comfortable. cvs: rrr, [id number]. res: clear to auscultation ,no rhonchii or wheezing abd: no rebound or guarding ,nt, bs present. ext : no cyanosis or edema . neuro: moves allext Objective Data Active Medications Acetaminophen (Acetaminophen 325 Mg Tablet) 975 mg PO Q6H PRN PRN Reason: Pain, Moderate(Pain Scale 4-6) Last Admin: 07/05/23 09:31 Dose: 975 mg Documented By: CHAMP Aspirin (Aspirin 325 Mg Tablet) 325 mg PO BID [facility] Last Admin: 07/05/23 09:31 Dose: 325 mg Documented By: CHAMP Collagenase (Collagenase Clostridium Hist. 30 Gm Tube) 1 appl TOPICAL DAILY [facility]; Protocol Last Admin: 07/05/23 09:36 Dose: 1 appl Documented By: CHAMP Docusate Sodium (Docusate Sodium 100 Mg Capsule) 100 mg PO BEDTIME PRN PRN Reason: Constipation Last Admin: 06/14/23 20:12 Dose: 100 mg Documented By: JACINTA Lidocaine (Lidocaine 4 % Patch Adh..Patch) 1 patch TRANSDERMA DAILY [facility]; Protocol Last Admin: 07/05/23 09:35 Dose: 1 patch Documented By: CHAMP Magnesium Hydroxide (Milk Of Magnesia 30 Ml Oral.Susp) 30 ml PO DAILY PRN PRN Reason: Constipation Last Admin: 06/14/23 20:18 Dose: 30 ml Documented By: COTEMA Melatonin (Melatonin 3 Mg Tablet) 3 mg PO BEDTIME [facility] Last Admin: 07/04/23 20:16 Dose: 3 mg Documented By: MUKUND Omeprazole (Omeprazole/Na Bicarb Oral Susp 20 Mg/10 Ml Ud Cup) 20 mg PO BID@0630,1630 [facility] Last Admin: 07/05/23 08:15 Dose: Not Given Documented By: CHAMP Non-Admin Reason: Patient Refused Ondansetron HCl (Ondansetron Hcl 4 Mg/2 Ml Vial) 4 mg IVPUSH Q8H PRN PRN Reason: Nausea and Vomiting Quetiapine Fumarate (Quetiapine Fumarate 25 Mg Tablet) 12.5 mg PO DAILY [facility] Last Admin: 07/05/23 09:30 Dose: 12.5 mg Documented By: CHAMP Quetiapine Fumarate (Quetiapine Fumarate 25 Mg Tablet) 12.5 mg PO ONCE PRN PRN Reason: anxiety/restlessness Last Admin: 07/03/23 20:31 Dose: 12.5 mg Documented By: ROSHANEMA Senna (Sennosides 8.6 Mg Tablet) 17.2 mg PO BEDTIME PRN PRN Reason: Constipation Last Admin: 06/14/23 20:13 Dose: 17.2 mg Documented By: COTEMA Sodium Chloride (0.9 % Sodium Chloride Flush 3 Ml Syringe) 3 ml IVFLUSH QSHIFT [facility] Last Admin: 07/05/23 07:09 Dose: Not Given Documented By: CHAMP Non-Admin Reason: No Access Labs 06/28/23 08:44 06/28/23 08:44 Assessment and Plan (1) Dementia: Status: Acute Plan 82yo F with HTN, dementia transferred from geriatric psychiatry to hospitalist service after sustaining displaced L hip fracture after unwitnessed fall in bathroom. She had hemiartrhoplasty on 06/12/23 and subssequently has been awaiting placement sacral debucitus ulcer--has had sharp excisional debridement and is being followed by wound care, continue dressing changes L femoral neck fracture - hemiarthoplasty on 06/12/23 - ASA for VTE ppx 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 received IV zolendronate 06/16; d/c'ed cinecalcet + calcitonin hyperNa hypoK - resolved HTN - BP OK without meds metabolic encephalopathy + unspecified dementia - Psychiatry consulted; no benefit to returning to [facility] - d/c'ed memantine per conversation with daughter/HCP - CORN HUSKER: NDD3 solids, thin liquids acute blood loss anemia due to blood loss from femur fracture on top of chronic anemia. h/h has been stable severe protein-calorie malnutrition--supplement VTE ppx - ASA dispo - no longer a candidate for hospice with improved PO intake; per PT, LTC [family cannot take home]; CM consultation In my clinical judgment, the patient requires continued inpatient hospitalization for the following reasons: placement + wound care Quality Stroke Does the patient have a stroke diagnosis?: No VTE Prior VTE?: No VTE Risk Level:: Medical - moderate - high VTE Device Contraindication: N/A - Device Ordered VTE Drug Contraindication: Treatment Not Indicated
[2023-07-05 15:15] VITALS: BP 142/64; PULSE 61; RESP 16; TEMP 36.8; O2SAT 97
[2023-07-05] MEDS: Melatonin 3 MG TABLET PO (22:41)
[2023-07-06 03:20] VITALS: BP 109/53; PULSE 53; RESP 16; TEMP 36.1; O2SAT 96
[2023-07-06] MEDS: Omeprazole/Na Bicarb Oral Susp 20 MG/10 ML UD Cup PO (06:18)
[2023-07-06 07:37] VITALS: BP 119/56; PULSE 58; RESP 18; TEMP 37.4; O2SAT 98
--- NOTE | 2023-07-06 09:50 | MHC.CM.PN ---
Patient is medically cleared for dc to LTC. Accepted by Jorge Lind. BLS transport scheduled for today at 4pm. Daughter/HCP Jenny notified of dc. IMM verbally delivered. and RN aware.
--- NOTE | 2023-07-06 09:58 | PM.DS ---
DS: Providers Provider Date of Service: 07/06/23 Date of admission: 06/11/23 20:31 Primary care physician: Unknown Physician Consults: 06/11/23 20:07 Consult to Orthopedics Routine Consulting Provider: [facility] [place] [facility] Reason for consultation: l hip fracture 06/12/23 06:10 Consult to Wound Care Routine Reason for consultation: worsening skin breakdown B/L buttocks 06/12/23 09:22 Consult to General Surgery Routine Consulting Provider: [facility] [place] [facility] Reason for consultation: Abscess l buttock 06/12/23 16:47 Consult to Psychiatry Routine Consulting Provider: [facility] Reason for consultation: dementia/delerium, transfer from [facility]- DISPO RECOMMENDATIONS 06/14/23 16:52 Consult to Nephrology Routine Consulting Provider: [facility] [place] [facility] Reason for consultation: hypercalcemia 06/21/23 07:33 Consult to Nephrology Routine Consulting Provider: [facility] [place] [facility] Reason for consultation: Please continue to foloow patient as per Dr Monzon's note Consult to Psychiatry Routine Consulting Provider: [facility] Reason for consultation: Please continue to follow patient. What is suggested disposition? 06/22/23 13:09 Consult to General Surgery Routine Consulting Provider: [facility] [place] [facility] Reason for consultation: sacral wound- debridement? 07/01/23 08:49 Consult for Sitter Routine Reason for consultation: dementia with behavioural disturbance Has provider been notified: No 07/01/23 09:06 Consult for Sitter Routine Reason for consultation: Behavioral agitation DS: Diagnosis Discharge Diagnosis (1) Dementia: Status: Acute DS: Summary Hospital Course Hospital Course: admit Chief Complaint: hip fracture 82-year-old female with history of hypertension, unspecified dementia admitted to hospitalist service from [facility] after sustaining an unwitnessed fall last night while in the bathroom. Patient reportedly had a mechanical fall without head strike or loss of consciousness and was assisted by staff to her bed but has been unable to bear weight on the left leg. The patient is unable to provide history secondary to her dementia and does not recall the event. The patient appears uncomfortable but denies any pain at this time. X-ray of the left hip did not reveal any acute osseous abnormality. However given significant tenderness to palpation with guarding of the left hip CT was ordered showing displaced transverse fracture through the subcapital left femoral neck. Head CT was negative for any acute intracranial abnormality. Pt has been quite hypertensive today, blood pressure of 196/91 on admission, likely secondary to pain. Vitals otherwise within normal limits. Hospital course: S 82yo F with HTN, dementia who was been treated at the [facility] facility where r sustained a fall resulting in a displaced left hip fracture. She underwent a hemiartrhoplasty on 06/12/23 and subssequently has been awaiting placement.. Orthopedic surgery advses a DVT prophylaxis with aspirin for 6 weeks and should end July 23. Physical therapy has worked with her and at this time she is fully weight bearing and ambulates without assisted device. She is on Tyelenol PRN for pain. sacral debucitus ulcer-- She has chronic sacral decub ulcer that has required sharp excisional debridement by surgery and wound nurse has been following here with the following recommendation. Turn and Reposition every 2 hours and as needed for patient comfort.? Use pillows or wedges to support off loading positions. Off Load all bony prominences with use of pillows and heel boots if needed.? Apply Preventative foams where needed. ? Monitor for incontinence and moisture control, use barrier creams when needed for prevention and treatment. Provide adequate and supplemental nutrition.? Nutrition following. low air loss mattress. Waffle cushion provided for when up to chair. When applicable maintain blood glucose levels per Providers order. Left Sacrum - Off Load Pressure - Cleanse with normal saline, pat dry. ?Apply Triad cream to the immediate lonnie wound, apply thick layer of Santyl to entire wound bed, pack with moist gauze, secure foam dressing, change Daily. Discontinue brief use. Right buttock - Off Load Pressure - Cleanse with PH balance spray or wipes, pat dry. ?Apply thin layer of Triad to wound bed - only pat and dab no scrub and rub when soiling occurs. Reapply thin layer PRN after each episode of incontinence. hyperCalcemia due o primary hyperparathyroidism--resolved after treatement with IV IV zolendronate 06/16; cinecalcet + calcitonin were discontinued hypernatremia--resolved hypoKalemia--replaced and resolved. HTN--Blood pressures have been normal without medicdations, Lisinpril and Norvasc have been stopped metabolic encephalopathy + unspecified dementia, acute metabolic component of confusion has resolved. She has advanced dementia with periods of agitions but has been fairly calmed. Psychiatry does not see any benefit of inpatient Psych treatement. She is off Mementine and her present med consists of seroquel Diet [employer] recommens NDD3 solids, thin liquids acute blood loss anemia due to blood loss from femur fracture on top of chronic anemia. h/h has been stable and no indication for transfusion at this time severe protein-calorie malnutrition--supplement Time Attestation Discharge Coordination Time (in mins): 40 Quality: Safe Use of Opioids Does Pt have an Active Cancer Diagnosis on the Problem List?: No Quality: Stroke Does the patient have a stroke diagnosis?: No Physical Exam Vital Signs: Vital Signs: Last Vital Signs Temp 99.4 F 07/06/23 07:37 Pulse 58 07/06/23 07:37 Resp 18 07/06/23 07:37 BP 119/56 L 07/06/23 07:37 Pulse Ox 98 07/06/23 07:37 O2 Del Method Room Air 07/06/23 07:37 O2 Flow Rate 2 06/18/23 07:21 BMI result Body Mass Index 17.3 Appearance: Alert. Oriented X1, comfortable. cvs: rrr, [id number]. res: clear to auscultation ,no rhonchii or wheezing abd: no rebound or guarding ,nt, bs present. ext : no cyanosis or edema . neuro: moves allext DS: Data Data Completed and Pending Completed studies during hospitalization [Text1]: Pending at discharge 06/12/23 13:13 Surgical [PTH] Routine Discharge Plan Discharge Anticipated Discharge Date/Time: 07/06/23 10:07 Patient Disposition: Xfer SNF Discharge Diagnosis: Hip fracture, dementia, decub ulcer Referrals: [facility] [Outside] - 1 Day (intermediate care) Neeta Puri PA-C [Physician Mail Carrier] - 07/26/23 12:30 pm (07/26/23 at 12:30 with Neeta) Physician,Unknown J [Primary Care Provider] - 1 Week Discharge Medications: New melatonin 3 mg Tablet 3 mg PO BEDTIME Qty: 30 0RF docusate sodium 100 mg Capsule 100 mg PO BEDTIME PRN (Reason: Constipation) Qty: 30 0RF acetaminophen 325 mg Tablet 650 mg PO Q6H PRN (Reason: Pain, Moderate(Pain Scale 4-6)) Qty: 20 0RF lidocaine [Lidocaine Pain Relief] 4 % Adhesive Patch,Medicated 1 patch transdermal DAILY Qty: 10 0RF Protocol: Apply to: Apply to: Affected area aspirin 325 mg Tablet 325 mg PO BID Qty: 60 0RF Santyl 250 unit/gram Ointment 1 appl topical DAILY Qty: 30 0RF Protocol: Apply to: Apply to: left buttock wound quetiapine 25 mg Tablet 12.5 mg PO DAILY Qty: 30 0RF Discontinued polyethylene glycol 3350 17 gram Powder In Packet 17 g PO DAILY Qty: 0 0RF amlodipine 5 mg Tablet 5 mg PO DAILY Qty: 0 0RF Protocol: Hold for SBP< HOLD for SBP < : 90 Discharge Orders: Discharge Order (Routine); Ordered 07/06/23 Ordered By: Bharath Quiñones Diet: Advance to usual diet Activity on Discharge: Use cane or walker Stand Alone Forms: Patient Portal Discharge page Activity Restrictions/Additional Instructions: Physical Therapy for left hip hemiarthroplasty: no precautions, gait training, ROM, strength Limit stair climbing No showering, no tub bath-keep dressing clean, dry and intact Continue anticoagulant x 6 weeks Follow up with [facility] [place] Orthopedics in 2 weeks Care Plan Goals: recovery from hip fracture Health Concerns: hip fracture decub ulcer advanced dementia Plan of Treatment: take Aspirin for 6 weeks ending Follow up with orthopedics Assessment: see above
[2023-07-06] MEDS: QUEtiapine Fumarate 25 MG TABLET 12.5 MG PO (10:10)
[2023-07-06] MEDS: Lidocaine 4 % Patch ADH..PATCH 1 PATCH TRANSDERMA (10:13)
[2023-07-06] MEDS: Collagenase Clostridium Hist. 30 GM TUBE 1 APPL TOPICAL (10:14)
--- NOTE | 2023-07-06 10:45 | MHC.CLN ---
F/U PATIENT SCHEDULED TODAY FOR DISCHARGE TO [facility]TC. DIET=REGULAR, CHOPPED. INTAKE CONTINUES VARIABLE, 0-50%. CONTINUE ENSURE TID. PROVIDES 1050 KCALS, 60 G PROTEIN. SKIN IMPAIRMENT NOT PRESSURE INJURY PER WOUND RN. CONTINUE CURRENT DIET AND SUPPLEMENT. ENCOURAGE PO ABLE. RD TO FOLLOW WEEKLY.
[2023-07-06 14:58] VITALS: BP 110/60; PULSE 59; RESP 16; TEMP 36.6; O2SAT 96
== END 2023-07-06 17:23 | disposition skilled nursing facility (03) | DRG 463 ==
PROVIDERS: Family Medicine; Internal Medicine; Orthopaedic Surgery; Admitting Provider Physician Assistant; Visit Provider Internal Medicine
PROC: (CPT 27125; principal; 2023-06-12 10:00)
DX: S72.002A Fracture of unspecified part of neck of left femur, initial encounter for closed fracture (principal); E43 Unspecified severe protein-calorie malnutrition; G92.8 Other toxic encephalopathy; D62 Acute posthemorrhagic anemia; Z68.1 Body mass index [BMI] 19.9 or less, adult; E87.0 Hyperosmolality and hypernatremia; Z66 Do not resuscitate; L72.3 Sebaceous cyst; L24.A0 Irritant contact dermatitis due to friction or contact with body fluids, unspecified; E21.0 Primary hyperparathyroidism; E87.6 Hypokalemia; W19.XXXA Unspecified fall, initial encounter; F03.90 Unspecified dementia, unspecified severity, without behavioral disturbance, psychotic disturbance, mood disturbance, and anxiety; I10 Essential (primary) hypertension; Z87.891 Personal history of nicotine dependence; Z79.899 Other long term (current) drug therapy
CPT/HCPCS: 36415; 72170; 73502; 74018; 80048; 80164; 82040; 82306; 82310; 83735; 83970; 84100; 84295; 84478; 85014; 85018; 85025; 85027; 86850; 86900; 86901; 88305; 88311; 92526; 92610; 97140; 97163; 97167; C1713; C1776; C9113; J0131; J0360; J0690; J1100; J2270; J2405; J2704; J3010; J3370; J3475; J3480; J3489

== ENCOUNTER → 2023-06-11 20:31 | Outpatient (BNV) | payer MEDICARE, SELFPAY | PROVIDERS: Admitting Provider Physician Assistant; Visit Provider Physician Assistant | DX: S72.002A Fracture of unspecified part of neck of left femur, initial encounter for closed fracture (principal) | CPT/HCPCS: 27236; 99024; 99222 ==

== ENCOUNTER → 2023-06-11 20:31 | Outpatient (BNV) | payer MEDICARE, SELFPAY | PROVIDERS: Admitting Provider Physician Assistant; Visit Provider Internal Medicine Nephrology | DX: E87.0 Hyperosmolality and hypernatremia (principal); E87.6 Hypokalemia; E21.0 Primary hyperparathyroidism | CPT/HCPCS: 99223 ==

== ENCOUNTER → 2023-06-11 20:31 | Outpatient (BNV) | payer MEDICARE, SELFPAY | PROVIDERS: Admitting Provider Physician Assistant; Visit Provider Social Worker | DX: F03.90 Unspecified dementia, unspecified severity, without behavioral disturbance, psychotic disturbance, mood disturbance, and anxiety (principal); E83.52 Hypercalcemia; E87.6 Hypokalemia; E87.0 Hyperosmolality and hypernatremia | CPT/HCPCS: 99232 ==

== ENCOUNTER → 2023-06-11 20:31 | Outpatient (BNV) | payer MEDICARE, SELFPAY | PROVIDERS: Admitting Provider Physician Assistant; Visit Provider Physician Assistant | DX: F03.90 Unspecified dementia, unspecified severity, without behavioral disturbance, psychotic disturbance, mood disturbance, and anxiety (principal) | CPT/HCPCS: 99222; 99231; 99232; 99233; 99239; 99497 ==

== ENCOUNTER → 2023-06-11 20:31 | Outpatient (BNV) | payer MEDICARE, SELFPAY | PROVIDERS: Admitting Provider Physician Assistant; Visit Provider Surgery | DX: R22.9 Localized swelling, mass and lump, unspecified (principal) | CPT/HCPCS: 99222; 99499 ==

== ENCOUNTER 2023-06-28 17:04 | Outpatient (REF) | payer MEDICARE, SELFPAY | END 2023-06-28 17:05 | disposition home or self-care (01) | LOC: HO.HOSX 17:04 | PROVIDERS: Visit Provider Physician Assistant | DX: Z13.89 Encounter for screening for other disorder (principal) ==

== ENCOUNTER 2023-07-26 11:15 | Outpatient (REF) | payer MEDICARE, SELFPAY | END 2023-07-26 11:16 | disposition home or self-care (01) | LOC: HO.HOSX 11:15 | PROVIDERS: Visit Provider Physician Assistant | DX: Z13.89 Encounter for screening for other disorder (principal) ==